=== PATIENT | female | born 2000 | race Caucasian/White ===

== ENCOUNTER 2019-10-09 15:09 | Outpatient (RCR) | payer OTHER, SELFPAY ==
[2019-10-03 17:03] VITALS: BP 115/63; PULSE 79
[2019-10-06 14:59] VITALS: BP 107/56; PULSE 83
--- NOTE | ~2019-10-09 | US_ITS ---
EXAMINATION: US umbilical doppler, US OB BPP wo non-stress EXAM DATE: 10/03/2019 16:53 (accession [id number]), 10/03/2019 16:54 (accession [id number]) INDICATION: IUGR. Third trimester. TECHNIQUE: Pelvic obstetrical transabdominal sonogram was performed by a technologist. There are mu ltiple grayscale and Doppler images available for interpretation. Umbilical artery Doppler readings. There are no prior studies for comparison. FINDINGS: There is a single fetus identified in vertex presentation with a heart rate of 154 beats pe r minute. The placenta is located in the posterior position. There is no sonographic evidence of ret roplacental hemorrhage identified. There is subjectively expected amount of amniotic fluid. BIOPHYSICAL PROFILE (performed by the technologist) breathing (30 sec sustained breathing in 30 minutes): 2 out of 2 movement (3 gross body movements in 30 minutes): 2 out of 2 tone (one episode of tjavpzq-gprvbciop-omqroiz limb movement): 2 out of 2 Amniotic fluid pocket (2 cm): 2 out of 2 Total score: 8 out of 8 UMBILICAL ARTERY DOPPLER Systolic/diastolic ratios obtained as follows: Near baby: 3.3 Mid aspect: 2.0 Near Placenta: 3.2 (The 5th -- 95th percentile range is 1.9-3.3). IMPRESSION: 1. Single fetus with heart rate of 154 bpm. 2. Normal biophysical profile score of 8 out of 8. 3. Normal umbilical artery Doppler ratios. Reviewed, dictated and finalized at location G. IMPRESSION: 1. Single fetus with heart rate of 154 bpm. 2. Normal biophysical profile score of 8 out of 8. 3. Normal umbilical artery Doppler ratios.
[2019-10-09 15:57] VITALS: BP 117/68; PULSE 73
== END 2019-10-12 09:58 | disposition home or self-care (01) ==
LOC: ANHOBOP 15:09
PROVIDERS: PCP Nurse Practitioner Adult Health; Visit Provider Obstetrics & Gynecology
DX: O36.5930 Maternal care for other known or suspected poor fetal growth, third trimester, not applicable or unspecified (principal); Z3A.36 36 weeks gestation of pregnancy; Z3A.37 37 weeks gestation of pregnancy
CPT/HCPCS: 59025; 76819; 76820

== ENCOUNTER 2019-10-10 18:43 | Inpatient (IN) | payer OTHER, SELFPAY ==
[2019-10-10 19:06] VITALS: BMI 35.7
--- NOTE | 2019-10-10 19:22 | LDADM ---
This patient, Liza Worthington, was admitted to Labor/Delivery/Recovery 109 on 10/10/19 at 18:43. Plans for labor, pain management and were discussed with patient. Patient/family oriented to hospital policies and general routines including ID bracelet, bed and alarms, visiting hours, pain management, procedures, bathroom and other care routines, personal items, smoking policy, room service/diet and guest tray routines, infant security routines, and visiting hours. Patient/Family are encouraged to report perceived risks to care and to ask questions if they do not understand what they are told or what they should do. See OBIX for further documentation.
[2019-10-10 19:34] LABS: Basophils Percent Auto 0.3 % (0.2-1.2); Eosinophils Absolute Auto 0.1 K/mm3 (0-0.3); Eosinophils Percent Auto 1.2 % (0-4.4); Hematocrit 34.8 % (37.0-47.0); Hemoglobin 11.6 g/dL (12.0-15.0); Immature Granulocyte Percent A 0.9 % (0-0.5); Lymphocytes Absolute Auto 1.93 K/mm3 (0.9-3.2); Lymphocytes Percent Auto 16.4 % (18.3-44.2); Mean Corpuscular HGB Conc 33.3 g/dl (32-36); Mean Corpuscular Hemoglobin 29.4 pg (26-34); Mean Corpuscular Volume 88.1 fl (80-100); Monocytes Percent Auto 8.3 % (2.6-8.5); Neutrophils Absolute Auto 8.6 K/mm3 (1.3-6.7); Neutrophils Percent Auto 72.9 % (45.5-73.1); Platelet Count Result 266 k/mm3 (150-375); Red Blood Count 3.95 M/mm3 (4.2-5.4); Red Cell Distribution Width 12.9 % (11.5-14.5); White Blood Count 11.8 K/mm3 (4.5-10.0)
[2019-10-10] MEDS: DINOPROSTONE 10 MG VAG INSERT VAGINAL (20:05)
[2019-10-10 20:07] VITALS: BP 125/57; PULSE 84
[2019-10-10] MEDS: AMPICILLIN 2 GM/NS 100 ML 2 GM/100 ML BAG IVPB (20:08)
[2019-10-11] VITALS (129 sets, daily range): BP systolic 54–143; BP diastolic 25–110; PULSE 42–189; RESP 11–18; TEMP 35.9–36.8; O2SAT 91–100
[2019-10-11] MEDS: AMPICILLIN 1 GM/NS 50 ML 1 GM/50 ML BAG IVPB ×4 (00:01→13:55)
[2019-10-11] MEDS: LACTATED RINGERS 1,000 ML 125 ML IV CONT ×3 (04:13→10:29)
--- NOTE | 2019-10-11 07:19 | PM.IMHP ---
H&P: HPI History of Present Illness Chief complaint: Induction Narrative: Liza Worthington is a 19 year old female G1 at 38 weeks gestation. care has been complicated by intrauterine growth restriction with weight less than 10th percentile on her last growth ultrasound 2 weeks ago. testing consisting of NST BPP and Doppler studies have all been reassuring. Presents today for induction of labor. Review of Systems Review of Systems: All systems reviewed & are unremarkable except as noted in HPI and below PMFSH Family History Family History (Updated 09/26/19 @ 12:32 by Travis Bennett RN) Other Unknown family medical history Social History Social History Smoking status: Former smoker Substance use: never Spiritual care concerns: No Meds Home Medications and Allergies Home Medications Medication Instructions Recorded Confirmed Type PNV cmb#95-ferrous fumarate-FA 1 tablet PO DAILY 09/26/19 10/03/19 History [] Allergies Allergy/AdvReac Type Severity Reaction Status Date / Time No Known Allergies Allergy Verified 09/26/19 12:30 Vital Signs Vital Signs - 24 hr 10/10/19 20:07 10/11/19 00:00 10/11/19 00:01 Temperature 36.5 C Pulse Rate 84 76 Blood Pressure 125/57 L 127/54 L 10/11/19 04:18 10/11/19 04:19 10/11/19 04:31 Temperature 36.7 C Pulse Rate 61 68 Blood Pressure 131/53 L 109/55 L 10/11/19 05:30 10/11/19 06:01 10/11/19 06:30 Temperature Pulse Rate 59 L 68 62 Blood Pressure 126/61 115/66 123/67 Exam Const: General: no acute distress Resp: Auscultation: clear to auscultation bilaterally Cardio: Rate: regular rate Rhythm: regular rhythm GI: Other: heart tones 130-140 fundal height 35cm. H&P: Results Labs Labs: Short CBC 10/10/19 Range/Units 19:24 WBC 11.8 H (4.5-10.0) K/mm3 Hgb 11.6 L (12.0-15.0) g/dL Hct 34.8 L (37.0-47.0) % Plt Count 266 (150-375) k/mm3 Assessment and Plan Assessment and plan (1) IUGR (intrauterine growth restriction): Status: Acute Assessment and Plan: will proceed with amniotomy and Pitocin induction expect vaginal delivery. Also discussed the patient that due to growth restriction and likely poor placental perfusion possibility of intolerance of labor has been reviewed. Again of expressed with her that our goal is to deliver vaginally but with any signs of distress remote from delivery likely need to proceed with delivery. Patient understands and will proceed accordingly.
[2019-10-11 07:30] LABS: Rapid Plasma Reagin Non-Reactive (NonReactive)
--- NOTE | 2019-10-11 09:10 | WPDANESEPPF ---
Anes - Initial Pre Proc Eval Date/Time: 10/11/19 09:10 Surgeon: Jay Larry MD Pre Op Diagnosis: Induction Patient Data Age: 19 Gender: F Height: 5 ft 2 in Weight: 88.7 kg Last Vital Signs Temp 36.7 C 10/11/19 07:00 Pulse 68 10/11/19 09:09 BP 94/47 L 10/11/19 09:09 Pulse Ox 100 10/11/19 09:08 Allergies Allergy/AdvReac Type Severity Reaction Status Date / Time No Known Allergies Allergy Verified 09/26/19 12:30 Home Medications Medication Instructions Recorded Confirmed Type PNV cmb#95-ferrous fumarate-FA 1 tablet PO DAILY 09/26/19 10/03/19 History [] Laboratory Tests 10/10/19 10/10/19 10/10/19 19:24 19:24 19:24 WBC 11.8 K/mm3 H K/mm3 (4.5-10.0) RBC 3.95 M/mm3 L M/mm3 (4.2-5.4) Hgb 11.6 g/dL L g/dL (12.0-15.0) Hct 34.8 % L % (37.0-47.0) MCV 88.1 fl fl (80-100) MCH 29.4 pg pg (26-34) MCHC 33.3 g/dl g/dl (32-36) RDW 12.9 % % (11.5-14.5) Plt Count 266 k/mm3 k/mm3 (150-375) MPV 12.0 fl H fl (7.4-10.4) Immature Gran % (Auto) 0.9 % H % (0-0.5) Neut % (Auto) 72.9 % % (45.5-73.1) Lymph % (Auto) 16.4 % L % (18.3-44.2) [place] % (Auto) 8.3 % % (2.6-8.5) Eos % (Auto) 1.2 % % (0-4.4) Baso % (Auto) 0.3 % % (0.2-1.2) Lymph # (Auto) 1.93 K/mm3 K/mm3 (0.9-3.2) [place] # (Auto) 1.0 K/mm3 H K/mm3 (0.1-0.6) Eos # (Auto) 0.1 K/mm3 K/mm3 (0-0.3) Baso # (Auto) 0.0 K/mm3 K/mm3 (0.0-0.1) Abs Immat Gran (auto) 0.10 K/mm3 H K/mm3 (0.00-0.031) Absolute Neuts (auto) 8.6 K/mm3 H K/mm3 (1.3-6.7) Absolute Nucleated RBC 0.0 K/mm3 K/mm3 (0.0-0.012) Nucleated RBC % 0.0 % % (0.0-0.2) RPR Non-reactive (NonReactive) Blood Type B Positive Antibody Screen Negative Patient hx anesthesia problems: none Family hx anesthesia problems: none [facility] Family History Family History Other Unknown family medical history Social History Social History Smoking status: Former smoker Substance use: never Spiritual care concerns: No Anes - Eval Final PreProcedure Day of Procedure 10/11/19 09:10 Patient weight: obese Heart: regular rate and rhythm Lungs: clear to auscultation Neurological: alert and oriented ASA classification: II Emergent: no Anesthetic plan: proceed Anesthesia type and monitoring: regional epidural and standard monitoring Informed Consent: The patient's anesthetic plan and its attendant risks and benefits were discussed with the patient/family/POA. Questions were solicited and answers provided to the satisfaction of the patient/family/POA.
--- NOTE | 2019-10-11 15:23 | P.PCNOB_ITS ---
OB - Delivery Note Procedure Delivery date: 10/11/19 Procedure: Procedures Operation Date: 10/11/19 14:30 <No data on this case meets the specified criteria> Intrapartal events: Intolerance Route of delivery: Indication for instrumentation: nonreassuring FHR tracing Specimen: Yes Estimated blood loss (mL): 300 Anesthesia type: Epidural Disposition: PACU Narrative: Patient prepped draped usual sterile manner for this procedure. Pfannenstiel incision was made carried down through the subcutaneous tissue to the fascia which was then extended bilaterally the length of the skin incision. Fascia was then superiorly and inferiorly from the rectus muscles peritoneum was entered bladder flap was developed. Uterine incision was made with clear fluid noted. Vertex was delivered section naso and oropharynx and the rest of baby was delivered without difficulty. Placenta removed manually uterus exteriorized and cleared of membranes and clots. Uterine incision approximated using 0 Monocryl in a running interlocking manner with good approximation and hemostasis noted. Uterus was returned to the abdomen gutters were cleared of serosanguineous fluid and clots and all subfascial tissue was noted to be hemostatic. Fascia was approximated using 0 Vicryl suture running manner with good approximation noted. Subcutaneous tissue was approximated 0 plain and mary alice then used to approximate skin edges. Patient tolerated procedure well immediate postop condition mother baby were both excellent. [place] Baby Weeks of gestation at delivery: 38 gender: Female Weight (pounds): 6 Weight (ounces): 1 score one minute: 8 score five minutes: 9
[2019-10-11] MEDS: ePHEDrine sulfate INJ 50 MG/ML AMPUL IV PUSH ×2 (16:18→16:23)
[2019-10-11] MEDS: OXYTOCIN 30 UNITS/NS 500 ML 30 UNITS/500 ML BAG 125 UNITS IV CONT (16:30)
[2019-10-11] MEDS: KETOROLAC 30 MG/ML VIAL (*BKC) IV PUSH (18:01)
--- NOTE | 2019-10-11 18:25 | OBPPTRN ---
Patient transferred to post room #291 via stretcher. Support person present. Oriented to unit, room, information board, rooming in, admission packet and security measures. Patient verbalizes understanding. Infant with patient.
[2019-10-11] MEDS: DEXTROSE 5%/0.45% SOD CHL 1,000 ML 125 ML IV CONT (20:15)
[2019-10-11] MEDS: KCL 20 MEQ/D5/0.45% SOD CHL 1,000 ML 125 ML IV CONT (20:15)
[2019-10-12 04:00] VITALS: BP 116/48; PULSE 62; RESP 16; TEMP 36.8; O2SAT 99
[2019-10-12] MEDS: SIMETHICONE 80 MG TAB.CHEW PO ×4 (04:30→23:21)
[2019-10-12 05:31] LABS: Basophils Percent Auto 0.2 % (0.2-1.2); Eosinophils Absolute Auto 0.1 K/mm3 (0-0.3); Eosinophils Percent Auto 0.5 % (0-4.4); Hematocrit 31.7 % (37.0-47.0); Hemoglobin 10.6 g/dL (12.0-15.0); Immature Granulocyte Absolute 0.12 K/mm3 (0.00-0.031); Immature Granulocyte Percent A 0.8 % (0-0.5); Lymphocytes Absolute Auto 1.78 K/mm3 (0.9-3.2); Lymphocytes Percent Auto 11.8 % (18.3-44.2); Mean Corpuscular HGB Conc 33.4 g/dl (32-36); Mean Corpuscular Hemoglobin 29.5 pg (26-34); Mean Corpuscular Volume 88.3 fl (80-100); Mean Platelet Volume 12.4 fl (7.4-10.4); Monocytes Absolute Auto 1.6 K/mm3 (0.1-0.6); Monocytes Percent Auto 10.2 % (2.6-8.5); Neutrophils Absolute Auto 11.6 K/mm3 (1.3-6.7); Neutrophils Percent Auto 76.5 % (45.5-73.1); Platelet Count Result 201 k/mm3 (150-375); Red Blood Count 3.59 M/mm3 (4.2-5.4); Red Cell Distribution Width 12.9 % (11.5-14.5); White Blood Count 15.1 K/mm3 (4.5-10.0)
[2019-10-12] MEDS: DOCUSATE SODIUM 100 MG CAPSULE PO ×2 (07:10→15:31)
[2019-10-12] MEDS: KETOROLAC 30 MG/ML VIAL (*BKC) IV PUSH (07:11)
[2019-10-12] MEDS: MULTIVIT/MIN/PREN/FOL AC/IRON TABLET 1 TAB PO (07:12)
[2019-10-12 08:00] VITALS: BP 127/75; PULSE 76; RESP 18; TEMP 36.6; O2SAT 100
--- NOTE | 2019-10-12 08:45 | PC.NURSE ---
Consulted with patient, mother reports infant has been sleepy and difficult to wake to feed. Mother chooses to supplement after each until her milk is in. Reviewed feeding cues, frequencies, duration of feedings, feeding elimination flow sheet, and signs of adequate intake. Demonstrated stimulation techniques to wake for feeding. Assisted with infant to breast. Several attempts made. Mother states she wishes to bottle feed at this time and will attempt to breast next feeding. Instructed mother to call out for RN assistance if she is unable to latch infant for feeding or she has discomfort with nursing. Instructed feeding should be initiated three hours from start of last feeding or if feeding cues are noted before. Mother voiced understanding of information shared.
--- NOTE | 2019-10-12 09:38 | PM.OBDSVD ---
OB - DS: Summary OB Procedures : None OB Procedures Intrapartum: OB Procedures: : None Peripartum Data Procedures: Procedures Operation Date: 10/11/19 14:30 Actual Procedures Side Surgeon p Section Not Applicable Jay Larry MD Time Spent with Patient Time attestation: Total time spent providing and/or coordinating discharge services: DS: Data Data Completed and Pending Pending studies at discharge: Pending at discharge 10/11/19 15:03 Surgical [PTH] Routine Labs on day of discharge: Labs from last 24 hours 10/12/19 04:27 WBC 15.1 H RBC 3.59 L Hgb 10.6 L Hct 31.7 L MCV 88.3 MCH 29.5 MCHC 33.4 RDW 12.9 Plt Count 201 MPV 12.4 H Immature Gran % (Auto) 0.8 H Neut % (Auto) 76.5 H Lymph % (Auto) 11.8 L [place] % (Auto) 10.2 H Eos % (Auto) 0.5 Baso % (Auto) 0.2 Lymph # (Auto) 1.78 [place] # (Auto) 1.6 H Eos # (Auto) 0.1 Baso # (Auto) 0.0 Abs Immat Gran (auto) 0.12 H Absolute Neuts (auto) 11.6 H Absolute Nucleated RBC 0.0 Nucleated RBC % 0.0 Discharge Plan Discharge Discharging Clinician: Jay Larry Patient Disposition: Home, Self-Care Activity: as tolerated Diet: as tolerated Wound Care Instructions: incision open to air Discharge Instructions: office wednesday for staple removal Patient Instructions: Antibiotic Form Stand Alone Forms: General Discharge Information Follow-up/Referrals: Jay Larry MD [Physician] - 3 Weeks Discharge Medications: New hydrocodone-acetaminophen 5-325 mg Tablet 1 tab PO Q3H PRN (Reason: Moderate Pain (4-6)) Qty: 20 RF: 0 ibuprofen 600 mg Tablet 600 mg PO Q6H PRN (Reason: Cramping) Qty: 30 RF: 0 Continued PNV cmb#95-ferrous fumarate-FA [] 28 mg iron- 800 mcg Tablet 1 tablet PO DAILY RF: 0 Date of admission: 10/10/19 18:43 Primary Care Provider: Patricio*Natalya Admitting Provider: Jay Larry Attending physician on admission: Jay Larry
--- NOTE | 2019-10-12 10:17 | WPDANLDNPN2 ---
Anes-Prog Note L&D-Neuraxial Date/Time: 10/12/19 10:17 Neuraxial medications: intrathecal PF morphine Opiod-related complaints: none Patient feedback: Patient satisfied with post-operative pain management.
--- NOTE | 2019-10-12 10:17 | WPDANLDPN2 ---
Anes-Prog Note L&D Date/Time: 10/12/19 10:17 Comfortable throughout: section Neuraxial method: spinal Epidural/Spinal procedure site: clean & non-tender Neuro status: Neuro function grossly intact. Cardiovascular status: normal Respiratory status: normal Airway patency: baseline Mental status: baseline Post-Op hydration status: normal Vital Signs: Last Vital Signs Temp 36.6 C 10/12/19 08:00 Pulse 76 10/12/19 08:00 Resp 18 10/12/19 08:00 BP 127/75 10/12/19 08:00 Pulse Ox 100 10/12/19 08:00 I/O: Intake & Output 10/11/19 10/12/19 10/12/19 23:59 07:59 15:59 Intake Total 300 400 800 Output Total 810 1100 400 Balance -510 -700 400 Post-procedural complaints: none Patient feedback: Patient satisfied with anesthetic care.
[2019-10-12 12:30] VITALS: BP 100/50; PULSE 70; RESP 18; TEMP 36.7
--- NOTE | 2019-10-12 12:45 | PC.NURSE ---
Mother called out for assist with . Demonstrated stimulation techniques to wake for feeding. Assisted with to breast. Reviewed positioning/alignment in football, holding breast in C hold and guided asymmetrical latch on. Infant was able to latch correctly. nursed eagerly, with steady draws and occasional swallowing noted. Reviewed signs of a correct latch, effective nursing and suck swallow ratio. was able to maintain latch without discomfort to mother. Nipple care reviewed. Suggested mother stimulate during feeding to keep infant awake and nursing effectively for increased intake and to assist maintaining deep latch. Instructed mother to call out for RN assistance if she is unable to latch infant for feeding or she has discomfort with nursing. Instructed feeding should be initiated three hours from start of last feeding or if feeding cues are noted before. Mother voiced understanding of information shared.
[2019-10-12] MEDS: IBUPROFEN 600 MG TABLET PO ×2 (15:31→23:22)
[2019-10-12 20:30] VITALS: BP 96/46; PULSE 61; RESP 16; TEMP 36.6; O2SAT 100
[2019-10-13] MEDS: SIMETHICONE 80 MG TAB.CHEW PO (04:29)
[2019-10-13] MEDS: IBUPROFEN 600 MG TABLET PO (08:25)
[2019-10-13] MEDS: MULTIVIT/MIN/PREN/FOL AC/IRON TABLET 1 TAB PO (08:25)
[2019-10-13] MEDS: DOCUSATE SODIUM 100 MG CAPSULE PO (08:25)
[2019-10-13 09:00] VITALS: BP 122/69; PULSE 70; RESP 18; TEMP 37.5; O2SAT 99
[2019-10-16 11:04] VITALS: BP 97/77; PULSE 67; RESP 16; TEMP 37.1; O2SAT 99
--- NOTE | 2019-10-17 09:02 | PM.OBDSVD ---
DS: Diagnosis Admitting Diagnosis Admitting Diagnosis: Encounter for supervision of normal , unspecified, third trimester OB - DS: Summary OB Procedures : None OB Procedures Intrapartum: Spontaneous Vag Delivery OB Procedures: : None Peripartum Data Procedures: Procedures Operation Date: 10/11/19 14:30 Actual Procedures Side Surgeon p Section Not Applicable Jay Larry MD Time Spent with Patient Time attestation: Total time spent providing and/or coordinating discharge services: DS: Data Data Completed and Pending Completed studies during hospitalization: Pending at discharge 10/11/19 15:03 Surgical [PTH] Routine Discharge Plan Discharge Consulting providers: Jose Gunn Discharging Clinician: Jay Larry Patient Disposition: Home, Self-Care Activity: as tolerated Diet: as tolerated Wound Care Instructions: incision open to air Discharge Instructions: Education: Mom and Baby Guide Given to: Mother Follow-Up: Call your delivering provider's office for an appointment to be seen in: 3 weeks office wednesday for staple removal Mom and baby should come to the [facility] for the follow-up appointment. Appointment Date/Time: October 16, 2019 at 11:00 am What to expect at your follow-up visit: Physical Assessment Call [phone] if you are unable to keep your appointment time. BREAST CARE: 1. Wear a snug supportive bra. 2. For engorgement discomfort: Breast Feeding: A. Apply warm moist washcloths B. Express milk as needed to relieve engorgement C. Wear loose clothing Bottle Feeding: A. May apply ice packs 3. For sore nipples: A. Identify correct latch-on B. Apply warm moist washcloths before and after nursing C. Air dry nipples after nursing D. May apply Lansinoh cream to nipples ABDOMINAL INCISION: (if applicable) 1. Allow incision to air dry 2. Do NOT use lotions for powders on your incision 3. When showering, allow soap and water to run over the incision, but do not wash incision EPISIOTOMY/PERINEAL CARE: 1. Change your pad frequently throughout the day 2. You may take sitz baths several times a day (fill your bathtub with warm water and soak for 20 minutes.) Do NOT bathe in the water 3. No tub baths until seen by your physician - You may shower ACTIVITY: 1. Rest as much as possible. 2. Do not exercise or lift anything heavier than your baby (such as laundry or other children.) 3. Avoid stairs or driving as much as possible. 4. Do not put anything into the vagina. No douching, tampons, or sexual activity until seen by physician. NOTIFY PHYSICIAN IF YOU HAVE ANY QUESTIONS OR IF ANY OF THE FOLLOWING SYMPTOMS OCCUR: 1. If your incision becomes red, swollen, or more painful than what you have experienced in the hospital. 2. If your vaginal bleeding becomes foul smelling. 3. If your vaginal bleeding becomes more heavy than a period or if your bleeding changes from pink to bright red. However, you may pass an occasional walnut-sized clot once or twice for the first week . 4. If you experience a sharp, shooting pain in you calves. 5. If you discover a hard, reddened area on your breast or if you experience flu-like symptoms. DIET: 1. Eat regular, well-balanced meals. 2. Drink plenty of fluids daily. If , drink to thirst. Stand Alone Forms: General Discharge Information Follow-up/Referrals: Jay Larry MD [Physician] - 3 Weeks Discharge Medications: New hydrocodone-acetaminophen 5-325 mg Tablet 1 tab PO Q3H PRN (Reason: Moderate Pain (4-6)) Qty: 20 RF: 0 ibuprofen 600 mg Tablet 600 mg PO Q6H PRN (Reason: Cramping) Qty: 30 RF: 0 Continued PNV cmb#95-ferrous fumarate-FA [] 28 mg iron- 800 mcg Tablet 1 tablet PO DAILY RF: 0 Date of admission: 10/10/19 18:43
== END 2019-10-13 13:53 | disposition home or self-care (01) | DRG 540 ==
LOC: ANHLDR 18:52 → ANHOB2 10-11 18:43
PROVIDERS: Admitting Provider Obstetrics & Gynecology; PCP Nurse Practitioner Adult Health; Visit Provider Obstetrics & Gynecology
PROC: 10D00Z1 Extraction of Products of Conception, Low, Open Approach (ICD-10-PCS; CPT 59514; principal; 2019-10-11 14:30)
DX: O36.5930 Maternal care for other known or suspected poor fetal growth, third trimester, not applicable or unspecified (principal); Z37.0 Single live birth; Z3A.37 37 weeks gestation of pregnancy; O99.824 Streptococcus B carrier state complicating childbirth; O36.8330 Maternal care for abnormalities of the fetal heart rate or rhythm, third trimester, not applicable or unspecified; O99.214 Obesity complicating childbirth; E66.9 Obesity, unspecified
CPT/HCPCS: 36415; 85025; 86592; 86850; 86900; 86901; 88307; A9270; J0131; J0290; J1885; J2274; J2590; J2795; J3480; J7120

== ENCOUNTER 2022-05-20 19:31 | Emergency (ER) | payer OTHER, SELFPAY ==
[2022-05-20 19:37] VITALS: BP 131/81; PULSE 76; RESP 16; TEMP 36.5; O2SAT 100
[2022-05-20 19:54] LABS: Basophils Percent Auto 0.3 % (0.2-1.2); Eosinophils Percent Auto 0.2 % (0-4.4); Hematocrit 39.6 % (37.0-47.0); Hemoglobin 13.7 g/dL (12.0-15.0); Immature Granulocyte Absolute 0.07 K/mm3 (0.00-0.031); Immature Granulocyte Percent A 0.5 % (0-0.5); Lymphocytes Absolute Auto 1.56 K/mm3 (0.9-3.2); Lymphocytes Percent Auto 12.2 % (18.3-44.2); Mean Corpuscular HGB Conc 34.6 g/dl (32-36); Mean Corpuscular Hemoglobin 29.5 pg (26-34); Mean Corpuscular Volume 85.2 fl (80-100); Monocytes Absolute Auto 0.5 K/mm3 (0.1-0.6); Monocytes Percent Auto 3.9 % (2.6-8.5); Neutrophils Absolute Auto 10.6 K/mm3 (1.3-6.7); Neutrophils Percent Auto 82.9 % (45.5-73.1); Platelet Count Result 294 k/mm3 (150-375); Red Blood Count 4.65 M/mm3 (4.2-5.4); Red Cell Distribution Width 12.9 % (11.5-14.5); White Blood Count 12.8 K/mm3 (4.5-10.0)
[2022-05-20 20:07] LABS: Alanine Aminotransferase 17 U/L (6-35); Alkaline Phosphatase 73 U/L (38-126); Anion Gap 10 mmol/L (8-16); Aspartate Amino Transferase 23 U/L (14-36); Bilirubin,Total 0.8 mg/dL (0.2-1.3); Blood Urea Nitrogen 7 mg/dL (7-17); Calcium 9.5 mg/dL (8.4-10.2); Carbon Dioxide 21 mmol/L (22-30); Chloride 106 mmol/L (98-107); Estimated CRCL calculation 128 ml/min; Estimated Glomerular Filt Rate > 60; Glucose 110 mg/dL (65-110); Lipase 94 U/L (23-300); Potassium 3.9 mmol/L (3.4-5.0); Sodium 137 mmol/L (137-145)
--- NOTE | 2022-05-20 22:28 | ED.GENADULT ---
HPI - General Adult General Chief complaint: Nausea/Vomiting/Diarrhea Stated complaint: vomiting Time Seen by Provider: 05/20/22 21:44 History of Present Illness HPI narrative: this is a 22-year-old female presenting to ED with nausea vomiting and diarrhea. Patient has chronic diarrhea since cholecystectomy 10 years of age. However last 4 days she has also developed nausea and vomiting. She has been unable to tolerate liquids or solids. Patient also has a burning pain in the epigastric area that is nonradiating, 5 out 10 intensity constant. She has had pain like this before in past when she was diagnosed with gastritis. There were no exacerbating or alleviating factors. Patient denies fever, chills, chest pain, difficulty breathing or urinary symptoms. Related Data Allergies Allergy/AdvReac Type Severity Reaction Status Date / Time No Known Allergies Allergy Verified 05/11/22 08:31 Review of Systems Review of Systems: CONSTITUTIONAL: Denies night sweats. EYES: No eye pain ENT: Denies rhinorrhea CARDIOVASCULAR: Denies palpitations RESPIRATORY: Denies hemoptysis GASTROINTESTINAL: Denies hematemesis GENITOURINARY: Denies hematuria. SKIN: Denies rash MUSCULOSKELETAL: Denies myalgia. NEUROLOGIC: Denies weakness. PSYCHIATRIC: Denies delusions PMFSH Past Medical History Medical History (Updated 05/21/22 @ 00:37 by Clarke Parra MD) Abnormal Pap smear of cervix 09-04-2020 LGSIL + HPV colpo done 10/09/2020 Benign rpt pap in [facility] year [facility] Encounter for screening examination for sexually transmitted disease Suppression of menstruation Surgical History Surgical History History of 10/11/19 primary c/s-- distress History of cholecystectomy 2017 History of colposcopy (10/09/20) benign History of ovarian cystectomy 2017 History of tonsillectomy as a child Family History Family History Sibling Cerebral palsy sister Mother Systemic lupus erythematosus Social History Social History Smoking status: Former smoker Alcohol intake: never Substance use: never Substance use type: does not use Additional living arrangements comments: single Additional occupation/education comments: [employer] Gender identity (if verbalized by the patient): Female Sexual Orientation (if Verbalized by the Patient): Straight or Heterosexual Spiritual care concerns: No Exam Narrative: APPEARANCE: patient is lying in the bed with a blanket pulled up over her head and wearing snuggie. She is pleasant polite during the interview but appears uncomfortable. Head: atraumatic. EYES: EOMI, NOSE: Atraumatic NECK: Trachea midline RESPIRATORY: No increased rate of breathing CARDIOVASCULAR: RRR, ABDOMINAL: Mild tenderness palpation in the epigastric area but no distention, guarding or rebound. MUSCULOSKELETAl: No obvious deformities NEURO: Alert. Moving 4/4 extremities SKIN:: Warm, dry. Normal color PSYCHIATRIC: Normal affect Course Vital Signs Vital signs: Vital Signs Temperature 97.7 F 05/20/22 19:37 Pulse Rate 76 05/20/22 19:37 Respiratory Rate 16 05/20/22 19:37 Blood Pressure 131/81 05/20/22 19:37 Pulse Oximetry 100 05/20/22 19:37 Oxygen Delivery Room Air 05/20/22 19:37 Temperature 97.7 F 05/20/22 19:37 Pulse Rate 88 05/21/22 01:08 Respiratory Rate 18 05/21/22 01:08 Blood Pressure 118/77 05/21/22 01:08 Pulse Oximetry 99 05/21/22 01:08 Oxygen Delivery Room Air 05/20/22 19:37 Medical Decision Making MDM Narrative Medical decision making narrative: Is a 22-year-old female presenting with nausea and vomiting diarrhea x4 days. Lab works been ordered. She has been given symptomatic treatment. Abdomen is benign. VSS. Workup was significant for a previously unk
[2022-05-20] MEDS: ONDANSETRON INJ 4 MG/2 ML VIAL IV PUSH (22:55)
[2022-05-20] MEDS: SODIUM CHLORIDE 0.9% IV 2,000 ML 999 ML IV CONT (22:55)
[2022-05-20] MEDS: diphenhydrAMINE HCl INJ 50 MG/ML VIAL 25 MG IV PUSH (22:56)
[2022-05-20] MEDS: FAMOTIDINE 20 MG/2 ML VIAL IV PUSH (22:56)
[2022-05-20] MEDS: MAG HYDROX/AL HYDROX/SIMETH 30 ML UDC PO (22:56)
[2022-05-20 23:10] LABS: Appearance Urine Slightly Cloudy (Clear); Bilirubin Urine Negative (Negative); Blood Urine Negative (Negative); Color Urine Yellow (Yellow); Glucose Urine UA Negative (Negative); Ketones Urine 4+ mg/dL (Negative); Leukocyte Esterase Ur Negative LEU/UL (Negative); Nitrate Urine Negative (Negative); Protein Urine 2+ mg/dL (Negative); Specific Grav Ur >= 1.030 (1.001-1.035); Urobilinogen Urine 0.2 mg/dL (<2.0); pH Urine 5.5 (5.0-9.0)
[2022-05-20 23:16] LABS: Bacteria Urine Trace /hpf; Calcium Oxalate Crystals Urine Present /hpf; Mucus Urine Moderate /lpf; Squamous Epithelial Cell Urine Few /hpf (Few); WBC Urine 0-3 /hpf
[2022-05-20 23:17] LABS: Add Urine Microscopic? YES
[2022-05-20] MEDS: PROCHLORPERAZINE EDISYLATE 10 MG/2 ML VIAL IV PUSH (23:24)
[2022-05-20 23:36] LABS: Influenza A QL RT-PCR Negative (Negative); Influenza B QL RT-PCR Negative (Negative); SARS-CoV-2 RNA PCR Negative
--- NOTE | 2022-05-21 00:34 | ED.GENADULT ---
HPI - General Adult General Chief complaint: Nausea/Vomiting/Diarrhea Stated complaint: vomiting Time Seen by Provider: 05/20/22 21:44 Related Data Allergies Allergy/AdvReac Type Severity Reaction Status Date / Time No Known Allergies Allergy Verified 05/11/22 08:31 [facility] Past Medical History Medical History (Updated 05/21/22 @ 00:37 by Clarke Parra MD) Abnormal Pap smear of cervix 09-04-2020 LGSIL + HPV colpo done 10/09/2020 Benign rpt pap in 1 year per [facility] Encounter for screening examination for sexually transmitted disease Suppression of menstruation Surgical History Surgical History History of 10/11/19 primary c/s-- distress History of cholecystectomy 2017 History of colposcopy (10/09/20) benign History of ovarian cystectomy 2017 History of tonsillectomy as a child Family History Family History Sibling Cerebral palsy sister Mother Systemic lupus erythematosus Social History Social History Smoking status: Former smoker Alcohol intake: never Substance use: never Substance use type: does not use Additional living arrangements comments: single Additional occupation/education comments: [employer] Gender identity (if verbalized by the patient): Female Sexual Orientation (if Verbalized by the Patient): Straight or Heterosexual Spiritual care concerns: No Course Vital Signs Vital signs: Vital Signs Temperature 97.7 F 05/20/22 19:37 Pulse Rate 76 05/20/22 19:37 Respiratory Rate 16 05/20/22 19:37 Blood Pressure 131/81 05/20/22 19:37 Pulse Oximetry 100 05/20/22 19:37 Oxygen Delivery Room Air 05/20/22 19:37 Temperature 97.7 F 05/20/22 19:37 Pulse Rate 76 05/20/22 19:37 Respiratory Rate 16 05/20/22 19:37 Blood Pressure 131/81 05/20/22 19:37 Pulse Oximetry 100 05/20/22 19:37 Oxygen Delivery Room Air 05/20/22 19:37 Medical Decision Making [facility] Narrative Medical decision making narrative: This is a 22-year-old female presenting with nausea and vomiting. Patient has chronic history of diarrhea and vomiting issues including gastritis. She will be treated symptomatically. Lab work UA, Upreg have been ordred. Patient's test came back positive. She is on a patch control. Patient is not having any vaginal bleeding or abdominal discomfort and no indication for transvaginal ultrasound this time. Lab work was unremarkable. Urine was positive for ketones but no evidence of infection. Upon re-evaluation patient is feeling much better. She will be discharged with doxylamine and vitamin B6 for nausea and vomiting. She is instructed to follow-up with her OBGYN for further management of her . She is instructed return if she develops vaginal bleeding / abdominal pain or cannot tolerate p.o.. Vital Signs Vital Signs: Vital Signs Temperature 97.7 F 05/20/22 19:37 Pulse Rate 76 05/20/22 19:37 Respiratory Rate 16 05/20/22 19:37 Blood Pressure 131/81 05/20/22 19:37 Pulse Oximetry 100 05/20/22 19:37 Oxygen Delivery Room Air 05/20/22 19:37 Temperature 97.7 F 05/20/22 19:37 Pulse Rate 76 05/20/22 19:37 Respiratory Rate 16 05/20/22 19:37 Blood Pressure 131/81 05/20/22 19:37 Pulse Oximetry 100 05/20/22 19:37 Oxygen Delivery Room Air 05/20/22 19:37 Lab Data 05/20/22 19:46 05/20/22 19:46 Labs: Lab Results 05/20/22 05/20/22 05/20/22 Range/Units 19:46 19:46 22:35 WBC 12.8 H (4.5-10.0) K/mm3 RBC 4.65 (4.2-5.4) M/mm3 Hgb 13.7 D (12.0-15.0) g/dL Hct 39.6 (37.0-47.0) % MCV 85.2 (80-100) fl MCH 29.5 (26-34) pg MCHC 34.6 (32-36) g/dl RDW 12.9 (11.5-14.5) % Plt Count 294 (150-375) k/mm3 MPV 11.0 H (7.4-1
[2022-05-21 01:08] VITALS: BP 118/77; PULSE 88; RESP 18; O2SAT 99
== END 2022-05-21 01:10 | disposition home or self-care (01) ==
PROVIDERS: Emergency Provider Emergency Medicine; PCP Nurse Practitioner Adult Health
DX: O21.9 Vomiting of pregnancy, unspecified (principal); Z20.822 Contact with and (suspected) exposure to COVID-19; Z3A.00 Weeks of gestation of pregnancy not specified; Z87.891 Personal history of nicotine dependence
CPT/HCPCS: 36415; 80053; 81001; 81025; 83690; 85025; 87636; 96361; 96374; 96375; 99284; A9270; J0780; J1200; J2405; J7030

== ENCOUNTER 2022-06-11 10:02 | Emergency (ER) | payer OTHER, SELFPAY ==
[2022-06-11 10:10] VITALS: BP 94/60; PULSE 84; RESP 14; TEMP 36.1; O2SAT 100
[2022-06-11 11:58] LABS: Basophils Percent Auto 0.2 % (0.2-1.2); Eosinophils Percent Auto 0.1 % (0-4.4); Hematocrit 37.8 % (37.0-47.0); Hemoglobin 13.1 g/dL (12.0-15.0); Immature Granulocyte Absolute 0.07 K/mm3 (0.00-0.031); Immature Granulocyte Percent A 0.5 % (0-0.5); Lymphocytes Absolute Auto 1.11 K/mm3 (0.9-3.2); Lymphocytes Percent Auto 7.6 % (18.3-44.2); Mean Corpuscular HGB Conc 34.7 g/dl (32-36); Mean Corpuscular Hemoglobin 29.9 pg (26-34); Mean Corpuscular Volume 86.3 fl (80-100); Mean Platelet Volume 10.8 fl (7.4-10.4); Monocytes Percent Auto 7.1 % (2.6-8.5); Neutrophils Absolute Auto 12.4 K/mm3 (1.3-6.7); Neutrophils Percent Auto 84.5 % (45.5-73.1); Platelet Count Result 248 k/mm3 (150-375); Red Blood Count 4.38 M/mm3 (4.2-5.4); Red Cell Distribution Width 13.2 % (11.5-14.5); White Blood Count 14.6 K/mm3 (4.5-10.0)
[2022-06-11 12:00] LABS: Add Urine Microscopic? YES; Appearance Urine Slightly Cloudy (Clear); Bilirubin Urine 1+ (Negative); Blood Urine Negative (Negative); Color Urine Yellow (Yellow); Glucose Urine UA Negative (Negative); Ketones Urine 3+ mg/dL (Negative); Leukocyte Esterase Ur Negative LEU/UL (Negative); Nitrate Urine Negative (Negative); Protein Urine 1+ mg/dL (Negative); Specific Grav Ur >= 1.030 (1.001-1.035); Urobilinogen Urine 0.2 mg/dL (<2.0)
[2022-06-11 12:09] LABS: Alanine Aminotransferase 24 U/L (6-35); Albumin Level 4.7 g/dL (3.5-5.1); Alkaline Phosphatase 80 U/L (38-126); Anion Gap 8 mmol/L (8-16); Aspartate Amino Transferase 39 U/L (14-36); Bilirubin,Total 0.7 mg/dL (0.2-1.3); Blood Urea Nitrogen 6 mg/dL (7-17); Calcium 9.2 mg/dL (8.4-10.2); Carbon Dioxide 24 mmol/L (22-30); Chloride 102 mmol/L (98-107); Estimated CRCL calculation 129 ml/min; Estimated Glomerular Filt Rate > 60; Glucose 91 mg/dL (65-110); Lipase 53 U/L (23-300); Potassium 3.6 mmol/L (3.4-5.0); Sodium 134 mmol/L (137-145)
[2022-06-11 12:18] LABS: Bacteria Urine Trace /hpf; Calcium Oxalate Crystals Urine Present /hpf; Mucus Urine Moderate /lpf; Squamous Epithelial Cell Urine Few /hpf (Few); WBC Urine 0-3 /hpf
[2022-06-11] MEDS: DEXTROSE 5%/0.9% SOD CHL 1,000 ML 999 ML IV CONT (12:32)
[2022-06-11] MEDS: METOCLOPRAMIDE HCL INJ 10 MG/2 ML VIAL IV PUSH (12:32)
[2022-06-11] MEDS: ONDANSETRON INJ 4 MG/2 ML VIAL 8 MG IV PUSH (12:34)
--- NOTE | 2022-06-11 13:05 | ED.GENADULT ---
HPI - General Adult General Chief complaint: Nausea/Vomiting/Diarrhea Stated complaint: N/V 12WKS IUP Time Seen by Provider: 06/11/22 11:32 History of Present Illness HPI narrative: This is a female at 12 weeks presenting ED with nausea and vomiting. Patient has been having persistent nausea vomiting throughout her . She has been treating at home with Zofran, B6 and doxylamine. Over the last several days it has gotten progressively worse and she has been unable to keep down fluids or her anti nausea meds. She was told to come to the hospital by her primary care physician because he she was likely dehydrated. Patient also has a headache but denies any other complaints at this time. Related Data Allergies Allergy/AdvReac Type Severity Reaction Status Date / Time No Known Allergies Allergy Verified 06/09/22 10:51 Review of Systems Review of Systems: CONSTITUTIONAL: Denies night sweats. EYES: No eye pain ENT: Denies rhinorrhea CARDIOVASCULAR: Denies palpitations RESPIRATORY: Denies hemoptysis GASTROINTESTINAL: Denies hematemesis GENITOURINARY: Denies hematuria. SKIN: Denies rash MUSCULOSKELETAL: Denies myalgia. NEUROLOGIC: Denies weakness. PSYCHIATRIC: Denies delusions PMFSH Past Medical History Medical History Abnormal Pap smear of cervix 09-04-2020 LGSIL + HPV colpo done 10/09/2020 Benign rpt pap in 1 year per [facility] Encounter for screening examination for sexually transmitted disease Suppression of menstruation Surgical History Surgical History History of 10/11/19 primary c/s-- distress History of cholecystectomy 2017 History of colposcopy (10/09/20) benign History of ovarian cystectomy 2017 History of tonsillectomy as a child Family History Family History Sibling Cerebral palsy sister Mother Systemic lupus erythematosus Social History Social History Smoking status: Former smoker Alcohol intake: never Substance use: never Substance use type: does not use Additional living arrangements comments: single Additional occupation/education comments: [place] Gender identity (if verbalized by the patient): Female Sexual Orientation (if Verbalized by the Patient): Straight or Heterosexual Spiritual care concerns: No Exam Narrative: APPEARANCE: No apparent distress. Head: atraumatic. EYES: EOMI, NOSE: Atraumatic NECK: Trachea midline RESPIRATORY: No increased rate of breathing CARDIOVASCULAR: RRR, ABDOMINAL: Non-distended , soft, nontender no guarding rebound MUSCULOSKELETAl: No obvious deformities NEURO: Alert. Moving 4/4 extremities SKIN:: Warm, dry. Normal color PSYCHIATRIC: Normal affect Course Vital Signs Vital signs: Vital Signs Temperature 97 F L 06/11/22 10:10 Pulse Rate 84 06/11/22 10:10 Respiratory Rate 14 06/11/22 10:10 Blood Pressure 94/60 L 06/11/22 10:10 Pulse Oximetry 100 06/11/22 10:10 Oxygen Delivery Room Air 06/11/22 10:10 Temperature 98.4 F 06/11/22 14:02 Pulse Rate 71 06/11/22 14:02 Respiratory Rate 18 06/11/22 14:02 Blood Pressure 110/53 L 06/11/22 14:02 Pulse Oximetry 100 06/11/22 14:02 Oxygen Delivery Room Air 06/11/22 10:10 Medical Decision Making MDM Narrative Medical decision making narrative: is a pleasant 22 old female presenting with nausea and vomiting of . There is concern for hyperemesis gravidarum. Basic lab work and urinalysis been ordered. She will be rehydrated with D5 normal saline and given IV Reglan and Zofran. Lab work significant for a white blood cell count of 14. No evidence of infection at this time. Kidney function was normal. Urine did have ketones. Upon re-evaluation patient is feeling much bet
[2022-06-11 14:02] VITALS: BP 110/53; PULSE 71; RESP 18; TEMP 36.9; O2SAT 100
[2022-06-11 14:04] LABS: Influenza A QL RT-PCR Negative (Negative); Influenza B QL RT-PCR Negative (Negative); RSV RNA, RT-PCR Negative (Negative); SARS-CoV-2 RNA PCR Negative
== END 2022-06-11 15:34 | disposition home or self-care (01) ==
PROVIDERS: Emergency Provider Emergency Medicine; PCP Nurse Practitioner Adult Health
DX: O21.0 Mild hyperemesis gravidarum (principal); Z20.822 Contact with and (suspected) exposure to COVID-19; Z87.891 Personal history of nicotine dependence; Z3A.12 12 weeks gestation of pregnancy
CPT/HCPCS: 36415; 80053; 81001; 81025; 83690; 85025; 87637; 96361; 96365; 96375; 99284; J0131; J2405; J2765; J7042

== ENCOUNTER 2022-07-06 16:46 | Outpatient (CLI) | payer OTHER, SELFPAY ==
[2022-07-06 17:11] LABS: Basophils Percent Auto 0.2 % (0.2-1.2); Eosinophils Absolute Auto 0.1 K/mm3 (0-0.3); Eosinophils Percent Auto 1.5 % (0-4.4); Hematocrit 36.4 % (37.0-47.0); Hemoglobin 12.5 g/dL (12.0-15.0); Immature Granulocyte Absolute 0.04 K/mm3 (0.00-0.031); Immature Granulocyte Percent A 0.4 % (0-0.5); Lymphocytes Absolute Auto 2.11 K/mm3 (0.9-3.2); Lymphocytes Percent Auto 21.9 % (18.3-44.2); Mean Corpuscular HGB Conc 34.3 g/dl (32-36); Mean Corpuscular Volume 87.5 fl (80-100); Mean Platelet Volume 10.7 fl (7.4-10.4); Monocytes Absolute Auto 0.8 K/mm3 (0.1-0.6); Monocytes Percent Auto 8.1 % (2.6-8.5); Neutrophils Absolute Auto 6.5 K/mm3 (1.3-6.7); Neutrophils Percent Auto 67.9 % (45.5-73.1); Platelet Count Result 261 k/mm3 (150-375); Red Blood Count 4.16 M/mm3 (4.2-5.4); Red Cell Distribution Width 13.4 % (11.5-14.5); White Blood Count 9.6 K/mm3 (4.5-10.0)
[2022-07-06 18:14] LABS: HIV 1/2 Ab P24 Ag Result Negative (Negative)
[2022-07-06 19:05] LABS: Hepatitis B Surface Antigen Negative (Negative); Rubella IgG Antibody 34.4 IU/ML
[2022-07-07 07:07] LABS: Rapid Plasma Reagin Non-Reactive (NonReactive)
[2022-07-10 18:33] LABS: CMV IgG Antibody <0.60 U/mL (<0.60)
== END 2022-07-06 16:47 | disposition home or self-care (01) ==
LOC: ANHLAB 16:48
PROVIDERS: PCP Nurse Practitioner Adult Health; Visit Provider Obstetrics & Gynecology
DX: N94.89 Other specified conditions associated with female genital organs and menstrual cycle (principal)
CPT/HCPCS: 36415; 84702; 85025; 86592; 86644; 86703; 86747; 86762; 86787; 86850; 86900; 86901; 87086; 87340; G0432

== ENCOUNTER 2022-07-20 13:07 | Observation (INO) | payer OTHER, SELFPAY ==
--- NOTE | ~2022-07-20 | MR_ITS ---
EXAMINATION: MR abdomen wo con DATE: 07/21/2022 07:12 INDICATION: Right lower quadrant abdominal pain. TECHNIQUE: Magnetic resonance imaging (MRI) of the abdomen was performed without intravenous contrast . COMPARISON: None. FINDINGS: There are no dilated loops of bowel. The appendix is normal. The maternal kidneys are normal. There a re no pathologically enlarged lymph nodes. There is no free intraperitoneal fluid. There is an intrau terine fetus in breech presentation. The placenta is anterior. IMPRESSION: 1. Normal appendix. Reviewed, dictated and finalized at location A. IOVASCULAR LAB DIRECTOR IMPRESSION: 1. Normal appendix.
--- NOTE | ~2022-07-20 | US_ITS ---
EXAMINATION: US renal BI DATE: 07/20/2022 18:23 INDICATION: Right lower quadrant abdominal pain radiating to the flank TECHNIQUE: Multiple ultrasound grayscale images of the kidneys were obtained. COMPARISON: None. FINDINGS: The right kidney measures 8.7 x 5.0 x 5.4 cm. The left kidney measures 9.8 x 4.4 x 5.0 cm. The kidney s demonstrate normal echogenicity. There is mild caliectasis at the right kidney without ira hydron ephrosis. No stones identified. Mass effect upon the dome of the partially decompressed bladder from the incompletely visualized gravid uterus which is not diagnostically evaluated. IMPRESSION: 1. Mild caliectasis at the otherwise normal right kidney without ira hydronephrosis. Reviewed, dictated and finalized at location A. T METAL FOREMAN IMPRESSION: 1. Mild caliectasis at the otherwise normal right kidney without ira hydrone phrosis.
[2022-07-20 13:57] VITALS: BP 129/62; PULSE 68; RESP 16; TEMP 36.8; O2SAT 100
[2022-07-20 14:22] LABS: Basophils Absolute Auto 0.1 K/mm3 (0.0-0.1); Basophils Percent Auto 0.5 % (0.2-1.2); Eosinophils Absolute Auto 0.1 K/mm3 (0-0.3); Eosinophils Percent Auto 1.3 % (0-4.4); Hematocrit 34.6 % (37.0-47.0); Hemoglobin 11.9 g/dL (12.0-15.0); Immature Granulocyte Absolute 0.07 K/mm3 (0.00-0.031); Immature Granulocyte Percent A 0.6 % (0-0.5); Lymphocytes Absolute Auto 1.79 K/mm3 (0.9-3.2); Lymphocytes Percent Auto 16.5 % (18.3-44.2); Mean Corpuscular HGB Conc 34.4 g/dl (32-36); Mean Corpuscular Hemoglobin 30.1 pg (26-34); Mean Corpuscular Volume 87.6 fl (80-100); Monocytes Absolute Auto 0.7 K/mm3 (0.1-0.6); Monocytes Percent Auto 6.6 % (2.6-8.5); Neutrophils Absolute Auto 8.1 K/mm3 (1.3-6.7); Neutrophils Percent Auto 74.5 % (45.5-73.1); Platelet Count Result 265 k/mm3 (150-375); Red Blood Count 3.95 M/mm3 (4.2-5.4); Red Cell Distribution Width 13.7 % (11.5-14.5); White Blood Count 10.8 K/mm3 (4.5-10.0)
[2022-07-20 14:23] LABS: Appearance Urine Cloudy (Clear); Bilirubin Urine Negative (Negative); Blood Urine Negative (Negative); Color Urine Yellow (Yellow); Glucose Urine UA Negative (Negative); Ketones Urine Negative (Negative); Leukocyte Esterase Ur Negative LEU/UL (Negative); Nitrate Urine Negative (Negative); Protein Urine Negative (Negative); Specific Grav Ur 1.025 (1.001-1.035); Urobilinogen Urine 0.2 mg/dL (<2.0)
[2022-07-20 14:27] LABS: Alanine Aminotransferase 15 U/L (6-35); Albumin Level 3.8 g/dL (3.5-5.1); Alkaline Phosphatase 59 U/L (38-126); Anion Gap 6 mmol/L (8-16); Aspartate Amino Transferase 20 U/L (14-36); Bilirubin,Total 0.4 mg/dL (0.2-1.3); Blood Urea Nitrogen 5 mg/dL (7-17); Calcium 8.7 mg/dL (8.4-10.2); Carbon Dioxide 26 mmol/L (22-30); Chloride 105 mmol/L (98-107); Estimated CRCL calculation 132 ml/min; Estimated Glomerular Filt Rate > 60; Glucose 79 mg/dL (65-110); Lipase 90 U/L (23-300); Potassium 4.1 mmol/L (3.4-5.0); Sodium 137 mmol/L (137-145)
[2022-07-20 14:33] LABS: Amorphous Sediment Urine Few; Bacteria Urine Trace /hpf; Mucus Urine Rare /lpf; Squamous Epithelial Cell Urine Many /hpf (Few); WBC Urine 0-3 /hpf
[2022-07-20 14:37] LABS: Add Urine Microscopic? YES
[2022-07-20 17:06] VITALS: PULSE 56; RESP 11; TEMP 36.7; O2SAT 100
--- NOTE | 2022-07-20 17:36 | ED.ABDPAIN ---
HPI - Abdominal Pain General Chief Complaint: Abdominal Pain <DUKE Patel Last Filed: 07/20/22 19:38> Stated Complaint: RLQ pain since last night <DUKE Patel Last Filed: 07/20/22 19:38> Time Seen by Provider: 07/20/22 17:03 <DUKE Patel Last Filed: 07/20/22 19:38> Source: patient <DUKE Patel Last Filed: 07/20/22 19:38> Mode of arrival: ambulatory <DUKE Patel Last Filed: 07/20/22 19:38> Limitations: no limitations <DUKE Patel Last Filed: 07/20/22 19:38> History of Present Illness HPI narrative: This is a 22 year old , about 18 weeks that presents to the ER for right lower quadrant pain. Ongoing since last night. Reports the pain is sharp and constant. The pain radiates into her back. Worse with some movement and when trying to have a BM. She took some Ibuprofen with little relief. Has not taken anything for pain yet today. Reports some nausea. Denies fever, diarrhea, vomiting, dysuria, hematuria or vaginal bleeding. <DUKE Patel Last Filed: 07/20/22 19:38> Related Data Home Medications: Home Medications Medication Instructions Recorded Confirmed aspirin 81 mg tablet,delayed 81 mg PO DAILY 07/07/22 07/07/22 release (Adult Aspirin Regimen) <DUKE Patel Last Filed: 07/20/22 19:38> Allergies/Adverse Reactions: Allergies Allergy/AdvReac Type Severity Reaction Status Date / Time No Known Allergies Allergy Verified 07/07/22 15:42 <DUKE Patel Last Filed: 07/20/22 19:38> Review of Systems Review of Systems: CONSTITUTIONAL: Denies fever GASTROINTESTINAL: Reports abdominal pain, nausea. Denies vomiting, or diarrhea. GENITOURINARY: Denies dysuria or hematuria. <DUKE Patel Last Filed: 07/20/22 19:38> All systems reviewed & are unremarkable except as noted in HPI and below <Chula Starr PA-C - Last Filed: 07/20/22 19:38> PMFSH Past Medical History Medical History: Medical History Abnormal Pap smear of cervix 09-04-2020 LGSIL + HPV colpo done 10/09/2020 Benign rpt pap in 1 year per [facility] Encounter for screening examination for sexually transmitted disease Suppression of menstruation <Chula Starr PA-C - Last Filed: 07/20/22 19:38> Surgical History Surgical History: Surgical History History of 10/11/19 primary c/s-- distress History of cholecystectomy 2017 History of colposcopy (10/09/20) benign History of ovarian cystectomy 2017 History of tonsillectomy as a child <Chula Starr PA-C - Last Filed: 07/20/22 19:38> Family History Family History: Family History Sibling Cerebral palsy sister Mother Systemic lupus erythematosus <DUKE Patel Last Filed: 07/20/22 19:38> Social History Social History: Social History Smoking status: Former smoker Alcohol intake: never Substance use: never Substance use type: does not use Living arrangements: other Additional living arrangements comments: single Occupation/Education: occupation Additional occupation/education comments: [employer] Gender identity (if verbalized by the patient): Female Sexual Orientation (if Verbalized by the Patient): Straight or Heterosexual Spiritual care concerns: No <DUKE Patel Last Filed: 07/20/22 19:38> Exam Narrative: GENERAL: Well-appearing, well-nourished, and in no acute distress. HEAD: Normocephalic, atraumatic. EYES: EOMI. CHEST: Clear to auscultation. No respiratory distress. No wheezes rales or rhonchi HEART: Regular rate and rhythm. No murmur heard. Normal peripheral pulses. ABDOMEN: Soft, nondistended, normal active bow
[2022-07-20] MEDS: SODIUM CHLORIDE 0.9% IV 1,000 ML 999 ML IV CONT (18:38)
[2022-07-20 19:23] VITALS: BP 113/54; PULSE 80; RESP 16; O2SAT 98
[2022-07-20 19:54] VITALS: TEMP 36.8
[2022-07-20 20:44] LABS: Influenza A QL RT-PCR Negative (Negative); Influenza B QL RT-PCR Negative (Negative); RSV RNA, RT-PCR Negative (Negative); SARS-CoV-2 RNA PCR Negative
[2022-07-20 21:10] VITALS: BP 106/76; BP 108/52; PULSE 50; PULSE 58; RESP 14; RESP 18; TEMP 36.2; O2SAT 100; O2SAT 99
[2022-07-20] MEDS: CALCIUM CARBONATE (TUMS) 500 MG (200 MG ELEMENTAL) PO (21:10)
[2022-07-20] MEDS: SODIUM CHLORIDE 0.9% IV 1,000 ML 125 ML IV CONT (21:32)
[2022-07-20 21:41] VITALS: BMI 28.3
[2022-07-20 21:42] VITALS: BP 108/52; PULSE 58; RESP 14; TEMP 36.2; O2SAT 99
--- NOTE | 2022-07-20 21:45 | ADMGEN ---
This patient, Liza Worthington, was admitted to [facility] Surg Room 313-01. Patient/family oriented to hospital policies and general routines including ID bracelet, bed and alarms, visiting hours, pain management, procedures, bathroom and other care routines, personal items, smoking policy, room service/diet, and visiting hours. Information on how to activate the Rapid Response Team has been discussed. Patient/Family are encouraged to report perceived risks to care and to ask questions if they do not understand what they are told or what they should do.
--- NOTE | 2022-07-20 23:14 | PM.IMHP ---
H&P: HPI History of Present Illness Date/Time: 07/20/22 23:14 Chief Complaint: Right lower quadrant pain Narrative: 18 week with persistant RLQ pain. She was evaluated in ED, had some improvement of pain with Tylenol. UA RBC. Subsequent renal U/S normal and ER provider stated the information technology teacher unable to adequately view appendix. MRI not available. She was admitted for observation with MRI in am and possible GS consult. No spotting. No fever. PMFSH Past Medical History Medical History Abnormal Pap smear of cervix 09-04-2020 LGSIL + HPV colpo done 10/09/2020 Benign rpt pap in 1 year per [facility] Encounter for screening examination for sexually transmitted disease Suppression of menstruation Surgical History Surgical History History of 10/11/19 primary c/s-- distress History of cholecystectomy 2017 History of colposcopy (10/09/20) benign History of ovarian cystectomy 2017 History of tonsillectomy as a child Family History Family History Sibling Cerebral palsy sister Mother Systemic lupus erythematosus Social History Social History Smoking status: Former smoker Alcohol intake: never Substance use: never Substance use type: does not use Lack of Transportation: No Lack of Food: Never True Current Housing: I Have Housing Concerned About Future Housing: No Difficulty Paying Gas/Electric Bills: No Difficulty Paying for Meds: No Currently Unemployed: No Education: Associate Degree Difficulty w/ Childcare or Family Care: No Living arrangements: other Additional living arrangements comments: single Occupation/Education: occupation Additional occupation/education comments: [employer] Gender identity (if verbalized by the patient): Female Sexual Orientation (if Verbalized by the Patient): Straight or Heterosexual Spiritual care concerns: No Meds Home Medications and Allergies Home Medications Medication Instructions Recorded Confirmed Type aspirin 81 mg tablet,delayed 81 mg PO DAILY 07/07/22 07/20/22 History release (Adult Aspirin Regimen) Allergies Allergy/AdvReac Type Severity Reaction Status Date / Time No Known Allergies Allergy Verified 07/20/22 21:49 Vital Signs Vital Signs - 24 hr 07/20/22 13:57 07/20/22 17:06 07/20/22 19:23 Temperature 98.2 F 98.1 F Pulse Rate 68 56 L 80 Respiratory Rate 16 11 L 16 Blood Pressure 129/62 113/54 L Pulse Oximetry 100 100 98 Oxygen Delivery Room Air 07/20/22 19:54 07/20/22 21:10 07/20/22 21:10 Temperature 98.2 F 97.2 F L Pulse Rate 50 L 58 L Respiratory Rate 14 18 Blood Pressure 106/76 108/52 L Pulse Oximetry 100 99 Oxygen Delivery 07/20/22 21:42 Temperature 97.2 F L Pulse Rate 58 L Respiratory Rate 14 Blood Pressure 108/52 L Pulse Oximetry 99 Oxygen Delivery Exam Narrative: per ED evaluation H&P: Results Labs Labs: Short CBC 07/20/22 Range/Units 13:59 WBC 10.8 H (4.5-10.0) K/mm3 Hgb 11.9 L (12.0-15.0) g/dL Hct 34.6 L (37.0-47.0) % Plt Count 265 (150-375) k/mm3 BMP 07/20/22 13:59 Sodium 137 Potassium 4.1 Chloride 105 Carbon Dioxide 26 BUN 5 L Creatinine 0.50 L Glucose 79 Calcium 8.7 Liver Function 07/20/22 Range/Units 13:59 Total Bilirubin 0.4 (0.2-1.3) mg/dL AST 20 (14-36) U/L ALT 15 (6-35) U/L Alkaline Phosphatase 59 (38-126) U/L Albumin 3.8 (3.5-5.1) g/dL Urine 07/20/22 Range/Units 13:59 Urine Color Yellow (Yellow) Urine Appearance Cloudy H (Clear) Urine pH 7.0 (5.0-9.0) Ur Specific [place] 1.025 (1.001-1.035) Urine Protein Negative (Negative) mg/dL Urine Glucose (UA) Negative (Negative) mg/dL Assessment and Josie
[2022-07-21 06:00] VITALS: BP 110/58; PULSE 64; RESP 14; TEMP 36.4; O2SAT 100
[2022-07-21 06:49] LABS: Basophils Percent Auto 0.5 % (0.2-1.2); Eosinophils Absolute Auto 0.1 K/mm3 (0-0.3); Eosinophils Percent Auto 1.5 % (0-4.4); Hematocrit 30.9 % (37.0-47.0); Hemoglobin 10.6 g/dL (12.0-15.0); Immature Granulocyte Absolute 0.04 K/mm3 (0.00-0.031); Immature Granulocyte Percent A 0.5 % (0-0.5); Lymphocytes Absolute Auto 1.89 K/mm3 (0.9-3.2); Lymphocytes Percent Auto 22.9 % (18.3-44.2); Mean Corpuscular HGB Conc 34.3 g/dl (32-36); Mean Corpuscular Hemoglobin 30.6 pg (26-34); Mean Corpuscular Volume 89.3 fl (80-100); Monocytes Absolute Auto 0.6 K/mm3 (0.1-0.6); Monocytes Percent Auto 7.3 % (2.6-8.5); Neutrophils Absolute Auto 5.6 K/mm3 (1.3-6.7); Neutrophils Percent Auto 67.3 % (45.5-73.1); Platelet Count Result 208 k/mm3 (150-375); Red Blood Count 3.46 M/mm3 (4.2-5.4); Red Cell Distribution Width 14.2 % (11.5-14.5); White Blood Count 8.3 K/mm3 (4.5-10.0)
[2022-07-21 07:00] LABS: Alanine Aminotransferase 14 U/L (6-35); Alkaline Phosphatase 53 U/L (38-126); Anion Gap 3 mmol/L (8-16); Aspartate Amino Transferase 18 U/L (14-36); Bilirubin,Total 0.7 mg/dL (0.2-1.3); Blood Urea Nitrogen 5 mg/dL (7-17); Calcium 7.7 mg/dL (8.4-10.2); Carbon Dioxide 22 mmol/L (22-30); Chloride 107 mmol/L (98-107); Estimated CRCL calculation 133 ml/min; Estimated Glomerular Filt Rate > 60; Glucose 75 mg/dL (65-110); Potassium 3.8 mmol/L (3.4-5.0); Sodium 132 mmol/L (137-145)
--- NOTE | 2022-07-23 07:37 | PM.OBDSVD ---
DS: Admitting Diagnosis Discharge Date 07/21/22 Admitting Diagnosis 1. Eighteen week 2. Right lower quadrant pain DS: Discharge Diagnosis Discharge Diagnosis (1) Acute right lower quadrant pain: Code(s): R10.31 - Right lower quadrant pain Status: Acute (2) 18 weeks gestation of : Code(s): Z3A.18 - 18 weeks gestation of Status: Acute OB - DS: Summary Hospital Course Hospital Course: 22-year-old gravid patient admitted at 18 weeks gestation with right lower quadrant pain. Patient was given Tylenol and kept NPO with ultrasound and MRI showing no significant abnormalities. Morning after admission patient was feeling significantly improved, ate breakfast without difficulty, had a bowel movement, and was discharged home for follow-up later in the week. OB Procedures : None OB Procedures Intrapartum: Other OB Procedures: : Other Time Spent with Patient Time attestation: Total time spent providing and/or coordinating discharge services: Discharge Plan Discharge Consulting providers: Chula Starr ; Atilio Yu V. ; Rob Glover Discharging Clinician: Jay Larry Patient Disposition: Home, Self-Care Activity: as tolerated Diet: as tolerated Patient Instructions: (DC), Pain Management (DC), Kidney Ultrasound (DC), Magnetic Resonance Imaging (DC) Stand Alone Forms: General Discharge Information Follow-up/Referrals: Jay Larry MD [Physician] - 2 Weeks Discharge Medications: Continued aspirin [Adult Aspirin Regimen] 81 mg tablet,delayed release (DR/EC) 81 mg PO DAILY Date of admission: 07/20/22 19:22 Primary Care Provider: PHYSICIAN NOT ON STAFF,NONSTAFF Admitting Provider: Romario Membreno Attending physician on admission: Jay Larry Condition: Stable
== END 2022-07-21 10:00 | disposition home or self-care (01) ==
LOC: ANHED 19:38 → ANH3MEDSUR 21:46
PROVIDERS: Physician Assistant; Admitting Provider Obstetrics & Gynecology; Emergency Provider Emergency Medicine; Visit Provider Obstetrics & Gynecology
DX: O26.892 Other specified pregnancy related conditions, second trimester (principal); R10.31 Right lower quadrant pain; M54.9 Dorsalgia, unspecified; R11.0 Nausea; O99.112 Other diseases of the blood and blood-forming organs and certain disorders involving the immune mechanism complicating pregnancy, second trimester; D72.89 Other specified disorders of white blood cells; O99.012 Anemia complicating pregnancy, second trimester; D64.9 Anemia, unspecified; O99.891 Other specified diseases and conditions complicating pregnancy; N28.89 Other specified disorders of kidney and ureter; Z20.822 Contact with and (suspected) exposure to COVID-19; Z79.82 Long term (current) use of aspirin; Z87.891 Personal history of nicotine dependence; Z3A.18 18 weeks gestation of pregnancy
CPT/HCPCS: 36415; 74181; 76775; 80053; 81001; 81025; 83690; 85025; 87637; 96361; 96374; 99285; A9270; G0378; G0379; J0131; J7030

== ENCOUNTER 2022-12-10 16:08 | Outpatient (CLI) | payer OTHER, SELFPAY ==
[2022-12-10 16:30] VITALS: BP 116/66; PULSE 75
[2022-12-10 16:45] VITALS: BP 113/65; PULSE 77
[2022-12-10 17:00] VITALS: BP 118/60; PULSE 81
[2022-12-10 17:15] VITALS: BP 117/74; PULSE 78
[2022-12-10 17:19] LABS: Basophils Percent Auto 0.4 % (0.2-1.2); Eosinophils Absolute Auto 0.1 K/mm3 (0-0.3); Eosinophils Percent Auto 0.7 % (0-4.4); Hematocrit 31.8 % (37.0-47.0); Hemoglobin 10.7 g/dL (12.0-15.0); Immature Granulocyte Absolute 0.05 K/mm3 (0.00-0.031); Immature Granulocyte Percent A 0.5 % (0-0.5); Lymphocytes Absolute Auto 2.07 K/mm3 (0.9-3.2); Lymphocytes Percent Auto 19.8 % (18.3-44.2); Mean Corpuscular HGB Conc 33.6 g/dl (32-36); Mean Corpuscular Hemoglobin 29.4 pg (26-34); Mean Corpuscular Volume 87.4 fl (80-100); Mean Platelet Volume 11.8 fl (7.4-10.4); Monocytes Absolute Auto 0.7 K/mm3 (0.1-0.6); Neutrophils Absolute Auto 7.5 K/mm3 (1.3-6.7); Neutrophils Percent Auto 71.6 % (45.5-73.1); Platelet Count Result 241 k/mm3 (150-375); Red Blood Count 3.64 M/mm3 (4.2-5.4); Red Cell Distribution Width 13.4 % (11.5-14.5); White Blood Count 10.5 K/mm3 (4.5-10.0)
[2022-12-10 17:30] VITALS: BP 103/71; PULSE 78
[2022-12-10 17:34] LABS: Alanine Aminotransferase 32 U/L (6-35); Albumin Level 3.5 g/dL (3.5-5.1); Alkaline Phosphatase 178 U/L (38-126); Anion Gap 5 mmol/L (8-16); Aspartate Amino Transferase 30 U/L (14-36); Bilirubin,Total 0.4 mg/dL (0.2-1.3); Blood Urea Nitrogen 7 mg/dL (7-17); Calcium 8.5 mg/dL (8.4-10.2); Carbon Dioxide 23 mmol/L (22-30); Chloride 108 mmol/L (98-107); Estimated Glomerular Filt Rate > 60; Glucose 108 mg/dL (65-110); Potassium 3.4 mmol/L (3.4-5.0); Sodium 136 mmol/L (137-145); Uric Acid 6.2 mg/dL (2.5-7.5)
[2022-12-10 17:35] LABS: Appearance Urine Clear (Clear); Bacteria Urine 2+ /hpf; Bilirubin Urine Negative (Negative); Blood Urine Negative (Negative); Color Urine Yellow (Yellow); Glucose Urine UA Negative (Negative); Ketones Urine Trace mg/dL (Negative); Leukocyte Esterase Ur Trace LEU/UL (NEGATIVE); Mucus Urine Present /lpf; Nitrate Urine Negative (Negative); Non Pathogenic Casts 0-2; Protein Urine Trace mg/dL (Negative); RBC Urine 0-2 /hpf (0-2); Specific Grav Ur 1.019 (1.001-1.035); Squamous Epithelial Cell Urine Occasional /hpf (Few); pH Urine 6.5 (5.0-9.0)
[2022-12-10 17:36] LABS: Add Urine Microscopic? YES
[2022-12-10 17:55] LABS: Creatinine Urine 171.4 mg/dL; Total Protein Urine Random 9 mg/dL; Ur Ttl Prot Creatinine Ratio 0.05 mg/mg (0-0.20)
--- NOTE | 2022-12-10 18:00 | PC.NURSE ---
Dr Ceron notified of Bp and lab results. Ok to dc home with precautions.
== END 2022-12-10 18:16 | disposition home or self-care (01) ==
LOC: ANHOBOP 16:43 → ANHLDR 16:43
PROVIDERS: Student in an Organized Health Care Education/Training Program; PCP Nurse Practitioner Adult Health; Visit Provider Obstetrics & Gynecology
DX: O13.9 Gestational [pregnancy-induced] hypertension without significant proteinuria, unspecified trimester (principal)
CPT/HCPCS: 36415; 59025; 80053; 81001; 82570; 84156; 84550; 85025; 87086; 99199

== ENCOUNTER 2022-12-16 14:14 | Outpatient (CLI) | payer OTHER, SELFPAY ==
[2022-12-16 16:21] LABS: Hematocrit 35.3 % (37.0-47.0); Hemoglobin 11.6 g/dL (12.0-15.0); Mean Corpuscular HGB Conc 32.9 g/dl (32-36); Mean Corpuscular Hemoglobin 28.6 pg (26-34); Mean Corpuscular Volume 87.2 fl (80-100); Mean Platelet Volume 12.5 fl (7.4-10.4); Platelet Count Result 259 k/mm3 (150-375); Red Blood Count 4.05 M/mm3 (4.2-5.4); Red Cell Distribution Width 13.6 % (11.5-14.5); White Blood Count 10.3 K/mm3 (4.5-10.0)
[2022-12-17 11:35] LABS: Rapid Plasma Reagin Non-Reactive (NonReactive)
== END 2022-12-16 14:15 | disposition home or self-care (01) ==
LOC: ANHLAB 14:17
PROVIDERS: PCP Nurse Practitioner Adult Health; Visit Provider Obstetrics & Gynecology Gynecology
DX: Z01.812 Encounter for preprocedural laboratory examination (principal)
CPT/HCPCS: 36415; 85027; 86592; 86850; 86900; 86901

== ENCOUNTER 2022-12-17 05:24 | Inpatient (IN) | payer OTHER, SELFPAY ==
[2022-12-17] VITALS (60 sets, daily range): BP systolic 87–143; BP diastolic 45–110; PULSE 25–243; RESP 14–18; TEMP 36.1–36.9; O2SAT 87–100; BMI 32.9
[2022-12-17] MEDS: LACTATED RINGERS 1,000 ML 125 ML IV CONT ×2 (05:55→07:03)
--- NOTE | 2022-12-17 06:09 | LDADM ---
This patient, Liza Worthington, was admitted to Labor/Delivery/Recovery 120 on 12/17/22 at 05:24. Plans for labor, pain management and were discussed with patient. Patient/family oriented to hospital policies and general routines including ID bracelet, bed and alarms, visiting hours, pain management, procedures, bathroom and other care routines, personal items, smoking policy, room service/diet and guest tray routines, infant security routines, and visiting hours. Patient/Family are encouraged to report perceived risks to care and to ask questions if they do not understand what they are told or what they should do. See OBIX for further documentation.
--- NOTE | 2022-12-17 06:45 | WPDANESEPPF ---
Anes - Initial Pre Proc Eval Procedure: Operation Date: 12/17/22 07:30 Proposed Procedures p Repeat Section - Jay Larry MD Date/Time: 12/17/22 06:45 Surgeon: Jay Larry MD Pre Op Diagnosis: Repeat C/S Patient Data Age: 22 Gender: F Height: 1.55 m Weight: 79 kg Last Vital Signs Pulse 53 L 12/17/22 06:16 BP 121/61 12/17/22 06:16 O2 Del Method Room Air 12/17/22 06:07 Allergies Allergy/AdvReac Type Severity Reaction Status Date / Time No Known Allergies Allergy Verified 12/17/22 06:13 Home Medications Medication Instructions Recorded Confirmed Type aspirin 81 mg tablet,delayed 81 mg PO DAILY 07/07/22 12/17/22 History release (Adult Aspirin Regimen) Patient hx anesthesia problems: none Family hx anesthesia problems: none Results Review: All pre-operative results and documents have been reviewed as part of the pre-operative evaluation. [facility] Past Medical History Medical History Abnormal Pap smear of cervix 09-04-2020 LGSIL + HPV colpo done 10/09/2020 Benign rpt pap in 1 year per [facility] Encounter for screening examination for sexually transmitted disease Suppression of menstruation Surgical History Surgical History History of 10/11/19 primary c/s-- distress History of cholecystectomy 2017 History of colposcopy (10/09/20) benign History of ovarian cystectomy 2017 History of tonsillectomy as a child Family History Family History Sibling Cerebral palsy sister Mother Systemic lupus erythematosus Social History Social History Smoking status: Never smoker Alcohol intake: never Substance use: current Substance use type: does not use Lack of Transportation: No Lack of Food: Never True Current Housing: I Have Housing Concerned About Future Housing: No Difficulty Paying Gas/Electric Bills: No Difficulty Paying for Meds: No Currently Unemployed: No Education: High School Diploma/GED Difficulty w/ Childcare or Family Care: No Living arrangements: other Additional living arrangements comments: single Occupation/Education: occupation Additional occupation/education comments: [employer] Gender identity (if verbalized by the patient): Female Sexual Orientation (if Verbalized by the Patient): Straight or Heterosexual Spiritual care concerns: No Anes - Eval Final PreProcedure Day of Procedure 12/17/22 06:45 Patient weight: obese Heart: regular rate and rhythm Lungs: clear to auscultation and normal air movement Airway: Mallampati scale class II Neurological: alert and oriented Last oral intake: >/= 8 hours ASA classification: II Emergent: no Anesthetic plan: proceed Anesthesia type and monitoring: regional spinal and standard monitoring Results Review: All pre-operative results and documents have been reviewed as part of the pre-operative evaluation. Informed Consent: The patient's anesthetic plan and its attendant risks and benefits were discussed with the patient/family/POA. Questions were solicited and answers provided to the satisfaction of the patient/family/POA.
--- NOTE | 2022-12-17 07:14 | WPDHPUPDATE1 ---
History and Physical Update Update Date/Time: 12/17/22 07:14 History and Physical has been reviewed, including an updated exam of the patient. There are NO changes in the patient's condition. Risks, benefits, and alternatives have been discussed and questions answered. Patient agrees to proceed with procedure.
--- NOTE | 2022-12-17 07:15 | PM.IMHP ---
H&P: HPI History of Present Illness Date/Time: 12/17/22 07:15 22-year-old 2 para 1001 female presents for repeat delivery. care without significant issues other than mildly elevated blood pressures the last 2 weeks with all testing and lab work normal. Chief Complaint: Review of Systems Review of Systems: All systems reviewed & are unremarkable except as noted in HPI and below PMFSH Past Medical History Medical History Abnormal Pap smear of cervix 09-04-2020 LGSIL + HPV colpo done 10/09/2020 Benign rpt pap in 1 year per [facility] Encounter for screening examination for sexually transmitted disease Suppression of menstruation Surgical History Surgical History History of 10/11/19 primary c/s-- distress History of cholecystectomy 2017 History of colposcopy (10/09/20) benign History of ovarian cystectomy 2017 History of tonsillectomy as a child Family History Family History Sibling Cerebral palsy sister Mother Systemic lupus erythematosus Social History Social History Smoking status: Never smoker Alcohol intake: never Substance use: current Substance use type: does not use Lack of Transportation: No Lack of Food: Never True Current Housing: I Have Housing Concerned About Future Housing: No Difficulty Paying Gas/Electric Bills: No Difficulty Paying for Meds: No Currently Unemployed: No Education: High School Diploma/GED Difficulty w/ Childcare or Family Care: No Living arrangements: other Additional living arrangements comments: single Occupation/Education: occupation Additional occupation/education comments: [employer] Gender identity (if verbalized by the patient): Female Sexual Orientation (if Verbalized by the Patient): Straight or Heterosexual Spiritual care concerns: No Meds Home Medications and Allergies Home Medications Medication Instructions Recorded Confirmed Type aspirin 81 mg tablet,delayed 81 mg PO DAILY 07/07/22 12/17/22 History release (Adult Aspirin Regimen) Allergies Allergy/AdvReac Type Severity Reaction Status Date / Time No Known Allergies Allergy Verified 12/17/22 06:13 Vital Signs Vital Signs - 24 hr 12/17/22 05:46 12/17/22 05:57 12/17/22 06:01 Pulse Rate 243 H 55 L 51 L Blood Pressure 143/110 H 111/59 L 125/63 Oxygen Delivery 12/17/22 06:16 12/17/22 06:07 Pulse Rate 53 L Blood Pressure 121/61 Oxygen Delivery Room Air Exam Const: General: cooperative and healthy appearing Resp: Effort & Inspection: normal respiratory effort Auscultation: clear to auscultation bilaterally Cardio: Rate: regular rate Rhythm: regular rhythm GI: Inspection: normal to inspection Auscultation: normal bowel sounds : External Female Exam: normal external appearance Speculum Exam - Vagina: normal appearance of the vagina Speculum Exam - Cervix: normal appearance of the cervix Bimanual exam- vagina & uterus: enlarged ( 40cm heart 140) Assessment and Plan Assessment and plan (1) : Code(s): Z34.90 - Encounter for supervision of normal , unspecified, unspecified trimester Status: Acute (2) Previous delivery affecting : Code(s): O34.219 - Maternal care for unspecified type scar from previous delivery Status: Acute (3) History of prior with IUGR : Code(s): Z87.59 - Personal history of other complications of , childbirth and the puerperium Status: Acute Plan proceed with repeat low-transverse section.
[2022-12-17] MEDS: ceFAZolin 2 GM/D5W 50 ML 2 GM/50 ML BAG IVPB (07:22)
[2022-12-17] MEDS: KETOROLAC 30 MG/ML VIAL (*BKC) 15 MG IV PUSH (08:23)
--- NOTE | 2022-12-17 08:31 | P.PCNOB_ITS ---
OB - Delivery Note Procedure Procedure: Procedures Operation Date: 12/17/22 07:30 <No data on this case meets the specified criteria> Events: Previous Delivery Delivery monitor: External FHT and External Uterine Route of delivery: Specimen: No Quantitative Blood Loss (ml): 485 Anesthesia type: Spinal Disposition: PACU Complications: None Narrative: Patient prepped and draped in usual manner for this procedure. Pfannenstiel incision was made this was carried down to the fascia which was then extended bilaterally the length of the skin incision. Fascia was then dissected sharply and bluntly away from the rectus muscles. Peritoneum was entered and blood clot results assisted. This lower uterine segment was thin but intact. Clear fluid was noted and the vertex was then delivered suctioned nasal oropharynx the rest of baby was delivered as well. Cord clamped cut baby was passed off the operative field. Manual removal of placenta and membranes without difficulty. Uterus was exteriorized and uterine incision was approximated using 0 Monocryl in a running interlocking manner with good approximation and hemostasis noted. Uterus was returned to the abdomen, all subfascial tissue was hemostatic, and the uterine incision was inspected and continued to be hemostatic. Fascia was approximated using 0 Vicryl from the left angle midline then from the right a ngle to the midline in a running manner to approximate. Subcutaneous tissue was cauterized of bleeders and approximated using 0 plain suture. Jaki were used then to approximate the skin edges. Patient was sent to recovery room in stable condition. [place] Baby Weeks of gestation at delivery: 39 gender: Female Weight (pounds): 6 Weight (ounces): 5 presentation: vertex Placenta delivery description: Manual Removal Cord Vessel Description: 3 Vessels score one minute: 8 score five minutes: 9 AMG Delivery Billing Delivery Delivery: Delivery Charge
--- NOTE | 2022-12-17 09:26 | PC.NURSE ---
MD called away to another delivery before patient was prepped. FHT obtained and maintained until MD return. Monitored FHT from [id number]. Baseline 150 with moderate variability and 15x15 accelerations. No decels present at this time.
[2022-12-17] MEDS: OXYTOCIN 30 UNITS/NS 500 ML 30 UNITS/500 ML BAG 125 UNITS IV CONT (10:02)
--- NOTE | 2022-12-17 10:40 | PC.NURSE ---
Patient transferred to post room #281 via stretcher. Support person present. Oriented to unit, room, information board, rooming in, admission packet and security measures. Patient verbalizes understanding.
[2022-12-17] MEDS: HYDROcodone/acetaminophen (*CRX) 5-325 MG TABLET 1 TAB PO ×2 (12:10→22:03)
[2022-12-17] MEDS: DEXTROSE 5%/0.45% SOD CHL 1,000 ML 125 ML IV CONT (13:57)
--- NOTE | 2022-12-17 15:05 | PC.NURSE ---
[id number] Introductions were made, then consulted with patient to assess needs related to . Mother led the conversation with her?plans to feed?her infant and the?experience so far. Resources provided for inpatient and outpatient services with the feeding sheet, mom/baby guide and name written on the white board. is less than 6 hours from delivery and is reluctant to breastfeed. Encouraged gkwk-[id number] with mother and attempt again later when demonstrates feeding cues. Mother voiced understanding of information and will call if there is a request for assistance. Reported to the primary RN. [id number] Consulted with patient to assess needs related to . Mother led the conversation with her?plans to feed?her and the?experience so far. Mother works well with her infant with encouragement and education. Encouraged understanding of the benefits of skin to skin (demonstrating unwrapping and placing upright on her chest), stimulating with massage touch, changing positions to encourage wakefulness, how to watch for early feeding cues, responsive feeding, feeding on demand (aiming for 8-12 times in 24 hours, about every 2-3 hours), milk production, hand expression, building/maintaining a milk supply, duration of feeding, signs of adequate intake/output and how to record on the feeding sheet. Finger fed a few drops of first milk to the to encourage wakefulness to breastfeed. is sleepy and reluctant when at the breast. Infant placed upright, feeding cues were visualized after massage touch, then reviewed positioning and ear, shoulder, hip alignment, supporting the breast to facilitate a deep latch, asymmetrical latch (off-center), leading with the chin with a big, open, wide gape and body close to mother. Infant holds nipple in mouth and goes to sleep. Mother states breastfed well after on/off for the first 1-2 hours without pain, with rocking jaw motion, and swallowing. Nipple care reviewed with optimal latch and good positioning. Reminding mother of comfort measures of healing with a warm and wet washcloth to rinse breast, then leave open to air-dry as needed. Reviewed good handwashing when or touching the breast/nipples to prevent infection. Resources used to facilitate learning were used with the tool, mom and baby guide. Mother voiced understanding of skin to skin, stimulating with massage touch, responsive feedings, hand expressed colostrum, talking to to encourage if it has been 2 -2.5 hours since the start of the last , to call if does not latch, or if there is discomfort with . Mother voiced understanding of information, demonstrated learning and will call if there is a request for assistance. Reported to primary RN.
[2022-12-18] MEDS: HYDROcodone/acetaminophen (*CRX) 5-325 MG TABLET 1 TAB PO ×5 (02:41→20:09)
[2022-12-18] MEDS: SIMETHICONE 80 MG TAB.CHEW PO ×4 (02:44→20:10)
[2022-12-18 04:36] VITALS: BP 88/48; PULSE 50; RESP 16; TEMP 36.4; O2SAT 99
[2022-12-18 05:48] LABS: Basophils Absolute Auto 0.1 K/mm3 (0.0-0.1); Basophils Percent Auto 0.4 % (0.2-1.2); Eosinophils Absolute Auto 0.1 K/mm3 (0-0.3); Eosinophils Percent Auto 0.6 % (0-4.4); Hematocrit 27.5 % (37.0-47.0); Hemoglobin 8.9 g/dL (12.0-15.0); Immature Granulocyte Absolute 0.07 K/mm3 (0.00-0.031); Immature Granulocyte Percent A 0.5 % (0-0.5); Lymphocytes Absolute Auto 2.45 K/mm3 (0.9-3.2); Lymphocytes Percent Auto 17.3 % (18.3-44.2); Mean Corpuscular HGB Conc 32.4 g/dl (32-36); Mean Corpuscular Hemoglobin 29.2 pg (26-34); Mean Corpuscular Volume 90.2 fl (80-100); Mean Platelet Volume 12.5 fl (7.4-10.4); Monocytes Absolute Auto 1.5 K/mm3 (0.1-0.6); Monocytes Percent Auto 10.3 % (2.6-8.5); Neutrophils Percent Auto 70.9 % (45.5-73.1); Platelet Count Result 203 k/mm3 (150-375); Red Blood Count 3.05 M/mm3 (4.2-5.4); Red Cell Distribution Width 13.9 % (11.5-14.5); White Blood Count 14.2 K/mm3 (4.5-10.0)
[2022-12-18] MEDS: IBUPROFEN 600 MG TABLET PO ×3 (06:52→20:10)
[2022-12-18] MEDS: DOCUSATE SODIUM 100 MG CAPSULE PO ×2 (06:53→16:57)
[2022-12-18 07:00] VITALS: BP 119/63; PULSE 60; RESP 16; TEMP 36.8; O2SAT 100
--- NOTE | 2022-12-18 09:11 | WPDANLDPN2 ---
Anes-Prog Note L&D Date/Time: 12/18/22 09:11 Comfortable throughout: section Neuraxial method: spinal Epidural/Spinal procedure site: clean & non-tender Neuro status: Neuro function grossly intact. Cardiovascular status: normal Respiratory status: normal Airway patency: baseline Mental status: baseline Post-Op hydration status: normal Vital Signs: Last Vital Signs Temp 98.3 F 12/18/22 07:00 Pulse 60 12/18/22 07:00 Resp 16 12/18/22 07:00 BP 119/63 12/18/22 07:00 Pulse Ox 100 12/18/22 07:00 O2 Del Method Room Air 12/17/22 10:30 Pain score (VAS): 0/10 I/O: Intake & Output 12/17/22 12/18/22 12/18/22 23:59 07:59 15:59 Intake Total 500 Output Total 900 1400 Balance -900 -900 Post-procedural complaints: none Patient feedback: Patient satisfied with anesthetic care.
--- NOTE | 2022-12-18 09:12 | WPDANLDNPN2 ---
Anes-Prog Note L&D-Neuraxial Date/Time: 12/18/22 09:12 Neuraxial medications: intrathecal PF morphine Opiod-related complaints: none Patient feedback: Patient satisfied with post-operative pain management.
--- NOTE | 2022-12-18 12:06 | P.DS_ITS ---
DS: Admitting Diagnosis Discharge Date 12/19/2022 Admitting Diagnosis DS: Discharge Diagnosis Discharge Diagnosis (1) , delivered: Code(s): O80 - Encounter for full-term uncomplicated delivery Status: Acute OB - DS: Summary OB Procedures : None OB Procedures Intrapartum: OB Procedures: : None Peripartum Data Procedures: Procedures Operation Date: 12/17/22 07:30 Actual Procedure Side Surgeon p Repeat Section Bilateral Jay Larry MD Time Spent with Patient Time attestation: Total time spent providing and/or coordinating discharge services: DS: Data Data Completed and Pending Labs on day of discharge: Labs from last 24 hours 12/18/22 04:43 WBC 14.2 H RBC 3.05 L Hgb 8.9 L Hct 27.5 L MCV 90.2 MCH 29.2 MCHC 32.4 RDW 13.9 Plt Count 203 MPV 12.5 H Immature Gran % (Auto) 0.5 Neut % (Auto) 70.9 Lymph % (Auto) 17.3 L [place] % (Auto) 10.3 H Eos % (Auto) 0.6 Baso % (Auto) 0.4 Lymph # (Auto) 2.45 [place] # (Auto) 1.5 H Eos # (Auto) 0.1 Baso # (Auto) 0.1 Abs Immat Gran (auto) 0.07 H Absolute Neuts (auto) 10.0 H Absolute Nucleated RBC 0.0 Nucleated RBC % 0.0 Discharge Plan Discharge Discharging Clinician: Jay Larry Patient Disposition: Home, Self-Care Activity: no straining, no driving, follow weight bearing status and pelvic rest Diet: as tolerated Patient Instructions: Antibiotic Form Stand Alone Forms: General Discharge Information Follow-up/Referrals: Jay Larry MD [Physician] - 3 Weeks Discharge Medications: New hydrocodone-acetaminophen 5-325 mg Tablet 1 tablet PO Q6H PRN (Reason: Moderate Pain (4-6)) Qty: 30 0RF ibuprofen 600 mg Tablet 600 mg PO Q6H PRN (Reason: Cramping) Qty: 30 0RF polysaccharide iron complex 150 mg iron Capsule 150 mg PO BIDWM Qty: 90 0RF Discontinued aspirin [Adult Aspirin Regimen] 81 mg tablet,delayed release (DR/EC) 81 mg PO DAILY Date of admission: 12/17/22 05:24 Primary Care Provider: Natalya Guzman Admitting Provider: Jay Larry Attending physician on admission: Jay Larry Condition: Stable
[2022-12-18] MEDS: POLYSACCHARIDE IRON COMPLEX 150 MG CAPSULE PO (16:57)
[2022-12-18 19:41] VITALS: BP 110/47; PULSE 61; RESP 16; TEMP 36.9; O2SAT 99
[2022-12-19] MEDS: HYDROcodone/acetaminophen (*CRX) 5-325 MG TABLET 1 TAB PO ×2 (00:35→08:01)
[2022-12-19 08:00] VITALS: BP 123/47; PULSE 66; RESP 16; TEMP 37.1; O2SAT 100
[2022-12-19] MEDS: IBUPROFEN 600 MG TABLET PO (08:02)
[2022-12-19] MEDS: POLYSACCHARIDE IRON COMPLEX 150 MG CAPSULE PO (08:02)
[2022-12-19] MEDS: DOCUSATE SODIUM 100 MG CAPSULE PO (08:02)
[2022-12-19] MEDS: MULTIVIT/MIN/PREN/FOL AC/IRON TABLET 1 TAB PO (08:03)
--- NOTE | 2022-12-19 12:55 | PC.NURSE ---
1000-Patient viewed the discharge video Mother & Baby Care, The First Two Weeks . Patient was given the opportunity and encouraged to ask questions. Patient verbalized understanding of information shared and has been given the mother/baby guide for home reference.
[2022-12-21 10:15] VITALS: BP 124/56; PULSE 68; RESP 18; TEMP 37.3; O2SAT 100
== END 2022-12-19 12:11 | disposition home or self-care (01) | DRG 540 ==
LOC: ANHLDR 05:27 → ANHOB2 10:42
PROVIDERS: Admitting Provider Obstetrics & Gynecology; PCP Nurse Practitioner Adult Health; Visit Provider Obstetrics & Gynecology
PROC: 10D00Z1 Extraction of Products of Conception, Low, Open Approach (ICD-10-PCS; CPT 59514; principal; 2022-12-17 07:30)
DX: O34.211 Maternal care for low transverse scar from previous cesarean delivery (principal); Z37.0 Single live birth; Z3A.39 39 weeks gestation of pregnancy
CPT/HCPCS: 36415; 85025; A9270; J0690; J1100; J1885; J2274; J2405; J2590; J7120

== ENCOUNTER 2023-10-31 17:59 | Emergency (ER) | payer OTHER, SELFPAY ==
[2023-10-31] VITALS (12 sets, daily range): BP systolic 100–135; BP diastolic 49–90; PULSE 57–98; RESP 15–23; TEMP 36.5; O2SAT 98–100
[2023-10-31 18:44] LABS: Basophils Percent Auto 0.3 % (0.2-1.2); Eosinophils Percent Auto 0.1 % (0-4.4); Hematocrit 38.6 % (37.0-47.0); Hemoglobin 12.9 g/dL (12.0-15.0); Immature Granulocyte Absolute 0.05 K/mm3 (0.00-0.031); Immature Granulocyte Percent A 0.4 % (0-0.5); Lymphocytes Absolute Auto 0.51 K/mm3 (0.9-3.2); Lymphocytes Percent Auto 4.4 % (18.3-44.2); Mean Corpuscular HGB Conc 33.4 g/dl (32-36); Mean Corpuscular Volume 83.9 fl (80-100); Mean Platelet Volume 11.2 fl (7.4-10.4); Monocytes Absolute Auto 0.5 K/mm3 (0.1-0.6); Monocytes Percent Auto 4.2 % (2.6-8.5); Neutrophils Absolute Auto 10.5 K/mm3 (1.3-6.7); Neutrophils Percent Auto 90.6 % (45.5-73.1); Platelet Count Result 338 k/mm3 (150-375); Red Cell Distribution Width 15.4 % (11.5-14.5); White Blood Count 11.6 K/mm3 (4.5-10.0)
[2023-10-31 18:50] LABS: Appearance Urine Cloudy (Clear); Bacteria Urine 1+ /hpf; Bilirubin Urine 2+ (Negative); Blood Urine Negative (Negative); Color Urine Dark Yellow (Yellow); Glucose Urine UA Negative (Negative); Ketones Urine 4+ mg/dL (Negative); Leukocyte Esterase Ur Negative LEU/UL (Negative); Nitrate Urine Negative (Negative); Protein Urine 1+ mg/dL (Negative); RBC Urine 0-2 /hpf (0-2); Specific Grav Ur 1.029 (1.001-1.035); Squamous Epithelial Cell Urine Moderate /hpf (Few); WBC Urine 0-5 /hpf (0-3); pH Urine 5.5 (5.0-9.0)
[2023-10-31 18:54] LABS: Alanine Aminotransferase 22 U/L (6-35); Albumin Level 4.5 g/dL (3.5-5.1); Alkaline Phosphatase 87 U/L (38-126); Anion Gap 11 mmol/L (4-12); Aspartate Amino Transferase 24 U/L (14-36); Bilirubin,Total 0.9 mg/dL (0.2-1.3); Blood Urea Nitrogen 11 mg/dL (7-17); Calcium 8.7 mg/dL (8.4-10.2); Carbon Dioxide 20 mmol/L (22-30); Chloride 105 mmol/L (98-107); Estimated CRCL calculation 88 ml/min; Estimated Glomerular Filt Rate > 60; Glucose 106 mg/dL (65-110); Lipase 60 U/L (23-300); Potassium 3.8 mmol/L (3.4-5.0); Sodium 136 mmol/L (137-145)
[2023-10-31 19:00] LABS: Anisocytosis 1+; Giant Platelets Present; Platelet Estimate Adequate (Adequate); Schistocytes None Seen
[2023-10-31 19:01] LABS: Add Urine Microscopic? YES
[2023-10-31] MEDS: SODIUM CHLORIDE 0.9% IV 1,000 ML 999 ML IV CONT (19:34)
[2023-10-31] MEDS: diphenhydrAMINE HCl INJ 50 MG/ML VIAL 25 MG IV PUSH (19:34)
[2023-10-31] MEDS: FAMOTIDINE 20 MG/2 ML VIAL IV PUSH (19:35)
[2023-10-31] MEDS: KETOROLAC 30 MG/ML VIAL (*BKC) IV PUSH (19:35)
[2023-10-31] MEDS: PROCHLORPERAZINE EDISYLATE 10 MG/2 ML VIAL IV PUSH (19:38)
--- NOTE | 2023-10-31 20:05 | ED.GENADULT ---
HPI - General Adult General Chief complaint: Abdominal Pain Stated complaint: abd pain Time Seen by Provider: 10/31/23 18:38 History of Present Illness HPI narrative: Liza Worthington is a 23 y/o female who presents with reports of having some nausea/vomiting off and on for 2 days/ diarrhea and a migraine. SHe states she has a hx of gastritis and she usually just needs to come in to get some meds an she feels better. She denies any changes with urine NO fever/chills/ Pain to the upper abdomen area Related Data Allergies Allergy/AdvReac Type Severity Reaction Status Date / Time No Known Allergies Allergy Verified 03/02/23 14:42 Review of Systems Review of Systems: All systems reviewed & are unremarkable except as noted in HPI and below PMFSH Past Medical History Medical History Abnormal Pap smear of cervix 09-04-2020 LGSIL + HPV colpo done 10/09/2020 Benign rpt pap in 1 year per [facility] Encounter for screening examination for sexually transmitted disease Suppression of menstruation Surgical History Surgical History Delivery by section (12/17/22) repeat c/s History of 10/11/19 primary c/s-- distress History of cholecystectomy 2017 History of colposcopy (10/09/20) benign History of ovarian cystectomy 2017 History of tonsillectomy as a child Family History Family History Sibling Cerebral palsy sister Mother Systemic lupus erythematosus Social History Social History Smoking status: Never smoker Alcohol intake: never Substance use: current Substance use type: does not use Lack of Transportation: No Lack of Food: Never True Current Housing: I Have Housing Concerned About Future Housing: No Difficulty Paying Gas/Electric Bills: No Difficulty Paying for Meds: No Currently Unemployed: No Education: High School Diploma/GED Difficulty w/ Childcare or Family Care: No Living arrangements: other Additional living arrangements comments: single Occupation/Education: occupation Additional occupation/education comments: [employer] Gender identity (if verbalized by the patient): Female Sexual Orientation (if Verbalized by the Patient): Straight or Heterosexual Spiritual care concerns: No Exam Narrative: GENERAL: Well-appearing, well-nourished, and in no acute distress. HEAD: Normocephalic, atraumatic. EYES: PERRLA and EOMI. ENT: Nares clear, no rhinorrhea or epistaxis. Mucous membranes moist. Oropharynx without tonsillar hypertrophy exudate or other lesions. NECK: Supple. No adenopathy or masses. No carotid bruits or JVD CHEST: Clear to auscultation. No respiratory distress. No wheezes rales or rhonchi HEART: Regular rate and rhythm. No murmur heard. Normal peripheral pulses. ABDOMEN: Soft, nontender, nondistended, normal active bowel sounds. EXTREMITIES: Normal range of motion. No edema. SKIN: Warm, dry, no rash. NEURO: No focal deficits. Alert and oriented x3. PSYCH: Normal mood and affect. Course Vital Signs Vital signs: Vital Signs Temperature 36.5 C 10/31/23 18:18 Pulse Rate 78 10/31/23 18:18 Respiratory Rate 16 10/31/23 18:18 Blood Pressure 124/80 10/31/23 18:18 Pulse Oximetry 100 10/31/23 18:18 Oxygen Delivery Room Air 10/31/23 18:18 Temperature 36.5 C 10/31/23 18:18 Pulse Rate 69 10/31/23 20:45 Respiratory Rate 15 10/31/23 20:45 Blood Pressure 106/65 10/31/23 20:31 Pulse Oximetry 98 10/31/23 19:46 Oxygen Delivery Room Air 10/31/23 18:18 Medical Decision Making [facility] Narrative Medical decision making narrative: 23 y/o female with PMhx of gastritis who comes in with nausea/vomiting/ diarrhea for 2 days with some upper abdominal pain off and on Denies any f
== END 2023-10-31 20:59 | disposition home or self-care (01) ==
PROVIDERS: Family Medicine; Emergency Provider Nurse Practitioner Family; PCP Nurse Practitioner Adult Health
DX: K52.9 Noninfective gastroenteritis and colitis, unspecified (principal)
CPT/HCPCS: 36415; 80053; 81001; 81025; 83690; 85025; 96361; 96374; 96375; 99284; J0780; J1200; J1885; J7030

== ENCOUNTER 2024-03-14 13:11 | Outpatient (CLI) | payer OTHER, SELFPAY ==
--- NOTE | ~2024-03-14 | US_ITS ---
EXAMINATION: US pelvic complete w TV DATE: 03/14/2024 13:42 INDICATION: Abnormal uterine and vaginal bleeding, unspecified. TECHNIQUE: Multiple transabdominal and transvaginal sonographic images of the pelvis were obtained. COMPARISON: Ultrasound 11/30/2022 FINDINGS: TRANSABDOMINAL ULTRASOUND: The uterus measures 8.7 x 3.6 x 4.5 cm. There is no free fluid in the pelvis. TRANSVAGINAL ULTRASOUND: The endometrial complex measures 6 mm in thickness. The right ovary measures 2.8 x 2.7 x 2.0 cm. The left ovary measures 3.2 x 1.8 x 2.1 cm. There is normal vascular flow in the ovaries. IMPRESSION: 1. Normal pelvis. Reviewed, dictated and finalized at location A. IMPRESSION: 1. Normal pelvis.
== END 2024-03-14 13:12 | disposition home or self-care (01) ==
PROVIDERS: PCP Nurse Practitioner Adult Health; Visit Provider Student in an Organized Health Care Education/Training Program
DX: N93.9 Abnormal uterine and vaginal bleeding, unspecified (principal); R10.2 Pelvic and perineal pain
CPT/HCPCS: 76830; 76856

== ENCOUNTER 2024-06-07 09:56 | Emergency (ER) | payer OTHER, SELFPAY ==
[2024-06-07 09:59] VITALS: BP 150/91; PULSE 89; RESP 16; TEMP 36.4; O2SAT 100
--- NOTE | 2024-06-07 10:41 | ED.URI ---
HPI - URI/Sore Throat General Chief Complaint: Upper Respiratory Infection Stated Complaint: sore throat Time Seen by Provider: 06/07/24 10:08 Source: patient Mode of arrival: ambulatory Limitations: no limitations History of Present Illness HPI Narrative: This is a 24-year-old female that presents to the emergency department for cold symptoms ongoing since yesterday. Reports sore throat, headache, vomiting. Reports swollen lymph nodes in her neck. She tried to take some leftover amoxicillin she had from a previous dental infection. Denies fevers. Related Data Allergies Allergy/AdvReac Type Severity Reaction Status Date / Time No Known Allergies Allergy Verified 03/08/24 10:32 Review of Systems Review of Systems: CONSTITUTIONAL: Denies fever ENT: Reports rhinorrhea, congestion, sore throat RESPIRATORY: Denies cough GASTROINTESTINAL: Reports nausea, vomiting All systems reviewed & are unremarkable except as noted in HPI and below PMFSH Past Medical History Medical History Abnormal Pap smear of cervix 09-04-2020 LGSIL + HPV colpo done 10/09/2020 Benign rpt pap in 1 year per [facility] Encounter for screening examination for sexually transmitted disease Suppression of menstruation Surgical History Surgical History Delivery by section (12/17/22) repeat c/s History of 10/11/19 primary c/s-- distress History of cholecystectomy 2017 History of colposcopy (10/09/20) benign History of ovarian cystectomy 2017 History of tonsillectomy as a child Family History Family History Sibling Cerebral palsy sister Mother Systemic lupus erythematosus Social History Social History Smoking status: Never smoker Alcohol intake: never Substance use: current Substance use type: does not use Lack of Transportation: No Lack of Food: Never True Current Housing: I Have Housing Concerned About Future Housing: No Difficulty Paying Gas/Electric Bills: No Difficulty Paying for Meds: No Currently Unemployed: No Education: High School Diploma/GED Difficulty w/ Childcare or Family Care: No Living arrangements: other Additional living arrangements comments: single Occupation/Education: occupation Additional occupation/education comments: [employer] Gender identity (if verbalized by the patient): Female Sexual Orientation (if Verbalized by the Patient): Straight or Heterosexual Spiritual care concerns: No Exam Narrative: GENERAL: Well-appearing, well-nourished, and in no acute distress. HEAD: Normocephalic, atraumatic. EYES: EOMI. ENT: Nares clear, no rhinorrhea or epistaxis. Mucous membranes moist. Oropharynx with symmetric tonsillar hypertrophy and mild exudate, no other lesions. Uvula midline. No trismus. Bilateral TMs pearly marques non-bulging NECK: Supple. No adenopathy or masses. CHEST: Clear to auscultation. No respiratory distress. No wheezes rales or rhonchi HEART: Regular rate and rhythm. No murmur heard. Normal peripheral pulses. EXTREMITIES: Normal range of motion. No edema. SKIN: Warm, dry, no rash. NEURO: No focal deficits. Alert and oriented x3. PSYCH: Normal mood and affect Course Course Emergency Course: patient updated on workup and agrees with plan of care Vital Signs Vital signs: Vital Signs Temperature 97.5 F L 06/07/24 09:59 Pulse Rate 89 06/07/24 09:59 Respiratory Rate 16 06/07/24 09:59 Blood Pressure 150/91 H 06/07/24 09:59 Pulse Oximetry 100 06/07/24 09:59 Oxygen Delivery Room Air 06/07/24 09:59 Temperature 97.5 F L 06/07/24 09:59 Pulse Rate 89 06/07/24 09:59 Respiratory Rate 16 06/07/24 09:59 Blood Pressure 150/91 H 06/07/24 09:59 Pulse Oximetry 100 06/07/24 09:59 Oxygen Delivery Room Air 06/07/24 09:59 MDM - URI/Sore Throat MDM Narrative Medical decision making narrative: Patient presents to the ER for viral symptoms present since yesterday. Reporting sore throat, headache, vomiting. She is afebrile and nontoxic appearing. Lungs are clear on exam. Oxygen saturation is normal on room air. Influenza, RSV and COVID screens are negative. Strep screen is also negative. Patient was instructed on continued care of viral infection. She is to follow up with primary provider as needed. She was given warnings to return to the ER Differential Diagnosis Differential diagnosis: Likely upper respiratory infection, sinusitis, viral infection, bronchitis, influenza, pharyngitis and other (strep, COVID) Lab Data Attestation: I reviewed the patient's lab results. Labs: Lab Results 06/07/24 Range/Units 10:21 Influenza A (RT-PCR) Negative (Negative) Influenza B (RT-PCR) Negative (Negative) RSV (RT-PCR) Negative (Negative) SARS-CoV-2 RNA (RT-PCR) Negative (Negative) Group A Strep (PCR) Not detected (Negative) Critical Care Time Critical Care Time Critical Care Time: No Discharge Plan Discharge Clinical Impression: Acute viral syndrome Patient Disposition: Home, Self-Care Condition: Stable Instructions: Viral Syndrome (ED) Additional Instructions: Return to the emergency department if you experience fever >101, chest pain, shortness of breath, abdominal pain with nausea and vomiting, or any other symptoms that are concerning to you. Remain well-hydrated, get plenty of rest. Take Tylenol or Motrin [id number] for pain as needed. Flonase for nasal congestion. Zyrtec for runny nose. Lozenges or Chloraseptic spray for sore throat. Ondansetron as needed for nausea Follow up with primary care doctor Patient Language: Kyrgyz Prescriptions: New ondansetron 4 mg tablet,disintegrating 4 mg PO Q8H PRN (Reason: nausea and vomiting) Qty: 10 0RF No Action Xulane 150-35 mcg/24 hr patch weekly 1 patch transdermal WEEKLY Qty: 3 3RF Rx Instructions: apply once weekly for 3 weeks of a 4-week cycle Follow-up/Referrals: Natalya Guzman APRN [Primary Care Provider] -
[2024-06-07] MEDS: ONDANSETRON HCL ODT 4 MG TABLET PO (10:47)
[2024-06-07] MEDS: KETOROLAC 30 MG/ML VIAL (*BKC) IM (10:49)
[2024-06-07 10:53] LABS: Strep Group A RT-PCR NOT DETECTED (Negative)
[2024-06-07 11:06] LABS: Influenza A QL RT-PCR Negative (Negative); Influenza B QL RT-PCR Negative (Negative); RSV RNA, RT-PCR Negative (Negative); SARS-CoV-2 RNA PCR Negative (Negative)
[2024-06-07 11:46] VITALS: O2SAT 99
[2024-06-07] MEDS: SODIUM CHLORIDE 0.9% IV 1,000 ML 999 ML IV CONT (11:46)
[2024-06-07] MEDS: diphenhydrAMINE HCl INJ 50 MG/ML VIAL 25 MG IV PUSH (11:46)
[2024-06-07] MEDS: METOCLOPRAMIDE HCL INJ 10 MG/2 ML VIAL IV PUSH (11:46)
[2024-06-07 13:19] VITALS: BP 101/42; PULSE 50; RESP 16; TEMP 36.7; O2SAT 99
--- OUTSIDE RECORDS SUMMARY | 2024-06-14 05:20 | XMS_ITS | Encounter Summary ---
Author Organization [facility] Address [address] [address] Care Team Providers Care Excel Expert Name Role Phone Jailene Fajardo MD Primary Care Provider [phone] Encounter Details Date Type Department Care Team (Latest Contact Info) Description 07/10/2011 9:53 AM FISHING VESSEL MATE - 07/10/2011 11:59 PM [facility] Hospital Encounter [facility] Pediatrics - Radiology [address] [place] [address] Discharge Disposition: Home or Self Care Social History Tobacco Use Types Packs/Day Years Used Date Smoking Tobacco: Never Assessed Sex and Gender Information Value Date Recorded Sex Assigned at Not on file Gender Identity Not on file Sexual Orientation Not on file documented as of this encounter Medications at Time of Discharge Medication Sig Dispensed Refills Start Date End Date omeprazole EC (PRILOSEC OTC) 20 MG tablet Take 1 Tab by mouth 2 times daily before meals. 60 Tab 5 05/29/2011 acetaminophen (TYLENOL) 325 MG tablet Take 2 Tabs by mouth every 6 hours as needed. Maximum allowable Acetaminophen amount = 4 Grams (4000 mg) / 24 hours. 07/10/2011 05/24/2012 cyproheptadine (PERIACTIN) 4 MG tablet Take 1 Tab by mouth at bedtime for 30 days. 30 Tab 0 07/10/2011 08/09/2011 imipramine (TOFRANIL) 10 MG tablet Take 1 Tab by mouth at bedtime. 30 Tab 5 06/11/2011 05/24/2012 ondansetron, disintegrating, (ZOFRAN ODT) 4 MG tablet Dissolve 1 Tab under the tongue every 6 hours as needed for Nausea/Vomiting for 2 days. Allow tablet to dissolve on the tongue 28 Tab 0 07/10/2011 07/12/2011 documented as of this encounter Plan of Treatment Not on file documented as of this encounter Procedures Procedure Name Priority Date/Time Associated Diagnosis Comments FL UGI SERIES Routine 07/10/2011 10:10 AM FISHING VESSEL MATE Abdominal pain, unspecified site documented in this encounter Results * FL FLUORO UGI SERIES (07/10/2011 10:10 AM FISHING VESSEL MATE) Anatomical Region Laterality Modality Abdomen Radiographic Sandie ging 07/10/2011 11:0 6 AM FISHING VESSEL MATE Impressions 07/10/2011 2:01 PM FISHING VESSEL MATE Gastroesophageal reflux. Doroteo Nicole MD Narrative 07/10/2011 2:01 PM FISHING VESSEL MATE EXAMINATION: Upper GI HISTORY: Vomiting. FLUORO TIME: 3.1 minutes FINDINGS: The esophagus is normal in size, caliber, and position without evidence of any fistula or extrinsic impression. The gastric contour is normal. The gastric emptying is normal. The duodenal bulb is normal. The ligament of Treitz is normally positioned. There was repeated gastroesophageal reflux. Procedure Note Leonela Wiggins MD - 07/13/2011 EXAMINATION: Upper GI HISTORY: Vomiting. FLUORO TIME: 3.1 minutes FINDINGS: The esophagus is normal in size, caliber, and position without evidence of any fistula or extrinsic impression. The gastric contour is normal. The gastric emptying is normal. The duodenal bulb is normal. The ligament of Treitz is normally positioned. There was repeated gastroesophageal reflux. IMPRESSION Gastroesophageal reflux. Doroteo Nicole MD Abilio Vela MD FLUOROSCOPY ORDERABL ES documented in this encounter Visit Diagnoses Diagnosis Abdominal pain, unspecified site documented in this encounter Care Teams Excel Expert Relationship Specialty Start Date End Date Jailene Fajardo MD [address] [place] [address] PCP - General 06/25/11 documented as of this encounter
--- OUTSIDE RECORDS SUMMARY | 2024-06-14 05:20 | XMS_ITS | Encounter Summary ---
Author Organization [facility] Address [address] [place] [address] Care Team Providers Care Raimann Machine Operator Name Role Phone Jailene Fajardo MD Primary Care Provider [phone] Reason for Visit * Reason Onset Date Comments Update 08/12/2011 Encounter Details Date Type Department Care Team (Late st Contact Info) Description 08/12/2011 Telephone [facility] Pediatrics - GI [address] [place] [address] Everardo Arriaga MD [address] [facility] [address] [place] [id number] Update Social History Tobacco Use Types Packs/Day Years Used Date Smoking Tobacco: Never Assessed Sex and Gender Information Value Date Recorded Sex Assigned at Not on file Gender Identity Not on file Sexual Orientation Not on file documented as of this encounter Miscellaneous Notes * Telephone Encounter - Jacqueline Maria RN - 08/17/2011 8:03 AM TICKET SORTER Left message for parents to call the office. Since 3rd attempt, letter mailed to home address. ET SORTER * Telephone Encounter - Emelyn Moyer RN - 08/14/2011 10:53 AM CST Left message for parent(s) to call us back. ET SORTER * Telephone Encounter - Jacqueline Maria RN - 08/13/2011 8:28 AM TICKET SORTER Left message for mother to call the office. Appointment made with Dr. Arriaga for 08/25/[address] [place] [address]. Escribed Reglan. ET SORTER * Telephone Encounter - Everardo Arriaga MD - 08/13/2011 8:25 AM CST Keesha: please prescribe REGLAN 10 mg tablets, 1 tablet PO TID (half hour before meals); please arrange for a sooner appointment in August. Thanks ET SORTER * Telephone Encounter - Jacqueline Maria RN - 08/12/2011 3:42 PM TICKET SORTER Spoke to mother who states Liza vomits 10 minutes after she eats (every meal). She vomits approximately half of the food. She is able to keep liquids down but not solids. She is having pain all over her body (head, belly, back). She is taking prilosec, which is not working per mom. UGI showed reflux. She is also on homebound for 16 weeks, which expires in August. Mother is concerned because she is exactly the same. Next appointment with Bart is in September but mother would like a sooner appointment. Will discuss with Bart. ET SORTER * Telephone Encounter - Tennille Higuera - 08/12/2011 3:36 PM CST Patient still vomiting, mom feels she needs to be seen sooner than first available appt which is not until September. Please call to discuss. ET SORTER documented in this encounter Plan of Treatment Not on file documented as of this encounter Visit Diagnoses Diagnosis Vomiting- Primary Vomiting alone documented in this encounter Care Teams Raimann Machine Operator Relationship Specialty Start Date End Date Jailene Fajardo MD [address] [facility] [address] [place] [address] PCP - General 06/25/11 documented as of this encounter
--- OUTSIDE RECORDS SUMMARY | 2024-06-14 05:20 | XMS_ITS | Encounter Summary ---
Author Organization [facility] Address [address] [place] [address] Care Team Providers Care Avionics Installer Name Role Phone Jailene Fajardo MD Primary Care Provider [phone] Reason for Visit * Reason Onset Date Comments Update 06/11/2011 Pain Abdominal 06/11/2011 Encounter Details Date Type Department Care Team (Late st Contact Info) Description 06/11/2011 Telephone [facility] Pediatrics - Surgery [address] [place] [address] Abilio Vela MD [address] [place] [address] Update; Pain Abdominal Social History Tobacco Use Types Packs/Day Years Used Date Smoking Tobacco: Never Assessed Sex and Gender Information Value Date Recorded Sex Assigned at Not on file Gender Identity Not on file Sexual Orientation Not on file documented as of this encounter Miscellaneous Notes * Telephone Encounter - Maude Martinez PCNS - 06/11/2011 8:39 AM CST Mom called-states patient continues to experience same symptoms as before cholecystectomy performedon 12-22-11. She continues to have burning pain in her abdomen, vomits after eating food but is able to keep liquids down, pain is not relieved by medication . Abdominal pain is increased after eating. Mom states child is having diarrhea (as before the operation). Mom states incisions all look ok and pt has no fever. Only takes pain medication couple times a day, not every 6 hours-but it really doesn't help when she does take it . Mom stated she was going to call the GI office today also to see if they had any instructions . Instructed mom Dr. Vela would be contacted and will call mom back with his recommendations and I would also discuss with GI as to their recommendations. Mom verbalized understanding. DEVELOPER documented in this encounter Plan of Treatment Not on file documented as of this encounter Visit Diagnoses Not on filedocumented in this encounter Care Teams Avionics Installer Relationship Specialty Start Date End Date Jailene Fajardo MD [address] [facility] [address] [place] [address] PCP - General 04/06/11 06/21/11 documented as of this encounter
--- OUTSIDE RECORDS SUMMARY | 2024-06-14 05:20 | XMS_ITS | Referral Summary ---
Author Organization [facility] Address [address] [address] Care Team Providers Care Hub Cutter Name Role Phone Jailene Fajardo MD Primary Care Provider [phone] Source Comments [facility],non-owned Affiliates and Associated Physician Practices is amultiple site organization consisting of ambulatory clinics and hospital sitesin [place], [place], [place] and [place]. This disclosure is being madepursuant to the Care Everywhere program and may not contain all information available regarding this patient. Last updated 18.[facility] Allergies No known active allergies Medications * Be aware that medications may not be up to date on this document. Alwaysverify current medications with the patient. Medication Sig Dispensed Refills Start Date End Date Status omeprazole EC (PRILOSEC OTC) 20 MG tablet Take 1 Tab by mouth 2 times daily before meals. 60 Tab 5 05/29/2011 Active ibuprofen (MOTRIN) 200 MG tablet Take 2 Tabs by mouth every 6 hours as needed for Pain. 30 Tab 0 02/19/2014 Active Active Problems Problem Noted Date Diagnosed Date Biliary dyskinesia 06/03/2011 Headache 06/01/2011 Overview (04/21/2015): With photophobia, frontal, associated with dizziness, worse after emesis. No family history of migraine. Plan: - Monitor clinically Abdominal pain, generalized 05/28/2011 Overview (07/11/2011): Liza is a 11 year old female who presented with generalized abdominal pain since April. She had her gallbladder removed in May for biliary dyskinesia. An ovarian cyst was noted at that time as well. During that admission to the hospital she had a very complete work-up for possible etiology of her abdominal pain that did not yield anything beyond the cyst and biliary dyskinesia. Since discharge from the hospital after her cholecystectomy, her pain had not improved. She presented with pain and emesis 6-8 times a day, NBNB. Mother and Liza have also noted new symptoms that include periodic rash and pruritis as well has burning shoulder and back pain when lies flat. She had been able to tolerate clears at home, but no solids. Her mother is concerned she has lost 30 pounds, but per our records she has lost <5 lbs since her admission in 05/24. On admission she was made NPO for bowel rest and started on fluids. CRP, CMP, CBC and amylase, lipase were essentially normal except for mildly elevated bicarb. She continued to have pain over the night of admission. An abdominal US with focus on the RUQ and a pelvic ultrasound were obtained that were normal with no acute process. When she started to take solids again in house she had return of her emesis. The second day of admission Periactin was started with some clinical improvement and she was able to tolerate fluids and some solids. It was thought at this time that an adolescent consult would be beneficial to look for a source of the abdominal pain and emesis (functional vs rumination syndrome vs disordered eating). Liza and her mother did not want the adolescent medicine consult and wanted to go home instead. As she was able to keep herself hydrated and she had not had vomiting that day she was discharged home to continue the periactin and with close follow-up with Dr. Arriaga in 2 weeks. They can consider an adolescent consult at that time. Vomiting 05/28/2011 Overview (06/04/2011): 2 wks of 3-4 episodes of NBNB vomiting per day. 1 emesis overnight after eating clears. Plan: See above Diarrhea 05/28/2011 Overview (06/04/2011): 2 wks of 3 non-bloody, foul smelling loose stools a day and RLQ pain with bowel movements. Plan: - See above Social History Tobacco Use Types Packs/Day Years Used Date Smoking Tobacco: Never Alcohol Use Standard Drinks/Week Comments No 0 (1 standard drink = 0.6 oz pur e alcohol) Sex and Gender Information Value Date Recorded Sex Assigned at Not on file Gender Identity Not on file Sexual Orientation Not on file Last Filed Vital Signs Vital Sign Reading Time Taken Comments Blood Pressure 136/80 11/15/2016 3:18 AM CDT Pulse 81 11/15/2016 4:00 AM CDT Temperature 36.9 ??C (98.4 ??F) 11/15/2016 3:18 AM CD T Respiratory Rate 15 11/15/2016 4:00 AM CDT Oxygen Saturation 98% 11/15/2016 4:00 AM CDT Inhaled Oxygen Concentration - - Weight 75.2 kg (165 lb 12.8 oz) 017 12:19 AM CDT Height 157.1 cm (5' 1.85 ) 05/24/2012 3:05 PM CS T Body Mass Index - - Plan of Treatment Not on file Care Teams Hub Cutter Relationship Specialty Start Date End Date Jailene Fajardo MD [address] [place] [address] PCP - General 06/25/11
--- OUTSIDE RECORDS SUMMARY | 2024-06-14 05:20 | XMS_ITS | Encounter Summary ---
Author Organization [facility] Address [address] [facility] [place] [address] Care Team Providers Care Sheet Tester Name Role Phone Jailene Fajardo MD Primary Care Provider [phone] Encounter Details Date Type Department Care Team (Latest Contact Info) Description 06/01/2012 Hospital Outpatient Visit [facility] [address] [place] [id number] ProviderSamantha MD Discharge Disposition: Home or Self Care Social History Tobacco Use Types Packs/Day Years Used Date Smoking Tobacco: Never Alcohol Use Standard Drinks/Week Comments Not Asked 0 (1 standard drink = 0.6 oz pur e alcohol) Sex and Gender Information Value Date Recorded Sex Assigned at Not on file Gender Identity Not on file Sexual Orientation Not on file documented as of this encounter Plan of Treatment Not on file documented as of this encounter Visit Diagnoses Not on filedocumented in this encounter Care Teams Sheet Tester Relationship Specialty Start Date End Date Jailene Fajardo MD [address] [place] [address] PCP - General 06/25/11 documented as of this encounter
--- OUTSIDE RECORDS SUMMARY | 2024-06-14 05:20 | XMS_ITS | Encounter Summary ---
Author Organization [facility] Address [address] [place] [address] Care Team Providers Care Welding Machine Operator Resistance Name Role Phone Abilio Vela MD Primary Care Provider [phone] Reason for Visit * Reason Comments Follow-up gallbladder surgery and a cyst removed on may Encounter Details Date Type Department Care Team (Latest Contact Info) Description 06/22/2011 1:[address] MAGISTRATE - 06/22/2011 1:40 PM [facility] Hospital Encounter [facility] Pediatrics - Surgery [address] [place] [address] Discharge Disposition: Home or Self Care Social [...] daily before meals. 60 Tab 5 05/29/2011 hydrocodone-acetaminophen (NORCO) 5-325 MG tablet Take 1-2 Tabs by mouth every 4 hours as needed for Pain. 75 Tab 0 06/05/2011 07/10/2011 imipramine (TOFRANIL) 10 MG tablet Take 1 Tab by mouth at bedtime. 30 Tab 5 06/11/2011 05/24/2012 metoclopramide (REGLAN) 10 MG tablet Take 1 Tab by mouth 3 times daily before meals. 90 Tab 2 06/19/2011 07/10/2011 documented as of this encounter Progress Notes * Abilio Vela MD - 06/22/2011 3:22 PM CST Pediatric General Surgery progress note Patient's Primary Care Physician: Jailene Fajardo MD Name: Liza Worthington Date: 06/22/2011 Age: 11 y.o. Race: Sex: female Chief Complaint/History of Present Illness Patient complains of: Vomiting that did not resolved with surgery, with every meal and as frequent as 6 times per day. She has stomach burning after the emesis. She also complaining of headache, bodyache and problem sleeping. Pt has a new symptom of itching since one week ago, mostly in her face and hand. Mother has a bottle of urine strips that got from working at [facility] and states she tested her daughter urine yesterday, obtaining positive bilirubin, glucose and protein. Pt has pain withvoiding, located in the area of her right ovary. She visited a [employer] [facility] and was prescribed Imipramine for pain that mother discontinued when she read was used for depression, and Reglan 10 mg TID. She is also taking Prilosec 20 mg With meals but since throwing up not getting it in the stomach for long per the pt's mother. Pt denied polyuria or polydipsia. No chills and no constipation. Her last menstrual period was June 13 2011. Past Medical History Diagnosis Date ??? FTND (full term normal delivery) Past Surgical History Procedure Date ??? Tonsillectomy and adenoidectomy No family history on file. Social History Occupational History ??? Not on file. Social History Main Topics ??? Smoking status: Not on file ??? Smokeless tobacco: Not on file ??? Alcohol Use: ??? Drug Use: ??? Sexually Active: Not on file No Known Allergies Review of Systems A comprehensive review of systems was negative except for:headache, vomits,stomach burning after emesis, body aches and occasional diarrhea and pain when voiding. Exam Vitals: 06/22/11 1347 BP: 108/64 Temp: 98.8 ??F Weight: 82.01 kg (180 lb 12.8 oz) General appearance: alert, cooperative, no distress Heart: regular rhythm, normal S1 and S2, without murmurs, rubs or gallops Lungs: breath sounds normal and symmetric; no rales or wheezes Abdomen: soft without mass, non-tender, with normal bowel sounds, 4 scars from laparoscopic cholecystectomy well healed. Extremities: no clubbing, cyanosis or edema Data Assessment and Plan 11 year old presenting for follow up . She had a laparoscopic cholecystectomy done in 06/01/2011. She is still complaining of emesis after meals. Will plan for small bowel series as an outpatient , an urinalysis and hepatic function test. Magali Arango MD 06/22/2011 3:41 PM This pt was seen And discussed plan with Dr. Vela Attending Physician Attestation I reviewed the patient's medical record and history. I examined the patient and confirm the findings above. I reviewed the patient's radiology and lab results. I reviewed these results with the resident(s) and formulated a plan. Patient seen on 06/22/2011 8:40 PM Brief history: pt with epigastric pain, seen by GI and had normal EGD,. Had HIDA showing low GB ejection fraction so referred for lap choly. Susp of other pain issues, so had CT which also showed R ovarian cyst. Had lap choly and ovarian cystotomy but developed recurrent pain after going home. Pain epigastric,followed with vomitting. Brief physical exam: abd soft, wounds healed. No visits with results within 1 Day(s) from this visit. Latest known visit with results is: Admission on 06/01/2011, Discharged on 06/05/2011 Component Date Value Range Status ??? Sodium (mmol/L) 06/01/2011 143 137-145 Final ??? Potassium (mmol/L) 06/01/2011 4.1 3.5-5.1 Final ??? Chloride (mmol/L) 06/01/2011 106 98-107 Final ??? CO2 (mmol/L) 06/01/2011 24.4 18-27 Final ??? Glucose (mg/dl) 06/01/2011 85 70-106 Final ??? BUN (mg/dl) 06/01/2011 5.3* 7-18 Final ??? Calcium (mg/dl) 06/01/2011 9.4 8.8-10.6 Final ??? Bili Total (mg/dl) 06/01/2011 0.5* 0.6-1.4 Final ??? Protein Total (gm/dl) 06/01/2011 7.2 6.3-8.6 Final ??? Albumin (gm/dl) 06/01/2011 4.4 3.7-5.6 Final ??? ALT/SGPT (Units/L) 06/01/2011 34* 10-30 Final ??? AST/SGOT (Units/L) 06/01/2011 27 10-30 Final ??? Alk Phos (Units/L) 06/01/2011 138 105-420 Final ??? Creatinine (mg/dl) 06/01/2011 0.51 0.31-0.88 Final ??? WBC (K/cumm) 06/01/2011 8.87 4.5-14.5 Final ??? RBC (mill/cumm) 06/01/2011 4.75 4.10-5.10 Final ??? Hgb (gm/dl) 06/01/2011 13.4 12.0-16.0 Final ??? Hct (%) 06/01/2011 38.8 36.0-47.0 Final ??? MCV (cu microns) 06/01/2011 81.7 78.0-102.0 Final ??? MCH (uug) 06/01/2011 28.2 25.0-35.0 Final ??? MCHC (%) 06/01/2011 34.5 31.0-37.0 Final ??? RDW (%) 06/01/2011 13.4 Final ??? MPV (fl) 06/01/2011 11.6 Final ??? Plt Ct K/CUMM (K/cumm) 06/01/2011 303 100-400 Final ??? Gran (%) 06/01/2011 61.1 24-66 Final ??? Lymph (%) 06/01/2011 29.9 22-61 Final ??? Collier (%) 06/01/2011 7.6 3-15 Final ??? Eos (%) 06/01/2011 1.2 0-10 Final ??? Baso (%) 06/01/2011 0.2 0-1 Final ??? Manual Diff Comment 06/01/2011 Automated Diff Performed Final ??? Amylase (Units/L) 06/01/2011 41 30-100 Final ??? Color UA 06/01/2011 YELLOW Final ??? Character UA 06/01/2011 SL CLOUDY Final ??? Specific Stanley UA 06/01/2011 1.020 1.003-1.030 Final ??? pH Units 06/01/2011 8.0 5.0-8.0 Final ??? Protein UA 06/01/2011 NEGATIVE Negative Final ??? Glucose UA (gm/dl) 06/01/2011 NEGATIVE Negative Final ??? Ketone UA 06/01/2011 NEGATIVE Negative Final ??? Blood UA 06/01/2011 NEGATIVE Negative Final ??? Bili UA 06/01/2011 NEGATIVE Negative Final ??? Epithelial Cell UA (/HPF) 06/01/2011 6-8 Corrected ??? Mucus Ua 06/01/2011 Trace Corrected ??? Bacteria UA 06/01/2011 Trace Corrected ??? Leukocyte UA 06/01/2011 NEGATIVE Final ??? Nitrite UA 06/01/2011 NEGATIVE Final ? ? Urobilinogen UA (EU/dl) 06/01/2011 0.2 <=1.0 Final ??? HCG Qual Urine 06/01/2011 Negative Negative Final ??? Performed By 06/01/2011 DD Final ? ? CRP (mg/dl) 06/01/2011 <0.5 <1.0 mg/dl Final ??? Lipase (Units/L) 06/01/2011 151 23-300 Final ??? HCG Qual Urine 06/03/2011 Negative Negative Final ??? H Pylori Urease Initial 06/03/2011 Negative Negative Final ??? H Pylori Urease Final 06/03/2011 Negative Negative Final ??? CASE # 06/03/2011 [id number] Final ??? Clinical History 06/03/2011 Final Comment: The patient is a 11-year-old girl with a three week history of vomiting and abdominal pain, 10 pound weight loss, who underwent upper endoscopy which was found to be normal. Negative urease. ??? GROSS DESCRIPTION 06/03/2011 Final Comment: The specimens are received fixed in formalin in three containers for gross and microscopic examination. All containers are labeled with the patient's name, Liza Worthington. Specimen A, duodenum, consists of two 4.0 mm soft, yellow-antony tissue fragments submitted in toto as A . Specimen B, stomach, consists of a 6.0 mm soft, yellow-antony tissue fragment submitted in toto as B . Specimen C, esophagus, consists of a 3.0 mm soft, marques-antony tissue fragment submitted in toto as C . (CT/lw) ??? MICROSCOPIC EXAM 06/03/2011 Final Comment: A) 3 H+E, B) 3 H+E, C) 3 H+E. Sections of the duodenum biopsy show duodenal mucosa with normal villous architecture, where orientation is adequate for assessment, and a normocellular lamina propria. The gastric biopsy shows intact surface epithelium and generally a normocellular lamina propria. There are several lymphoid aggregates without germinal centers. The esophageal biopsy shows squamous mucosa with a few intraepithelial lymphocytes. (CAV/lw) ??? DIAGNOSIS 06/03/2011 Final Comment: DIAGNOSIS: A) DUODENUM, BIOPSY: -NO DIAGNOSTIC ALTERATION. B) STOMACH, BIOPSY: -NO DIAGNOSTIC ALTERATION. C) ESOPHAGUS, BIOPSY: -NO DIAGNOSTIC ALTERATION. This case has been personally reviewed and interpreted by the attending (teaching) pathologist. ??? Pest Locator 06/03/2011 Jud Louise, Final ??? Pathologist 06/03/2011 Veena Orantes M.D. Final ??? Electronically Signed By 06/03/2011 VEENA ORANTES M.D. Final ??? CASE # 06/04/2011 [id number] Final ??? Clinical History 06/04/2011 Final Comment: The patient is a 11-year-old girl with biliary dyskinesia who underwent laparoscopic cholecystectomy. ??? GROSS DESCRIPTION 06/04/2011 Final Comment: Submitted fixed in formalin in one container for gross and microscopic examination, labeled with the patient's name, Liza Worthington and gallbladder is a 6 x 2.8 x 2 cm gallbladder with stapled cystic duct and pericystic lymph node, 1 x 0.7 x 0.5 cm. The gallbladder is filled with dark green, viscid bile. There are no choleliths. The gallbladder wall thickness is 0.1 cm. The mucosal surface has a yellow-brown velvety appearance. Dark Room Attendant sections from the gallbladder, cystic duct, and pericystic lymph node are submitted in cassette A1. (CT/nab) ??? MICROSCOPIC EXAM 06/04/2011 Final Comment: 1 H+E Sections of the specimen submitted as gallbladder show gallbladder, with focally disrupted surface epithelium and a mild subepithelial and mural chronic inflammatory infiltrate. There are a few foam cells in the subepithelial connective tissue. Also included with the specimen is a small lymph node with no diagnostic alteration. (CAV/nab) ??? DIAGNOSIS 06/04/2011 Final Comment: DIAGNOSIS: GALLBLADDER: -CHRONIC CHOLECYSTITIS. LYMPH NODE, PERICYSTIC: -NO DIAGNOSTIC ALTERATION. This case has been personally reviewed and interpreted by the attending (teaching) pathologist. ??? Pest Locator 06/04/2011 KURT CAPELLAN, Final ??? Pathologist 06/04/2011 Veena Orantes M.D. Final ??? Electronically Signed By 06/04/2011 VEENA ORANTES M.D. Final lft's normal Summary: 11 y.o. female. The patient has the following diagnoses: 1. Abdominal pain, generalized 2. Vomiting Decision making/Plan: Unclear etiology for epigastric pain. Related to eating so will order UGI to examine function Also has RUQ pain, so r/o biliary complication with lft's F/u after ugi, Abilio Vela MD [address] MAGISTRATE documented in this encounter Miscellaneous Notes * Miscellaneous Scans - Document, Scanned - 07/08/2011 9:[address] MAGISTRATE documented in this encounter Plan of Treatment Not on file documented as of this encounter Procedures Procedure Name Priority Date/Time Associated Diagnosis Comments HEPATIC FUNCTION PANEL Routine 06/22/2011 3:[address] MAGISTRATE URINALYSIS - POINT OF CARE (IP) Routine 06/22/2011 2:[address] MAGISTRATE Abdominal pain, generalized documented in this encounter Results * (ABNORMAL) HEPATIC FUNCTION PANEL (06/22/2011 3:[address] MAGISTRATE) Bilirubin Total 0.5(L) 0.6 - 1.4 mg/dl [facility] Bilirubin Direct ND 0.0 - 0.3 mg/dl [facility] Protein Total 7.5 6.3 - 8.6 gm/dl [facility] Albumin 4.7 3.7 - 5.6 gm/dl [facility] ALT 35(H) 10 - 30 Units/L [facility] AST 26 10 - 30 Units/L [facility] Alkaline Phosphatase 115 105 - 420 Units/L [facility] Blood specimen (specimen) BLOOD SPECIMEN / Unknown 06/22/2011 3:[address] MAGISTRATE 06/22/2011 3:[address] MAGISTRATE Abilio Vela MD LAB - CHEMISTRY ORDE RABENRIQUE Performing Organization Address City[facility] Co de Phone Number [facility] [address] [place] [address] * URINALYSIS - POINT OF CARE (IP) (06/22/2011 2:[address] MAGISTRATE) Pathologist [facility] Glucose UA negative Negative [facility] Bilirubin UA negative Negative [facility] Ketone UA negative Negative [facility] Specific Stanley UA POCT >=1.030 1.000 - 1.030 [facility] Blood UA negative Negative [facility] pH UA 5.0 5.0 - 8.0 pH units [facility] Protein UA negative Negative [facility] Urobilinogen UA 0.2 0.2 - 1.0 EU/dL [facility] Nitrite UA negative Negative [facility] Leukocyte UA negative Negative [facility] QC Verified yes Yes [facility] Urine specimen (specimen) URINE / Unknown 06/22/2011 2:[address] MAGISTRATE Abilio Vela MD LAB - POINT OF CARE ORDERABLES Performing Organization Address [facility] Co de Phone Number [facility] [address] [place] [address] documented in this encounter Visit Diagnoses Diagnosis Abdominal pain, generalized- Primary Vomiting Vomiting alone documented in this encounter Care Teams Welding Machine Operator Resistance Relationship Specialty Start Date End Date Aiblio Vela MD [address] [place] [id number] PCP - General 06/22/11 06/24/11 documented as of this encounter
--- OUTSIDE RECORDS SUMMARY | 2024-06-14 05:20 | XMS_ITS | Encounter Summary ---
Author Organization [facility] Address [address] [place] [address] Care Team Providers Care Road Hogger Operator Name Role Phone Jailene Fajardo MD Primary Care Provider [phone] Reason for Visit * Reason Onset Date Comments Results 06/02/2012 Encounter Details Date Type Department Care Team (Late st Contact Info) Description 06/02/2012 Telephone [facility] - [address] [place] [address] Roro Rosario MD [address] [place] [id number] Results Social History Tobacco Use Types Packs/Day Years [...] Miscellaneous Notes * Telephone Encounter - Jacqueline Mraia RN - 06/09/2012 4:13 PM CARDIOTHORACIC PHYSIOTHERAPIST Spoke to mother informing her of plan for MRI and EKG. Given dates/times. IOTHORACIC PHYSIOTHERAPIST * Telephone Encounter - Jacqueline Maria RN - 06/09/2012 10:11 AM CARDIOTHORACIC PHYSIOTHERAPIST Left message for parents to call the office. Plan for MRI brain on Wed06/21/12 at 1700, arrive at 1630, may eat. EKG also scheduled for 06/21/12 at 1430 in [facility]. IOTHORACIC PHYSIOTHERAPIST * Telephone Encounter - Emelyn Moyer RN - 06/08/2012 3:37 PM CST Mom would like to start her on the medication and would like to get the EKG done. Mom would also like to get the MRI done since her headaches have continued Veena would not need sedation. Mom would like to avoid Wednesdays and afternoons are better. Orders entered in [facility] ([facility]). IOTHORACIC PHYSIOTHERAPIST * Telephone Encounter - Emelyn Moyer RN - 06/08/2012 10:11 AM CST Left message for parent(s) to call us back. IOTHORACIC PHYSIOTHERAPIST * Telephone Encounter - Lindsay Pollock RN - 06/03/2012 9:20 AM CARDIOTHORACIC PHYSIOTHERAPIST LM on home unidentified VM to call us. IOTHORACIC PHYSIOTHERAPIST * Telephone Encounter - Roro Rosario MD - 06/02/2012 11:48 AM CST I tried calling mom with gastric emptying results.. No answer left voicemail with the following: Veena's gastric emptying stuy was normal (ie did not show delays) Would you get her set up with an EKG so we can restart amitryptiline or nortryptline as we discussed at her last clinic visit (some FH of dysrhythmias) I also asked mom to let us know if she has headaches with her vomiting. If so, only other test thathas not been done is MRI. Her neurologic exam seemed normal to me so my suspicion is that an MRI would also be normal, but we can investigate this if she is having headaches as well. If this is case we should order MRI head with IV contrast.. She is 12 so I dont think she would require sedation but may need to clarify with mom IOTHORACIC PHYSIOTHERAPIST documented in this encounter Plan of Treatment Not on file documented as of this encounter Visit Diagnoses Diagnosis Vomiting- Primary Vomiting alone documented in this encounter Care Teams Road Hogger Operator Relationship Specialty Start Date End Date Jailene Fajardo MD [address] [place] [address] PCP - General 06/25/11 documented as of this encounter
--- OUTSIDE RECORDS SUMMARY | 2024-06-14 05:20 | XMS_ITS | Encounter Summary ---
Author Organization [facility] Address [address] [place] [address] Care Team Providers Care Soap Maker Name Role Phone Jailene Fajardo MD Primary Care Provider [phone] Reason for Visit * Reason Onset Date Comments Medication Problem 06/11/2011 Encounter Details Date Type Department Care Team (Late st Contact Info) Description 06/11/2011 Telephone [facility] Pediatrics - GI [address] [place] [address] Everardo Arriaga MD [address] [facility] [id number] [place] [id number] Medication Problem Social History Tobacco Use Types Packs/Day Years Used Date Smoking Tobacco: Never Assessed Sex and Gender Information Value Date Recorded Sex Assigned at Not on file Gender Identity Not on file Sexual Orientation Not on file documented as of this encounter Miscellaneous Notes * Telephone Encounter - Lindsay Pollock RN - 06/11/2011 3:20 PM CORPORATE PLANNER Discussed Dr. Arriaga's message with pt's mother, she is OK with starting the imipramine--med escribed after verifying preferred pharmacy. Mom aware that it may take 2-3 weeks to see full effect of med, & to let us know if not better after 3 weeks on med. ORATE PLANNER * Telephone Encounter - Tennille Higuera - 06/11/2011 3:15 PM CST Mom returning nurses' call. Can be reached at [phone] ORATE PLANNER * Telephone Encounter - Jacqueline Maria RN - 06/11/2011 10:39 AM CORPORATE PLANNER Left message for parents to call the office. ORATE PLANNER * Telephone Encounter - Everardo Arriaga MD - 06/11/2011 9:32 AM CST Maude: she had chronic cholecystitis (by pathology); Liza needs to stay on a bland diet and the PPI. She is just 1 week post cholecystectomy. If symptoms are severe she may need to be admitted; I recommend to start her on IMIPRAMINE 10 mg PO at bedtime, it can help symptoms in few weeks. Thanks ORATE PLANNER * Telephone Encounter - Lindsay Pollock RN - 06/11/2011 8:39 AM CORPORATE PLANNER Received call from surgery RN--mother has called their office to report that pt is continuing to have the same pain as before her cholycystectomy-- burning on the inside . Pt is not able to keep solids down, does retain liquids. Is continuing on the PPI. Will discuss with Dr. Arriaga. ORATE PLANNER documented in this encounter Plan of Treatment Not on file documented as of this encounter Visit Diagnoses Not on filedocumented in this encounter Care Teams Soap Maker Relationship Specialty Start Date End Date Jailene Fajardo MD [address] [facility] [facility] [address] [place] [address] PCP - General 04/06/11 06/21/11 documented as of this encounter
--- OUTSIDE RECORDS SUMMARY | 2024-06-14 05:20 | XMS_ITS | Encounter Summary ---
Author Organization [facility] Address [address] [place] [address] Care Team Providers Care Boiling House Hand Name Role Phone Jailene Fajardo MD Primary Care Provider [phone] Reason for Visit * Reason Comments Vomiting Encounter Details Date Type Department Care Team (Latest Contact Info) Description 05/24/2012 3:00 PM PRODUCTION REPAIRER - 05/24/2012 11:59 PM PRODUCTION REPAIRER Hospital Encounter [facility] Pediatrics - [address] [address] Roro Rosario MD [address] [place] [id number] Discharge Disposition: Home or Self Care Social History Tobacco Use Types Packs/Day Years Used Date Smoking Tobacco: Never Alcohol Use Standard Drinks/Week Comments Not Asked 0 (1 standard drink = 0.6 oz pur e alcohol) Sex and Gender Information Value Date Recorded Sex Assigned at Not on file Gender Identity Not on file Sexual Orientation Not on file documented as of this encounter Last Filed Vital Signs Vital Sign Reading Time Taken Comments Blood Pressure 114/66 05/24/2012 3:05 PM PRODUCTION REPAIRER Pulse - - Temperature - - Respiratory Rate - - Oxygen Saturation - - Inhaled Oxygen Concentration - - Weight 79 kg (174 lb 2 oz) 05/24/2012 3:05 PM CS T Height 157.1 cm (5' 1.85 ) 05/24/2012 3:05 PM CS T Body Mass Index 32 05/24/2012 3:05 PM PRODUCTION REPAIRER Body Mass Index Percentile 97.86% 05/24/2012 3:0 5 PM PRODUCTION REPAIRER Growth Chart: [facility] (Girls, 2- 20 Years) documented in this encounter Discharge Instructions * Patient Instructions* Roro Rosario MD - 05/24/2012 3:39 PM PRODUCTION REPAIRER Schedule gastric emptying scan at [facility] Start Miralax 17 g in 8 oz once to twice daily We will restart the imipramine after gastric emptying study. UCTION REPAIRER documented in this encounter Medications at Time of Discharge Medication Sig Dispensed Refills Start Date End Date omeprazole EC (PRILOSEC OTC) 20 MG tablet Take 1 Tab by mouth 2 times daily before meals. 60 Tab 5 05/29/2011 documented as of this encounter Progress Notes * Roro Rosario MD - 05/24/2012 3:16 PM CST CHIEF COMPLAINT: Vomiting Liza Worthington was seen in the Pediatric GI clinic along with her mother HISTORY: Liza is a 12 y.o. female who presents with a chief complaint of vomiting. Liza was previously followed by Dr. Arriaga for issues related to vomiting. She reports vomitingmultiple times per day. Vomiting is worst with eating. Her mom reports that she will get up to vomit (non-bloody, non-bilious) emesis ~10 minutes after meals. She admits sensation of bloating. She reports early satiety. She has a significantly elevated BMI of 32. There is a 6 lb weight loss since June 2011 (180 down to 174 lbs) . MOther rpeots that she has had >20 lbs weight loss since her last PCP visit. She reports changing her diet to a vegetarain diet about 5 months ago. She has had an extensive work up including laboratory evaluation, endoscopy which have been normal. Liza and her mother relate timing of her symptoms as s/p cholecystectomy for biliary dyskinesia. Mother believes that Liza may have gastroparesis. She was actaully given a trial of Reglan few months ago that she reports did not help at all. PAST MEDICAL HISTORY: Liza's past medical history includes: Past Medical History Diagnosis Date ??? FTND (full term normal delivery) ??? Cholecystitis chronic ??? Ovarian cyst, right Liza's past surgical history includes: Past Surgical History Procedure Date ??? Tonsillectomy and adenoidectomy had them out in kindergarten ??? Cholecystectomy, laparoscopic No history on file. SOCIAL HISTORY: History Social History Narrative Lives with mother, step-father, sister (16), and step-sister (16). Step dad has been around for three years. Sister Barbara has significant neurodevelopmental delays related to CP and is non-verbal non-ambulatory and currently PN dependent.Per previous documentation - Feels safe at home. In the 7thgrade, that is going well. Wants to be a vet when grows up. No t/d/a, not sexually active. FAMILY HISTORY: Family History Problem Relation Age of Onset ??? Cholelithiasis Mother ??? Cancer Other maternal great aunt ??? OTHER ovarian cysts in mother ??? IBD Neg Hx ??? IBS Neg Hx ??? Coronary Artery Disease Maternal Grandmother ??? OTHER Father diet of heart attack at 30, drug use ??? Cerebral Palsy Sister ??? Autoimmune Disease paternal great aunt with lupus ??? Drug Abuse Father at age 30 related to heart attack from drug abuse REVIEW OF SYSTEMS GEN: no fevers, chills or weight loss HEENT: no cough, cold, congestion, rhinorrhea, mouth ulcers, sore throat CV: no known cardiac disease PULM: no known respiratory disorders GI: see HPI above; : no dysuria or hematuria HEME: no easy bleeding or bruising NEURO: no headaches, no seizures PSYCH: no documented history of mental illness ALL/IMMUNO: no history of seasonal allergies CURRENT MEDICATIONS: Current Outpatient Prescriptions Medication Sig Dispense Refill ??? omeprazole EC (PRILOSEC OTC) 20 MG tablet Take 1 Tab by mouth 2 times daily before meals. 60 Tab 5 PHYSICAL EXAM: BP 114/66 Wt 78.983 kg (174 lb 2 oz) BMI 32.00 kg/m2 GEN: awake, alert, overweight, flat affect doesn't talk much even when asked questions HEENT: sclera anicteric, mucus membranes moist, no oral lesion CV: regular rate and rhythm without murmur LUNGS: clear to auscultation bilaterally, equal aeration bilat ABD: truncal obesity, soft, not apparently tender or distended, no organomegaly, bowel sounds present EXT: warm and well perfused NEURO: no obvious deficits PSYCH: flat affect IMPRESSION: In summary, Liza is a 12 y/o female with history of recurrent vomiting and obesity. Symptoms have been ongoing for many years. She does not have evidence of anatomic, mucosal or metabolic abnormality based on her history, exam and previous workup. I would be suspicous for rumination syndrome. Her mother is quite concerned about her weight loss and early satiey. I am not concerned in the same way - rather I am concerned about markedly elevated BMI. Vomiting is not such that she is losing excessive calories. Liza's mother is also quite concerned about gastroparesis. We did talk extensively that positive study may not be specific for a particular disorder - in fact can be secondary - as it is noted in patients diabetes, eating disorders etc. There are no excellent prokinetic agents available in the [place]. Reglan has a non-trivial side effect profile and she already told me that didn'tseem to help. We can obtain gastric emptying study to evaluate if gastroparesis present. However, management willlikely not change, will plan for TCA like imipramine or amitriptyline. WIll get EKG before restarting. I have also suggested psychologic evaluation as some of these disorders may be improved with behavioral therapies. Though Liza denies stress, it seems that there are major stressors in her life. Both Liza and her mother are highly resistant to these ideas. They have suggested a 2nd opinion if gastric emptying study normal. I gave information regarding neurogastromotility centers as in [facility]. I also suggest adolescent medicine evaluation in light of patients symptoms. Eating disorder have been discussed in the past, though patient/family deny. Patient's mother does not want to see adolescent medicine doctor at this time. Plan of care, including education on the safe and effective use of medication(s) and/or medical equipment if prescribed, was discussed with the patient and her mother verbalized understanding and agreed with the treatment options discussed. 05/24/2012 1:42 PM UCTION REPAIRER documented in this encounter Procedure Notes * Document, Scanned - 07/26/2012 7:41 AM CSTAssociated Order(s): IMAGING/RADIOLOGY/XRAY RESULTS ORDER UCTION REPAIRER documented in this encounter Miscellaneous Notes * Miscellaneous Scans - Document, Scanned - 07/04/2012 5:14 PM CST UCTION REPAIRER documented in this encounter Plan of Treatment Not on file documented as of this encounter Procedures Procedure Name Priority Date/Time Associated Diagnosis Comments IMAGING/RADIOLOGY/X RAY RESULTS ORDER 07/26/2012 7:41 AM PRODUCTION REPAIRER documented in this encounter Results * IMAGING/RADIOLOGY/XRAY RESULTS ORDER (07/26/2012 7:41 AM PRODUCTION REPAIRER) Anatomical Region Laterality Modality Other Narrative 07/26/2012 7:41 AM PRODUCTION REPAIRER Procedure Note Document, Scanned - 07/26/2012 7:41 AM CST Scanned Document IMAGING documented in this encounter Visit Diagnoses Diagnosis Vomiting Vomiting alone Abdominal pain, generalized documented in this encounter Care Teams Boiling House Hand Relationship Specialty Start Date End Date Jailene Fajardo MD [address] [facility] [place] [address] PCP - General 06/25/11 documented as of this encounter
--- OUTSIDE RECORDS SUMMARY | 2024-06-14 05:20 | XMS_ITS | Encounter Summary ---
Author Organization [facility] Address [address] [place] [address] Care Team Providers Care Home Management Supervisor Name Role Phone Abilio Vela MD Primary Care Provider [phone] Encounter Details Date Type Department Care Team (Latest Contact Info) Description 06/22/2011 1:41 PM NET WASHER - 06/22/2011 11:59 PM [facility] Hospital Encounter [facility] Pediatrics - Surgery [address] [place] [address] Abilio Vela MD [address] [place] [address] Surgery General Discharge Disposition: Home or Self Care Social [...] 06/19/2011 07/10/2011 documented as of this encounter Plan of Treatment Not on file documented as of this encounter Visit Diagnoses Diagnosis Unspecified disorder of gallbladder documented in this encounter Care Teams Home Management Supervisor Relationship Specialty Start Date End Date Abilio Vela MD [address] [place] [address] PCP - General 06/22/11 06/24/11 documented as of this encounter
--- OUTSIDE RECORDS SUMMARY | 2024-06-14 05:20 | XMS_ITS | Patient Health Summary ---
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 CDT [facility] Blood BLOOD SPECIMEN / Unknown 02/19/2014 7:51 PM CDT 02/19/2014 7:53 PM CDT Ochoa Arshad MD LAB - HEMATOLOGY ORD ERABLES Performing Organization Address [facility] [address] [facility] Co de Phone Number [facility] [address] [place] [address] * AMYLASE BLOOD (02/19/2014 7:51 PM CDT) Only the most recent of4 resultswithin the time period is included. Amylase 36 5 - 65 U/L 02/19/2014 8:19 PM CDT [facility] Blood BLOOD SPECIMEN / Unknown 02/19/2014 7:51 PM CDT 02/19/2014 8:01 PM CDT Ochoa Arshad MD LAB - CHEMISTRY ORDE RABLES Performing Organization Address [facility] [address] [facility] Co de Phone Number [facility] [address] [place] [id number] * IMAGING/RADIOLOGY/XRAY RESULTS ORDER (07/26/2012 7:41 AM SAP TECHNICAL DEVELOPER) Only the most recent of3 resultswithin the time period is included. Anatomical Region Laterality Modality Other Narrative 07/26/2012 7:41 AM SAP TECHNICAL DEVELOPER Procedure Note Document, Scanned - 07/26/2012 7:41 AM CST Scanned Document IMAGING * NM GASTRIC EMPTYING (06/01/2012 10:13 AM SAP TECHNICAL DEVELOPER) Anatomical Region Laterality Modality Abdomen Other Impressions 06/01/2012 4:10 PM SAP TECHNICAL DEVELOPER Impression: 1. Evidence of spontaneous gastroesophageal reflux. 2. Limited assessment of gastric emptying due to frequent vomiting; however, one-hour delayed images show evidence of tracer activity in the small bowel which makes the diagnosis of delayed gastric emptying unlikely. This report was approved ??by Wyatt Bermudez M.D. ?? on 06/01/2012 4:02 PM . I, Dr. RUPINDER LEOS M.D. have personally reviewed and interpreted this examination/study. This report was electronically signed by RUPINDER LEOS M.D. ??on 06/01/2012 4:10 PM . Narrative 06/01/2012 4:10 PM SAP TECHNICAL DEVELOPER Solid Gastric Emptying Study Agent: ??0.5mCi of Tc- 99m- sulfur colloid mixed in scrambled egg. History: Severe nausea and vomiting. Technique: The examination was performed after the ingestion of a 4 oz scrambled egg, one wheat toast and 7 ounces of water. Standardized solid meal could not be used due to patient's severe nausea. After ingestion of the above described meal, dynamic imaging was performed for 3 minutes, followed by an immediate static images of the abdomen in anterior and posterior projections. Subsequently, the patient vomited a significant amount of ingested food. Additional static images of the abdomen were acquired one hour later in the anterior and posterior projections, as well as with anterior transmission view. The patient reported an additional episode of small amount of vomiting before returning for the one hour delayed imaging. Findings: No prior gastric emptying studies are available for comparison. Immediately after ingestion of the labeled meal, intermittent reflux from the stomach into the esophagus was seen and documented in the 3-minute dynamic images. The one-hour delayed static images of the abdomen demonstrate minimal tracer activity in the stomach, and evidence of radiotracer in the lower abdomen, likely small bowel. Procedure Note Rupinder Leos MD - 09/12/2017 Solid Gastric Emptying Study Agent: 0.5mCi of Tc- 99m- sulfur colloid mixed in scrambled egg. History: Severe nausea and vomiting. Technique: The examination was performed after the ingestion of a 4 ozscrambled egg, one wheat toast and 7 ounces of water. Standardized solidmeal could not be used due to patient's severe nausea. After ingestion of the above described meal, dynamic imaging was performedfor 3 minutes, followed by an immediate static images of the abdomen inanterior and posterior projections. Subsequently, the patient vomited asignificant amount of ingested food. Additional static images of the abdomen were acquired one hour laterin the anterior and posterior projections, as well as with anteriortransmission view. The patient reported an additional episode of smallamount of vomiting before returning for the one hour delayed imaging. Findings: No prior gastric emptying studies are available forcomparison. Immediately after ingestion of the labeled meal, intermittent reflux fromthe stomach into the esophagus was seen and documented in the 3-minutedynamic images. The one-hour delayed static images of the abdomen demonstrate minimaltracer activity in the stomach, and evidence of radiotracer in the lowerabdomen, likely small bowel. IMPRESSION Impression: 1. Evidence of spontaneous gastroesophageal reflux. 2. Limited assessment of gastric emptying due to frequent vomiting;however, one- hour delayed images show evidence of tracer activity in thesmall bowel which makes the diagnosis of delayed gastric emptyingunlikely. This report was approved by Wyatt Bermudez M.D. on 06/01/2012 4:02 PM. I, Dr. RUPINDER LEOS M.D. have personally reviewed and interpreted thisexamination/study. This report was electronically signed by RUPINDER LEOS M.D. on 06/01/20124:10 PM . Roro Rosario MD NM ORDERABLES * FL FLUORO UGI SERIES (07/10/2011 10:10 AM SAP TECHNICAL DEVELOPER) Anatomical Region Laterality Modality Abdomen Radiographic Sandie ging 07/10/2011 11:0 6 AM SAP TECHNICAL DEVELOPER Impressions 07/10/2011 2:01 PM SAP TECHNICAL DEVELOPER Gastroesophageal reflux. Doroteo Nicole MD Narrative 07/10/2011 2:01 PM SAP TECHNICAL DEVELOPER EXAMINATION: Upper GI HISTORY: Vomiting. FLUORO TIME: [...] MD Abilio Vela MD FLUOROSCOPY ORDERABL ES * US ABDOMEN LIMITED (07/08/2011 11:59 AM SAP TECHNICAL DEVELOPER) Only the most recent of3 resultswithin the time period is included. Anatomical Region Laterality Modality Abdomen Ultrasound 07/08/2011 12:0 4 PM SAP TECHNICAL DEVELOPER Impressions 07/08/2011 12:04 PM SAP TECHNICAL DEVELOPER Postoperative right upper quadrant sonogram with no definite acute process identified. Narrative 07/08/2011 12:04 PM SAP TECHNICAL DEVELOPER Right upper quadrant sonogram dated Jul 08, 2011 11:28:17 AM. History: Abdominal pain. Multiple real-time sonographic images of the right upper quadrant are obtained. The patient is status post cholecystectomy. The common bile duct is well visualized and normal in appearance with a maximal dimension of 2 mm. No definite ductal calculus is identified. There is no evidence of any intrahepatic biliary dilatation. No other imaging abnormalities are appreciated. Procedure Note Bal Moralez A - 07/08/2011 Right upper quadrant sonogram dated Jul 08, 2011 11:28:17 AM. History: Abdominal pain. Multiple real-time sonographic images of the right upper quadrant are obtained. The patient is status post cholecystectomy. The common bile duct is well visualized and normal in appearance with a maximal dimension of 2 mm. No definite ductal calculus is identified. There is no evidence of any intrahepatic biliary dilatation. No other imaging abnormalities are appreciated. IMPRESSION Postoperative right upper quadrant sonogram with no definite acute process identified. Nati Tobar DO US ORDERABLES * US PELVIS COMPLETE (07/08/2011 11:45 AM SAP TECHNICAL DEVELOPER) Anatomical Region Laterality Modality Pelvis Ultrasound 07/08/2011 12:0 6 PM SAP TECHNICAL DEVELOPER Impressions 07/08/2011 12:06 PM SAP TECHNICAL DEVELOPER Normal pelvic sonogram. Narrative 07/08/2011 12:06 PM SAP TECHNICAL DEVELOPER Pelvic sonogram dated Jul 08, 2011 11:45:19 AM. History: Abdominal pain. Status post ovarian cyst aspiration. Multiple real-time sonographic images of the pelvis are obtained via transabdominal window. Prior scans are not available for comparison. The uterus measures approximately 6.3 by 2. 5 x 3.0 cm and is normal in appearance. The right ovary measures approximately 2.1 x 1.6 x 1.8 cm and is normal in appearance. The left ovary measures approximately 3.0 x 1.3 x 2.4 cm and is normal in appearance. Both ovaries demonstrate normal waveforms. No ira cyst, or mass is identified. A teeny amount of fluid is seen in the cul-de-sac which is likely physiologic. Procedure Note Bal Moralez - 07/08/2011 Pelvic sonogram dated Jul 08, 2011 11:45:19 AM. History: Abdominal pain. Status post ovarian cyst aspiration. Multiple real-time sonographic images of the pelvis are obtained via transabdominal window. Prior scans are not available for comparison. The uterus measures approximately 6.3 by 2. 5 x 3.0 cm and is normal in appearance. The right ovary measures approximately 2.1 x 1.6 x 1.8 cm and is normal in appearance. The left ovary measures approximately 3.0 x 1.3 x 2.4 cm and is normal in appearance. Both ovaries demonstrate normal waveforms. No ira cyst, or mass is identified. A teeny amount of fluid is seen in the cul-de-sac which is likely physiologic. IMPRESSION Normal pelvic sonogram. Nati Landa [facility] ORDERABLES * C-REACTIVE PROTEIN (07/07/2011 4:50 PM SAP TECHNICAL DEVELOPER) Only the most recent of2 resultswithin the time period is included. Pathologist [facility] C-Reactive Protein < 0.2 <0.6 mg/dl mg/dl [facility] Blood specimen (specimen) BLOOD SPECIMEN / Unknown 07/07/2011 4:50 PM SAP TECHNICAL DEVELOPER 07/07/2011 4:57 PM SAP TECHNICAL DEVELOPER Karla Delacruz MD LAB - CHEMISTRY OR DERABLES [facility] [address] [facility] [place] [address] * CBC W MANUAL DIFFERENTIAL (07/07/2011 4:50 PM SAP TECHNICAL DEVELOPER) Pathologist [facility] WBC 7.25 4.5 - 14.5 K/cumm [facility] RBC 4.63 4.10 - 5.10 mill/cumm [facility] Hemoglobin 13.2 12.0 - 16.0 gm/dl [facility] Hematocrit 37.6 36.0 - 47.0 % [facility] MCV 81.2 78.0 - 102.0 cu microns [facility] MCH 28.5 25.0 - 35.0 uug [facility] MCHC 35.1 31.0 - 37.0 % [facility] RDW 13.3 % [facility] MPV 10.8 fl [facility] Platelet Count 277 100 - 400 K/cumm [facility] Granulocytes % 59.1 24 - 66 % [facility] Lymphocytes % 27.0 22 - 61 % [facility] Monocytes % 10.6 3 - 15 % [facility] Eosinophils % 2.9 0 - 10 % [facility] Basophils % 0.4 0 - 1 % [facility] Comment Manual Diff Automated Diff Performed [facility] BLOOD SPECIMEN / Unknown 07/07/2011 4:50 PM SAP TECHNICAL DEVELOPER 07/07/2011 4:57 PM SAP TECHNICAL DEVELOPER Karla Delacruz MD LAB - HEMATOLOGY O RDERABLES Performing Organization Address City/State/[facility] Co de Phone Number [facility] [address] [place] [address] * (ABNORMAL) HEPATIC FUNCTION PANEL (06/22/2011 3:47 PM SAP TECHNICAL DEVELOPER) Pathologist [facility] Bilirubin Total 0.5(L) 0.6 - 1.4 mg/dl [facility] Bilirubin Direct ND 0.0 - 0.3 mg/dl [facility] Protein Total 7.5 6.3 - 8.6 gm/dl [facility] Albumin 4.7 3.7 - 5.6 gm/dl [facility] ALT 35(H) 10 - 30 Units/L [facility] AST 26 10 - 30 Units/L [facility] Alkaline Phosphatase 115 105 - 420 Units/L [facility] Blood specimen (specimen) BLOOD SPECIMEN / Unknown 06/22/2011 3:47 PM SAP TECHNICAL DEVELOPER 06/22/2011 3:54 PM SAP TECHNICAL DEVELOPER Abilio Vela MD LAB - CHEMISTRY ORDE DAVID Performing Organization Address [facility] Co de Phone Number [facility] [address] [place] [address] * URINALYSIS - POINT OF CARE (IP) (06/22/2011 2:05 PM SAP TECHNICAL DEVELOPER) Glucose UA negative Negative [facility] Bilirubin UA negative Negative [facility] OCT [facility] Ketone UA negative Negative [facility] Specific Murray UA POCT >=1.030 1.000 - 1.030 [facility] Blood UA negative Negative [facility] pH UA 5.0 5.0 - 8.0 pH units [facility] Protein UA negative Negative [facility] Urobilinogen UA 0.2 0.2 - 1.0 EU/dL [facility] Nitrite UA negative Negative [facility] Leukocyte UA negative Negative [facility] P OCT [facility] QC Verified yes Yes [facility] PO CT TEST[facility] Urine specimen (specimen) URINE / Unknown 06/22/2011 2:05 PM SAP TECHNICAL DEVELOPER Abilio Vela MD LAB - POINT OF CARE ORDERABLES Performing Organization Address [facility] Co de Phone Number [facility] [address] [place] [address] * PATHOLOGY/CYTOLOGY REPORT ORDER (06/09/2011 8:45 AM SAP TECHNICAL DEVELOPER) Narrative Transcriptions Document, Scanned - 06/09/2011 8:45 AM CST Scanned Document LAB - PATHOLOGY/CYTO LOGY ORDERABLES * GROSS + MICRO EXAM (06/04/2011 2:38 PM SAP TECHNICAL DEVELOPER) Only the most recent of2 resultswithin the time period is included. [facility] Clinical History [facility] Comment: The patient is a 11-year-old girl with biliary dyskinesia who underwent laparoscopic cholecystectomy. ?? Gross Description [facility] Comment: Submitted fixed in formalin in one container for gross and microscopic examination, labeled with the patient's name, Liza Worthington and gallbladder is a 6 x 2.8 x 2 cm gallbladder with stapled cystic duct and pericystic lymph node, 1 x 0.7 x 0.5 cm. ??The gallbladder is filled with dark green, viscid bile. There are no choleliths. ??The gallbladder wall thickness is 0.1 cm. ??The mucosal surface has a yellow-brown velvety appearance. ?? Media Relations Manager sections from the gallbladder, cystic duct, and pericystic lymph node are submitted in cassette A1. ?? (CT/nab) Microscopic Examination [facility] Comment: 1 H+E Sections of the specimen submitted as gallbladder show gallbladder, with focally disrupted surface epithelium and a mild subepithelial and mural chronic inflammatory infiltrate. There are a few foam cells in the subepithelial connective tissue. ?? Also included with the specimen is a small lymph node with no diagnostic alteration. ??(CAV/nab) Diagnosis [facility] Comment: DIAGNOSIS: GALLBLADDER: -CHRONIC CHOLECYSTITIS. LYMPH NODE, PERICYSTIC: -NO DIAGNOSTIC ALTERATION. This case has been personally reviewed and interpreted by the attending (teaching) pathologist. Cnc Milling Machinist KURT CAPELLAN, [facility] Pathologist Veena Orantes M.D. [facility] Electronically Signed By VEENA ORANTES M.D . [facility] ENTIRE GALLBLADDER / Unknown 06/04/2011 2:38 PM SAP TECHNICAL DEVELOPER 06/04/2011 3:19 PM SAP TECHNICAL DEVELOPER Everardo Arriaga MD LAB - PATHOLOGY/CYTO LOGY ORDERABLES Performing Organization Address City/State/[facility] Phone Number [facility] [address] [phone] * CT ABDOMEN AND PELVIS WITH IV CONTRAST (06/03/2011 8:10 PM SAP TECHNICAL DEVELOPER) Anatomical Region Laterality Modality Abdomen, Pelvis Computed Tomogra phy 06/04/2011 10:1 0 AM SAP TECHNICAL DEVELOPER Narrative 06/04/2011 3:[address] abdomen and pelvis with contrast Technique: Multislice helical. Contrast: Intravenous, Optiray-320, 120 mL Abdomen: Small bilateral lower lobe nodules are identified with the largest nodule on the left measuring up to 0.7 cm located adjacent to the pleura on image 58 of series 3. The hepatobiliary system, spleen, pancreas, adrenal glands, kidneys, and retroperitoneal vessels are normal. The intestines are normal caliber. The appendix is normal. There are scattered subcentimeter mesenteric and retroperitoneal lymph nodes. Pelvis: There is a large right ovarian cyst measuring 3.0 cm (TR) x 3.6 cm (AP) x 3.7 cm (CC). There is a trace amount of associated free pelvic fluid. Diagnosis: Small bilateral lower lobe pulmonary nodules measuring up to 0.7 cm, likely postinflammatory. Simple appearing right ovarian cyst measuring up to 3.7 cm in greatest dimension. Jon Levi MD Procedure Note Leonela Wiggins MD - 06/04/2011 CT abdomen and pelvis with contrast Technique: Multislice helical. Contrast: Intravenous, Optiray-320, 120 mL Abdomen: Small bilateral lower lobe nodules are identified with the largest nodule on the left measuring up to 0.7 cm located adjacent to the pleura on image 58 of series 3. The hepatobiliary system, spleen, pancreas, adrenal glands, kidneys, and retroperitoneal vessels are normal. The intestines are normal caliber. The appendix is normal. There are scattered subcentimeter mesenteric and retroperitoneal lymph nodes. Pelvis: There is a large right ovarian cyst measuring 3.0 cm (TR) x 3.6 cm (AP) x 3.7 cm (CC). There is a trace amount of associated free pelvic fluid. Diagnosis: Small bilateral lower lobe pulmonary nodules measuring up to 0.7 cm, likely postinflammatory. Simple appearing right ovarian cyst measuring up to 3.7 cm in greatest dimension. Jon Levi MD Abilio Vela MD CT ORDERABLES * EGD (06/03/2011 3:18 PM SAP TECHNICAL DEVELOPER) Narrative [facility] - 06/03/2011 3:18 PM SAP TECHNICAL DEVELOPER A scan was deleted from the Results section by Adal Arriaga [CLARI] on 06/03/2011 at ??3:18 PM (File: [id number]) Transcriptions Everardo Arriaga MD - 06/03/2011 3:17 PM CST Everardo Arriaga MD GI PROCEDURE ORDERAB LES [facility] [address] [place] [address] * HELICOBACTER PYLORI UREASE (06/03/2011 3:10 PM SAP TECHNICAL DEVELOPER) Helicobacter pylori Urease Initial Negative Negative [facility] Helicobacter pylori Urease Final Negative Negative [facility] Miscellaneous samples (specimen) GASTRIC ANTRAL BIOPSY SPECIMEN / Unknown 06/03/2011 3:10 PM SAP TECHNICAL DEVELOPER 06/03/2011 3:20 PM SAP TECHNICAL DEVELOPER Everardo Arriaga MD LAB - MICROBIOLOGY O RDERABLES Performing Organization Address [facility] [address] [facility] de Phone Number [facility] [address] [place] [address] * HCG URINE QUALITATIVE (06/03/2011 1:45 PM SAP TECHNICAL DEVELOPER) Only the most recent of3 resultswithin the time period is included. HCG Qual Urine Negative Negative [facility] Urine specimen (specimen) URINE / Unknown 06/03/2011 1:45 PM SAP TECHNICAL DEVELOPER 06/03/2011 1:51 PM SAP TECHNICAL DEVELOPER Everardo Arriaga MD LAB - URINALYSIS ORD ERABLES Performing Organization Address [facility] de Phone Number [facility] [address] [place] [address] * LAB RESULTS ORDER (06/03/2011 9:52 AM SAP TECHNICAL DEVELOPER) Narrative Transcriptions Document, Scanned - 06/03/2011 9:52 AM CST Scanned Document LAB - THERAPEUTIC DR ELMORE MONITORING ORDERABLES * LYMPHOCYTIC CHORIONIC ANTIBODY (05/23/2011 11:20 AM SAP TECHNICAL DEVELOPER) Lymphocytic Choriomeningitis Antibody IgG Titer <1-10 <1 - 10 Titer [facility] Lymphocytic Choriomeningitis Antibody IgM Titer <1-10 <1 - 10 Titer [facility] Comment Ref Lab [facility] Comment: TEST INFORMATION: LCM Virus Ab, IgG Reference Interval: ??<1:10 ?? Negative - No significant level of LCM Virus IgG ?antibody detected ??>=1:10 ??Positive - Presence of IgG antibody to the LCM ?virus detected, suggestive of current or past ?infection. The best evidence for current infection is a significant change on two appropriately timed specimens, where both tests are done in the same laboratory at the same time. This test was developed and its performance characteristics determined by [facility]. The U.S. Food and Drug Administration has not approved or cleared this test; however, FDA clearance or approval is not currently required for clinical use. The results are not intended to be used as the sole means for clinical diagnosis or patient management decisions. TEST INFORMATION: LCM Virus Ab, IgM Reference Interval: ??<1:10 ?? Negative - No significant level of LCM Virus IgM ?antibody detected ??>=1:10 ??Positive - Presence of IgM antibody to the LCM ?virus detected, suggestive of current or past ?infection. The best evidence for current infection is a significant change on two appropriately timed specimens, where both tests are done in the same laboratory at the same time. This test was developed and its performance characteristics determined by [facility]. The U.S. Food and Drug Administration has not approved or cleared this test; however, FDA clearance or approval is not currently required for clinical use. The results are not intended to be used as the sole means for clinical diagnosis or patient management decisions. BLOOD SPECIMEN / Unknown 05/23/2011 11:20 AM SAP TECHNICAL DEVELOPER 05/23/2011 11:26 AM SAP TECHNICAL DEVELOPER Narrative [facility] - 05/29/2011 4:50 PM SAP TECHNICAL DEVELOPER 1 Resulting Agency Comment Performed By [facility] [employer] ? [address] ? [place], [place] [address] Khushboo Pal MD LAB - SEROLOGY ORDER STEPHON [facility] [address] [facility] [place] [address] * XR CHEST PA AND LATERAL (05/23/2011 7:29 AM SAP TECHNICAL DEVELOPER) Anatomical Region Laterality Modality Chest Radiographic Sandie ging 05/23/2011 8:09 AM SAP TECHNICAL DEVELOPER Impressions 05/23/2011 12:49 PM SAP TECHNICAL DEVELOPER Normal. D: Marcelino Cruz MD Narrative 05/23/2011 12:49 PM SAP TECHNICAL DEVELOPER Chest, 2 views 05/23/2011 The lungs, pleura, heart, mediastinum and bony thorax are normal. Procedure Note Romina Torres MD - 05/23/2011 Chest, 2 views 05/23/2011 The lungs, pleura, heart, mediastinum and bony thorax are normal. IMPRESSION Normal. D: Marcelino Cruz MD Remy Downs MD DIAGNOSTIC IMAGING ORDERABLES * CULTURE URINE (05/23/2011 4:45 AM SAP TECHNICAL DEVELOPER) Result [facility] Comment: Final CULTURE <10,000 CFU/mL ?? urogenital/skin anamaria COAGULASE NEGATIVE STAPHYLOCOCCUS SP. ??>10,000 CFU/mL Urine specimen (specimen) URINE SPECIMEN OBTAINED BY CLEAN CATCH PROCEDURE / Unknown 05/23/2011 4:45 AM SAP TECHNICAL DEVELOPER 05/23/2011 4:49 AM SAP TECHNICAL DEVELOPER Narrative Resulting Agency Comment Performed By [facility];[address] [place] [address];[place] [address] Virgen Durham MD LAB - MICROBIOLOGY O RDERABLES [facility] [address] [place] [place] [address] Care Teams Snow Groomer Relationship Specialty Start Date End Date Jailene Fajardo MD [address] [place] [address] PCP - General 06/25/11
--- OUTSIDE RECORDS SUMMARY | 2024-06-14 05:20 | XMS_ITS | Encounter Summary ---
Author Organization [facility] Address [address] [place] [address] Care Team Providers Care Student Officer Name Role Phone Jailene Fajardo MD Primary Care Provider [phone] Reason for Visit * Reason Onset Date Comments Question 06/18/2011 Encounter Details Date Type Department Care Team (Late st Contact Info) Description 06/18/2011 Telephone [facility] Pediatrics - GI [address] [facility] [place] [address] Everardo Arriaga MD [address] [address] [place] [id number] Question Social History Tobacco Use Types Packs/Day Years Used Date Smoking Tobacco: Never Assessed Sex and Gender Information Value Date Recorded Sex Assigned at Not on file Gender Identity Not on file Sexual Orientation Not on file documented as of this encounter Miscellaneous Notes * Telephone Encounter - Lindsay Pollock RN - 06/19/2011 3:59 PM OPERATION SUPERVISOR Gave mom message from Dr. Arriaga, discussed fatty liver disease. Mom expresses frustration that pain is unchanged from preop--told mom that this is not uncommon. Mom states that she will discuss withnery @ f/u appt on 06/22. Mom is willing to try the reglan, escribed after verifying preferred pharmacy. School is recommending home bound status in order to get pt caught up--has basically missed the entire month of May. Mom will bring paper work & discuss with surgery at visit, will ask surgery to forward to us to fill out if needed. ATION SUPERVISOR * Telephone Encounter - Emelyn Moyer RN - 06/19/2011 8:38 AM CST Left message for parent(s) to call us back. ATION SUPERVISOR * Telephone Encounter - Everardo Arriaga MD - 06/19/2011 8:22 AM CST Keesha or Maude: she has to stay on low fat diet; We did not do Lactase levels; liver panels were fine (she still may have fatty liver). If vomiting is a problem we can prescribe REGLAN 10 mg PO TID. Let's wait for surgical follow-up. Thanks ATION SUPERVISOR * Telephone Encounter - Jacqueline Maria RN - 06/18/2011 3:52 PM OPERATION SUPERVISOR Spoke to mother who states Liza had her gallbladder removed but is still having a burning sensation in her stomach. She is on a bland diet (no greasy foods or fast food). It doesn't matter what she eats, she vomits right after eating (she vomits the food she ate, no bile). She is drinking plenty of fluids such as gatorade and water. She is avoiding caffeine. She occasionally has diarrhea. She has a lot of body aches. Mother does not think it's the flu because it's the same symptoms as before surgery. Mother wondering is she may still have stones in her bile duct. And the gallbladder was really inflamed per mom. Plus mother thought they saw some fatty tissue on the liver? Plan to see surgery on 06/22/11. Will ask Surgery Nurses these questions. Did we do lactose testing? And mother refused to start her on imipramine because of all the information she read about it. Can she be on home bound? ATION SUPERVISOR * Telephone Encounter - Tennille Higuera - 06/18/2011 3:06 PM CST gall bladder removed 05/30- still having vomiting- would like some advice ATION SUPERVISOR documented in this encounter Plan of Treatment Not on file documented as of this encounter Visit Diagnoses Not on filedocumented in this encounter Care Teams Student Officer Relationship Specialty Start Date End Date Jailene Fajardo MD [address] [place] [address] PCP - General 04/06/11 06/21/11 documented as of this encounter
--- OUTSIDE RECORDS SUMMARY | 2024-06-14 05:20 | XMS_ITS | Clinical Summary ---
Author Organization [facility] Address [address] [place] [address] Care Team Providers Care Technician Chemical Cleaning Name Role Phone Jailene Fajardo MD Primary Care Provider [phone] Source Comments [facility],non-owned Affiliates and Associated Physician Practices is amultiple site organization consisting of ambulatory clinics and hospital sitesin [place], [place] and [place]. This disclosure is being madepursuant to the Care Everywhere program and may not contain all information available regarding this patient. Last updated 18.[facility] Allergies No known active allergies Medications * [...] with bowel movements. Plan: - See above Family History Medical History Relation Name Comments Drug Abuse Father at age 30 related to heart attack from drug abuse Other Father diet of heart a ttack at 30, drug use CAD (Coronary Artery Disease) Maternal Grandmother Cholelithiasis Mother Cerebral Palsy Sister Autoimmune Disease Other paternal great aunt with lupus Cancer - Other Other maternal grea t aunt Other Other ovarian cysts i n mother IBD Neg Hx IBS Neg Hx Relation Name Status Comments Father Maternal Grandmother Mother Sister Other Social History Tobacco Use Types Packs/Day Years [...] Mass Index - - Plan of Treatment Health Maintenance Due Date Last Done Comments PAP SMEAR 1998 HIV SCREENING 2013 HPV VACCINE (1 - 3-dose series) 2013 HEPATITIS C SCREENING 03/28/2016 DTAP/TDAP/TD VACCINES (1 - Tdap) 2017 HEPATITIS B VACCINE (1 of 3 - 19+ 3-dose series) 2017 DEPRESSION SCREENING 06/14/2023 COVID-19 VACCINE (1 - 2023-2 5 season) 2024 INFLUENZA VACCINE (#1) 2024 ZOSTER VACCINE (1 of 2) 2048 HIB VACCINE Aged Out No longer eligi ble based on patient's age to complete this topic MENINGOCOCCAL VACCINE Aged Out No yudelka diaz eligible based on patient's age to complete this topic PNEUMOCOCCAL VACCINE Aged Out No long er eligible based on patient's age to complete this topic Care Teams Technician Chemical Cleaning Relationship Specialty Start Date End Date Jailene Fajardo MD [address] [place] [address] PCP - General 06/25/11
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
--- OUTSIDE RECORDS SUMMARY | 2024-06-14 05:20 | XMS_ITS | Encounter Summary ---
Author Organization [facility] Address [address] [place] [address] Care Team Providers Care Briar Cutter Name Role Phone Jailene Fajardo MD Primary Care Provider [phone] Encounter Details Date Type Department Care Team (Latest Contact Info) Description 07/07/2011 2:36 PM CHECKROOM ATTENDANT - 07/10/2011 1:39 PM CHECKROOM ATTENDANT Hospital Encounter [address] [address] Conversion, Doctor Mike Levine MD [address] [place] [id number] Gastroenterology Discharge Disposition: Home or Self Care Social History Tobacco Use Types Packs/Day Years Used Date Smoking Tobacco: Never Assessed Sex and Gender Information Value Date Recorded Sex Assigned at Not on file Gender Identity Not on file Sexual Orientation Not on file documented as of this encounter Last Filed Vital Signs Vital Sign Reading Time Taken Comments Blood Pressure 100/58 07/10/2011 8:10 AM CHECKROOM ATTENDANT Pulse 68 07/10/2011 11:10 AM CHECKROOM ATTENDANT Temperature 36.8 ??C (98.2 ??F) 07/10/2011 8:10 AM CS T Respiratory Rate 16 07/10/2011 11:1 0 AM CHECKROOM ATTENDANT Oxygen Saturation - - Inhaled Oxygen Concentration - - Weight 83.4 kg (183 lb 13.8 oz) 07/07/2011 3:55 PM CHECKROOM ATTENDANT Height 156.4 cm (5' 1.58 ) 07/07/2011 3:55 PM CS T Body Mass Index 34.09 07/07/2011 3:55 PM CHECKROOM ATTENDANT Body Mass Index Percentile 99.13% 07/07/2011 3:5 5 PM CHECKROOM ATTENDANT Growth Chart: CDC (Girls, 2- 20 Years) documented in this encounter Discharge Summaries * Karla Dc MD - 07/11/2011 7:21 AM CST Pediatric Discharge Summary Pt. Name: Liza Worthington : 2000 Attending Physician : Mike Levine MD Admission Date: 07/07/2011 Discharge Date: 07/10/2011 Hospital Course (by problem): Active Hospital Problems Diagnoses Date Noted ??? Abdominal pain, generalized 05/28/2011 Liza is [...] can consideran adolescent consult at that time. Resolved Hospital Problems Diagnoses Date Noted Date Resolved Discharge Diagnosis(es): Abdominal pain, generalized Condition on Discharge: Improved Consultations: None, adolescent consult refused by family Diagnostic studies: Radiology: Ultrasound of abdomen and pelvic with no acute process Procedures: None Relevant Labs: CBC w/o Manual Diff: Component Name 07/07/11164906/01/11190905/23/11 0353 WBC 7.25 7.25 8.87 9.02 HGB 13.2 13.2 13.4 13.7 HCT 37.6 37.6 38.8 39.2 PLTCOUNT 277 277 303 381 59.1 Grans, 27 L CMP: Component Name 07/07/111649 SODIUM 144 POTASSIUM 3.9 CHLORIDE 101 CO2 30.6* BUN 7.4 CREATININE 0.59 GLUCOSE 68* CALCIUM 9.4 ALBUMIN 4.8 ALKPHOS 114 ALT 21 AST 27 TBIL 0.1* TPROT 7.5 EGFR -- Amylase: Component Name 07/07/11164906/01/11190905/23/11 0353 AMYLASE 31 41 33 Lipase: Component Name 07/07/11164906/01/11190905/23/11 0353 LIPASE 105 151 185 Component Name 07/07/11164906/01/111909 CRP < 0.2 <0.5 Component Name 07/07/112014 COLORUA YELLOW CHARACTERUA CLEAR SPECGRAVUA 1.015 PHUA 8.0 PROTEINUA NEGATIVE BLOODUA NEGATIVE LEUKOCYTEUA NEGATIVE NITRITEUA NEGATIVE GLUCOSEUA NEGATIVE KETONEUA NEGATIVE BILIRUBINUA NEGATIVE UROBILINUA 0.2 Discharge Physical Exam (relevant findings include): General: healthy, alert, no distress and cooperative Lungs: breath sounds symmetrical without rales or wheezes, good air movement and relaxed breathing without tachypnea or accessory muscle use Heart: regular rate and rhythm, normal S1 and S2, no murmurs Abdomen: soft, non-distended, mild diffuse tenderness, no hepatosplenomegaly or masses and normal bowel sounds Skin: no rashes PENDING RESULTS: none Discharge Medications: Discharge Medication List as of 07/10/2011 1:28 PM START taking these medications Details acetaminophen (TYLENOL) 325 MG tablet 650 mg, Oral, EVERY 6 HOURS PRN Starting 07/10/2011, Until Discontinued, OTC, Take 2 Tabs by mouth every 6 hours as needed. Maximum allowable Acetaminophen amount= 4 Grams (4000 mg) / 24 hours. ondansetron, disintegrating, (ZOFRAN ODT) 4 MG tablet 4 mg, Sublingual, EVERY 6 HOURS PRN Starting 07/10/2011, Until 07/12/11, Nausea/Vomiting, Disp-28 Tab, R-0, Print, Dissolve 1 Tab under the tongue every 6 hours as needed for Nausea/Vomiting for 2 days. Allow tablet to dissolve on the tongue cyproheptadine (PERIACTIN) 4 MG tablet 4 mg, Oral, AT BEDTIME Starting 07/10/2011, Last dose on 08/09/11, Disp-30 Tab, R-0, Print, Take 1 Tab by mouth at bedtime for 30 days. CONTINUE these medications which have NOT CHANGED Details imipramine (TOFRANIL) 10 MG tablet 10 mg, Oral, AT BEDTIME Starting 06/11/2011, Until Discontinued,Disp-30 Tab, R-5, ePrescribe, Take 1 Tab by mouth at bedtime. omeprazole EC (PRILOSEC OTC) 20 MG tablet 20 mg, Oral, 2 TIMES DAILY BEFORE MEALS Starting 05/29/2011, Until Discontinued, Disp-60 Tab, R-5, ePrescribe, Take 1 Tab by mouth 2 times daily before meals. STOP taking these medications metoclopramide (REGLAN) 10 MG tablet STOP hydrocodone-acetaminophen (NORCO) 5-325 MG tablet STOP Discharge Procedure Orders SPECIAL DIET INSTRUCTIONS TO INCLUDE... Avoid spicy and fatty foods. Try small amounts, encourage fluids ACTIVITY TOLERATED CALL PHYSICIAN ...For temperature greater than 100.4 F, for excessive redness, excessive bleeding or unusual drainage at IV site, if experiencing increasing or unrelieved pain, or if experiencing difficulty breathing. PATIENT TO CALL PHYSICIAN FOR APPOINTMENT With Dr. Arriaga in 2 weeks Karla Dc MD Pgr: [phone] CC: Jailene Fajardo MD [id number] / [place] [id number] KROOM ATTENDANT documented in this encounter Discharge Instructions * Discharge Instructions* Elma Macedo RN - 07/10/2011 1:28 PM CHECKROOM ATTENDANT Discharge Instructions for: Liza Worthington Discharge Procedure Orders SPECIAL DIET INSTRUCTIONS TO INCLUDE... Avoid spicy and fatty foods. Try small amounts, encourage fluids ACTIVITY TOLERATED CALL PHYSICIAN ...For temperature greater than 100.4 F, for excessive redness, excessive bleeding or unusual drainage at IV site, if experiencing increasing or unrelieved pain, or if experiencing difficulty breathing. PATIENT TO CALL PHYSICIAN FOR APPOINTMENT With Dr. Arriaga in 2 weeks The following belonging have been returned to you Clothing Clothing: Yes With Patient: Shirt;Pants Jewelry Jewelry: None Electronics Electronic Items: Yes With Patient: Cell Phone Sent Home: Handheld Game Dentures Dentures/Retainers: None Vision Visual Aids: None Hearing Aids Hearing Aids: None Equipment/Assistive Devices Equipment with Patient: None Home Medications Home Medications: None Miscellaneous Belongings Miscellaneous Items: None Monetary Monetary Items: None If your child has any worsening of his or her condition, please call your primary care doctor (or their exchange if after hours) or return to the ED if your primary care doctor cannot be reached. 07/10/2011 KROOM ATTENDANT * Discharge Instructions* Document, Scanned - 07/12/2011 5:15 PM CHECKROOM ATTENDANT KROOM ATTENDANT documented in this encounter Medications at Time [...] 07/10/2011 07/12/2011 documented as of this encounter Progress Notes * Justin Gordon MD - 07/10/2011 4:11 PM CST Pediatric Attending Daily Progress Note 07/10/2011 4:11 PM Hospital Day: 3 I have interviewed the patient/family and examined this patient. I have reviewed and confirmed/revised the findings of the resident. My findings (greene elements and supplemental information) are as follows: Clinical Course Liza has had no significant problems overnight. Exam: BP 100/58 Pulse 68 Temp 98.2 ??F Resp 16 Wt 83.4 kg (183 lb 13.8 oz) BMI 34.09 kg/m2 Alert, in no acute distress Chest: clear Heart: normal heart sounds Abdomen: soft, mild tenderness, more in lower abdomen, without guarding Lab/Other Information UGI: no abnormalities, mild TISHA Active Hospital Problems Diagnoses Date Noted ??? Abdominal pain, generalized 05/28/2011 Liza is a 11 year old female with generalized abdominal pain since April. She had her gallbladder removed in May for biliary dyskinesia. An ovarian cyst was noted at that time as well. Since then her pain has not improved. Now she is still having pain and emesis 6-8 times a day. New symptoms include periodic rash and pruritis as well has burning shoulder and back pain when lies flat. Pain improved slightly while NPO, emesis once solid food, better with clears Assessment/DDx: her vomiting has features suggestive of rumination. Her mother feels that with no other studies planned for today, there is no reason to stay in the hospital. She declines a consultation by Adolescent Medicine. Liza appears very stable and safe to be discharged, but her primary cause for continuing pain remains unknown. Plan: -home today -followup with Dr. Arriaga See resident's note of 07/10/2011 for further details. Justin Gordon MD [phone] KROOM ATTENDANT * Bebe Ledesma MD - 07/09/2011 7:30 AM CST Pediatric Resident Daily Progress Note Liza Worthington 07/09/2011 7:30 AM Hospital Day: 2 Clinical Course Advanced diet yesterday and with 2 owen crackers and applesauce had emesis. Went back to [facility], so far this morning doing OK. Still complaining of periumbilical pain. Objective Vitals BP: 86/60 mmHg (07/09/11 0755), Temp: 97.8 ??F (07/09/11 0755), Pulse: 64 (07/09/11 0755), Resp: 16 (07/09/11 0755), Height: 156.4 cm (5' 1.58 ) (07/07/11 1555), Weight: 83.4 kg (183 lb 13.8 oz) (07/07/11 1555) Temp (24hrs), Av.8 ??F, Min:97 ??F, Max:98.2 ??F 07/08 0700 - 07/09 0659 In: 3715 [P.O.:720; I.V.:2995] Out: 120 [Urine:120] Exam: General: well appearing, in no acute distress Cardiovascular: regular rate and rhythm, normal S1 and S2, no murmurs Chest: breath sounds symmetrical without rales or wheezes Abdomen: soft, non-tender, non-distended, no hepatosplenomegaly or masses and non-tender with deep palpation, normal bowel sounds Lab/Other Information There are no new results to review at this time. Active Hospital Problems Diagnoses Date Noted ??? Abdominal pain, generalized 05/28/2011 Liza is a 11 year old female with generalized abdominal pain since April. She had her gallbladder removed in May for biliary dyskinesia. An ovarian cyst was noted at that time as well. Since then her pain has not improved. Now she is still having pain and emesis 6-8 times a day. New symptoms include periodic rash and pruritis as well has burning shoulder and back pain when lies flat. Pain improved slightly while NPO, emesis once solid food, better with clears Assessment/DDx: functional vs post viral gastroparesis vs sphincter of Oddi dysfunction vs IBS vs IBD vs pancreatitis Plan: -CV/Resp: no current issues -FEN: NPO, MIVF -GI: CMP, CBC, CRP, Amylase and Lipase essentially wnl. 20 mg IV nexium qday, bowel rest. AbdominalUS (cindy RUQ) and pelvic ultrasound normal. Start periactin 4mg QHS -ID: no current issues, afebrile. Some discomfort with urination, UA not concerning for infection -Neuro/Pain: tylenol, benadryl and zofran PRN Bebe Ledesma MD KROOM ATTENDANT * Ashwini López RN - 07/09/2011 12:26 AM CST With an order to advance diet as tolerated, patient ate 2 owen crackers and vomited within ten minutes despite taking sublingual zofran 20 minutes before eating. Returned to Clear Liquid diet. Mother reported sore lymph node on right side of neck. This RN did not feel any swelling or masses but patient complained of pain upon palpation of the right submandibular area. Ashwini López RN 07/09/2011 12:35 AM KROOM ATTENDANT * Karla Dc MD - 07/08/2011 10:52 AM CST Pediatric Resident Daily Progress Note Liza Worthington 07/08/2011 10:52 AM Hospital Day: 1 Clinical Course Complained of some pain overnight. Given benadryl with improvement in pain with sleep, woke up and had some more pain, but able to fall back asleep without more need for medications. Pain still present, but better while not eating this morning. Labs reassuring. Will obtain ultrasound of abdomen andpelvis today. Objective Vitals BP: 110/64 mmHg (07/08/11 08), Temp: 96.8 ??F (07/08/11 08), Pulse: 74 (07/08/11 08), Resp: 16 (07/08/11819), Height: 156.4 cm (5' 1.58 ) (07/07/11 1555), Weight: 83.4 kg (183 lb 13.8 oz) (07/07/11 1555) Temp (24hrs), Av.8 ??F, Min:96.8 ??F, Max:98.6 ??F 07/07 0700 - 07/08 0659 In: 946 [I.V.:946] Out: 850 [Urine:850] Exam: General: sleeping through exam, exam limited due to position Cardiovascular: regular rate and rhythm, normal S1 and S2, no murmurs Chest: breath sounds symmetrical without rales or wheezes, good air movement and relaxed breathing without tachypnea or accessory muscle use Abdomen: soft, not exquisitely tender, non-distended, and normal bowel sounds Lab/Other Information My review of labs, imaging, notes and other tests is significant for CBC, CRP, CMP, amylase and lipase essentially wnl Active Hospital Problems Diagnoses Date Noted ??? Abdominal pain, generalized 05/28/2011 Liza is a 11 year old female with generalized abdominal pain since April. She had her gallbladder removed in May for biliary dyskinesia. An ovarian cyst was noted at that time as well. Since then her pain has not improved. Now she is still having pain and emesis 6-8 times a day. New symptoms include periodic rash and pruritis as well has burning shoulder and back pain when lies flat. Pain improved slightly while NPO Assessment/DDx: functional vs sphincter of Oddi dysfunction vs IBS vs IBD vs pancreatitis Plan: -CV/Resp: no current issues -FEN: NPO, MIVF -GI: CMP, CBC, CRP, Amylase and Lipase essentially wnl. 20 mg IV nexium qday, bowel rest. AbdominalUS (cindy RUQ) and pelvic ultrasound -ID: no current issues, afebrile. Some discomfort with urination, UA not concerning for infection -Neuro/Pain: tylenol, benadryl and zofran PRN Karla Dc MD KROOM ATTENDANT * Miranda Reyes RN - 07/08/2011 7:16 AM CST No significant event from KROOM ATTENDANT * Carlota Braun DO - 07/07/2011 6:59 PM CST PGY-3 Brief Admit Note 11 year old admitted for 2 months of frequent emesis (5-7 times per day) and abdominal pain. She iseating and can drink, but has no appetite and has emesis weather she eats or not. She has lap. Cholecystectomy in May without improvement in pain and has been taking prilosec and reglan without improvement. She has been afebrile. She does complain of pain with urination, but negative UA in past. She does complain of Wt loss (?30lb) since this began. Vitals T97.8 P88 R20 BP112/72 Gen:cooperative, calm, NAD HRRR, no murmur, CR 2-3 sec Lungs clear, normal work of breathing Normal bowel sounds, no masses, lower quadrant tenderness, no guarding, healing laparoscopic scars Assessment/Plan 11 year old with abdominal pain and emesis Infectious source is less likely due to no fever, but parasitic infection (giardia), H. Pylori, UTIare all considerations. Will obtain UA and culture if abnormal. Keep NPO on maintenance IV fluids IV nexium Consider endoscopic evaluation Discussed plan with Dr. Levine by phone. Carlota Braun DO 07/07/2011 8:46 PM KROOM ATTENDANT documented in this encounter H&P Notes * Mike Levine MD - 07/09/2011 6:37 PM CST PEDIATRIC GI ATTENDING NOTE 07/09/2011 I have interviewed the patient/family and examined Liza Worthington. I have reviewed and confirmed/revised the findings of the resident. My findings (greene elements and supplemental information) are as follows. Liza Worthington is a 11 y.o. female who presented with abdominal pain. She had her gallbladder removed and a cyst drained/removed from her ovary in mid- May. The pain did not change with the removal of her gallbladder. Overnight better - says no vomiting with liquids but has vomiting with solids. PAST MEDICAL HISTORY: Past Medical History Diagnosis Date ??? FTND (full term normal delivery) ??? Cholecystitis chronic ??? Ovarian cyst, right MEDICATIONS: Current Facility-Administered Medications Medication Dose Route Frequency Provider Last Rate Last Dose ??? dextrose 5% and 0.45% NaCl with KCl 20 mEq infusion Intravenous Continuous Bebe Ledesma MD 75mL/hr at 07/09/11 1501 ??? esomeprazole (NexIUM) injection 20 mg 20 mg Intravenous BID Nati Tobar, DO ??? cyproheptadine (PERIACTIN) tablet 4 mg 4 mg Oral NIGHTLY Nati Tobar, DO ??? ondansetron (disintegrating) (ZOFRAN ODT) tablet 4 mg 4 mg Sublingual q6h PRN Vimal Delacruz MD 4 mg at 07/08/11 2350 ??? acetaminophen (TYLENOL) tablet 650 mg 650 mg Oral q6h PRN Karla Dc MD 650 mg at 07/09/11 1542 ??? diphenhydrAMINE (BENADRYL) tablet 50 mg 50 mg Oral q6h PRN Vimal Delacruz MD 50 mg at 07/09/11 1542 ALLERGIES: No Known Allergies FAMILY/SOCIAL HISTORY Family History Problem Relation Age of Onset ??? Cholelithiasis Mother ??? Cancer Other maternal great aunt ??? OTHER ovarian cysts in mother ??? IBD Neg Hx ??? IBS Neg Hx ??? Coronary Artery Disease Maternal Grandmother ??? OTHER Father diet of heart attack at 30, drug use ??? Cerebral Palsy Sister ??? Autoimmune Disease paternal great aunt with lupus History Social History ??? Marital Status: Single Spouse Name: N/A Number of Children: N/A ??? Years of Education: N/A Occupational History ??? Not on file. Social History Main Topics ??? Smoking status: Not on file ??? Smokeless tobacco: Not on file ??? Alcohol Use: ??? Drug Use: ??? Sexually Active: Not on file Other Topics Concern ??? Not on file Social History Narrative Lives with mother, step-father, sister (16), and step-sister (16). She gets along well with siblings. Step dad has been around for three years. Feels safe at home. In the 7th grade, that is going well. Wants to be a vet when grows up. No t/d/a, not sexually active. PHYSICAL EXAMINATION: 98.84% of growth percentile based on [id number]. BP 90/58 Pulse 88 Temp 97.6 ??F Resp 16 Wt 83.4 kg (183 lb 13.8 oz) BMI 34.09 kg/m2 HEENT: Atraumatic. Chest: Equal air entry bilaterally. No adventitious sounds. Abdomen: Soft, nonspecific tenderness, nondistended. Bowel sounds present. No organomegaly noted. SUBWAY OPERATOR: No apparent focal deficits. Extremities: Warm, well perfused. Cap refill less than 2 seconds. No results found for this or any previous visit (from the past 24 hour(s)). Liza Worthington is a 11 y.o. female who presented with abdominal pain. She had her gallbladder removed and a cyst drained/removed from her ovary in mid- May. The pain did not change with the removal of her gallbladder. Overnight better - says no vomiting with liquids but has vomiting with solids. Given the negative workup possibly post infections gastroparesis. We may plan a UGI series given vomiting more for solids in an attempt to rule out distan esophageal narrowing. - May keep on clear diet - IV Fluids - PPIs - UGI series. - Zofran for vomiting. KROOM ATTENDANT * Mike Levine MD - 07/08/2011 5:41 PM CST PEDIATRIC GI ATTENDING NOTE 07/08/2011 I have interviewed the patient/family and examined Liza Wotrhington. I have reviewed and confirmed/revised the findings of the resident. My findings (greene elements and supplemental information) are as follows. Resident : Karla Dc MD Attending : Mike Levine MD History of Present Illness Liza Worthington is a 11 y.o. female who presents with abdominal pain. She had her gallbladder removed and a cyst drained/removed from her ovary in mid May. The pain did not change with the removal of her gallbladder. The pain is poorly localized. The pain is worsened by anything PO other than clear liquids. Last BM was two days prior to admission and was described as green and loose. She has tried tylenol for pain. Heat helps sometimes with the pain, but not much. [place] [employer] she swam in the ocean and in a pool. She goes swimming at the [facility] as well. Two guinea pigs and a dog, none of them new. City water at house, drinks bottled water. No sick contacts. Denies hematemesis, hematochesia, jaundice. PAST MEDICAL HISTORY: Past Medical History Diagnosis Date ??? FTND (full term normal delivery) ??? Cholecystitis chronic ??? Ovarian cyst, right DIET: Regular MEDICATIONS: Current Facility-Administered Medications Medication Dose Route Frequency Provider Last Rate Last Dose ??? 0.9 % nacl IV BOLUS 1,668 mL 20 mL/kg Intravenous Once Nati Tobar, DO 1,668 mL at 07/08/11 1002 ??? dextrose 5% and 0.45% NaCl with KCl 20 mEq infusion Intravenous Continuous Karla Dc MD 120 mL/hr at 07/08/11 1220 ??? esomeprazole (NexIUM) injection 20 mg 20 mg Intravenous QDAY Karla Dc MD 20 mg at 07/08/11 0816 ??? acetaminophen (TYLENOL) tablet 650 mg 650 mg Oral q6h PRN Karla Dc MD 650 mg at 07/08/11 1534 ??? ondansetron (ZOFRAN) injection 4 mg 4 mg Intravenous q6h PRN Karla Dc MD ??? diphenhydrAMINE (BENADRYL) tablet 50 mg 50 mg Oral q6h PRN Vimal Delacruz MD 50 mg at 07/08/11 1029 ALLERGIES: No Known Allergies FAMILY/SOCIAL HISTORY Family History Problem Relation Age of Onset ??? Cholelithiasis Mother ??? Cancer Other maternal great aunt ??? OTHER ovarian cysts in mother ??? IBD Neg Hx ??? IBS Neg Hx ??? Coronary Artery Disease Maternal Grandmother ??? OTHER Father diet of heart attack at 30, drug use ??? Cerebral Palsy Sister ??? Autoimmune Disease paternal great aunt with lupus History Social History ??? Marital Status: Single Spouse Name: N/A Number of Children: N/A ??? Years of Education: N/A Occupational History ??? Not on file. Social History Main Topics ??? Smoking status: Not on file ??? Smokeless tobacco: Not on file ??? Alcohol Use: ??? Drug Use: ??? Sexually Active: Not on file Other Topics Concern ??? Not on file Social History Narrative Lives with mother, step-father, sister (16), and step-sister (16). She gets along well with siblings. Step dad has been around for three years. Feels safe at home. In the 7th grade, that is going well. Wants to be a vet when grows up. No t/d/a, not sexually active. PHYSICAL EXAMINATION: 98.84% of growth percentile based on [id number]. BP 100/70 Pulse 68 Temp 98.2 ??F Resp 20 Wt 83.4 kg (183 lb 13.8 oz) BMI 34.09 kg/m2 HEENT: Atraumatic. Chest: Equal air entry bilaterally. No adventitious sounds. Abdomen: Soft, nonspecific tenderness, nondistended. Bowel sounds present. No organomegaly noted. SUBWAY OPERATOR: No apparent focal deficits. Extremities: Warm, well perfused. Cap refill less than 2 seconds. Recent Results (from the past 24 hour(s)) URINALYSIS ROUTINE AUTO Collection Time 07/07/11 8:15 PM Component Value Range Color UA YELLOW Character UA CLEAR Specific [place]amount UA 1.015 1.003 - 1.030 pH Units 8.0 5.0 - 8.0 Protein UA NEGATIVE Negative Glucose UA NEGATIVE Negative (gm/dl) Ketone UA NEGATIVE Negative Blood UA NEGATIVE Negative Bili UA NEGATIVE Negative Epithelial Cell UA 2-4 Bacteria UA Trace Leukocyte UA NEGATIVE Nitrite UA NEGATIVE Urobilinogen UA 0.2 <=1.0 (EU/dl) Liza is a 11 year old female with abdominal pain since April. She had her gallbladder removed in May.. An ovarian cyst was noted at that time as well. - NPO - IV Fluids - PPIs - Ultrasound abdomen. KROOM ATTENDANT * Karla Dc MD - 07/07/2011 4:56 PM CST Pediatric Resident Admission Note Admit Date: 07/07/2011 2:36 PM Chief Complaint Abdominal pain History of Present Illness Liza Worthington is a 11 y.o. female who presents with abdominal pain since . She hadher gallbladder removed and a cyst drained/removed from her ovary in mid-May. The pain did notchange with the removal of her gallbladder. The pain is right in the middle of her abdomen and alsoon her right side where her gallbladder was and down on the RLQ. The pain in her RLQ is dull and throbbing, but becomes stabbing when she urinates. The pain on the RUQ is stabbing in quadrant. The pain in the middle of her belly is occasionally burning after she eats or vomits. Besides meals or vomiting the pain is worsened by anything PO other than clear liquids. Last BM was two days prior to adm ission and was described as green, and loose and very foul smelling. BMs do not affect the level ofpain. She is not urinating as much as usual as she is not taking much in. She has tried tylenol forpain, after her surgery she was on a narcotic and that did not help. Heat helps sometimes with the pain, but not much. She is vomiting 6-8 times a day, the vomit is food that she ate or if she hasn'teaten its foamy. It is occasionally bile stained, but never bloody. She has lost 30 pounds since this started. She has been having rashes which started June 22. She has a lot of itching with the rash as well. This improves with benadryl, but when that wears off it returns. No new meds or different foods. Only located on the upper body. She is also having complaints of shoulders and back hurting when she lays down flat. Both shoulders hurt, its a burning pain, no redness or swelling. LMP wasthree weeks ago, it was normal for her. Periods have a little bit of cramping, but not terrible. No recent travel, did go to [employer] at the end of the summer, she swam in the ocean and in a pool. She goes swimming at the [facility] as well. Two guinea pigs and a dog, none of them new. City water at house, drinks bottled water. No sick contacts. Past Medical History No history on file. Past Medical History Diagnosis Date ??? FTND (full term normal delivery) ??? Cholecystitis chronic ??? Ovarian cyst, right Past Surgical History Procedure Date ??? Tonsillectomy and adenoidectomy had them out in kindergarten ??? Cholecystectomy, laparoscopic Immunizations Immunization status: stated as current, but no records available. Allergies No Known Allergies Family History Family History Problem Relation Age of Onset ??? Cholelithiasis Mother ??? Cancer Other maternal great aunt ??? OTHER ovarian cysts in mother ??? IBD Neg Hx ??? IBS Neg Hx ??? Coronary Artery Disease Maternal Grandmother ??? OTHER Father diet of heart attack at 30, drug use ??? Cerebral Palsy Sister ??? Autoimmune Disease paternal great aunt with lupus Social History History Social History Narrative Lives with mother, step-father, sister (16), and step-sister (16). She gets along well with siblings. Step dad has been around for three years. Feels safe at home. In the 7th grade, that is going well. Wants to be a vet when grows up. No t/d/a, not sexually active. Review of Systems Review of Systems Constitutional: Positive for chills (feels cold a lot), appetite change (not hungry), fatigue and unexpected weight change (lost 30 lbs). Negative for fever. HENT: Negative for congestion, sore throat, rhinorrhea, mouth sores and neck pain. Eyes: Negative for pain. Respiratory: Negative for cough and shortness of breath. Cardiovascular: Negative for chest pain and palpitations. Gastrointestinal: Positive for nausea, vomiting, abdominal pain, diarrhea and abdominal distention (occasionally feels bloated). Negative for constipation and blood in stool. Genitourinary: Positive for dysuria (pain in RLQ when urinates) and decreased urine volume. Negative for urgency, frequency, hematuria, flank pain, vaginal discharge and vaginal pain. Musculoskeletal: Positive for back pain (and shoulder pain). Negative for joint swelling. Skin: Positive for rash. Neurological: Positive for dizziness (sometimes after vomits) and headaches (daily, takes tylenol, throbbing all over. photophobia, phonophobia). Negative for seizures. Hematological: Negative for adenopathy. Does not bruise/bleed easily. Psychiatric/Behavioral: Positive for sleep disturbance (cannot sleep from pain). Exam Vitals BP: 110/68 mmHg (07/07/115) Temp: 98.6 ??F (07/07/111554) Pulse: 96 (07/07/11 155) Resp: 24 (07/07/111554) Height: 156.4 cm (5' 1.58 ) (07/07/111554) Weight: 83.4 kg (183 lb 13.8 oz) (07/07/111554) General: ill appearing, non-toxic, alert, in mild distress Head: NC/AT Eyes: sclera and conjunctiva clear, EOMI and PERRL, lids normal Nose: clear Oropharynx: moist mucous membranes, no pharyngeal erythema, no tonsilar enlargement, no mouth sores Neck: supple, non-tender, with full ROM, and no lymphadenopathy Cardiovascular: regular rate and rhythm, normal S1 and S2, no murmurs Chest: breath sounds symmetrical without rales or wheezes, good air movement and relaxed breathing without tachypnea or accessory muscle use Abdomen: soft, non-distended, mild diffuse tenderness, point tenderness in the RLQ, RUQ, no hepatosplenomegaly or masses and normal bowel sounds : External genitalia: Normal Musculoskeletal: No clubbing, cyanosis or edema, no CVA tenderness, no pain or swelling of joints, no pain to palpation of shoulders, neck Skin: no rashes Neuro: alert, oriented, normal speech, no focal findings or movement disorder noted, DTR's normal and symmetric, motor and sensory grossly normal bilaterally Labs/Objective CRP, CBC, CMP, Amylase, Lipase, UA pending Active Hospital Problems Diagnoses Date Noted ??? Abdominal pain, generalized 05/28/2011 Liza is a 11 year old female with generalized abdominal pain since April. She had her gallbladder removed in May for biliary dyskinesia. An ovarian cyst was noted at that time as well. Since then her pain has not improved. Now she is still having pain and emesis 6-8 times a day. New symptoms include periodic rash and pruritis as well has burning shoulder and back pain when lies flat. Assessment/DDx: functional vs sphincter of Oddi dysfunction vs IBS vs IBD vs pancreatitis Plan: -CV/Resp: no current issues -FEN: NPO, MIVF -GI: will obtain CMP, CBC, CRP, Amylase and Lipase. 20 mg IV nexium qday, bowel rest. -ID: no current issues, afebrile -Neuro/Pain: tylenol and zofran PRN. Karla Dc MD Pgr: [phone] CC: Jailene Fajardo MD [facility] [place] [address] / [place] [id number] KROOM ATTENDANT * Mike Levine MD - 07/07/2011 4:56 PM CST Please see attending note. KROOM ATTENDANT documented in this encounter Miscellaneous Notes * Miscellaneous Scans - Document, Scanned - 07/16/2011 11:35 AM CST KROOM ATTENDANT * Miscellaneous Scans - Document, Scanned - 07/12/2011 5:15 PM CST KROOM ATTENDANT * Miscellaneous Scans - Document, Scanned - 07/12/2011 5:15 PM CST KROOM ATTENDANT documented in this encounter Plan of Treatment Scheduled Orders Name Type Priority Associated Diagnoses Order Schedule O+P PANEL Microbiology Routine ONCE for 1 Occurrences starting 07/09/2011 until 07/09/2011 GIARDIA CRYPTOSPORIDIUM ANTIGEN PANEL Lab Routine ONCE for 1 Occurrences starting 07/09/2011 until 07/09/2011 PH FECES Lab Routine ONCE for 1 Occurrences starting 07/09/2011 until 07/09/2011 CULTURE STOOL PANEL Microbiology Routine ONC E for 1 Occurrences starting 07/09/2011 until 07/09/2011 CLOSTRIDIUM DIFFICILE TOXIN A+B Microbiology Routine ONCE for 1 Occurrences starting 07/09/2011 until 07/09/2011 documented as of this encounter Procedures Procedure Name Priority Date/Time Associated Diagnosis Comments US ABDOMEN LIMITED Routine 07/08/2011 11 :59 AM CHECKROOM ATTENDANT Abdominal pain, generalized US PELVIS COMPLETE Routine 07/08/2011 11 :45 AM CHECKROOM ATTENDANT Abdominal pain, generalized URINALYSIS REFLEX TO MICROSCOPIC NO CULTURE Routine 07/07/2011 8:15 PM CHECKROOM ATTENDANT C-REACTIVE PROTEIN Routine 07/07/2011 4: 50 PM CHECKROOM ATTENDANT CBC W MANUAL DIFFERENTIAL Routine 07/07/2011 4:50 PM CHECKROOM ATTENDANT CBC W AUTO DIFFERENTIAL Routine 07/07/2011 4:50 PM CHECKROOM ATTENDANT COMPREHENSIVE METABOLIC PANEL Routine 07/07/2011 4:50 PM CHECKROOM ATTENDANT LIPASE BLOOD Routine 07/07/2011 4:50 PM CHECKROOM ATTENDANT AMYLASE BLOOD Routine 07/07/2011 4:50 PM CHECKROOM ATTENDANT documented in this encounter Results * US ABDOMEN LIMITED (07/08/2011 11:59 AM CHECKROOM ATTENDANT) Anatomical Region Laterality Modality Abdomen Ultrasound 07/08/2011 12:0 4 PM CHECKROOM ATTENDANT Impressions 07/08/2011 12:04 PM CHECKROOM ATTENDANT Postoperative right upper quadrant sonogram with no definite acute process identified. Narrative 07/08/2011 12:04 PM CHECKROOM ATTENDANT Right upper quadrant sonogram dated Jul 08, [...] abnormalities are appreciated. Procedure Note Bal Moralez - 07/08/2011 Right upper quadrant sonogram dated [...] * US PELVIS COMPLETE (07/08/2011 11:45 AM CHECKROOM ATTENDANT) Anatomical Region Laterality Modality Pelvis Ultrasound 07/08/2011 12:0 6 PM CHECKROOM ATTENDANT Impressions 07/08/2011 12:06 PM CHECKROOM ATTENDANT Normal pelvic sonogram. Narrative 07/08/2011 12:06 PM CHECKROOM ATTENDANT Pelvic sonogram dated Jul 08, 2011 11:45:19 [...] cul-de-sac which is likely physiologic. Procedure Note Naomy Bal A - 07/08/2011 Pelvic sonogram dated Jul 08, [...] physiologic. IMPRESSION Normal pelvic sonogram. Nati Landa [facility] ORDERABLES * URINALYSIS ROUTINE AUTO (07/07/2011 8:15 PM CHECKROOM ATTENDANT) Color UA YELLOW [facility] Character UA CLEAR [facility] Specific [place]amount UA 1.015 1.003 - 1.030 [facility] pH UA 8.0 5.0 - 8.0 [facility] Protein UA NEGATIVE Negative [facility] Glucose UA NEGATIVE Negative gm/dl [facility] Ketone UA NEGATIVE Negative [facility] Blood UA NEGATIVE Negative [facility] Bilirubin UA NEGATIVE Negative [facility] Epithelial Cell UA 2-4 /HPF [facility] Bacteria UA Trace [facility] Leukocyte UA NEGATIVE [facility] Nitrite UA NEGATIVE [facility] Urobilinogen UA 0.2 <=1.0 EU/dl [facility] Urine specimen (specimen) URINE / Unknown 07/07/2011 8:15 PM CHECKROOM ATTENDANT 07/07/2011 8:17 PM CHECKROOM ATTENDANT Karla Delacruz MD LAB - URINALYSIS O RDERABLES [facility] [place] [address] * CBC W AUTO DIFFERENTIAL (07/07/2011 4:50 PM CHECKROOM ATTENDANT) WBC 7.25 4.5 - 14.5 K/cumm [facility] RBC 4.63 4.10 - 5.10 mill/cumm [facility] Hemoglobin 13.2 12.0 - 16.0 gm/dl [facility] Hematocrit 37.6 36.0 - 47.0 % [facility] MCV 81.2 78.0 - 102.0 cu microns [facility] MCH 28.5 25.0 - 35.0 uug [facility] MCHC 35.1 31.0 - 37.0 % [facility] RDW 13.3 % [facility] MPV 10.8 fl [facility] Platelet Count 277 100 - 400 K/cumm [facility] Granulocytes % 59.1 24 - 66 % [facility] Lymphocytes % 27.0 22 - 61 % [facility] Monocytes % 10.6 3 - 15 % [facility] Eosinophils % 2.9 0 - 10 % [facility] Basophils % 0.4 0 - 1 % [facility] Comment Manual Diff Automated Diff Performed [facility] BLOOD SPECIMEN / Unknown 07/07/2011 4:50 PM CHECKROOM ATTENDANT 07/07/2011 5:28 PM CHECKROOM ATTENDANT Mike Levine MD LAB - HEMATOLOGY ORD ERABLES Performing Organization Address [facility] Co de Phone Number [facility] [address] [place] [address] * LIPASE BLOOD (07/07/2011 4:50 PM CHECKROOM ATTENDANT) Lipase 105 23 - 300 Units/L [facility] Blood specimen (specimen) BLOOD SPECIMEN / Unknown 07/07/2011 4:50 PM CHECKROOM ATTENDANT 07/07/2011 4:57 PM CHECKROOM ATTENDANT Karla Delacruz MD LAB - CHEMISTRY OR DERABLES Performing Organization Address [facility] de Phone Number [facility] [address] [place] [phone] * (ABNORMAL) COMPREHENSIVE METABOLIC PANEL (07/07/2011 4:50 PM CHECKROOM ATTENDANT) Sodium 144 137 - 145 mmol/L [facility] Potassium 3.9 3.5 - 5.1 mmol/L [facility] Chloride 101 98 - 107 mmol/L [facility] CO2 30.6(H) 18 - 27 mmol/L [facility] Glucose 68(L) 70 - 106 mg/dl [facility] BUN 7.4 7 - 18 mg/dl [facility] Calcium 9.4 8.8 - 10.6 mg/dl [facility] Bilirubin Total 0.1(L) 0.6 - 1.4 mg/dl [facility] Protein Total 7.5 6.3 - 8.6 gm/dl [facility] Albumin 4.8 3.7 - 5.6 gm/dl [facility] ALT 21 10 - 30 Units/L [facility] AST 27 10 - 30 Units/L [facility] Alkaline Phosphatase 114 105 - 420 Units/L [facility] Creatinine 0.59 0.31 - 0.88 mg/dl [facility] Blood specimen (specimen) BLOOD SPECIMEN / Unknown 07/07/2011 4:50 PM CHECKROOM ATTENDANT 07/07/2011 4:57 PM CHECKROOM ATTENDANT Karla Delacruz MD LAB - CHEMISTRY OR DERABLES Performing Organization Address [facility] Co de Phone Number [facility] [address] [place] [address] * CBC W MANUAL DIFFERENTIAL (07/07/2011 4:50 PM CHECKROOM ATTENDANT) WBC 7.25 4.5 - 14.5 K/cumm [facility] RBC 4.63 4.10 - 5.10 mill/cumm [facility] Hemoglobin 13.2 12.0 - 16.0 gm/dl [facility] Hematocrit 37.6 36.0 - 47.0 % [facility] MCV 81.2 78.0 - 102.0 cu microns [facility] MCH 28.5 25.0 - 35.0 uug [facility] MCHC 35.1 31.0 - 37.0 % [facility] RDW 13.3 % [facility] MPV 10.8 fl [facility] Platelet Count 277 100 - 400 K/cumm [facility] Granulocytes % 59.1 24 - 66 % [facility] Lymphocytes % 27.0 22 - 61 % [facility] Monocytes % 10.6 3 - 15 % [facility] Eosinophils % 2.9 0 - 10 % [facility] Basophils % 0.4 0 - 1 % [facility] Comment Manual Diff Automated Diff Performed [facility] BLOOD SPECIMEN / Unknown 07/07/2011 4:50 PM CHECKROOM ATTENDANT 07/07/2011 4:57 PM CHECKROOM ATTENDANT Karla Delacruz MD LAB - HEMATOLOGY O RDERABLES Performing Organization Address [facility] Co de Phone Number [facility] [address] [place] [address] * C-REACTIVE PROTEIN (07/07/2011 4:50 PM CHECKROOM ATTENDANT) C-Reactive Protein < 0.2 <0.6 mg/dl mg/dl [facility] Blood specimen (specimen) BLOOD SPECIMEN / Unknown 07/07/2011 4:50 PM CHECKROOM ATTENDANT 07/07/2011 4:57 PM CHECKROOM ATTENDANT Karla Delacruz MD LAB - CHEMISTRY OR DERABLES Performing Organization Address [facility] Co de Phone Number [facility] [address] [place] [address] * AMYLASE BLOOD (07/07/2011 4:50 PM CHECKROOM ATTENDANT) Amylase 31 30 - 100 Units/L [facility] Blood specimen (specimen) BLOOD SPECIMEN / Unknown 07/07/2011 4:50 PM CHECKROOM ATTENDANT 07/07/2011 4:57 PM CHECKROOM ATTENDANT Karla Delacruz MD LAB - CHEMISTRY OR DERABLES Performing Organization Address [facility] de Phone Number [facility] [address] [place] [address] documented in this encounter Visit Diagnoses Diagnosis Abdominal pain, generalized Vomiting Vomiting alone Diarrhea Headache(784.0) Headache Biliary dyskinesia Other specified disorder of gallbladder Abdominal pain, generalized documented in this encounter Administered Medications Inactive Administered Medications - up to 3 most recent administrations Medication Order MAR Action Action Date Dose Rate Site 0.9 % nacl IV BOLUS 1,668 mL 1,668 mL (20 mL/kg ? 83.4 kg), at 1,668 mL/hr, Administer over 60 Minutes, Intravenous, ONCE, 1 dose, On Wed07/08/11 at 1015 $ Given 07/08/2011 10:02 AM CHECKROOM ATTENDANT 1,668 mL 1668 mL/hr acetaminophen (TYLENOL) tablet 650 mg 650 mg, Oral, EVERY 6 HOURS PRN, Mild Pain, Starting on Wed07/07/11 at 1733, Until 07/11/11 at 0139, Maximum allowable Acetaminophen amount = 4 Grams (4000 mg) / 24 hours. $ Given 07/10/2011 8:18 AM CHECKROOM ATTENDANT 650 mg $ Given 07/09/2011 10:28 PM CHECKROOM ATTENDANT 650 mg $ Given 07/09/2011 3:42 PM CHECKROOM ATTENDANT 650 mg dextrose 5% and 0.45% NaCl with KCl 20 mEq infusion at 120 mL/hr, Intravenous, CONTINUOUS, Starting on Wed07/07/11 at 1700, Until Wed07/08/11 at 2138 $ New Bag/Syringe 07/08/2011 12:20 PM CHECKROOM ATTENDANT 120 mL/hr $ New Bag/Syringe 07/07/2011 6:02 PM CHECKROOM ATTENDANT 120 mL /hr dextrose 5% and 0.45% NaCl with KCl 20 mEq infusion at 75 mL/hr, Intravenous, CONTINUOUS, Starting on Wed07/09/11 at 0945, Until 07/11/11 at 0139, Change rate to 125 mL/hour at midnight. $ New Bag/Syringe 07/10/2011 8:19 AM CHECKROOM ATTENDANT 7 5 mL/hr $ New Bag/Syringe 07/09/2011 7:03 PM CHECKROOM ATTENDANT 75 mL/ hr Rate Change 07/09/2011 3:01 PM CHECKROOM ATTENDANT 75 mL/hr diphenhydrAMINE (BENADRYL) tablet 50 mg 50 mg, Oral, EVERY 6 HOURS PRN, Insomnia, Nausea/Vomiting, abdominal pain, Starting on Wed07/07/11 at 2115, Until 07/11/11 at 0139 $ Given 07/09/2011 10:28 PM CHECKROOM ATTENDANT 50 mg $ Given 07/09/2011 3:42 PM CHECKROOM ATTENDANT 50 mg $ Given 07/08/2011 8:32 PM CHECKROOM ATTENDANT 50 mg esomeprazole (NexIUM) capsule 20 mg 20 mg, Oral, DAILY BEFORE BREAKFAST, First dose on Wed07/09/11 at 0700, Until Discontinued, See [employer] for NG tube administration Do not crush or chew. $ Given 07/09/2011 8:01 AM CHECKROOM ATTENDANT 20 mg esomeprazole (NexIUM) injection 20 mg 20 mg, Intravenous, DAILY, First dose on Wed07/07/11 at 1800, Until Discontinued, Administer over 5 minutes. RX diluted in NS. $ Given 07/08/2011 8:16 AM CHECKROOM ATTENDANT 20 mg $ Given 07/07/2011 6:06 PM CHECKROOM ATTENDANT 20 mg esomeprazole (NexIUM) injection 20 mg 20 mg, Intravenous, 2 TIMES DAILY, First dose on Wed07/09/11 at 0945, Until Discontinued, Administer over 5 minutes. RX diluted in NS. $ Given 07/10/2011 8:18 AM CHECKROOM ATTENDANT 20 mg $ Given 07/09/2011 7:55 PM CHECKROOM ATTENDANT 20 mg ondansetron (disintegrating) (ZOFRAN ODT) tablet 4 mg 4 mg, Sublingual, EVERY 6 HOURS PRN, Nausea/Vomiting, Starting on Wed07/08/11 at 2134, Until 07/11/11 at 0139 $ Given 07/10/2011 11:18 AM CHECKROOM ATTENDANT 4 mg $ Given 07/08/2011 11:50 PM CHECKROOM ATTENDANT 4 mg ondansetron (ZOFRAN) injection 4 mg 4 mg, Intravenous, EVERY 6 HOURS PRN, Nausea/Vomiting, Starting on Wed07/07/11 at 1744, Until Wed07/08/11 at 2138 $ Given 07/08/2011 6:48 PM CHECKROOM ATTENDANT 4 mg documented in this encounter Active and Recently Administered Medications Times are shown in CHECKROOM ATTENDANT. Scheduled Medication Order 07/08/2011 07/09/2011 07/10/2011 0.9 % nacl IV BOLUS 1,668 mL (COMPLETED) 1,668 mL (20 mL/kg ? 83.4 kg), at 1,668 mL/hr, Administer over 60 Minutes, Intravenous, ONCE, 1 dose, On Wed07/08/11 at 1015 1002 ($ Given - Provider: Elma Macedo RN)1102 (Rx Stopped - Provider: Elma Macedo RN) cyproheptadine (PERIACTIN) tablet 4 mg 4 mg, Oral, AT BEDTIME, First dose on Wed07/09/11 at 2030, Until Discontinued 2030 (Not Administered - Provider: Ashwini López RN - Reason: See Comments - Comment: Patient sleeping, will be NPO at 0000) esomeprazole (NexIUM) capsule 20 mg (CANCELED) 20 mg, Oral, DAILY BEFORE BREAKFAST, First dose on Wed07/09/11 at 0700, Until Discontinued, See Micromedex for NG tube administration Do not crush or chew. 0801 ($ Given - Provider: Cristal Corado RN) esomeprazole (NexIUM) injection 20 mg (CANCELED) 20 mg, Intravenous, DAILY, First dose on Wed07/07/11 at 1800, Until Discontinued, Administer over 5 minutes. RX diluted in NS. 0816 ($ Given - Provider: Elma Macedo RN) esomeprazole (NexIUM) injection 20 mg (CANCELED) 20 mg, Intravenous, 2 TIMES DAILY, First dose on Wed07/09/11 at 0945, Until Discontinued, Administer over 5 minutes. RX diluted in NS. 0945 (Not Administered - Provider: Cristal Corado RN - Reason: See Comments - Comment: PO given at 0800.)1955 ($ Given - Provider: Ashwini López, AMBER) 0818 ($ Given - Provider: Elma Macedo, AMBER) Continuous Medication Order 07/08/2011 07/09/2011 07/10/2011 dextrose 5% and 0.45% NaCl with KCl 20 mEq infusion (CANCELED) at 120 mL/hr, Intravenous, CONTINUOUS, Starting on 07/07/11 at 1700, Until 07/08/11 at 2138 1220 ($ New Bag/Syringe - Provider: Elma Macedo, AMBER) dextrose 5% and 0.45% NaCl with KCl 20 mEq infusion (CANCELED) at 75 mL/hr, Intravenous, CONTINUOUS, Starting on Linette 07/09/11 at 0945, Until 07/11/11 at 0139, Change rate to 125 mL/hour at midnight. 0945 ($ New Bag/Syringe - Provider: Cristal Corado RN)1501 (Rate Change - Provider: Cristal Corado RN)1903 ($ New Bag/Syringe - Provider: Cirstal Corado RN) 0819 ($ New Bag/Syringe - Provider: Elma Macedo, AMBER) PRN Medication Order 07/08/2011 07/09/2011 07/10/2011 acetaminophen (TYLENOL) tablet 650 mg 650 mg, Oral, EVERY 6 HOURS PRN, Mild Pain, Starting on 07/07/11 at 1733, Until 07/11/11 at 0139, Maximum allowable Acetaminophen amount = 4 Grams (4000 mg) / 24 hours. 0815 ($ Given - Provider: Elma Macedo RN)1534 ($ Given - Provider: Pratibha Palmer, AMBER)2218 ($ Given - Provider: Pratibha Palmer, AMBER) 1542 ($ Given - Provider: Cristal Corado RN)2228 ($ Given - Provider: Ashwini López RN) 0818 ($ Given - Provider: Elma Macedo, AMBER) diphenhydrAMINE (BENADRYL) tablet 50 mg (CANCELED) 50 mg, Oral, EVERY 6 HOURS PRN, Insomnia, Nausea/Vomiting, abdominal pain, Starting on Tue /24/12 at 2115, Until 07/11/11 at 0139 1029 ($ Given - Provider: Elma Macedo, RN)2032 ($ Given - Provider: Pratibha Palmer RN) 1542 ($ Given - Provider: Cristal Corado RN)2228 ($ Given - Provider: Ashwini López, AMBER) ondansetron (disintegrating) (ZOFRAN ODT) tablet 4 mg 4 mg, Sublingual, EVERY 6 HOURS PRN, Nausea/Vomiting, Starting on Wed07/08/11 at 2134, Until 07/11/11 at 0139 2350 ($ Given - Provider: Ashwini López, AMBER) 1118 ($ Given - Provider: Elma Macedo, AMBER) ondansetron (ZOFRAN) injection 4 mg (CANCELED) 4 mg, Intravenous, EVERY 6 HOURS PRN, Nausea/Vomiting, Starting on Wed07/07/11 at 1744, Until Wed07/08/11 at 2138 1848 ($ Given - Provider: Pratibha Palmer, AMBER) documented in this encounter Care Teams Briar Cutter Relationship Specialty Start Date End Date Jailene Fajardo MD [address] [place] [address] PCP - General 06/25/11 documented as of this encounter
--- OUTSIDE RECORDS SUMMARY | 2024-06-14 05:20 | XMS_ITS | Encounter Summary ---
Author Organization [facility] Address [address] [place] [address] Care Team Providers Care Binding Bench Worker Name Role Phone Jailene Fajardo MD Primary Care Provider [phone] Reason for Visit * Reason Onset Date Comments Procedure 05/24/2012 Encounter Details Date Type Department Care Team (Late st Contact Info) Description 05/24/2012 Telephone [facility] Pediatrics - [address] [place] [address] Roro Rosario MD [address] [place] [id number] Procedure Social History Tobacco Use Types Packs/Day Years Used Date Smoking Tobacco: Never Alcohol Use Standard Drinks/Week Comments Not Asked 0 (1 standard drink = 0.6 oz pur e alcohol) Sex and Gender Information Value Date Recorded Sex Assigned at Not on file Gender Identity Not on file Sexual Orientation Not on file documented as of this encounter Miscellaneous Notes * Telephone Encounter - Emelyn Moyer RN - 05/26/2012 1:22 PM CST Per Hussein Frances ([facility] Team) ??? 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 US CONTROLLER * Telephone Encounter - Emelyn Moyer RN - 05/26/2012 8:57 AM CST PA sent to DAG Team. Talked to mom and gave her procedure information. Mom voiced understanding andagreed to bring her on Wednesday. US CONTROLLER * Telephone Encounter - Emelyn Moyer RN - 05/25/2012 9:40 AM CST Gastric Emptying Study scheduled for Wednesday 05/30 at 8am. Pt to arrive at 7:30am and NPO 6 after MN. Left message for parent(s) to call us back. US CONTROLLER * Telephone Encounter - Jacqueline Maria RN - 05/24/2012 4:05 PM STATUS CONTROLLER Per Dr. Rosario plan for Gastric Emptying Study. Orders faxed to Lui at [facility] at [phone] & leftmessage for Lui to schedule at [phone]. US CONTROLLER documented in this encounter Plan of Treatment Not on file documented as of this encounter Visit Diagnoses Diagnosis Biliary dyskinesia Other specified disorder of gallbladder Vomiting Vomiting alone Abdominal pain, generalized documented in this encounter Care Teams Binding Bench Worker Relationship Specialty Start Date End Date Jailene Fajardo MD [address] [facility] [address] [place] [address] PCP - General 06/25/11 documented as of this encounter
--- OUTSIDE RECORDS SUMMARY | 2024-06-14 05:20 | XMS_ITS | Encounter Summary ---
Author Organization [facility] Address [address] [place] [address] Care Team Providers Care Oxygraph Operator Name Role Phone Jailene Fajardo MD Primary Care Provider [phone] Reason for Visit * Reason Onset Date Comments Question 07/06/2011 Encounter Details Date Type Department Care Team (Late st Contact Info) Description 07/06/2011 Telephone [facility] Pediatrics - GI [address] [facility] [place] [address] Everardo Arriaga MD [address] [facility] [address] [place] [id number] Question Social History Tobacco Use Types Packs/Day Years Used Date Smoking Tobacco: Never Assessed Sex and Gender Information Value Date Recorded Sex Assigned at Not on file Gender Identity Not on file Sexual Orientation Not on file documented as of this encounter Miscellaneous Notes * Telephone Encounter - Lindsay Pollock RN - 07/06/2011 2:40 PM QUALITY IMPROVEMENT CONSULTANT Discussed situation with Dr. Arriaga, he would like to admit pt for further workup, possible gastricemptying studies & to further monitor pt's intake & vomiting. Talked with mother, she is OK with plan & will come to [facility] tomorrow am around 1000. Dr. Levine, senior resident & access center aware. ITY IMPROVEMENT CONSULTANT * Telephone Encounter - Lindsay Pollock RN - 07/06/2011 2:16 PM QUALITY IMPROVEMENT CONSULTANT Mom reports that pt continues to have vomiting daily, abdominal pain at times, diarrhea, & has now lost about 30# since thanksgi. Is not able to go to school or participate in normal activities because of the vomiting. Saw Dr. Vela in f/u 2 weeks ago, he specifically told mom that he has noidea what is wrong with pt. Pt is able to retain clear liquids, but anything solid she takes PO comes back up (even crackers orpills). Mom very frustrated, pt is tired of vomiting & not being able to do anything . Mom wondering if pt has a biliary blockage--she has been doing internet research. Will discuss situation with Dr. Arriaga. ITY IMPROVEMENT CONSULTANT * Telephone Encounter - Chula Eason - 07/06/2011 2:14 PM CST Mom requested a call from a nurse, did not want to say why. ITY IMPROVEMENT CONSULTANT documented in this encounter Plan of Treatment Not on file documented as of this encounter Visit Diagnoses Not on filedocumented in this encounter Care Teams Oxygraph Operator Relationship Specialty Start Date End Date Jailene Fajardo MD [facility] [facility] [address] [place] [address] PCP - General 06/25/11 documented as of this encounter
--- OUTSIDE RECORDS SUMMARY | 2024-06-14 05:20 | XMS_ITS | Encounter Summary ---
Author Organization [facility] Address [address] [place] [address] Care Team Providers Care Black Oxide Coating Equipment Tender Name Role Phone Jailene Fajardo MD Primary Care Provider [phone] Encounter Details Date Type Department Care Team (Late st Contact Info) Description 07/07/2011 2:14 PM ENVIRONMENTAL HEALTH MANAGER - 07/07/2011 2:33 PM ENVIRONMENTAL HEALTH MANAGER Emergency ER at [address] [address] Abdominal pain, generalized Discharge Disposition: ED Dismiss - Never Arrived Social History Tobacco Use Types Packs/Day Years [...] 30 days. 30 Tab 0 07/10/2011 08/09/2011 hydrocodone-acetamino phen (NORCO) 5-325 MG tablet Take 1-2 Tabs by mouth every 4 hours as needed for Pain. 75 Tab 0 06/05/2011 07/10/2011 imipramine (TOFRANIL) 10 MG tablet Take 1 Tab by mouth at bedtime. 30 Tab 5 06/11/2011 05/24/2012 metoclopramide (REGLAN) 10 MG tablet Take 1 Tab by mouth 3 times daily before meals. 90 Tab 2 06/19/2011 07/10/2011 ondansetron, disintegrating, (ZOFRAN ODT) 4 MG tablet Dissolve 1 Tab under the tongue every 6 hours as needed for Nausea/Vomiting for 2 days. Allow tablet to dissolve on the tongue 28 Tab 0 07/10/2011 07/12/2011 documented as of this encounter Plan of Treatment Not on file documented as of this encounter Visit Diagnoses Diagnosis Abdominal pain, generalized documented in this encounter Care Teams Black Oxide Coating Equipment Tender Relationship Specialty Start Date End Date Jailene Fajardo MD [address] [facility] [address] [place] [address] PCP - General 06/25/11 documented as of this encounter
--- OUTSIDE RECORDS SUMMARY | 2024-06-14 05:20 | XMS_ITS | Encounter Summary ---
Author Organization [facility] Address [address] [facility] [place] [address] Care Team Providers Care Design Quality Engineer Name Role Phone Jailene Fajardo MD Primary Care Provider [phone] Encounter Details Date Type Department Care Team (Latest Contact Info) Description 06/01/2012 Hospital Outpatient Visit [facility] OUTPATIENT SERVICES [address] [place] [id number] ProviderSamantha MD Discharge Disposition: Home or Self [...] Procedure Name Priority Date/Time Associated Diagnosis Comments NM GASTRIC EMPTYING Routine 06/01/2012 1 0:13 AM C D STILL OPERATOR documented in this encounter Results * NM GASTRIC EMPTYING (06/01/2012 10:13 AM C D STILL OPERATOR) Anatomical Region Laterality Modality Abdomen Other Impressions 06/01/2012 4:10 PM C D STILL OPERATOR Impression: 1. Evidence of spontaneous gastroesophageal reflux. 2. Limited assessment of gastric emptying due to frequent vomiting; however, one-hour delayed images show evidence of tracer activity in the small bowel which makes the diagnosis of delayed gastric emptying unlikely. This report was approved ??by Wyatt Bermudez M.D. ?? on 06/01/2012 4:02 PM . I, Dr. AHSAN LEOS M.D. have personally reviewed and interpreted this examination/study. This report was electronically signed by AHSAN LEOS M.D. ??on 06/01/2012 4:10 PM . Narrative 06/01/2012 4:10 PM C D STILL OPERATOR Solid Gastric Emptying Study Agent: ??0.5mCi of [...] lower abdomen, likely small bowel. Procedure Note Ahsan Leos MD - 09/12/2017 Solid Gastric Emptying [...] M.D. on 06/01/2012 4:02 PM. I, Dr. AHSAN LEOS M.D. have personally reviewed and interpreted thisexamination/study. This report was electronically signed by AHSAN LEOS M.D. on 06/01/20124:10 PM . Roro Rosario MD NM ORDERABLES documented in this encounter Visit Diagnoses Diagnosis Vomiting alone documented in this encounter Care Teams Design Quality Engineer Relationship Specialty Start Date End Date Jailene Fajardo MD [address] [address] PCP - General 06/25/11 documented as of this encounter
--- OUTSIDE RECORDS SUMMARY | 2024-06-14 05:20 | XMS_ITS | Encounter Summary ---
Author Organization [facility] Address [address] [place] [address] Care Team Providers Care Performance Improvement Consultant Name Role Phone Jailene Fajardo MD Primary Care Provider [phone] Reason for Visit * Reason Onset Date Comments Procedure Prior Auth Request 05/26/2012 Encounter Details Date Type Department Care Team (Late st Contact Info) Description 05/26/2012 Telephone [facility] Pediatrics - [address] [address] Mike Levine MD [address] [place] [id number] Procedure Prior Auth Request Social History Tobacco Use Types Packs/Day Years [...] Miscellaneous Notes * Telephone Encounter - Lindsay Pollokc RN - 05/26/2012 1:27 PM AGENCY DIRECTOR Per Leonor in financial clearance: Silvio Dunaway ??? Liza Worthington has active IPA and no auth is required for the gastric emptying study,cpt 7826,4 at [facility] on 05/30/12. CY DIRECTOR documented in this encounter Plan of Treatment Not on file documented as of this encounter Visit Diagnoses Not on filedocumented in this encounter Care Teams Performance Improvement Consultant Relationship Specialty Start Date End Date Jailene Fajardo MD [address] [address] PCP - General 06/25/11 documented as of this encounter
--- OUTSIDE RECORDS SUMMARY | 2024-06-14 05:20 | XMS_ITS | Encounter Summary ---
Author Organization [facility] Address [address] [place] [address] Care Team Providers Care Orchid Superintendent Name Role Phone Jailene Fajardo MD Primary Care Provider [phone] Reason for Visit * Reason Comments Fall Pt brought by EMS fr om field after falling off horse; Pt c/o left forearm pain, full ROM and PVS intact, splint in place. Pt also c/o right flank pain. Denies LOC, head pain and neck pain. Encounter Details Date Type Department Care Team (Late st Contact Info) Description 02/19/2014 6:55 PM CDT - 02/19/2014 9:21 PM CDT Emergency ER at [address] [address] Ochoa Arshad MD [address] [place] [id number] Injury, other and unspecified, shoulder and upper arm; Contusion of forearm, left, initial encounter; Fall from horse, initial encounter Discharge Disposition: Home or Self Care Social [...] Sign Reading Time Taken Comments Blood Pressure 122/76 02/19/2014 9:08 PM CDT Pulse 82 02/19/2014 9:08 PM CDT Temperature 37.1 ??C (98.8 ??F) 02/19/2014 6:58 PM CD T Respiratory Rate 15 02/19/2014 9:08 PM CDT Oxygen Saturation 100% 02/19/2014 9:08 PM CDT Inhaled Oxygen Concentration - - Weight 72.6 kg (160 lb) 02/19/2014 6:58 PM CDT Height - - Body Mass Index - - documented in this encounter Discharge Instructions * Discharge Instructions* Ochoa Arshad MD - 02/19/2014 9:12 PM CDT Images from the original note were not included. Bone Bruise A bone bruise is a small hidden fracture of the bone. It typically occurs with bones located close to the surface of the skin. SYMPTOMS ?? The pain lasts longer than a normal bruise. ?? The bruised area is difficult to use. ?? There may be discoloration or swelling of the bruised area. ?? When a bone bruise is found with injury to the anterior cruciate ligament (in the knee) there isoften an increased: ?? Amount of fluid in the knee ?? Time the fluid in the knee lasts. ?? Number of days until you are walking normally and regaining the motion you had before the injury. ?? Number of days with pain from the injury. DIAGNOSIS It can only be seen on X-rays known as MRIs. This stands for magnetic resonance imaging. A regular X-ray taken of a bone bruise would appear to be normal. A bone bruise is a common injury in the kneeand the heel bone (calcaneus). The problems are similar to those produced by stress fractures, which are bone injuries caused by overuse. A bone bruise may also be a sign of other injuries. For example, bone bruises are commonly found where an anterior cruciate ligament (ACL) in the knee has been pulled away from the bone (ruptured). A ligament is a tough fibrous material that connects bones together to make our joints stable. Bruises of the bone last a lot longer than bruises of the muscle or tissues beneath the skin. Bone bruises can last from days to months and are often more severe and painful than other bruises. TREATMENT Because bone bruises are sudden injuries you cannot often prevent them, other than by being extremely careful. Some things you can do to improve the condition are: ?? Apply ice to the sore area for 15-20 minutes, 3-4 times per day while awake for the first 2 days. Put the ice in a plastic bag, and place a towel between the bag of ice and your skin. ?? Keep your bruised area raised (elevated) when possible to lessen swelling. ?? For activity: ?? Use crutches when necessary; do not put weight on the injured leg until you are no longer tender. ?? You may walk on your affected part as the pain allows, or as instructed. ?? Start weight bearing gradually on the bruised part. ?? Continue to use crutches or a cane until you can stand without causing pain, or as instructed. ?? If a plaster splint was applied, wear the splint until you are seen for a follow-up examination.Rest it on nothing harder than a pillow the first 24 hours. Do not put weight on it. Do not get it wet. You may take it off to take a shower or bath. ?? If an air splint was applied, more air may be blown into or out of the splint as needed for comfort. You may take it off at night and to take a shower or bath. ?? Wiggle your toes in the splint several times per day if you are able. ?? You may have been given an elastic bandage to use with the plaster splint or alone. The splint is too tight if you have numbness, tingling or if your foot becomes cold and blue. Adjust the bandageto make it comfortable. ?? Only take [id number]-[id number] or prescription medicines for pain, discomfort, or fever as directed by your caregiver. ?? Follow all instructions for follow up with your caregiver. This includes any orthopedic referrals, physical therapy, and rehabilitation. Any delay in obtaining necessary care could result in a delay or failure of the bones to heal. SEEK MEDICAL CARE IF: ?? You have an increase in bruising, swelling, or pain. ?? You notice coldness of your toes. ?? You do not get pain relief with medications. SEEK IMMEDIATE MEDICAL CARE IF: ?? Your toes are numb or blue. ?? You have severe pain not controlled with medications. ?? If any of the problems that caused you to seek care are becoming worse. Document Released: 08/20/2004 Document Revised: 08/22/2012 Document Reviewed: 01/02/2009 ExitCare?? Patient Information ??2014 [employer]. Contusion A contusion is a deep bruise. Contusions happen when an injury causes bleeding under the skin. Signs of bruising include pain, puffiness (swelling), and discolored skin. The contusion may turn blue, purple, or yellow. HOME CARE ?? Put ice on the injured area. ?? Put ice in a plastic bag. ?? Place a towel between your skin and the bag. ?? Leave the ice on for 15-20 minutes, 3-4 times a day. ?? Only take medicine as told by your doctor. ?? Rest the injured area. ?? If possible, raise (elevate) the injured area to lessen puffiness. GET HELP RIGHT AWAY IF: ?? You have more bruising or puffiness. ?? You have pain that is getting worse. ?? Your puffiness or pain is not helped by medicine. MAKE SURE YOU: ?? Understand these instructions. ?? Will watch your condition. ?? Will get help right away if you are not doing well or get worse. Document Released: 11/16/2008 Document Revised: 08/22/2012 Document Reviewed: 04/04/2012 ExitCare?? Patient Information ??2014 [employer]. documented in this encounter Medications at Time [...] 5 05/29/2011 documented as of this encounter ED Notes * Dayan Yu RN - 02/19/2014 9:19 PM CDT Discharge instructions given to mother who verbalized understanding. Discussed discharge instructions, follow-up information, medication administration, pain control, and s/s of worsening condition. Mother denies any further questions at this time. Pt active and alert at discharge. * Dayan Yu RN - 02/19/2014 8:33 PM CDT Pt assisted to ambulate to the bathroom at this time * Ochoa Arshad MD - 02/19/2014 7:38 PM CDT EMERGENCY DEPARTMENT 02/19/2014 Dear Doctor, We had the pleasure of caring for your patient, Liza Worthington in our emergency department on 02/19/2014. A note from the provider(s) who cared for your patient is attached. Should you wish to access any laboratory results, please call . Should you wish to access any radiology results, please call , option 3. In addition, you can access patient information 24 hours a day, from any computer, through [employer], the online version of our electronic medical record. If you would like to use this service, please call Belia Alvarez, Connectivity Coordinator, at . We appreciate the opportunity to care for your patients. If you would like additional information, please call the emergency department directly at . Sincerely, Ochoa Arshad MD Division of Emergency Medicine [facility]. [place], [place] [facility]UMA I DESIGNATED EMERGENCY DEPARTMENT Provider contact with the patient: 02/19/2014 19:38 Liza Worthington [id number] [facility] EMERGENCY DEPARTMENT History Chief Complaint Patient presents with ??? Fall Pt brought by EMS from field after falling off horse; Pt c/o left forearm pain, full ROM and PVS intact, splint in place. Pt also c/o right flank pain. Denies LOC, head pain and neck pain. HPI Comments: Patient fell from horse earlier this evening. Landed on her left arm and right flank region. No LOC. Past medical history reviewed. Home medications reviewed. Fall The history is provided by the patient, parent and caregiver. She came to the ER via EMS. The accident occurred less than 1 hour ago. Fall occurred: fall from horseback.She fell from a height of 3 - 5 ft. She landed on dirt. The point of impact was the right side and left side. The injury/pain location is left arm and abdomen.The pain is at a severity of 5/10. The pain is mild. There was no loss of consciousness. She was ambulatory at the scene. There was no drug use involved in the accident. There has been abdominal pain. There has been no fever, no numbness, no nausea, no vomiting, no headaches, no tingling and no neck pain.She has tried immobilization for the symptoms. Past Medical History Diagnosis Date ??? FTND (full term normal delivery) ??? Cholecystitis chronic ??? Ovarian cyst, right Past Surgical History Procedure Laterality Date ??? Tonsillectomy and adenoidectomy had them out in kindergarten ??? Cholecystectomy, laparoscopic History Social History ??? Marital Status: Single Spouse Name: N/A Number of Children: N/A ??? Years of Education: N/A Occupational History ??? Not on file. Social History Main Topics ??? Smoking status: Never Smoker ??? Smokeless tobacco: Not on file ??? Alcohol Use: Not on file ??? Drug Use: Not on file ??? Sexual Activity: Not on file Other Topics Concern ??? [...] Review of Systems Review of Systems Constitutional: Negative for fever, activity change and appetite change. HENT: Negative for congestion and rhinorrhea. Respiratory: Negative for cough. Cardiovascular: Negative for chest pain. Gastrointestinal: Positive for abdominal pain. Negative for nausea and vomiting. Genitourinary: Positive for flank pain. Musculoskeletal: Negative for neck pain and neck stiffness. Left arm pain. Skin: Negative for wound. Neurological: Negative for tingling, numbness and headaches. All relevant systems reviewed with pertinent positives and negatives noted in Attending HPI and ROS. BP 138/55 Pulse 84 Temp(Src) 98.8 ??F Resp 18 Wt 72.576 kg (160 lb) SpO2 100% Physical Exam Physical Exam Constitutional: She appears well-developed and well-nourished. She appears distressed (uncomfortable due to left arm pain). HENT: Head: Normocephalic and atraumatic. Right Ear: External ear normal. Left Ear: External ear normal. Mouth/Throat: Oropharynx is clear and moist. Neck: Normal range of motion. Neck supple. Cardiovascular: Normal rate and regular rhythm. No murmur heard. Pulmonary/Chest: Effort normal and breath sounds normal. No respiratory distress. Abdominal: Soft. Bowel sounds are normal. She exhibits no distension. There is tenderness (mild tenderness with palpation over right flank region). Musculoskeletal: Left forearm with no obvious swelling or deformity, tender with palpation over distal radius region Neurological: Alert and oriented. Appropriate for age. Vitals reviewed. Procedures Procedures ECG Interpretation ECG Interpretation Lab/SPO2 Interpretation Progress Notes ED Course Will check labs and get image of left forearm. 21:08 ED ATTENDING LAB REVIEW: Labs reviewed by ED Attending. CBC normal. CMP normal. Amylase and Lipase normal. UA normal. ED PRELIMINARY RADIOLOGY INTERPRETATION: Preliminary review/interpretation by ED Attending: No apparent fracture or dislocation. Patient up and about in the ED. Will place left forearm in removable splint. Will discharge to home with supportive care instructions for forearm contusion. Will send home with script for ibuprofen. To follow up with PMD in 3-5 days. To return to ED for worsening symptoms, problems, or concerns. Medical Decision Making The total time providing critical care (excluding time spent for procedures) was: 0 minutes. I have personally seen and examined this patient. I have fully participated in the care of this patient. I have reviewed all pertinent clinical information available to me during this encounter, including history, physical exam and plan. I have reviewed nursing notes, available labs and radiographic studies. Clinical Impression Final diagnoses: Injury, other and unspecified, shoulder and upper arm Contusion of forearm, left, initial encounter Fall from horse, initial encounter Ochoa Arshad M.D., Ph.D. [employer] of Pediatrics Division of Pediatric Emergency Medicine Department of Pediatrics, [facility] * Dayan Yu RN - 02/19/2014 6:55 PM CDT Bed: 1 Expected date: Expected time: Means of arrival: Comments: Horse injury documented in this encounter Plan of Treatment Not on file documented as of this encounter Procedures Procedure Name Priority Date/Time Associated Diagnosis Comments XR FOREARM LEFT 2VW OR MORE STAT 02/19/2014 8:07 PM CDT Injury, other and unspecified, shoulder and upper arm URINALYSIS REFLEX TO MICROSCOPIC NO CULTURE STAT 02/19/2014 8:05 PM CDT URINE MICROSCOPIC ONLY STAT 4 8:05 PM CDT DIFFERENTIAL MANUAL STAT 02/19/2014 7 :51 PM CDT CBC W AUTO DIFFERENTIAL STAT 02/19/2014 7:51 PM CDT COMPREHENSIVE METABOLIC PANEL STAT 02/19/2014 7:51 PM CDT LIPASE BLOOD STAT 02/19/2014 7:51 PM CDT AMYLASE BLOOD STAT 02/19/2014 7:51 PM CDT documented in this encounter Results * XR FOREARM 2 VW LEFT (02/19/2014 [...] Arshad MD DIAGNOSTIC IMAGING O RDERABLES * URINALYSIS MICROSCOPIC ONLY (02/19/2014 8:05 PM CDT) RBC UA 0-2 0-2, 2-5 # /hpf 02/19/2014 8:45 PM CDT [facility] WBC UA 0-2 0-2, 2-5 # /hpf 02/19/2014 8:45 PM CDT [facility] Bacteria UA Trace None Seen, Trace 02/19/2014 8:45 PM CDT [facility] Epithelial Cell UA 0-2 0-2, 2-5 02/19/2014 8:45 PM CDT [facility] Urine URINE SPECIMEN OBTAINED BY CLEAN CATCH PROCEDURE / Unknown 02/19/2014 8:05 PM CDT 02/19/2014 8:07 PM CDT Ochoa Arshad MD LAB - URINALYSIS ORD ERABLES [facility] [address] [place] [address] * URINALYSIS ROUTINE AUTO (02/19/2014 8:05 PM CDT) Color UA Yellow Straw, Yellow, Dark Yellow 02/19/2014 8:13 PM CDT [facility] Clarity UA Clear 02/19/2014 8:13 PM CDT [facility] Specific Hollister UA >=1.030 1.005 - 1.030 02/19/2014 8:13 PM CDT [facility] pH UA 6.0 5.0 - 8.0 pH 02/19/2014 8:13 PM CDT [facility] Protein UA Negative Negative 02/19/2014 8:13 PM CDT [facility] Blood UA Negative Negative 02/19/2014 8:13 PM CDT [facility] Leukocyte UA Negative Negative 02/19/2014 8:13 PM CDT [facility] Nitrite UA Negative Negative 02/19/2014 8:13 PM CDT [facility] Glucose UA Negative Negative 02/19/2014 8:13 PM CDT [facility] Ketone UA Negative Negative 02/19/2014 8:13 PM CDT [facility] Bilirubin UA Negative Negative 02/19/2014 8:13 PM T [facility] Urobilinogen UA 0.2 0.1 - 1.0 EU/dL 02/19/2014 8:13 PM T [facility] Urine URINE SPECIMEN OBTAINED BY CLEAN CATCH PROCEDURE / Unknown 02/19/2014 8:05 PM CDT 02/19/2014 8:07 PM CDT Ochoa Arshad MD LAB - URINALYSIS ORD ERABLES [facility] [address] [place] [address] * (ABNORMAL) DIFFERENTIAL MANUAL (02/19/2014 7:51 PM CDT) WBC Auto 13 x10^9/L 02/19/2014 8:39 PM CDT [facility] Neutrophil % Manual 66 24 - 66 % 02/19/2014 8:39 PM CDT [facility] Lymphocytes % Manual 25 22 - 61 % 02/19/2014 8:39 PM CDT [facility] Monocytes % Manual 9 3 - 15 % 02/19/2014 8:39 PM CDT [facility] Cells Counted 100 # cells 02/19/2014 8:39 PM CDT [facility] Platelet Estimation Adequate platelets Normal, Adequate platelets 02/19/2014 8:39 PM CDT [facility] WBC Morph Normal 02/19/2014 8:39 PM CDT [facility] Poikilocytosis 1+(A) None 02/19/2014 8:39 PM CDT [facility] Ovalocytes 1+(A) None 02/19/2014 8:39 PM CDT [facility] Blood BLOOD SPECIMEN / Unknown 02/19/2014 7:51 PM CDT 02/19/2014 7:53 PM CDT Ochoa Arshad MD LAB - HEMATOLOGY ORD ERABLES Performing Organization Address [facility]/ZIP Co de Phone Number [facility] [address] [place] [address] * LIPASE BLOOD (02/19/2014 7:51 PM CDT) Lipase 40 10 - 220 U/L 02/19/2014 8:19 PM CDT [facility] Blood BLOOD SPECIMEN / Unknown 02/19/2014 7:51 PM CDT 02/19/2014 8:01 PM CDT Ochoa Arshad MD LAB - CHEMISTRY ORDE DAVID Performing Organization Address [facility]/ZIP Co de Phone Number [facility] [address] [place] [address] * AMYLASE BLOOD (02/19/2014 7:51 PM CDT) Amylase 36 5 - 65 U/L 02/19/2014 8:19 PM CDT [facility] Blood BLOOD SPECIMEN / Unknown 02/19/2014 7:51 PM CDT 02/19/2014 8:01 PM CDT Ochoa Arshad MD LAB - CHEMISTRY ORDE DAVID Performing Organization Address City/[facility]/ZIP Co de Phone Number [facility] [address] [place] [address] * (ABNORMAL) COMPREHENSIVE METABOLIC PANEL (02/19/2014 7:51 PM T) [facility] Glucose 94 70 - 105 mg/dL 02/19/2014 8:19 PM [facility] Sodium 139 136 - 145 mmol/L 02/19/2014 8:19 PM [facility] Potassium 3.7 3.5 - 5.1 mmol/L 02/19/2014 8:19 PM [facility] Chloride 106 98 - 107 mmol/L 02/19/2014 8:19 PM [facility] CO2 22 20 - 28 mmol/L 02/19/2014 8:19 PM [facility] Calcium 9.85 9.08 - 10.48 mg/dL 02/19/2014 8:19 PM [facility] Anion Gap 11 5 - 20 mmol/L 02/19/2014 8:19 PM [facility] BUN 12.3 5.3 - 18.7 mg/dL 02/19/2014 8:19 PM [facility] Creatinine 0.74 0.61 - 1.07 mg/dL 02/19/2014 8:19 PM [facility] eGFR by MDRD mL/min/1.7 3m2 02/19/2014 8:19 PM [facility] Comment:eGFR calculations ar e not performed for children under 18 years old. eGFR by MDRD mL/min/1.7 3m2 02/19/2014 8:19 PM [facility] Comment:eGFR calculations ar e not performed for children under 18 years old. Alkaline Phosphatase 86(L) 100 - 390 U/L 02/19/2014 8:19 PM [facility] ALT 25 8 - 65 U/L 02/19/2014 8:19 PM [facility] AST 22 3 - 35 U/L 02/19/2014 8:19 PM [facility] Protein Total 7.6 6.3 - 8.2 gm/dL 02/19/2014 8:19 PM [facility] Albumin 4.6 3.3 - 4.9 gm/dL 02/19/2014 8:19 PM [facility] Bilirubin Total 0.7 0.3 - 1.2 mg/dL 02/19/2014 8:19 PM [facility] Blood BLOOD SPECIMEN / Unknown 02/19/2014 7:51 PM CDT 02/19/2014 8:01 PM CDT Ochoa Arshad MD LAB - CHEMISTRY ORDE RABLES [facility] [address] [place] [address] * (ABNORMAL) CBC W AUTO DIFFERENTIAL (02/19/2014 7:51 PM CDT) [facility] WBC 13.0 4.5 - 14.5 x10^9/L 02/19/2014 8:10 PM CDT [facility] RBC 4.96 4.10 - 5.10 x10^12/L 02/19/2014 8:10 PM CDT [facility] Hemoglobin 14.1 12.0 - 16.0 gm/dL 02/19/2014 8:10 PM CDT [facility] Hematocrit 40.0 36.0 - 47.0 % 02/19/2014 8:10 PM CDT [facility] MCV 80.6 78.0 - 98.0 fl 02/19/2014 8:10 PM CDT [facility] MCH 28.4 25.0 - 35.0 pg 02/19/2014 8:10 PM CDT [facility] MCHC 35.3 31.0 - 37.0 gm/dL 02/19/2014 8:10 PM CDT [facility] Platelet Count 333 100 - 400 x10^9/L 02/19/2014 8:10 PM CDT [facility] RDW-CV 12.7 11.5 - 14.0 % 02/19/2014 8:10 PM T [facility] MPV 10.4(H) 6.0 - 9.5 fl 02/19/2014 8:10 PM CDT [facility] Blood BLOOD SPECIMEN / Unknown 02/19/2014 7:51 PM CDT 02/19/2014 7:53 PM CDT Ochoa Arshad MD LAB - HEMATOLOGY ORD ERABLES [facility] [address] [place] [address] documented in this encounter Visit Diagnoses Diagnosis Injury, other and unspecified, elbow, forearm, and wrist- Primary Injury, other and unspecified, shoulder and upper arm Contusion of forearm, left, initial encounter Fall from horse, initial encounter documented in this encounter Administered Medications Inactive Administered Medications - up to 3 most recent administrations Medication Order MAR Action Action Date Dose Rate Site ibuprofen (MOTRIN) tablet 600 mg 600 mg, Oral, ONCE, 1 dose, On Wed02/19/14 at 2130, Maximum allowable amount = 3200 mg / 24 hours. $ Given 02/19/2014 9:07 PM CDT 600 mg ibuprofen (MOTRIN) tablet ADS Med 1 dose, Starting on Wed02/19/14 at 2108, Until Wed02/19/14 at 2107, DAYAN YU: cabinet override morphine injection 2 mg 2 mg, Intravenous, ONCE, 1 dose, On Wed02/19/14 at 2000 $ Given 02/19/2014 7:54 PM CDT 2 mg documented in this encounter Active and Recently Administered Medications Times are shown in CDT. Scheduled Medication Order 02/17/2014 02/18/2014 02/19/2014 ibuprofen (MOTRIN) tablet 600 mg (COMPLETED) 600 mg, Oral, ONCE, 1 dose, On Wed02/19/14 at 2130, Maximum allowable amount = 3200 mg / 24 hours. 210 ($ Given - Prov ider: Dayan Yu, AMBER) morphine injection 2 mg (COMPLETED) 2 mg, Intravenous, ONCE, 1 dose, On Wed02/19/14 at 2000 1954 ($ Given - Prov ider: Dayan Yu, AMBER) documented in this encounter Care Teams Orchid Superintendent Relationship Specialty Start Date End Date Jailene Fajardo MD [address] [facility] [address] [place] [address] PCP - General 06/25/11 documented as of this encounter
--- OUTSIDE RECORDS SUMMARY | 2024-06-14 05:21 | XMS_ITS | Encounter Summary ---
Author Organization [facility] Address [address] [place] [id number] Care Team Providers Care Production Operations Manager Name Role Phone Natalya Guzman NP Primary Care Provider [phone] Reason for Visit * Reason Comments Vomiting Encounter Details Date Type Department Care Team (Latest Contact Info) Description 07/01/2021 11:47 AM SET MAKING MACHINE OPERATOR - 07/02/2021 12:21 PM SET MAKING MACHINE OPERATOR Hospital Encounter [facility] [address] [place] [address] [place] [id number] [address] [phone] [place] [address] [address] [phone] Intractable vomiting with nausea, unspecified vomiting type (Primary Dx); Abdominal pain Discharge Disposition: Discharge to home or self care Social History Tobacco Use Types Packs/Day Years Used Date Smoking Tobacco: Never Smokeless Tobacco: Never Alcohol Use Standard Drinks/Week Comments Never 0 (1 standard drink = 0.6 oz pur e alcohol) AUDIT-C Answer Date Recorded Frequency of Alcohol Consumption Never 06/27/2019 Average Number of Drinks Not on file 020 Frequency of Binge Drinking Not on file 06/14 PHQ-2 Answer Date Recorded PHQ-2 Total Score 0 07/02/2021 Comments No Sex and Gender Information Value Date Recorded Sex Assigned at Not on file Legal Sex Female 11:10 PM SET MAKING MACHINE OPERATOR Gender Identity Not on file Sexual Orientation Not on file documented as of this encounter Last Filed Vital Signs Vital Sign Reading Time Taken Comments Blood Pressure 116/67 07/02/2021 8:30 AM SET MAKING MACHINE OPERATOR Pulse 62 07/02/2021 8:30 AM SET MAKING MACHINE OPERATOR Temperature 36.7 ??C (98 ??F) 07/02/2021 8:30 AM SET MAKING MACHINE OPERATOR Respiratory Rate 18 07/02/2021 8:30 AM SET MAKING MACHINE OPERATOR Oxygen Saturation 100% 07/02/2021 8:30 AM SET MAKING MACHINE OPERATOR Inhaled Oxygen Concentration - - Weight 67.1 kg (147 lb 14.4 oz) 07/02/2021 1:00 AM SET MAKING MACHINE OPERATOR Height 157.5 cm (5' 2 ) 07/02/2021 1:00 AM SET MAKING MACHINE OPERATOR Body Mass Index 27.05 07/02/2021 1:00 AM SET MAKING MACHINE OPERATOR documented in this encounter Discharge Diagnoses Diagnosis Nausea with vomiting, unspecified - NAUSEA WITH VOMITING, UNSPECIFIED Generalized abdominal pain - GENERALIZED ABDOMINAL PAIN Abdominal pain, generalized Noninfective gastroenteritis and colitis, unspecified - NONINFECTIVE GASTROENTERITIS AND COLITIS, UNSPECIFIED Epigastric pain - EPIGASTRIC PAIN Abdominal pain, epigastric Headache, unspecified - HEADACHE, UNSPECIFIED Anxiety disorder, unspecified - ANXIETY DISORDER, UNSPECIFIED Abdominal distension (gaseous) - ABDOMINAL DISTENSION (GASEOUS) Fatty (change of) liver, not elsewhere classified - FATTY (CHANGE OF) LIVER, NOT ELSEWHERE CLASSIFIED Unspecified ovarian cyst, left side - UNSPECIFIED OVARIAN CYST, LEFT SIDE Anemia, unspecified - ANEMIA, UNSPECIFIED Cannabis abuse, uncomplicated - CANNABIS ABUSE, UNCOMPLICATED Acquired absence of other specified parts of digestive tract - ACQUIRED ABSENCE OF OTHER SPECIFIED PARTS OF DIGESTIVE TRACT documented in this encounter Discharge Summaries * Kristin Brooks MD - 07/02/2021 12:09 PM CST Inpatient Discharge Summary BRIEF OVERVIEW Admitting Provider: Michael Walker MD Discharge Provider: Kristin Brooks MD Primary Care Physician at Discharge: Natalya Guzman, CURRICULUM DEVELOPMENT MANAGER [phone] Admission Date: 07/01/2021 Discharge Date: 07/02/2021 Primary Discharge Diagnoses: 1. Nausea and vomiting on admission; resolved; differential included cannabis hyperemesis syndrome. 2. Abdominal pain on admission; resolved. 3. Chronic diarrhea post cholecystectomy. 4. Mildly thickened proximal appendix with mid and distal portions of the appendix appearing withinnormal limits, on 07/01/2021 CT, differential included appendicitis, mesenteric adenitis. 5. Complex 1.2 cm cyst in the left ovary is most suggestive of a hemorrhagic cyst, on 07/01/2021 CT. 6. Focal fatty infiltration of the liver, on 07/01/2021 CT. 7. Marijuana use. 8. Admission drug screen positive for opiates and cannabis. 9. Leukocytosis, resolved. 10. Slight anemia. DETAILS OF HOSPITAL STAY Hospital Course: Patient was admitted on 07/01/2021 for nausea, vomiting that resolved. Differential included cannabis hyperemesis syndrome. She was evaluated with abdominal CT, results of which are mentioned below. Patient was initially on clear liquids, subsequently diet was advanced to regular which she tolerated. Patient was treated with IV fluids that were discontinued on 07/02/2021. During her stay, abdominalpain resolved. Regarding current CT finding of thickened proximal appendix, Surgery and GI serviceswere consulted, no intervention is planned at this time. Admission drug screen was positive for opiates and cannabis. Lab work showed leukocytosis that resolved, slight anemia with hemoglobin of 11.0. Overall, patient continued to do well. Was seen, examined, and discharged to home on 07/02/2021. Test Results Pending at Discharge: Pending Labs Order Current Status Opiates, Urine, Confirmation Collected (07/01/21 6937) C1 Esterase inhibitor antigen In process C1 esterase inhibitor, functional In process C1Q level. Complement - Miscellaneous Lab Test In process Complement, total In process Operative Procedures Performed: None. Diagnostic Studies: 1. 07/01/[address] with contrast showing mildly thickened proximal appendix with mid and distal portions of the appendix appearing within normal limits. Associated right lower quadrant lymphadenopathy likely represents mesenteric adenitis. Given proximal appendiceal thickening, early appendicitis is not entirely excludable but considered less likely. Continued follow-up or surgical consultation may be considered as clinically indicated. Complex 1.2 cm cyst in the left ovary is most suggestive of a hemorrhagic cyst. Focal fatty infiltration of the liver. Prior cholecystectomy. Discharge Details Physical Exam at Discharge: Per progress note. Discharge Condition: No chest pain. No shortness of breath. No abdominal pain. No nausea. No vomiting. Tolerating diet. Afebrile. Stable. Vitals: 07/01/21 2230 07/01/21 2300 07/02/21 0100 07/02/21 0830 BP: 126/70 112/62 116/67 BP Location: Left arm Right arm Patient Position: Lying Sitting Pulse: 58 83 83 62 Resp: 18 18 Temp: 36.4 ??C (97.6 ??F) 36.7 ??C (98 ??F) TempSrc: Oral Oral SpO2: 99% 100% 100% 100% Weight: 67.1 kg (147 lb 14.4 oz) Height: 157.5 cm (5' 2 ) Discharge Disposition: Home. Code Status at Discharge: Full Code. Discharge Instructions: Activity Instructions Discharge activity: Resume normal activity Advance as tolerated. Diet Instructions Adult Discharge Diet Diet Type: Return to previous diet Other Instructions Call provider for: Temperature -Temperature greater than 101 degrees F Call provider for: persistent dizziness or light-headedness Call provider for: persistent nausea or vomiting Discharge Medications: CONTINUE these medications which have NOT CHANGED Details cimetidine (TAGAMET) 400 mg tablet Take 1 tablet (400 mg total) by mouth 2 (two) times a day Qty: 60 tablet, Refills: 11 28 mg iron- 800 mcg tablet Outpatient Follow-Up: Future Appointments Date Time Provider Department Center 07/25/2021 11:15 AM Raul Carlson MD [facility] 1. Natalya Guzman, CURRICULUM DEVELOPMENT MANAGER [address] [address] [address] [place] [id number] in 3 to 4 weeks, PCP Kristin Brooks MD Discharge Time: 36 minutes. MAKING MACHINE OPERATOR documented in this encounter Medications at Time of Discharge Medication Sig Dispense Quantity Refills Last Filled Start D ate End Date 28 mg iron- 800 mcg tablet 06/03/2019 documented as of this encounter Discharge Disposition Disposition Code Departure Means Destination Discharge to home or self care documented in this encounter Progress Notes * Kristin Brooks MD - 07/02/2021 9:13 AM CST Daily Progress SUBJECTIVE: Interval History: Laying in bed, NAD. No complaints of chest pain, shortness of breath, nausea, vomiting, abdominal pain, etc. Has been tolerating clear liquids. No bowel movements yet. OBJECTIVE: Vitals: 24hr Min/Max: Temp Min: 36.4 ??C (97.6 ??F) Max: 36.7 ??C (98 ??F) Pulse Min: 58 Max: 115 BP Min: 105/43 Max: 135/71 Resp Min: 17 Max: 18 SpO2 Min: 91 % Max: 100 % Most Recent : Vitals: 07/01/21 2230 07/01/21 2300 07/02/21 0100 07/02/21 0830 BP: 126/70 112/62 116/67 BP Location: Left arm Right arm Patient Position: Lying Sitting Pulse: 58 83 83 62 Resp: 18 18 Temp: 36.4 ??C (97.6 ??F) 36.7 ??C (98 ??F) TempSrc: Oral Oral SpO2: 99% 100% 100% 100% Weight: 67.1 kg (147 lb 14.4 oz) Height: 157.5 cm (5' 2 ) I/O last 2 completed shifts: In: 1000 [I.V.:1000] Out: - I/O this shift: In: 120 [P.O.:120] Out: - Current Facility-Administered Medications Medication Dose Route Frequency Provider Last Rate Last Admin ??? acetaminophen (TYLENOL) tablet 650 mg 650 mg oral Q6H PRN Deena Murillo NP ??? famotidine (PEPCID) injection 20 mg 20 mg intravenous Daily Deena Murillo NP 20 mg at 07/02/21 0809 ??? Lactated Ringer's (LR) infusion 100 mL/hr intravenous Continuous Raine Rodriguez NP Stopped at 07/01/212113 ??? Lactated Ringer's (LR) infusion 125 mL/hr intravenous Continuous Deena Murillo NP 125 mL/hr at 07/02/21 0814 125 mL/hr at 07/02/21 0814 ??? morphine injection 2 mg 2 mg intravenous Q4H PRN Deena Murillo NP ??? ondansetron ODT (ZOFRAN-ODT) disintegrating tablet 4 mg 4 mg oral Q6H PRN Deena Murillo NP Or ??? ondansetron (ZOFRAN) injection 4 mg 4 mg intravenous Q6H PRN Deena Murillo NP Physical Exam: General Appearance: Alert, cooperative, no distress, appears stated age, well developed, well nourished Head: Normocephalic, without obvious abnormality, atraumatic Eyes: Conjunctiva/corneas clear, EOM's intact, both eyes, anicteric Ears: Normal external ear canals, both ears Nose: Nares normal, septum midline, mucosa normal, no drainage Throat: Lips, mucosa, and tongue normal; mucous membranes moist Neck: Supple Lungs: Clear to auscultation bilaterally, respirations unlabored Cardiovascular: Regular rate and rhythm Abdomen: Soft, non-tender, bowel sounds decr, non-distended Extremities: Extremities normal, atraumatic, no cyanosis or edema Skin: Skin color, texture, turgor normal, no rashes Psychosocial: Normal affect and mood ASSESSMENT/PLAN: 1. Nausea and vomiting on admission; resolved. Differential includes cannabis hyperemesis syndrome.Has been on clear liquids, will advance to regular diet. Also has been on IV fluids, will discontinue. 2. Abdominal pain on admission; resolved. 3. Chronic diarrhea post cholecystectomy. 4. Mildly thickened proximal appendix with mid and distal portions of the appendix appearing withinnormal limits, on 07/01/2021 CT, differential includes appendicitis, mesenteric adenitis. Surgery and GI consulted. 5. Complex 1.2 cm cyst in the left ovary is most suggestive of a hemorrhagic cyst, on 07/01/2021 CT. 6. Focal fatty infiltration of the liver, on 07/01/2021 CT. 7. Marijuana use. Admission drug screen positive for opiates and cannabis. 8. Leukocytosis, resolved. 9. Slight anemia with hemoglobin of 11.0, follow. 10. Prophylaxis. Pepcid, SCDs. 11. Disposition. If tolerates regular diet, likely discharge home later today if okay with GI and Surgery. MAKING MACHINE OPERATOR documented in this encounter H&P Notes * Deena Murillo NP - 07/01/2021 5:32 PM CST History and Physical CHIEF COMPLAINT Chief Complaint Patient presents with ??? Vomiting HPI Patient is a 21 y.o. female with past medical history of abdominal pain, nausea vomiting and anxiety who presents to the emergency room with complaints of abdominal pain, nausea vomiting and diarrhea. She states this is been ongoing since she was 9 years old s/p cholecystectomy. She reports 3 daysago she began having nausea, vomiting and diarrhea. She reports the vomiting was nonstop and she was so dehydrated that she nearly passed out. She reports having diarrhea every day at least 2 times aday. She also reports upper abdominal pain. Modifying factor includes taking Zofran which helped for approximately 1 hour then the nausea and vomiting with recurred. She states she has been unable toeat or sleep. She also reports lightheadedness and per review of the emergency room records she reports decreased urine output, generalized body aches and headache and attributes this to dehydration.She reports the emesis is match-e-be-nash-she-wish band green along with line bring watery stool. Patient has experienced similar episodes of abdominal pain and nausea/vomiting, usually triggered by dairy, red meat or other dietary choices, for the past 10 years. Patient states her episodes have become more severe and increased in frequency since she had her daughter in September 2019. Patient was evaluated by Dr. Mccoy in 2019 however she was at the time and not able to complete the diagnostic tests needed. Hue todd did not follow-up with GI after she had her child because she was afraid. Due to the above this patient presents to the emergency room for evaluation. On arrival to the emergency room temperature 97.7??, pulse 79, respirations 17, blood pressure 130/85 and O2 saturation 99%. IV fluids initiated patient received supportive care with morphine and Zofran. Protonix and Toradol given. CT of the abdomen and pelvis performed results as noted below. Thispatient has been admitted to the hospital for further evaluation, management and care. ?? PAST MEDICAL HISTORY Past Medical History: Diagnosis Date ??? Abdominal pain ??? Anxiety ??? Fatigue Marijuana use ??? Vomiting PAST SURGICAL HISTORY Past Surgical History: Procedure Laterality Date ??? Cholecystectomy 2011 ? ? Tonsillectomy , adenoidectomy and bilateral myringotomy & tubes 2006 ALLERGIES No Known Allergies FAMILY HISTORY family history includes Heart attack in her father. SOCIAL HISTORY Patient lives with her mother. She has 1 daughter. Patient smokes marijuana. HOME MEDICATIONS Prior to Admission medications Medication Sig Start Date End Date Taking? Authorizing Provider cimetidine (TAGAMET) 400 mg tablet Take 1 tablet (400 mg total) by mouth 2 (two) times a day 06/27/19 06/26/20 Raul Carlson MD 28 mg iron- 800 mcg tablet 06/03/19 Provider, MD Samantha REVIEW OF SYSTEMS 14 point review of systems is negative except for what I have already mentioned above in the history of present illness. OBJECTIVE Temp Av.5 ??C (97.7 ??F) Min: 36.5 ??C (97.7 ??F) Max: 36.5 ??C (97.7 ??F) BP Min: 105/43 Max: 130/85 Pulse Av.5 Min: 70 Max: 79 Resp Av Min: 17 Max: 17 SpO2 Av.5 % Min: 96 % Max: 99 % No intake/output data recorded. Weight: Wt Readings from Last 1 Encounters: 07/01/21 75.8 kg (167 lb) PHYSICAL EXAM General: This is a 21 y.o. female in no acute distress. Head: Normocephalic, atraumatic. Eyes: PERRLA, EOMI bilaterally. No conjunctival injection. Nasal cavity is patent. Throat is clear.Mucus membranes are pink and moist without bleeding. Neck: Supple. No JVD. No lymphadenopathy. Trachea is in the midline position. Lungs: Clear breath sounds bilaterally. No wheezing auscultated. Heart: S1 and S2. No murmur auscultated. Abdomen: Round, soft. There is tenderness on palpation of the upper abdomen. Bowel sounds are present in all four quadrants. Extremities: No cyanosis, clubbing or edema. Neuro: Patient is awake and alert x 3. Speech is clear and coherent. Psychiatric: Normal mood and affect. Behavior is normal. Skin: Warm and dry. No rashes or lesions. LAB/RADIOLOGY/DIAGNOSTIC: Recent Labs Lab Units 07/01/21 1048 WBC K/cumm 13.2* HEMOGLOBIN g/dL 14.1 HEMATOCRIT % 42.7 PLATELETS K/cumm 343 NEUTROS PCT % 83.1 LYMPHS PCT % 10.5 MONOS PCT % 5.2 EOS PCT % 0.2 Recent Labs Lab Units 07/01/21 1048 SODIUM mmol/L 138 POTASSIUM PLASMA mmol/L 3.7 CHLORIDE mmol/L 99 CO2 mmol/L 20* ANIONGAP mmol/L 19* GLUCOSE mg/dL 91 BUN SERUM mg/dL 14 CREATININE mg/dL 0.80 CALCIUM mg/dL 9.8 ALBUMIN g/dL 5.1* ALK PHOS Units/L 72 ALT Units/L 20 AST Units/L 23 BILIRUBIN TOTAL mg/dL 1.2 No results found for: TROPONINI No results found for: BNP No results found for: TSH LAB TREND CBC: Lab Results Component Value Date WBC 13.2 (H) 07/01/2021 HGB 14.1 07/01/2021 HCT 42.7 07/01/2021 BMP: Lab Results Component Value Date SODIUM 138 07/01/2021 POTASSIUM 3.7 07/01/2021 CHLORIDE 99 07/01/2021 CREATININE 0.80 07/01/2021 CALCIUM 9.8 07/01/2021 No results found for: BNP Lab Results Component Value Date ALKPHOS 72 07/01/2021 No results found for: MAGNESIUM Lab Results Component Value Date AST 23 07/01/2021 Lab Results Component Value Date ALT 20 07/01/2021 Radiology: CT Abdomen Pelvis W Contrast Result Date: 07/01/2021 Narrative: EXAMINATION: CT ABDOMEN PELVIS W CONTRAST DATE: 07/01/2021 2:35 PM HISTORY: Nausea vomiting and epigastric pain. COMPARISON: None. TECHNIQUE: Transaxial computed tomographic images of the abdomen and pelvis were obtained after the administration of 100 mL of Optiray 350 intravenously. Multiplanar coronal and sagittal images were reformatted. FINDINGS: Motion artifact limits this examination slightly, particularly in the lung bases. There is focal fatty infiltration of the liver near the falciform ligament. Prior cholecystectomy. The spleen, pancreas, and adrenal glands are unremarkable. Kidneys are normal in appearance. No hydroureteronephrosis. Unopacified bladder is unremarkable. There is no free fluid in the pelvis. There is a complex 1.2 cm cyst in the left ovary presumably representing a hemorrhagic cyst. No free fluid in the pelvis. There is prominence of submucosal fat within the colon, which may represent chronic inflammatory bowel disease versus normal variant anatomy. The proximal appendix is fluid-filled and mildly thickened measuring 7 mm, table position -510.5. Mid and distal portions of the appendix are normal in size. Slightly prominent lymph nodes in the right lower quadrant are most suggestive of mesenteric adenitis. No acute osseous abnormality. No suspicious lytic or sclerotic lesions. Impression: 1. Mildly thickened proximal appendix with mid and distal portions of the appendix appearing within normal limits. Associated right lower quadrant lymphadenopathy likely represents mesenteric adenitis. Given proximal appendiceal thickening, early appendicitis is not entirely excludable but considered less likely. Continued follow-up or surgical consultation may be considered as clinically indicated. 2. Complex 1.2 cm cyst in the left ovary is most suggestive of a hemorrhagic cyst. 3. Focal fatty infiltration of the liver. 4. Prior cholecystectomy. Electronically signed by: Derek Mohr II, D.O. EKG: No results found for this or any previous visit. ASSESSMENT AND PLAN All Diagnosis Present on Admission Present on Admission: 1. Nausea and vomiting. Unsure the etiology. CT of the abdomen and pelvis results as noted above. GI & Surgical services consulted and we appreciate their evaluation and recommendations. ContinueIV fluids. Supportive care with morphine. 2. Abdominal pain. CT of the abdomen pelvis results as noted above. GI services consulted and we appreciate their evaluation recommendations. 3. Leukocytosis. Suspect reactive. Follow. 4. Chronic diarrhea status post cholecystectomy at age 10. GI services consult and we appreciate their evaluation and recommendations. 5. Marijuana abuse. Patient consult regarding this issue. 6. GI prophylaxis initiated. CONSULTS IP CONSULT TO GENERAL SURGERY IP CONSULT TO GASTROENTEROLOGY Code Status: Full Code Anticipated date of discharge: To be determined per hospital course Deena Murillo NP 07/01/2021 5:32 PM Team Health Primary Care Physician: Natalya Guzman NP Voice recognition software [employer] was used dictate and transcribe this document. Top And Trim Worker variances may occur. Despite proofreading, typographical errors may occur. Cosigned by Kristin Brooks MD at 07/02/2021 9:13 AM SET MAKING MACHINE OPERATOR MAKING MACHINE OPERATOR MAKING MACHINE OPERATOR documented in this encounter Consult Notes * Melo Rosas MD - 07/01/2021 4:36 PM CST Physician: ER CC: nausea and vomiting HPI: Liza Worthington is a 21 y.o. female with PMH recurrent vomiting since she was 8 according to her, last for few days. Pt has generalized abdominal pain for 3 day s with nausea and vomiting. Abd Ct showed prior lab marcellus and mildly thickened proximal appendix. LFts are normal, lipase is normal and has elevated WBC. Pt smokes Marijuana. Pt also has previous hx of lap alice when she was 13 years old and since that time she has watery diarrhea, 5 times daily, not bloody Pt has swelling in arms some times PMHx: Patient Active Problem List Diagnosis Date Noted ??? Diarrhea 06/27/2019 ??? Non-intractable vomiting 06/27/2019 ??? 22 weeks gestation of 06/27/2019 Current Facility-Administered Medications Medication Dose Route Frequency Provider Last Rate Last Admin ??? ketorolac (TORADOL) 30 mg/mL (1 mL) injection 30 mg 30 mg intravenous Once Raine Rodriguez NP ??? Lactated Ringer's (LR) infusion 100 mL/hr intravenous Continuous Raine Rodriguez CURRICULUM DEVELOPMENT MANAGER 100 mL/hr at 07/01/21 1506 100 mL/hr at 07/01/21 1506 Current Outpatient Medications Medication Sig Dispense Refill ??? cimetidine (TAGAMET) 400 mg tablet Take 1 tablet (400 mg total) by mouth 2 (two) times a day 60tablet 11 ??? 28 mg iron- 800 mcg tablet Medication Allergies: No Known Allergies Past Medical History: Diagnosis Date ??? Abdominal pain ??? Anxiety ??? Fatigue ??? Vomiting Past Surgical History: Procedure Laterality Date ??? CHOLECYSTECTOMY 2011 ??? TONSILECTOMY, ADENOIDECTOMY, BILATERAL MYRINGOTOMY AND TUBES 2005 Environmental Hx: Social History Tobacco Use ??? Smoking status: Never Smoker ??? Smokeless tobacco: Never Used Substance Use Topics ??? Alcohol use: Never Lives in a FHx: Family History Problem Relation Age of Onset ??? Heart attack Father Other Review of Systems: Constitutional: No weight loss, fever ENT: No Rhinitis, nasal congestion, sneezing, ocular/nasal pruritus CV: No CP, SOB, palpitations Resp: No wheeze, cough, SOB GI: No abdominal pain, V/D, constipation : no retention, incontinence, dysuria, hematuria MS: no joint/bone pain, swelling, redness Neuro: no weakness, numbness, confusion, syncope Skin: No hives, swelling, pruritus, bruising, eczema Psych: no behavioral changes Endocrine: No thyroid, polyuria, polydipsia, flushing Heme/Lymph: No bruising/bleeding, hx of abnormal blood counts PE: Vitals: 07/01/21 1007 07/01/21 1615 BP: 130/85 (!) 105/43 Pulse: 79 70 Resp: 17 Temp: 36.5 ??C (97.7 ??F) TempSrc: Tympanic SpO2: 99% 96% Weight: 75.8 kg (167 lb) Height: 160 cm (5' 3 ) Gen: NAD, WNWD Eyes: PERRL, EOMI, conjunctiva clear B. ENT: TM-clear B, Neck: Supple, FROM. CV: RRR s m Resp: CTAB, no wheezes ABD: soft, NTND, no HSM Extr: no c/c/e Skin: no lesions/rashes Lymphatic: Palpation of nodes in neck/axillae show no LAD Data Review: Labs: X-Rays: Old Records: A/P:a 21 y.o. female with PMH recurrent vomiting since she was 8 according to her, last for few days. Pt has generalized abdominal pain for 3 day s with nausea and vomiting. Abd Ct showed prior lab marcellus and mildly thickened proximal appendix. LFts are normal, lipase is normal and has elevated WBC. -recurrent nausea and vomiting with generalized abd pain, DDX cyclic vomiting syndrome from [facility] but given CT findings. Surgery is on board UDS IV hydration Compazine suppositories, IV Given her swelling arms sometimes I will rule out hereditary angioedema. Check C2,C4, C1 esterase inhibitor level and function, C1q 2-Chronic diarrhea post lap aliec: could be related to bile acid induced diarrhea We will rule out any infection and start Pt on Cholestyramine Melo Rosas MD 07/01/2021 4:36 PM MAKING MACHINE OPERATOR * Tesha Cuello MD - 07/01/2021 4:22 PM CST General Surgery Consult Reason for Consult: Right-sided abdominal pain Abnormal CT scan raising concern of atypical early appendicitis Requesting Provider: Dr. Walker Subjective HPI: Patient is a 21 y.o. female with chief complaint of right-sided abdominal pain with anorexia and nausea and vomiting going on for about 10-11 years, had CT scan that raising concern of atypical appendicitis for which surgical services were consulted. Patient has her mother at bedside, she was able to give me more detailed information compared to the patient. Apparently she has been having abdominal pains with abdominal bloating and nausea and vomiting and loose bowel movements off and on sensor laparoscopic cholecystectomy that was done about 11 years ago. Patient had similar symptoms at that time, had biliary dyskinesia, never improved subsequently, continues to have off and on symptoms raising concern of IBS with diarrhea predominance. Patient had symptoms started about 3 days ago, 2 days of vomiting and now she is starting to get better and a bit hungry.. Past Medical History: Diagnosis Date ??? Abdominal pain ??? Anxiety ??? Fatigue ??? Vomiting Past Surgical History: Procedure Laterality Date ??? CHOLECYSTECTOMY 2011 ??? TONSILECTOMY, ADENOIDECTOMY, BILATERAL MYRINGOTOMY AND TUBES 2006 HOME MEDICATIONS : cimetidine (TAGAMET) 400 mg tablet 28 mg iron- 800 mcg tablet No Known Allergies Social History Tobacco Use ??? Smoking status: Never Smoker ??? Smokeless tobacco: Never Used Substance Use Topics ??? Alcohol use: Never Family History Problem Relation Age of Onset ??? Heart attack Father Review of Systems: Review of Systems Constitutional: Positive for appetite change. Negative for chills, fatigue, fever and unexpected weight change. HENT: Negative for congestion, rhinorrhea, sore throat and trouble swallowing. Eyes: Negative for discharge and visual disturbance. Respiratory: Negative for cough, chest tightness and shortness of breath. Cardiovascular: Negative for chest pain, palpitations and leg swelling. Gastrointestinal: Positive for abdominal distention, abdominal pain, diarrhea, nausea and vomiting.Negative for anal bleeding, blood in stool, constipation and rectal pain. Endocrine: Negative for cold intolerance, heat intolerance, polydipsia, polyphagia and polyuria. Genitourinary: Negative for difficulty urinating, dysuria, frequency and hematuria. Musculoskeletal: Negative for joint swelling, neck pain and neck stiffness. Skin: Negative for pallor and rash. Allergic/Immunologic: Negative for environmental allergies and immunocompromised state. Neurological: Negative for dizziness, seizures and headaches. Hematological: Negative for adenopathy. Does not bruise/bleed easily. Psychiatric/Behavioral: Negative for confusion. The patient is not nervous/anxious. Vitals: 24hr Min/Max: Temp Min: 36.5 ??C (97.7 ??F) Max: 36.5 ??C (97.7 ??F) Pulse Min: 79 Max: 79 BP Min: 130/85 Max: 130/85 Resp Min: 17 Max: 17 SpO2 Min: 99 % Max: 99 % Most Recent : Vitals: 07/01/21 1007 BP: 130/85 Pulse: 79 Resp: 17 Temp: 36.5 ??C (97.7 ??F) SpO2: 99% No intake/output data recorded. No intake/output data recorded. Objective Physical Exam: Physical Exam Constitutional: General: She is not in acute distress. Appearance: She is well-developed. HENT: Head: Normocephalic and atraumatic. Eyes: Conjunctiva/sclera: Conjunctivae normal. Neck: Thyroid: No thyromegaly. Vascular: No JVD. Trachea: No tracheal deviation. Cardiovascular: Rate and Rhythm: Normal rate and regular rhythm. Pulmonary: Effort: Pulmonary effort is normal. No respiratory distress. Abdominal: General: Bowel sounds are normal. There is no distension. Palpations: Abdomen is soft. There is no hepatomegaly, splenomegaly or mass. Tenderness: There is abdominal tenderness. There is no guarding or rebound. Negative signs include Elder's sign and McBurney's sign. Hernia: No hernia is present. Comments: Abdomen is soft, nonspecific tenderness noted on the right side. No hernias. No masses. No signs of peritonitis. Minimal or no significant tenderness in right lower quadrant especially over the area of appendix. Musculoskeletal: General: No deformity. Normal range of motion. Cervical back: Normal range of motion and neck supple. Lymphadenopathy: Cervical: No cervical adenopathy. Skin: General: Skin is warm and dry. Findings: No erythema or rash. Neurological: Mental Status: She is alert. Psychiatric: Behavior: Behavior normal. Lab/Radiology/Diagnostic Review: Laboratory review: Lab results in the last 24 hours: Recent Results (from the past 24 hour(s)) CBC with auto differential Collection Time: 07/01/21 10:48 AM Result Value Ref Range WBC 13.2 (H) 3.8 - 9.9 K/cumm Hgb 14.1 11.9 - 15.5 g/dL Hct 42.7 35.6 - 45.5 % Plt 343 150 - 400 K/cumm MPV 11.2 9.1 - 12.3 fL RBC 4.80 3.90 - 5.20 M/cumm MCV 89.0 81.3 - 96.4 fL MCH 29.4 27.1 - 33.3 pg MCHC 33.0 32.3 - 35.7 g/dL RDW CV 13.2 11.1 - 14.9 % RDW SD 43.2 35.7 - 48.1 fL NRBC abs 0.00 0.00 - 0.01 K/cumm Comprehensive metabolic panel Collection Time: 07/01/21 10:48 AM Result Value Ref Range Sodium 138 135 - 145 mmol/L Potassium, pl 3.7 3.3 - 4.9 mmol/L Chloride 99 97 - 110 mmol/L CO2 20 (L) 22 - 32 mmol/L Anion gap 19 (H) 2 - 15 mmol/L BUN 14 8 - 25 mg/dL Creatinine 0.80 0.60 - 1.10 mg/dL Glucose 91 70 - 199 mg/dL Calcium 9.8 8.5 - 10.3 mg/dL Bilirubin, total 1.2 0.1 - 1.2 mg/dL Protein, pl 8.2 6.5 - 8.5 g/dL Albumin 5.1 (H) 3.5 - 5.0 g/dL Alk phos 72 40 - 130 Units/L ALT 20 7 - 45 Units/L AST 23 10 - 45 Units/L Lipase Collection Time: 07/01/21 10:48 AM Result Value Ref Range Lipase 23 10 - 99 Units/L hCG, blood, quantitative Collection Time: 07/01/21 10:48 AM Result Value Ref Range hCG, quant <0.1 0.0 - 5.0 IUnits/L Differential, auto Collection Time: 07/01/21 10:48 AM Result Value Ref Range Neutrophil abs 11.0 (H) 1.7 - 6.5 K/cumm Imm gran abs 0.1 0.0 - 0.1 K/cumm Lymphocyte abs 1.4 0.8 - 3.3 K/cumm Monocyte abs 0.7 0.2 - 0.8 K/cumm Eosinophil abs 0.0 0.0 - 0.5 K/cumm Basophil abs 0.1 0.0 - 0.1 K/cumm Neutrophil pct 83.1 % Imm gran pct 0.5 % Lymphocyte pct 10.5 % Monocyte pct 5.2 % Eosinophil pct 0.2 % Basophil pct 0.5 % eGFR Collection Time: 07/01/21 10:48 AM Result Value Ref Range eGFR 106 mL/min/1.73 m2 Labs reviewed, white cell count is elevated to 13, hemoglobin 14 and hematocrit 42.7. Platelet count is normal. Chemistries are essentially within normal limits. CO2 is low 20 could be secondary to dehydration secondary to vomiting CT scan of the abdomen pelvis was done, images are personally reviewed, radiologist raised the concern of possible early acute appendicitis, I am not that much impressed with the CT findings and alsobecause there are no inflammatory changes in the surrounding area. Patient was also noted to have ovarian cyst on CT scan Assessment /Plan Active Problems: Right-sided abdominal pain, etiology not clear. I doubt patient has acute appendicitis. Most likely patient has diarrhea prominent IBS causing her problems off and on. Await GI evaluation. Surgical intervention indicated. Patient and family are reassured. May resume diet Patient does smoke marijuana off and on, counseled about it. Thanks for the opportunity to participate in the care of your patient, will follow as needed Sincerely, Tesha Cuello MAKING MACHINE OPERATOR documented in this encounter ED Notes * Raine Rodriguez, CURRICULUM DEVELOPMENT MANAGER - 07/01/2021 2:18 PM CST HPI Chief Complaint Patient presents with ??? Vomiting 21-year-old female complaining of nausea/vomiting, generalized abdominal pain, epigastric burning sensation, symptoms began 3 days ago, progressively worsening. Patient states she has developed decreased urine output, generalized body aches and headache which she attributes to dehydration. Patient describes her emesis as bright match-e[place]be[place]she[place]wish band green, along with match-e[place]be[place]ish band green watery stool, which she describes as smells like bile. Patient has history of similar symptoms, her symptoms began approximately 10 years ago when she had her gallbladder removed in emergency surgery. Patient has experienced similar episodes of abdominal pain and nausea/vomiting, usually triggered by dairy, red meat or other dietary choices, for the past 10 years. Patient states her episodes have become more severe and increased in frequency since she had her daughter in September 2019. Patient was evaluated by Dr. Mccoy (GI) [id number] however she was at the time and not able to complete the diagnostic tests needed. Patient did not follow-up with GI after she had her child because she was afraid. Patient History: Patient Active Problem List Diagnosis Date Noted ??? Intractable vomiting 07/01/2021 ??? Diarrhea 06/27/2019 ??? Non-intractable vomiting 06/27/2019 ??? 22 weeks gestation of 06/27/2019 Past Medical History: Diagnosis Date ??? Abdominal pain ??? Anxiety ??? Fatigue ??? Vomiting Past Surgical History: Procedure Laterality Date ??? CHOLECYSTECTOMY 2011 ??? TONSILECTOMY, ADENOIDECTOMY, BILATERAL MYRINGOTOMY AND TUBES 2005 Family History Problem Relation Age of Onset ??? Heart attack Father Social History Tobacco Use ??? Smoking status: Never Smoker ??? Smokeless tobacco: Never Used Substance Use Topics ??? Alcohol use: Never ??? Drug use: Never Social History Social History Narrative ??? Not on file Review of Systems Review of Systems Constitutional: Negative for activity change, appetite change, chills, diaphoresis, fatigue and fever. HENT: Negative for congestion, ear pain, mouth sores, nosebleeds, postnasal drip, rhinorrhea, sinuspressure, sinus pain, sneezing, sore throat, tinnitus, trouble swallowing and voice change. Denies loss of taste or smell Eyes: Negative. Negative for visual disturbance. Respiratory: Negative for cough, choking, chest tightness, shortness of breath, wheezing and stridor. Cardiovascular: Negative for chest pain, palpitations and leg swelling. Gastrointestinal: Positive for abdominal pain, diarrhea (match-e-be[place]ish band green loose stools), nausea and vomiting. Negative for abdominal distention, anal bleeding, blood in stool and constipation. Genitourinary: Positive for decreased urine volume. Negative for difficulty urinating, dysuria, flank pain, frequency, hematuria and urgency. Musculoskeletal: Positive for myalgias (Generalized body aches). Negative for arthralgias, back pain, joint swelling, neck pain and neck stiffness. Skin: Negative for color change and rash. Allergic/Immunologic: Negative for immunocompromised state. Neurological: Positive for headaches. Negative for dizziness, tremors, weakness, light-headedness and numbness. Hematological: Negative for adenopathy. Does not bruise/bleed easily. Denies clot history or blood thinners Psychiatric/Behavioral: Negative. All other systems reviewed and are negative. Physical Exam ED Triage Vitals Temp Pulse Resp BP SpO2 07/01/21 1007 07/01/21 1007 07/01/21 1007 07/01/21100607/01/21 1007 36.5 ??C (97.7 ??F) 79 17 130/85 99 % Temp src Heart Rate Source Patient Position BP Location FiO2 (%) 07/01/21 1007 -- 07/02/21 0100 07/02/21 0100 -- Tympanic Lying Left arm Physical Exam Vitals and nursing note reviewed. Constitutional: General: She is not in acute distress. Appearance: Normal appearance. She is well-developed and normal weight. She is not ill-appearing, toxic-appearing or diaphoretic. HENT: Head: Normocephalic and atraumatic. Right Ear: External ear normal. Left Ear: External ear normal. Nose: Nose normal. Mouth/Throat: Mouth: Mucous membranes are moist. Eyes: Conjunctiva/sclera: Conjunctivae normal. Cardiovascular: Rate and Rhythm: Normal rate and regular rhythm. Pulses: Normal pulses. Heart sounds: Normal heart sounds. Pulmonary: Effort: Pulmonary effort is normal. No respiratory distress. Breath sounds: Normal breath sounds. No stridor. No wheezing, rhonchi or rales. Abdominal: General: Bowel sounds are normal. There is no distension. Palpations: Abdomen is soft. Tenderness: There is no abdominal tenderness. There is no right CVA tenderness, left CVA tenderness, guarding or rebound. Musculoskeletal: General: Normal range of motion. Cervical back: Normal range of motion and neck supple. No rigidity or tenderness. Right lower leg: No edema. Left lower leg: No edema. Lymphadenopathy: Cervical: No cervical adenopathy. Skin: General: Skin is warm and dry. Capillary Refill: Capillary refill takes less than 2 seconds. Neurological: General: No focal deficit present. Mental Status: She is alert and oriented to person, place, and time. Psychiatric: Mood and Affect: Mood normal. Behavior: Behavior normal. Thought Content: Thought content normal. Judgment: Judgment normal. MDM Medical Decision Making Differential Diagnosis or Management Options: Appendicitis Gastritis Gastroenteritis C diff Bowel obstruction Pneumonia Gastroparesis Post cholecystectomy complications MDM Admission to hospital ED Course as of 07/05/212212 Time: 07/01 1603 Comment: Reviewed clinical data results and admission plan with patient. Will consult Gen Surgery and GI. By: Raine Rodriguez NP Time: 07/01 1621 Comment: Consulted Dr. Cuello (Gen Surgery), he agreed to consult patient after admission. By: Raine Rodriguez NP Time: 07/01 1638 Comment: Consulted Dr. Rosas (GI), he agreed to see patient once admitted. By: Raine Rodriguez NP Final diagnoses: Intractable vomiting with nausea, unspecified vomiting type Abdominal pain Disposition: Admission to Hospital Raine Rodriguez NP 07/05/212212 Cosigned by Leo Ovalle MD at 07/09/2021 4:01 PM SET MAKING MACHINE OPERATOR MAKING MACHINE OPERATOR MAKING MACHINE OPERATOR * Nimesh Casas RN - 07/01/2021 10:09 AM CST Pt to ED from home for vomiting bile x several days. Pt has had problems since she was 11 and had gallbladder removal surgery. Pt reports she has [facility] for GI appt on 07/25/21 but this is too unbearable to wait. She was told he may want to do scope or something to see what is going on. MAKING MACHINE OPERATOR documented in this encounter Plan of Treatment Scheduled Orders Name Type Priority Associated Diagnoses Orde r Schedule C. difficile testing Stool Microbiology Routine Once for 1 Occurrences starting 07/01/2021 until 07/01/2021 Stool culture Stool Rectum Microbiology Routine Once for 1 Occurrences starting 07/01/2021 until 07/01/2021 Ova and parasite examination Stool Microbiology Routine Once for 1 Occurrences starting 07/01/2021 until 07/01/2021 documented as of this encounter Procedures Procedure Name Priority Date/Time Associated Diagnosis Comments C1 ESTERASE INHIBITOR ANTIGEN Routine 07/02/2021 6:41 AM SET MAKING MACHINE OPERATOR DIFFERENTIAL AUTO Routine 07/02/2021 6:4 1 AM SET MAKING MACHINE OPERATOR CBC WITH AUTO DIFFERENTIAL Routine 07/02/2021 6:41 AM SET MAKING MACHINE OPERATOR C1 ESTERASE INHIBITOR, FUNCTIONAL Routine 07/02/2021 6:41 AM SET MAKING MACHINE OPERATOR COMPLEMENT, TOTAL Routine 07/02/2021 6:4 1 AM SET MAKING MACHINE OPERATOR LIPASE Routine 07/02/2021 6:41 AM SET MAKING MACHINE OPERATOR AMYLASE Routine 07/02/2021 6:41 AM SET MAKING MACHINE OPERATOR URINALYSIS AND REFLEX TO MICROSCOPIC AND CULTURE Routine 07/02/2021 12:05 AM SET MAKING MACHINE OPERATOR EGFR Routine 07/01/2021 11:58 PM SET MAKING MACHINE OPERATOR BASIC METABOLIC PANEL Routine 07/01/2021 11:58 PM SET MAKING MACHINE OPERATOR C4 COMPLEMENT Routine 07/01/2021 7:06 PM SET MAKING MACHINE OPERATOR INFLUENZA A/B, RSV, AND COVID-19 PCR Routine 07/01/2021 4:55 PM SET MAKING MACHINE OPERATOR DRUGS OF ABUSE SCREEN, URINE WITH REFLEX CONFIRMATION Add-On 07/01/2021 4:55 PM SET MAKING MACHINE OPERATOR OPIATES, URINE, CONFIRMATION Add On 07/01/2021 4:55 PM SET MAKING MACHINE OPERATOR CT ABDOMEN PELVIS W CONTRAST ED 07/01/2021 2:57 PM SET MAKING MACHINE OPERATOR EGFR STAT 07/01/2021 10:48 AM SET MAKING MACHINE OPERATOR DIFFERENTIAL AUTO STAT 07/01/2021 10: 48 AM SET MAKING MACHINE OPERATOR CBC WITH AUTO DIFFERENTIAL STAT 07/01/2021 10:48 AM SET MAKING MACHINE OPERATOR HCG, BLOOD, QUANTITATIVE STAT 07/01/2021 10:48 AM SET MAKING MACHINE OPERATOR LIPASE STAT 07/01/2021 10:48 AM SET MAKING MACHINE OPERATOR COMPREHENSIVE METABOLIC PANEL STAT 07/01/2021 10:48 AM SET MAKING MACHINE OPERATOR documented in this encounter Results * Differential, auto (07/02/2021 6:41 AM SET MAKING MACHINE OPERATOR) Neutrophil abs 3.7 1.7 - 6.5 K/cumm C[facility] CH Imm gran abs 0.0 0.0 - 0.1 K/cumm CERNER CH Lymphocyte abs 2.0 0.8 - 3.3 K/cumm CERNER CH Monocyte abs 0.7 0.2 - 0.8 K/cumm CERNER CH Eosinophil abs 0.1 0.0 - 0.5 K/cumm CERN[facility] CH Basophil abs 0.0 0.0 - 0.1 K/cumm CERN[facility] CH Neutrophil pct 55.7 % CERNER CH Comment: Interpretive Data Percent cell count reference ranges are not reported, since discordance with absolute values may lead to misinterpretation of CBC data. Current Interpretive Data was last revised on 2017. Imm gran pct 0.3 % CERNER Comment: Interpretive Data Percent cell count reference ranges are not reported, since discordance with absolute values may lead to misinterpretation of CBC data. Current Interpretive Data was last revised on 2017. Lymphocyte pct 30.9 % CERNER Comment: Interpretive Data Percent cell count reference ranges are not reported, since discordance with absolute values may lead to misinterpretation of CBC data. Current Interpretive Data was last revised on 2017. Monocyte pct 11.3 % CERNER Comment: Interpretive Data Percent cell count reference ranges are not reported, since discordance with absolute values may lead to misinterpretation of CBC data. Current Interpretive Data was last revised on 2017. Eosinophil pct 1.2 % CERNER CH Comment: Interpretive Data Percent cell count reference ranges are not reported, since discordance with absolute values may lead to misinterpretation of CBC data. Current Interpretive Data was last revised on 2017. Basophil pct 0.6 % ROMEL Comment: Interpretive Data Percent cell count reference ranges are not reported, since discordance with absolute values may lead to misinterpretation of CBC data. Current Interpretive Data was last revised on 2017. Blood 07/02/2021 6:41 AM SET MAKING MACHINE OPERATOR 07/02/2021 7:00 AM SET MAKING MACHINE OPERATOR Deena Murillo NP LAB BLOOD ORDERABLES Final R esult ROMEL [id number] [address] Department [place] [address] * Complement, total (07/02/2021 6:41 AM SET MAKING MACHINE OPERATOR) Complement hemolytic 64 30 - 75 units/mL ROMEL Comment: Test Performed by: [facility] [address] [place] [id number] Networker: David Tolliver M.D. Ph.D.; CLIA# [id number] Blood 07/02/2021 6:41 AM SET MAKING MACHINE OPERATOR 07/02/2021 6:57 AM SET MAKING MACHINE OPERATOR us Michael Walker MD LAB BLOOD ORDERABLES Final Resu lt Performing Organization Address City/[facility] Co de Phone Number DENNYCARLOZ SNELL [phone] [address] [facility] [place] [place] [address] * C1 esterase inhibitor, functional (07/02/2021 6:41 AM SET MAKING MACHINE OPERATOR) C1 Esterase inhibitor 80 ROMEL Comment: REFERENCE VALUE >67 (Normal) 41-67 (Equivocal) <41 (Abnormal) Test Performed by: [place] [address] Networker: David Tolliver M.D. Ph.D.; CLIA# [id number] Blood 07/02/2021 6:41 AM SET MAKING MACHINE OPERATOR 07/02/2021 6:59 AM SET MAKING MACHINE OPERATOR us Michael Walker MD LAB BLOOD ORDERABLES Final Resu lt Performing Organization Address [facility] de Phone Number DENNYCARLOZ SNELL [phone] [address] [facility] [place] [place] [address] * (ABNORMAL) C1 Esterase inhibitor antigen (07/02/2021 6:41 AM SET MAKING MACHINE OPERATOR) C1 Esterase inhibitor 18(L) 19 - 37 mg/dL ROMEL Comment: Test Performed by: [place] [address] Networker: David Tolliver M.D. Ph.D.; CLIA# [id number] Blood 07/02/2021 6:41 AM SET MAKING MACHINE OPERATOR 07/02/2021 6:59 AM SET MAKING MACHINE OPERATOR us Michael Walker MD LAB BLOOD ORDERABLES Final Resu lt Performing Organization Address City/[facility] Co de Phone Number [place]NY[place] SNELL [phone] [address] [facility] [place] [place] [address] * Lipase (07/02/2021 6:41 AM SET MAKING MACHINE OPERATOR) Pathologist [facility] Lipase 26 10 - 99 Units/L CERNER CH Blood 07/02/2021 6:41 AM SET MAKING MACHINE OPERATOR 07/02/2021 7:00 AM SET MAKING MACHINE OPERATOR Deena Murillo CURRICULUM DEVELOPMENT MANAGER LAB BLOOD ORDERABLES Final R esult Performing Organization Address City/[facility]/ZIP Co de Phone Number ROMEL [phone] [address] [place] [place] [address] * (ABNORMAL) Amylase (07/02/2021 6:41 AM SET MAKING MACHINE OPERATOR) Pathologist [facility] Amylase 17(L) 30 - 99 Units/L CERNER CH Blood 07/02/2021 6:41 AM SET MAKING MACHINE OPERATOR 07/02/2021 7:00 AM SET MAKING MACHINE OPERATOR Deena Murillo CURRICULUM DEVELOPMENT MANAGER LAB BLOOD ORDERABLES Final R esult Performing Organization Address City/[facility] Co de Phone Number [facility] [phone] [address] [place] [place] [address] * (ABNORMAL) CBC with auto differential (07/02/2021 6:41 AM SET MAKING MACHINE OPERATOR) [facility] WBC 6.6 3.8 - 9.9 K/cumm CERNER Hgb 11.0(L) 11.9 - 15.5 g/dL CERNER Comment:No apparent cause fo r delta. Hct 34.2(L) 35.6 - 45.5 % CERNER CH Plt 261 150 - 400 K/cumm CERNER CH MPV 11.3 9.1 - 12.3 fL CERNER CH RBC 3.78(L) 3.90 - 5.20 M/cumm CERNER CH MCV 90.5 81.3 - 96.4 fL CERNER CH MCH 29.1 27.1 - 33.3 pg CERNER CH MCHC 32.2(L) 32.3 - 35.7 g/dL CERNER CH RDW CV 13.4 11.1 - 14.9 % CERNER CH RDW SD 44.3 35.7 - 48.1 fL CERNER CH NRBC abs 0.00 0.00 - 0.01 K/cumm CERNER CH Blood 07/02/2021 6:41 AM SET MAKING MACHINE OPERATOR 07/02/2021 7:00 AM SET MAKING MACHINE OPERATOR Deena Murillo NP LAB BLOOD ORDERABLES Final R esult Performing Organization Address City/[facility] Co de Phone Number CERCARLOZ [phone] [address] Department [place] [address] * (ABNORMAL) Urinalysis reflex to microscopic and culture Urine (07/02/2021 12:05 AM SET MAKING MACHINE OPERATOR) Color, ur Yellow Yellow CERNER CH Clarity, ur Clear Clear CERNER CH Specific gravity, ur >1.050(H) 1.003 - 1.030 CERNER CH Comment:Verified using refra ctometer. pH, urine 6.0 CERNER CH Protein, ur ql Negative Negative CERNER CH Glucose, ur ql Negative Negative CERNER CH Ketones, ur 2+(A) Negative CERNER CH Bilirubin, ur Negative Negative CERNER CH Blood, ur Negative Negative CERNER CH Urobilinogen, ur <2.0 <2.0 mg/dL CERNER CH Nitrite, ur Negative Negative CERNER CH Leukocyte esterase, ur Negative Negative CERNER CH UA reflex comment Reflex conditions for microscopic UA and culture not met. CERNER CH Urine 07/02/2021 12:0 5 AM SET MAKING MACHINE OPERATOR 07/02/2021 12:10 AM SET MAKING MACHINE OPERATOR Narrative CERNER CH - 07/02/2021 12:22 AM SET MAKING MACHINE OPERATOR ?? Urine pH is affected by diet, medications, systemic acid-base disturbances, and renal tubular function. ??pH may affect urinary stone formation. ??For example, urine pH below 6.0 may help reduce the tendency for calcium phosphate stones and pH greater than 6.0 may reduce the tendency for uric acid stone formation. Source: [employer]. Last revised 06-24-2017 us Deena Murillo NP LAB MICROBIOLOGY - GENERAL O RDERABLES Final Result Performing Organization Address [facility]/ZIP Co de Phone Number ROMEL SNELL [phone] [address] Department [place] [address] * eGFR (07/01/2021 11:58 PM SET MAKING MACHINE OPERATOR) Pathologist [facility] eGFR 126 mL/min/1. 73 m2 ROMEL NSELL Comment: Interpretive Data Reference Interval Normal ?>/= 90 mL/min/1.73m2 Mildly decreased* ? 60 - 89 mL/min/1.73m2 Mildly to moderately decreased ?45 - 59 mL/min/1.73m2 Moderately to severely decreased ??30 - 44 mL/min/1.73m2 Severely decreased ?15 - 29 mL/min/1.73m2 Kidney Failure ?< 15 ??mL/min/1.73m2 *Relative to young adult level Estimated glomerular filtration rate is determined by the 2020 CKD-EPI equation recommended by the National Kid[employer] (A Unifying Approach to GFR Estimation: Recommendations of the NKF-ASK Task Force on Reassessing the Inclusion of Race in Diagnosing Kidney Disease, JASN 2020). The CKD-EPI equation should not be used for patients with unstable renal function and has not been validated in children and those over 70. Current interpretive data was last reviewed 2021. Blood 07/01/2021 11:5 8 PM SET MAKING MACHINE OPERATOR 07/02/2021 12:28 AM SET MAKING MACHINE OPERATOR Deena Murillo NP LAB BLOOD ORDERABLES Final R esult [facility] [id number] [address] Department [place] [address] * (ABNORMAL) Basic metabolic panel (07/01/2021 11:58 PM SET MAKING MACHINE OPERATOR) Pathologist [facility] Sodium 137 135 - 145 mmol/L [facility] Potassium, pl 3.9 3.3 - 4.9 mmol/L [facility] Chloride 101 97 - 110 mmol/L [facility] CO2 20(L) 22 - 32 mmol/L [facility] Anion gap 16(H) 2 - 15 mmol/L [facility] BUN 10 8 - 25 mg/dL [facility] Creatinine 0.66 0.60 - 1.10 mg/dL [facility] Glucose 88 70 - 199 mg/dL [facility] Comment: Interpretive Data Fasting glucose >/= 126 mg/dl is diagnostic for diabetes. ?? Fasting is defined as no caloric intake for at least 8 hours. Fasting glucose between 100 mg/dl to 125 mg/dl is diagnostic of prediabetes. In a patient with classic symptoms of hyperglycemia or hyperglycemic crisis, a random glucose >/= 200 mg/dl is diagnostic for diabetes. In the absence of unequivocal hyperglycemia, results should be confirmed by repeat testing. The classification and Diagnosis of Diabetes Diabetes Care 2017;40 (Suppl. 1):S11. Current interpretive data was last revised 2017. Calcium 8.9 8.5 - 10.3 mg/dL [facility] Blood 07/01/2021 11:5 8 PM SET MAKING MACHINE OPERATOR 07/02/2021 12:02 AM SET MAKING MACHINE OPERATOR Deena Murillo NP LAB BLOOD ORDERABLES Final [facility] [id number] [address] Department [place] [address] * C4 complement (07/01/2021 7:06 PM SET MAKING MACHINE OPERATOR) Pathologist [facility] Complement C4 20 10 - 40 mg/dL [facility] Blood 07/01/2021 7:06 PM SET MAKING MACHINE OPERATOR 07/01/2021 7:16 PM SET MAKING MACHINE OPERATOR Melo Rosas MD LAB BLOOD ORDERABLES Final Re sult [facility] [address] [address] Department [place] [address] * Opiates, Urine, Confirmation (07/01/2021 4:55 PM SET MAKING MACHINE OPERATOR) Pain mgt Codeine, Ur Negative Cutoff: 25 ng/mL [facility] Dihydrocodeine, ur Negative Cutoff: 25 ng/mL [facility] Pain mgt Hydrocodone, Ur Negative Cutoff: 25 ng/mL [facility] Norhydrocodone Negative Cutoff: 25 ng/mL [facility] Pain mgt Hydromorphone, Ur Negative Cutoff: 25 ng/mL [facility] Pain mgt Oxycodone, Ur Negative Cutoff: 25 ng/mL [facility] Noroxycodone Negative Cutoff: 25 ng/mL [facility] Pain mgt Oxymorphone, Ur Negative Cutoff: 25 ng/mL [facility] Noroxymorphone, ur Negative Cutoff: 25 ng/mL [facility] Pain mgt Naloxone, ur Negative Cutoff: 25 ng/mL [facility] Pain mgt Morphine, Ur 1583 Cutoff: 25 ng/mL [facility] Opiates ur interpretation See Footnote [facility] Comment: Positive. Presence of morphine at low concentration (< 2000 ng/mL) may be due to poppy seed ingestion. ADDITIONAL INFORMATION This report is intended for use in clinical monitoring and management of patients. ??It is not intended for use in employment-related testing. This test was developed and its performance characteristics determined by [facility] in a manner consistent with CLIA requirements. This test has not been cleared or approved by the U.S. Food and Drug Administration. Test Performed by: [facility] [place] [address] Networker: David Tolliver M.D. Ph.D.; CLIA# [id number] Urine 07/01/2021 4:55 PM SET MAKING MACHINE OPERATOR 07/01/2021 6:49 PM SET MAKING MACHINE OPERATOR Raine Rodriguez NP LAB BLOOD ORDERABLES Fin al Result [facility] [address] [address] Department [place] [address] * Influenza A/B, RSV, and COVID-19 PCR Nasopharyngeal (07/01/2021 4:55 PM SET MAKING MACHINE OPERATOR) Pathologist [facility] COVID-19 RNA Negative Negative [facility] Influenza A RNA Negative Negative [facility] Influenza B RNA Negative Negative [facility] RSV RNA Negative Negative [facility] Comment: Interpretive data: This test is performed using the [employer] Xpert Xpress CoV-2/Flu/RSV plus assay. This is a multiplex, real-time reverse transcriptase PCR assay intended for the qualitative detection of nucleic acid from SARS-CoV-2, influenza A, influenza B, and respiratory syncytial virus. This assay has been reviewed by the FDA for Emergency Use Authorization (EUA). The performance characteristics have been verified by the performing laboratory. Results must be considered in the clinical context, and a negative result does not rule out infection. Interpretive Data last revised 2021. First COVID-19 test? No [facility] Employeed in healthcare? No [facility] status? No [facility] Group care resident? No [facility] Hospitalized? No [facility] Is patient in ICU? No [facility] Symptomatic as defined by CDC? Yes [facility] Nasopharyngeal 07/01/2021 4: 55 PM SET MAKING MACHINE OPERATOR 07/01/2021 5:32 PM SET MAKING MACHINE OPERATOR Narrative [facility] - 07/01/2021 7:26 PM SET MAKING MACHINE OPERATOR Date of Symptom Onset->07/01/21 Reason for testing?->Known exposure to confirmed or suspected COVID-19 case Known exposure to confirmed or suspected COVID-19 case?->Yes Raine Rodriguez NP LAB MICROBIOLOGY - [facility] AL ORDERABLES Final Result [facility] [address] [address] Department [place] [address] * (ABNORMAL) Drugs of Abuse Screen, Urine with Reflex Confirmation (07/01/2021 4:55 PM SET MAKING MACHINE OPERATOR) Pathologist [facility] Amphetamine, ur Not Detected CutOff 500ng/mL [facility] Comment: Interpretive Data - Amphetamines: ??Samples containing greater than 500 ng/mL d-methamphetamine ??or other cross-reacting amphetamine compounds are reported as positive. ??Amphetamine immunoassays are subject to significant false positive rates due to cross-reactivity of non-amphetamine drugs. Current Interpretive Data was last reviewed 2018. Barbiturates, ur Not Detected CutOff 200ng/mL [facility] Comment: Interpretive Data - Barbiturates: ??Samples containing greater than 200 ng/mL secobarbital or other cross-reacting barbiturate compounds are reported as positive. ??False positive and false negative results are possible. Current Interpretive Data was last reviewed 2018. Benzodiazepines, ur Not Detected CutOff 100ng/mL [facility] Comment: Interpretive Data - Benzodiazepines: ??Samples containing greater than 100 ng/mL nordiazepam or other cross-reacting compounds are reported as positive. ?? False positive and false negative results are possible. ?? Current Interpretive Data was last reviewed 2018. Cannabinoids, ur Detected(A) CutOff 50 ng/mL [facility] Comment: Interpretive Data - Cannabinoids: ??Samples containing greater than 50 ng/mL delta-9 THC -COOH or other cross-reacting compounds are reported as positive. ??False positive and false negative results are possible. ?? Current Interpretive Data was last reviewed 2018. Cocaine, ur Not Detected CutOff 150ng/mL [facility] Comment: Interpretive Data - Cocaine: ??Samples containing greater than 150 ng/mL benzoylecgonine or other cross-reacting compounds are reported as positive. False positive and false negative results are possible. Current Interpretive Data was last reviewed 2018. Fentanyl, Ur Not Detected Cutoff 1 ng/mL [facility] Comment: Interpretive Data - Fentanyls: ??Samples containing greater than 1 ng/mL fentanyl or other cross-reacting fentanyl compounds are reported as detected. ??False positive and false negative results are possible. Current Interpretive Data was last reviewed 2019. Methadone, ur Not Detected CutOff 300ng/mL [facility] Comment: Interpretive Data - Methadone: ??Samples containing greater than 300 ng/mL d,l-methadone or other cross-reacting compounds are reported as positive. ??False positive and false negative results are possible. Current Interpretive Data was last reviewed 2018. Opiates, ur Detected(A) CutOff 300ng/mL [facility] Comment: Interpretive Data - Opiates: ??Samples containing greater than 300 ng/mL morphine or other cross-reacting compounds are reported as positive. ??False positive and false negative results are possible. Current Interpretive Data was last reviewed 2018. Oxycodone, ur Not Detected CutOff 100ng/mL [facility] Comment: Interpretive Data - Oxycodone: ??Samples containing greater than 100 ng/mL oxycodone or other cross-reacting compounds are reported as positive. ??False positive and false negative results are possible. ?? Current Interpretive Data was last reviewed 2018. Phencyclidine, ur Not Detected CutOff 25 ng/mL [facility] Comment: Interpretive Data - Phencyclidine: ??Samples containing greater than 25 ng/mL phencyclidine or other cross-reacting compounds are reported as positive. ??False positive and false negative results are possible. ?? Current Interpretive Data was last reviewed 2018. Urine Creatinine 92 mg/dL [facility] Comment: Interpretive Data Urine Creatinine: < 10 mg/dL is extremely dilute = or > 10 but < 20 mg/dL is dilute = or > 20 mg/dL is normal Current Interpretive Data was last revised on 2017. Urine 07/01/2021 4:55 PM SET MAKING MACHINE OPERATOR 07/01/2021 5:32 PM SET MAKING MACHINE OPERATOR Narrative [facility] - 07/01/2021 6:49 PM SET MAKING MACHINE OPERATOR Drug of Abuse screening is performed by immunoassay for medical purposes only. ??This is not to be used for Pain Management purposes. ??If Detected, confirmation testing will be performed for Amphetamines, Cocaine, Fentanyl, Methadone, Opiates, Oxycodone or Phencyclidine. us Raine Rodriguez NP LAB URINE ORDERABLES Fin al Result [facility] [id number] [address] Department [place] [address] * CT Abdomen Pelvis W Contrast (07/01/2021 2:57 PM SET MAKING MACHINE OPERATOR) Anatomical Region Laterality Modality Body N/A Computed Tomogra phy 07/01/2021 3:12 PM SET MAKING MACHINE OPERATOR Impressions 07/01/2021 3:12 PM SET MAKING MACHINE OPERATOR 1. ??Mildly thickened proximal appendix with mid and distal portions of the appendix appearing within normal limits. ??Associated right lower quadrant lymphadenopathy likely represents mesenteric adenitis. Given proximal appendiceal thickening, early appendicitis is not entirely excludable but considered less likely. ??Continued follow-up or surgical consultation may be considered as clinically indicated. 2. ??Complex 1.2 cm cyst in the left ovary is most suggestive of a hemorrhagic cyst. 3. ??Focal fatty infiltration of the liver. 4. ??Prior cholecystectomy. Electronically signed by: Derek Davis II, D.O. Narrative 07/01/2021 3:12 PM SET MAKING MACHINE OPERATOR EXAMINATION: CT ABDOMEN PELVIS W CONTRAST DATE: 07/01/2021 2:35 PM HISTORY: Nausea vomiting and epigastric pain. COMPARISON: None. TECHNIQUE: Transaxial computed tomographic images of the abdomen and pelvis were obtained after the administration of 100 mL of Optiray 350 intravenously. Multiplanar coronal and sagittal images were reformatted. FINDINGS: Motion artifact limits this examination slightly, particularly in the lung bases. There is focal fatty infiltration of the liver near the falciform ligament. ??Prior cholecystectomy. ??The spleen, pancreas, and adrenal glands are unremarkable. ??Kidneys are normal in appearance. ??No hydroureteronephrosis. ??Unopacified bladder is unremarkable. ??There is no free fluid in the pelvis. There is a complex 1.2 cm cyst in the left ovary presumably representing a hemorrhagic cyst. ??No free fluid in the pelvis. There is prominence of submucosal fat within the colon, which may represent chronic inflammatory bowel disease versus normal variant anatomy. ??The proximal appendix is fluid-filled and mildly thickened measuring 7 mm, table position -510.5. ??Mid and distal portions of the appendix are normal in size. ??Slightly prominent lymph nodes in the right lower quadrant are most suggestive of mesenteric adenitis. No acute osseous abnormality. ??No suspicious lytic or sclerotic lesions. Procedure Note Derek Davis II, DO - 07/01/2021 EXAMINATION: CT ABDOMEN PELVIS W CONTRAST DATE: 07/01/2021 2:35 PM HISTORY: Nausea vomiting and epigastric pain. COMPARISON: None. TECHNIQUE: Transaxial computed tomographic images of the abdomen and pelvis were obtained after the administration of 100 mL of Optiray 350 intravenously. Multiplanar coronal and sagittal images were reformatted. FINDINGS: Motion artifact limits this examination slightly, particularly in the lung bases. There is focal fatty infiltration of the liver near the falciform ligament. Prior cholecystectomy. The spleen, pancreas, and adrenal glands are unremarkable. Kidneys are normal in appearance. No hydroureteronephrosis. Unopacified bladder is unremarkable. There is no free fluid in the pelvis. There is a complex 1.2 cm cyst in the left ovary presumably representing a hemorrhagic cyst. No free fluid in the pelvis. There is prominence of submucosal fat within the colon, which may represent chronic inflammatory bowel disease versus normal variant anatomy. The proximal appendix is fluid-filled and mildly thickened measuring 7 mm, table position -510.5. Mid and distal portions of the appendix are normal in size. Slightly prominent lymph nodes in the right lower quadrant are most suggestive of mesenteric adenitis. No acute osseous abnormality. No suspicious lytic or sclerotic lesions. IMPRESSION: 1. Mildly thickened proximal appendix with mid and distal portions of the appendix appearing within normal limits. Associated right lower quadrant lymphadenopathy likely represents mesenteric adenitis. Given proximal appendiceal thickening, early appendicitis is not entirely excludable but considered less likely. Continued follow-up or surgical consultation may be considered as clinically indicated. 2. Complex 1.2 cm cyst in the left ovary is most suggestive of a hemorrhagic cyst. 3. Focal fatty infiltration of the liver. 4. Prior cholecystectomy. Electronically signed by: Jessica Loyola IIOMable Leo Ovalle MD IMG CT PROCEDURES Amy l Result * eGFR (07/01/2021 10:48 AM SET MAKING MACHINE OPERATOR) Pathologist [facility] eGFR 106 mL/min/1. 73 m2 [facility] Comment: Interpretive Data Reference Interval Normal ?>/= 90 mL/min/1.73m2 Mildly decreased* ? 60 - 89 mL/min/1.73m2 Mildly to moderately decreased ?45 - 59 mL/min/1.73m2 Moderately to severely decreased ??30 - 44 mL/min/1.73m2 Severely decreased ?15 - 29 mL/min/1.73m2 Kidney Failure ?< 15 ??mL/min/1.73m2 *Relative to young adult level Estimated glomerular filtration rate is determined by the 2020 CKD-EPI equation recommended by the National Kidney [employer] (A Unifying Approach to GFR Estimation: Recommendations of the NKF-ASK Task Force on Reassessing the Inclusion of Race in Diagnosing Kidney Disease, JASN 202). The CKD-EPI equation should not be used for patients with unstable renal function and has not been validated in children and those over 70. Current interpretive data was last reviewed 2021. Blood 07/01/2021 10:4 8 AM SET MAKING MACHINE OPERATOR 07/01/2021 10:51 AM SET MAKING MACHINE OPERATOR Leo Ovalle MD LAB BLOOD ORDERABLES F inal Result [facility] [address] [address] Department [place] [address] * (ABNORMAL) Differential, auto (07/01/2021 10:48 AM SET MAKING MACHINE OPERATOR) Neutrophil abs 11.0(H) 1.7 - 6.5 K/cumm [facility] Imm gran abs 0.1 0.0 - 0.1 K/cumm [facility] Lymphocyte abs 1.4 0.8 - 3.3 K/cumm [facility] Monocyte abs 0.7 0.2 - 0.8 K/cumm [facility] Eosinophil abs 0.0 0.0 - 0.5 K/cumm [facility] Basophil abs 0.1 0.0 - 0.1 K/cumm [facility] Neutrophil pct 83.1 % [facility] Comment: Interpretive Data Percent cell count reference ranges are not reported, since discordance with absolute values may lead to misinterpretation of CBC data. Current Interpretive Data was last revised on 2017. Imm gran pct 0.5 % [facility] Comment: Interpretive Data Percent cell count reference ranges are not reported, since discordance with absolute values may lead to misinterpretation of CBC data. Current Interpretive Data was last revised on 2017. Lymphocyte pct 10.5 % [facility] Comment: Interpretive Data Percent cell count reference ranges are not reported, since discordance with absolute values may lead to misinterpretation of CBC data. Current Interpretive Data was last revised on 2017. Monocyte pct 5.2 % [facility] Comment: Interpretive Data Percent cell count reference ranges are not reported, since discordance with absolute values may lead to misinterpretation of CBC data. Current Interpretive Data was last revised on 2017. Eosinophil pct 0.2 % [facility] Comment: Interpretive Data Percent cell count reference ranges are not reported, since discordance with absolute values may lead to misinterpretation of CBC data. Current Interpretive Data was last revised on 2017. Basophil pct 0.5 % [facility] Comment: Interpretive Data Percent cell count reference ranges are not reported, since discordance with absolute values may lead to misinterpretation of CBC data. Current Interpretive Data was last revised on 2017. Blood 07/01/2021 10:4 8 AM SET MAKING MACHINE OPERATOR 07/01/2021 10:51 AM SET MAKING MACHINE OPERATOR us Leo Ovalle MD LAB BLOOD ORDERABLES F inal Result [facility] [id number] [address] Department [place] [address] * hCG, blood, quantitative (07/01/2021 10:48 AM SET MAKING MACHINE OPERATOR) hCG, quant <0.1 0.0 - 5.0 IUnits/L [facility] Comment: Interpretive Data Non- Female premenopausal: < or = 5.0 IUnits/L Men: < 5.0 IUnits/L Weeks of Gestation ? Reference Interval ?? 3 to 6 ? 5.8-31,795 IUnits/L ?? 7 to 10 ? 3,697-186,977 IUnits/L ??12 to 15 ?27,832- 70,791 IUnits/L ??16 to 18 ? 9,040- 58,179 IUnits/L Current Interpretive Data was last revised on 2018. Blood 07/01/2021 10:4 8 AM SET MAKING MACHINE OPERATOR 07/01/2021 10:51 AM SET MAKING MACHINE OPERATOR Leo Ovalle MD LAB BLOOD ORDERABLES F inal Result Performing Organization Address City/[facility] Co de Phone Number [facility] [phone] [address] Department of [employer] [place], [place] [id number] * Lipase (07/01/2021 10:48 AM SET MAKING MACHINE OPERATOR) Lipase 23 10 - 99 Units/L [facility] Blood 07/01/2021 10:4 8 AM SET MAKING MACHINE OPERATOR 07/01/2021 10:51 AM SET MAKING MACHINE OPERATOR Leo Ovalle MD LAB BLOOD ORDERABLES F inal Result Performing Organization Address [facility] de Phone Number ROM[facility] [phone] [address] [place] [address] * (ABNORMAL) Comprehensive metabolic panel (07/01/2021 10:48 AM SET MAKING MACHINE OPERATOR) Sodium 138 135 - 145 mmol/L [facility] Potassium, pl 3.7 3.3 - 4.9 mmol/L [facility] Chloride 99 97 - 110 mmol/L [facility] CO2 20(L) 22 - 32 mmol/L [facility] Anion gap 19(H) 2 - 15 mmol/L [facility] BUN 14 8 - 25 mg/dL [facility] Creatinine 0.80 0.60 - 1.10 mg/dL [facility] Comment:Icteric sample, test results may be affected. Glucose 91 70 - 199 mg/dL [facility] Comment: Interpretive Data Fasting glucose >/= 126 mg/dl is diagnostic for diabetes. ?? Fasting is defined as no caloric intake for at least 8 hours. Fasting glucose between 100 mg/dl to 125 mg/dl is diagnostic of prediabetes. In a patient with classic symptoms of hyperglycemia or hyperglycemic crisis, a random glucose >/= 200 mg/dl is diagnostic for diabetes. In the absence of unequivocal hyperglycemia, results should be confirmed by repeat testing. The classification and Diagnosis of Diabetes Diabetes Care 2017;40 (Suppl. 1):S11. Current interpretive data was last revised 2017. Calcium 9.8 8.5 - 10.3 mg/dL [facility] Bilirubin, total 1.2 0.1 - 1.2 mg/dL [facility] Protein, pl 8.2 6.5 - 8.5 g/dL [facility] Albumin 5.1(H) 3.5 - 5.0 g/dL [facility] Alk phos 72 40 - 130 Units/L [facility] ALT 20 7 - 45 Units/L [facility] AST 23 10 - 45 Units/L [facility] Blood 07/01/2021 10:4 8 AM SET MAKING MACHINE OPERATOR 07/01/2021 10:51 AM SET MAKING MACHINE OPERATOR Leo Ovalle MD LAB BLOOD ORDERABLES F inal Result [facility] [address] [address] Department [place] [address] * (ABNORMAL) CBC with auto differential (07/01/2021 10:48 AM SET MAKING MACHINE OPERATOR) WBC 13.2(H) 3.8 - 9.9 K/cumm [facility] Hgb 14.1 11.9 - 15.5 g/dL [facility] Hct 42.7 35.6 - 45.5 % [facility] Plt 343 150 - 400 K/cumm [facility] MPV 11.2 9.1 - 12.3 fL [facility] RBC 4.80 3.90 - 5.20 M/cumm [facility] MCV 89.0 81.3 - 96.4 fL [facility] MCH 29.4 27.1 - 33.3 pg [facility] MCHC 33.0 32.3 - 35.7 g/dL [facility] RDW CV 13.2 11.1 - 14.9 % [facility] RDW SD 43.2 35.7 - 48.1 fL [facility] NRBC abs 0.00 0.00 - 0.01 K/cumm [facility] Blood 07/01/2021 10:4 8 AM SET MAKING MACHINE OPERATOR 07/01/2021 10:51 AM SET MAKING MACHINE OPERATOR Leo Ovalle MD LAB BLOOD ORDERABLES F inal Result [facility] [id number] [address] Department [place] [address] documented in this encounter Visit Diagnoses Diagnosis Intractable vomiting- Primary Persistent vomiting Intractable vomiting with nausea, unspecified vomiting type Abdominal pain Abdominal pain, unspecified site documented in this encounter Admitting Diagnoses Diagnosis Intractable vomiting Persistent vomiting documented in this encounter Administered Medications Inactive Administered Medications - up to 3 most recent administrations Medication Order MAR Action Action Date Dose Rate Site acetaminophen (TYLENOL) tablet 650 mg 650 mg, oral, Every 6 hours PRN, headaches, fever, Starting on Wed07/01/21 at 2239 famotidine (PEPCID) injection 20 mg 20 mg, intravenous, Administer over 2 Minutes, Daily, First dose on Wed07/02/21 at 0900, Indications: Prevention of Stress UlcerIndications:Prevent ion of Stress Ulcer Given 07/02/2021 8:09 AM SET MAKING MACHINE OPERATOR 20 mg HYDROcodone-acetaminophe n (NORCO) 5-325 mg per tablet 1 tablet 1 tablet, oral, Every 4 hours PRN, 3rd line for pain, Starting on Wed07/02/21 at 0950, Indications: PainIndications:Pain ioversoL (OPTIRAY 350) syringe syringe 100 mL 100 mL, intravenous, Once in imaging, contrast, Starting on Wed07/01/21 at 1434, For 1 dose Contrast Given 07/01/2021 2:47 PM SET MAKING MACHINE OPERATOR 100 mL ketorolac (TORADOL) 30 mg/mL (1 mL) injection 30 mg 30 mg, intravenous, Once, On Wed07/01/21 at 1635, For 1 dose, For Adult IV push, administer over 15 seconds Given 07/01/2021 4:53 PM SET MAKING MACHINE OPERATOR 30 mg Lactated Ringer's (LR) infusion 100 mL/hr, intravenous, Continuous, Starting on Wed07/01/21 at 1424 New Bag 07/01/2021 3:06 PM SET MAKING MACHINE OPERATOR 100 mL/hr 100 mL/hr Lactated Ringer's (LR) infusion 125 mL/hr, intravenous, Continuous, Starting on Wed07/01/21 at 1721 Rate/Dose Verify 07/02/2021 8:14 AM SET MAKING MACHINE OPERATOR 125 mL/hr 125 mL/hr New Bag 07/02/2021 2:03 AM SET MAKING MACHINE OPERATOR 125 mL/hr 125 mL/hr Rate/Dose Verify 07/02/2021 12:15 AM SET MAKING MACHINE OPERATOR 125 mL/hr 125 mL /hr morphine injection 2 mg 2 mg, intravenous, Administer over 4 Minutes, Once, On Wed07/01/21 at 1424, For 1 dose Given 07/01/2021 3:06 PM SET MAKING MACHINE OPERATOR 2 mg ondansetron (ZOFRAN) injection 4 mg 4 mg, intravenous, Administer over 2 Minutes, Once, On Wed07/01/21 at 1037, For 1 dose Given 07/01/2021 10:54 AM SET MAKING MACHINE OPERATOR 4 mg ondansetron (ZOFRAN) injection 4 mg 4 mg, intravenous, Administer over 2 Minutes, Every 6 hours PRN, nausea, vomiting, if not tolerating PO, Starting on Wed07/01/21 at 1717, Indications: Nausea and VomitingIndications:Nausea and Vomiting ondansetron ODT (ZOFRAN-ODT) disintegrating tablet 4 mg 4 mg, oral, Every 6 hours PRN, nausea, vomiting, Starting on Wed07/01/21 at 1717, Indications: Nausea and VomitingIndications:Nausea and Vomiting pantoprazole (PROTONIX) 4 mg/mL injection 40 mg 40 mg, intravenous, Administer over 2 Minutes, Once, On Wed07/01/21 at 1424, For 1 dose, For IV Push administration for adults- 40 mg vial: add 10 mL of sodium chloride 0.9% to achieve a final concentration of 4 mg/mL, Indications: Treatment of Non-Bleeding Gastric DisorderIndications:Treatment of Non-Bleeding Gastric Disorder Given 07/01/2021 3:05 PM SET MAKING MACHINE OPERATOR 40 mg sodium chloride 0.9% bolus 1,000 mL 1,000 mL, intravenous, at 1,000 mL/hr, Administer over 1 Hours, Once, On Wed07/01/21 at 1037, For 1 dose New Bag 07/01/2021 10:54 AM SET MAKING MACHINE OPERATOR 1,000 mL 1000 mL/hr traMADoL (ULTRAM) tablet 50 mg 50 mg, oral, 4 times daily PRN, 2nd line for pain, Starting on Wed07/02/21 at 0950 documented in this encounter Active and Recently Administered Medications Times are shown in SET MAKING MACHINE OPERATOR. Scheduled Medication Order 06/30/2021 07/01/2021 07/02/2021 famotidine (PEPCID) injection 20 mg 20 mg, intravenous, Administer over 2 Minutes, Daily, First dose on Wed07/02/21 at 0900, Indications: Prevention of Stress Ulcer 0809 (Given - Provid er: Loretta Damon RN) ketorolac (TORADOL) 30 mg/mL (1 mL) injection 30 mg (COMPLETED) 30 mg, intravenous, Once, On Wed07/01/21 at 1635, For 1 dose, For Adult IV push, administer over 15 seconds 1653 (Given - Provider: Miguel Angel Abbott RN) morphine injection 2 mg (COMPLETED) 2 mg, intravenous, Administer over 4 Minutes, Once, On Wed07/01/21 at 1424, For 1 dose 1506 (Given - Provider: Miguel Angel Abbott RN) ondansetron (ZOFRAN) injection 4 mg (COMPLETED) 4 mg, intravenous, Administer over 2 Minutes, Once, On Wed07/01/21 at 1037, For 1 dose 1054 (Given - Provider: Deacon Wilson RN) pantoprazole (PROTONIX) 4 mg/mL injection 40 mg (COMPLETED) 40 mg, intravenous, Administer over 2 Minutes, Once, On Wed07/01/21 at 1424, For 1 dose, For IV Push administration for adults- 40 mg vial: add 10 mL of sodium chloride 0.9% to achieve a final concentration of 4 mg/mL, Indications: Treatment of Non-Bleeding Gastric Disorder 1505 (Given - Provider: Miguel Angel Abbott RN) sodium chloride 0.9% bolus 1,000 mL (COMPLETED) 1,000 mL, intravenous, at 1,000 mL/hr, Administer over 1 Hours, Once, On Wed07/01/21 at 1037, For 1 dose 1054 (New Bag - Provider: Deacon Wilson RN)1154 (Stopped - Provider: Miguel Angel Abbott RN) Continuous Medication Order 06/30/2021 07/01/2021 07/02/2021 Lactated Ringer's (LR) infusion (CANCELED) 100 mL/hr, intravenous, Continuous, Starting on Wed07/01/21 at 1424 1506 (New Bag - Provider: Miguel Angel Abbott RN)2114 (Stopped - Provider: Yocasta Conklin RN) Lactated Ringer's (LR) infusion (CANCELED) 125 mL/hr, intravenous, Continuous, Starting on Wed07/01/21 at 1721 2114 (Rate/Dose Change - Provider: Yocasta Conklin RN) 0015 (Rate/Dose Verify - Provider: Yocasta Conklin RN)0203 (New Bag - Provider: Franny Berumen RN)0814 (Rate/Dose Verify - Provider: Loretta Damon RN)1014 (Stopped - Provider: Loretta Damon RN) PRN Medication Order 06/30/2021 07/01/2021 07/02/2021 acetaminophen (TYLENOL) tablet 650 mg 650 mg, oral, Every 6 hours PRN, headaches, fever, Starting on Wed07/01/21 at 2239 HYDROcodone-acetaminophen (NORCO) 5-325 mg per tablet 1 tablet 1 tablet, oral, Every 4 hours PRN, 3rd line for pain, Starting on Wed07/02/21 at 0950, Indications: Pain ioversoL (OPTIRAY 350) syringe syringe 100 mL (COMPLETED) 100 mL, intravenous, Once in imaging, contrast, Starting on Wed07/01/21 at 1434, For 1 dose 1447 (Contrast Given - Provider: Mariajose Short, RT) ondansetron (ZOFRAN) injection 4 mg(Linked Group 1) 4 mg, intravenous, Administer over 2 Minutes, Every 6 hours PRN, nausea, vomiting, if not tolerating PO, Starting on Wed07/01/21 at 1717, Indications: Nausea and Vomiting ondansetron ODT (ZOFRAN-ODT) disintegrating tablet 4 mg(Linked Group 1) 4 mg, oral, Every 6 hours PRN, nausea, vomiting, Starting on Wed07/01/21 at 1717, Indications: Nausea and Vomiting traMADoL (ULTRAM) tablet 50 mg 50 mg, oral, 4 times daily PRN, 2nd line for pain, Starting on Wed07/02/21 at 0950 Linked Groups Order Group 1: ondansetron ODT (ZOFRAN-ODT) disintegrating tablet 4 mgJump to med 4 mg, oral, Every 6 hours PRN, nausea, vomiting, Starting on Wed07/01/21 at 1717, Indications: Nausea and Vomiting Or ondansetron (ZOFRAN) injection 4 mgJump to med 4 mg, intravenous, Administer over 2 Minutes, Every 6 hours PRN, nausea, vomiting, if not tolerating PO, Starting on Wed07/01/21 at 1717, Indications: Nausea and Vomiting documented in this encounter Orders Medications Ordered That Ayaan ht Not Have Been Administered Count Last Ordered Date First Ordered Date HYDROcodone-acetaminophen (N ORCO) 5-325 mg per tablet 1 tablet 1 07/02/2021 traMADoL (ULTRAM) tablet 50 mg 1 07/02/2021 acetaminophen (TYLENOL) tablet 650 mg 1 morphine injection 2 mg 1 07/01/2021 ondansetron (ZOFRAN) injection 4 mg 1 07/01 ondansetron ODT (ZOFRAN-ODT) disintegrating tablet 4 mg 1 07/01/2021 Diet Count Last Ordered Date First Orde red Date ADULT DISCHARGE DIET 1 07/02/2021 Nursing Count Last Ordered Date First Orde red Date DISCHARGE ACTIVITY 1 07/02/2021 DISCHARGE CALL PROVIDER 3 07/02/2021 FOLLOW UP WITH ESTABLISHED PROVIDER 1 07/02 CORE MEASURES Count Last Ordered Date First Ord ered Date REASON FOR NO VTE PROPHYLAXIS AT ADMISSION 1 07/01/2021 ADT Patient Update Count Last Ordered Date Firs t Ordered Date ED IP DECISION TO ADMIT 1 07/01/2021 documented in this encounter Additional Health Concerns Infection Onset Date Last Indicated Resolved Time Exposure, COVID-19 Comment:Added automatically based on COVID19 lab answers indicating exposure risk 07/01/2021 07/01/2021 07/11/2021 3:[address] COVID: Suspected 07/01/2021 07/01/2021 07/11/2021 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
--- OUTSIDE RECORDS SUMMARY | 2024-06-14 05:21 | XMS_ITS | Encounter Summary ---
Author Organization [facility] Address [address] [place] [address] Care Team Providers Care Medical Sales Associate Name Role Phone Natalya Guzman NP Primary Care Provider [phone] Encounter Details Date Type Department Care Team (Late st Contact Info) Description 09/15/2021 10:50 AM CDT Anesthesia Event [facility] [address] [place] [address] Paty Garrido MD PhD [address] [place] [address] Anesthesia Record Procedure Summary Procedure Name Responsible Anesthesiologist Anesthesia Start Time Anesthesia Stop Time COLON BIOPSY (Colon) Paty Garrido MD PhD 09/15/21 1050 09/15/21 1121 Events Date Time Event Comment 09/15/2021 1010 1049 In Room 1050 An Start 1050 An Start Data 1051 Start Supplemental O2 1057 Patient Positioned Laterally 1057 Bite Block Placed 1057 An Induction The patient was reevaluated immediately before moderate or deep sedation use and before anesthesia induction. 1057 Anesthesia Ready 1116 Out of Room 1116 an stop data 1119 Handoff to RN I completed my handoff to the receiving nurse during which we: 1. Patient identified 2. Responsible provider identified 3. Pertinent medical history reviewed 4. Procedure type and surgical course discussed 5. Intraoperative anesthetic management and any significant issues discussed 6. Expectations and concerns for postop period discussed 7. Questions solicited from receiving nurse 8. Patient disposition at the time of handoff: No value filed. 1121 An Stop Meds Name Total propofol 239.43 mg lidocaine 2 % 60 mg NS 0.9% 400 mL * Agents Name O2 * Blood No blood administrations on file. Lines, Drains, and Airways Type Details Placement Removal Peripheral IV Placement Date: 10/03; Placement Time: 1010; Catheter Size: 22 G; Orientation: Posterior, Right; Location: Hand; Site Prep: Chlorhexidine; Technique: Anatomical landmarks; Inserted by: Mariah; Insertion Attempts: 1; Patient Tolerance: Tolerated well 09/15/21 1011 by Sloane Monk NP documented in this encounter Social History Tobacco Use Types Packs/Day Years Used Date Smoking Tobacco: Every Day Vaping Smokeless Tobacco: Never Alcohol Use Standard Drinks/Week Comments Never 0 (1 standard drink = 0.6 oz pur e alcohol) AUDIT-C Answer Date Recorded Q1: How often do you have a drink containing alc ohol? Monthly or less 09/15/2021 Q2: How many drinks containi ng alcohol do you have on a typical day when you are drinking? 1 or 2 09/15/2021 Q3: How often do you have si x or more drinks on one occasion? 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 Gender Identity Not on file Sexual Orientation Not on file documented as of this encounter OR Notes * Anesthesia Postprocedure Evaluation - Paty Garrido MD PhD - 09/15/2021 12:36 PM CDT Patient: Liza [place] Procedure Summary Date: 09/15/21 Room / Location: ENDOSCOPY ROOM 3 / ENDOSCOPY Anesthesia Start: 1050 Anesthesia Stop: 1121 Procedures: COLON BIOPSY (N/A Colon) ESOPHAGOGASTRODUODENOSCOPY BIOPSY (N/A ) Diagnosis: Epigastric pain Non-intractable vomiting with nausea, unspecified vomiting type (Epigastric pain [R10.13]) (Non-intractable vomiting with nausea, unspecified vomiting type [R11.2]) Providers: Raul Carlson MD Responsible Provider: Paty Garrido MD PhD Anesthesia Type: general/TIVA ASA Status: 1 Anesthesia Type: general/TIVA Last vitals BP 108/75 Pulse (!) 47 Resp 16 SpO2 97% Anesthesia Post Evaluation Patient location during evaluation: PACU Patient participation: complete - patient participated Level of consciousness: fully awake Pain score: 0 Pain management: adequate Airway patency: adequate Cardiovascular status: acceptable Respiratory status: acceptable Hydration status: acceptable Pt is: normothermic Nausea/Vomiting status: none No complications documented. * Anesthesia Preprocedure Evaluation - Paty Garrido MD PhD - 09/15/2021 9:56 AM CDT Images from the original note were not included. Anesthesia Evaluation Liza [place] is a 21 y.o. female Procedure(s): COLONOSCOPY ESOPHAGOGASTRODUODENOSCOPY covid recovered Pre-Op Diagnosis Codes: * Epigastric pain [R10.13] * Non-intractable vomiting with nausea, unspecified vomiting type [R11.2] HISTORY Past Medical History Information obtained from: patient and chart. Neurological + Psychiatric history - anxiety Respiratory Pertinent negatives: non-smoker Day of Surgery assessments + Possibility of assessed - HCG negative (see labs). Comments: Pending Patient Active Problem List Diagnosis ??? Diarrhea ??? Non-intractable vomiting ??? Intractable vomiting ??? Rectal bleeding ??? Epigastric pain Past Medical History: Diagnosis Date ??? Abdominal pain ??? Anxiety ??? Fatigue ??? Vomiting Past Surgical History: Procedure Laterality Date ??? CHOLECYSTECTOMY 2011 ??? TONSILECTOMY, ADENOIDECTOMY, BILATERAL MYRINGOTOMY AND TUBES 2005 OB History 1 Para Term AB Living SAB IAB Ectopic Multiple Live Births No Known Allergies Taking? Last Dose Start Date End Date Provider bisacodyl EC (DULCOLAX EC) 5 mg EC tablet 08/27/21 -- Raul Carlson MD At 7 pm, take all four tablets at once with a glass of water. buPROPion XL (WELLBUTRIN XL) 150 mg 24 hr tablet -- -- Provider, MD Samantha cholestyramine (QUESTRAN) 4 gram powder 08/27/21 08/27/22 Raul Carlson MD Take 1 packet (4 g total) by mouth daily Dissolve in 8 oz of liquid and drink before a meal cimetidine (TAGAMET) 400 mg tablet () 06/27/19 06/26/20 Raul Carlson MD Take 1 tablet (400 mg total) by mouth 2 (two) times a day escitalopram (LEXAPRO) 5 mg tablet -- -- Samantha William MD nitrofurantoin monohydrate (MACROBID) 100 mg capsule -- -- Samantha William MD ondansetron ODT (ZOFRAN-ODT) 8 mg disintegrating tablet -- -- Samantha William MD polyethylene glycol (GoLYTELY) 236-22.74-6.74 -5.86 gram solution 08/27/21 -- Raul Carlson MD Mix solution as directed on the box. At 4 pm drink half of the mix solution and finish by 7 pm .Repeat at 10 pm and finish by midnight. 28 mg iron- 800 mcg tablet 06/03/19 -- Samantha William MD promethazine (PHENERGAN) 25 mg tablet -- -- Samantha William MD triamcinolone (KENALOG) 0.1 % cream -- -- Samantha William MD Xulane 150-35 mcg/24 hr 08/11/21 -- Samantha William MD No current facility-administered medications for this encounter. Social History Tobacco Use Smoking Status Never Smoker Smokeless Tobacco Never Used Substance and Sexual Activity Alcohol Use Never Substance and Sexual Activity Drug Use Never Family History Problem Relation Age of Onset ??? Heart attack Father There were no vitals filed for this visit. PT: No results found for requested labs within last 720 hours. INR: No results found for requested labs within last 720 hours. APTT: No results found for requested labs within last 720 hours. Hgb A1C: No results found for requested labs within last 720 hours. CBC RBC: No results found for requested labs within last 720 hours. RDW: No results found for requested labs within last 720 hours. MCHC: No results found for requested labs within last 720 hours. MCH: No results found for requested labs within last 720 hours. MCV: No results found for requested labs within last 720 hours. Hct: No results found for requested labs within last 720 hours. Hgb: No results found for requested labs within last 720 hours. WBC: No results found for requested labs within last 720 hours. MPV: No results found for requested labs within last 720 hours. Platelets: No results found for requested labs within last 720 hours. RDW CV: No results found for requested labs within last 720 hours. RDW Sd: No results found for requested labs within last 720 hours. BMP Glucose: No results found for requested labs within last 720 hours. Calcium: No results found for requested labs within last 720 hours. Sodium: No results found for requested labs within last 720 hours. Potassium: No results found for requested labs within last 720 hours. CO2: No results found for requested labs within last 720 hours. Chloride: No results found for requested labs within last 720 hours. BUN: No results found for requested labs within last 720 hours. Creatinine: No results found for requested labs within last 720 hours. DOS Physical Exam Medical history, medications, and allergies reviewed. Attestation: I endorse the findings of the anesthesia pre-evaluation assessment dated: 09/15/2021. Airway Exam: Mallampati: II Cervical ROM: FROM TM distance: normal Cardiovascular Exam: Rate: regular Rhythm: regular Pulmonary Exam: LCTA, bilat EENT Exam: trachea midline Current state: Patient's current state is cooperative and interactive. Anesthesia Plan ASA 1 My patient is approved for the Anesthesia Controlled Medication protocol when under care of a ASSISTANT NURSE MANAGER Planned anesthesia: General/TIVA Induction: Induction: intravenous. Postoperative Plan: No plan for postoperative opioid use. No postoperative mechanical ventilation intended. Patient's planned disposition post procedure is Outpatient. Informed Consent: Discussed plan with ASSISTANT NURSE MANAGER, attending and AA. Anesthesia plan and risks discussed with patient. Consent and Attending signature: I and/or my designee have discussed the anesthesia plan, benefits, possible alternatives, parental presence at time of induction (if indicated), and clinically relevant risks that may include dental injury, unintentional awareness, and/or other complications. The patient and/or parent/legal guardian understand, and agree to proceed. All questions answered. documented in this encounter Plan of Treatment Not on file documented as of this encounter Visit Diagnoses Not on filedocumented in this encounter Administered Medications Inactive Administered Medications - up to 3 most recent administrations Medication Order MAR Action Action Date Dose Rate Site lidocaine (XYLOCAINE) 20 mg/mL (2 %) preservative free injection intravenous, As needed, Starting on Wed09/15/21 at 1057, Anesthesia Intra-op Given 09/15/2021 10:57 AM CDT 60 mg propofoL (DIPRIVAN) 10 mg/mL IV intravenous, Continuous PRN, Starting on Wed09/15/21 at 1057, Anesthesia Intra-op Rate/Dose Change 09/15/2021 11:00 AM CDT 200 mcg/kg/min 83.28 mL/hr New Bag 09/15/2021 10:57 AM CDT 150 mcg/kg/min 62.46 mL /hr sodium chloride 0.9% infusion intravenous, Continuous PRN, Starting on Wed09/15/21 at 1050, Anesthesia Intra-op New Bag 09/15/2021 10:50 AM CDT documented in this encounter Care Teams Medical Sales Associate Relationship Specialty Start Date End Date Natalya Guzman NP PCP - General Nurse Practitioner 06/05/19 documented as of this encounter
--- OUTSIDE RECORDS SUMMARY | 2024-06-14 05:21 | XMS_ITS | Encounter Summary ---
Author Organization [facility] Address [address] [place] [address] Care Team Providers Care General Supervisor Name Role Phone Natalya Guzman NP Primary Care Provider [phone] Reason for Visit * Reason Onset Date Comments Test Results 12/25/2019 12/26/19 Encounter Details Date Type Department Care Team (Late st Contact Info) Description 12/25/2019 [facility]phone [facility] [id number] [place] [address] [address] [place] [address] [place] [address] [facility] [address] [place] [address] Test Results (12/26/19) Social History Tobacco Use Types Packs/Day Years Used Date Smoking Tobacco: Never Smokeless Tobacco: Never Alcohol Use Standard Drinks/Week Comments Never 0 (1 standard drink = 0.6 oz pur e alcohol) AUDIT-C Answer Date Recorded Frequency of Alcohol Consumption Never 06/27/2019 Average Number of Drinks Not on file 020 Frequency of Binge Drinking Not on file 06/14 PHQ-2 Answer Date Recorded PHQ-2 Score 0 06/27/2019 Comments Yes Sex and Gender Information Value Date Recorded Sex Assigned at Not on file 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 Carlson for tomorrow, @ 2:15pm. Appt was scheduled in June and needs to be r/s due to OO schedule change. Attempted to contact the pt to r/s No Answer/VM full documented in this encounter Plan of Treatment Not on file documented as of this encounter Visit Diagnoses Not on filedocumented in this encounter Care Teams General Supervisor Relationship Specialty Start Date End Date Natalya Guzman NP PCP - General Nurse Practitioner 06/05/19 documented as of this encounter
--- OUTSIDE RECORDS SUMMARY | 2024-06-14 05:21 | XMS_ITS | Encounter Summary ---
Author Organization [facility] Address [address] [place] [address] Care Team Providers Care Stockroom Clerk Name Role Phone Jailene Fajardo MD Primary Care Provider [phone] Reason for Visit * Reason Comments Injury Knee Right Encounter Details Date Type Department Care Team (Latest Contact Info) Description 04/07/2011 1:00 PM CDT - 04/07/2011 11:59 PM CDT Hospital Encounter [facility] Pediatrics - Orthopedics [address] [place] [address] [place] [address] Discharge Disposition: Home or Self Care Social History Tobacco Use Types Packs/Day Years Used Date Smoking Tobacco: Never Assessed Sex and Gender Information Value Date Recorded Sex Assigned at Not on file Gender Identity Not on file Sexual Orientation Not on file documented as of this encounter Discharge Instructions * Patient Instructions* Davida Chin MD - 04/07/2011 1:32 PM CDT Encounter Diagnoses Name Primary? Right knee pain Return appointment: 2 weeks Call [phone], option 1, for return if your child has new symptoms or problems, or if you have concerns. Call [phone] for questions. Physicians orders: Wear knee immobilizer except when bathing Medications prescribed: none Activity Restrictions: No sports or physical education class until further notice School/Work Excuse: Patient had an appointment 04/07/2011 documented in this encounter Medications at Time of Discharge Medication Sig Dispensed Refills Start Date End Date ibuprofen (IBU-200) 200 MG tablet Take 2 Tabs by mouth every 6 hours as needed. 06/01/2011 documented as of this encounter Progress Notes * Davida Chin MD - 04/07/2011 1:36 PM CDT NAME: Liza [place] DATE: 04/07/2011 : 2000 HISTORY: Liza [place] is a 11 y.o. female With a history of right knee injury who presents for evaluation for continued right knee pain. She is accompanied today by her mother who reports that Liza fell directly onto her right knee from a trampoline 2 weeks ago. They noted swelling several hours after the injury. She localizes the pain diffusely to her knee. The pain is worse with walking and weight bearing. MEDS: Current outpatient prescriptions:ibuprofen (IBU-200) 200 MG tablet, Take 2 Tabs by mouth every 6 hours as needed., Disp: , Rfl: PAST SURGICAL HISTORY: n/a ALLERGIES: No Known Allergies IMMUNIZATIONS: Up to date REVIEW OF SYSTEMS: Negative for cardiac, renal, pulmonary or seizure disorders. DEVELOPMENTAL HISTORY: No reported delays. SOCIAL HISTORY: Patient lives with her mother. She does attend school. . PHYSICAL EXAM: Liza [place] is a well developed, well nourished female in no acute distress who is alert and cooperative with my examination. She does have good head and trunk control. She does ambulate with a limp. Upper extremity exam shows no apparent abnormalities. Lower extremity exam shows diffuse tenderness around the right patella with tenderness along the LCL and pain with varus stressing. There is not a joint effusion as compared to the left side. Her knee is stable to varus and valgus stress. Peg, anterior drawer and patellar apprehension tests are negative . IMAGING: Right knee films negative. IMPRESSION: Right knee pain - LCL strain PLAN: Recommend immobilization in a knee immobilizer. No sports or PE class. Follow up in 2 weeks. If exam and pain are not improved then we will consider an MRI. * Paola Tom RN - 04/07/2011 1:07 PM CDT Injured right knee 2007 while skating. Most currently she injured her right knee falling from trampoline onto the ground. Xrays done yesterday at [facility]. Patient her for evaluation. documented in this encounter Miscellaneous Notes * Miscellaneous Scans - Document, Scanned - 05/14/2011 5:58 AM CST [place] SERVICE SPECIALIST documented in this encounter Plan of Treatment Not on file documented as of this encounter Visit Diagnoses Diagnosis Right knee pain Pain in joint, lower leg documented in this encounter Care Teams Stockroom Clerk Relationship Specialty Start Date End Date Jailene Fajardo MD [address] [facility] [facility] [address] [place] [address] PCP - General 04/06/11 06/21/11 documented as of this encounter
--- OUTSIDE RECORDS SUMMARY | 2024-06-14 05:21 | XMS_ITS | Encounter Summary ---
Author Organization [facility] Address [address] [place] [address] Care Team Providers Care Kardex Clerk Name Role Phone Jailene Fajardo MD Primary Care Provider [phone] Reason for Visit * Reason Onset Date Comments Results 05/29/2011 Encounter Details Date Type Department Care Team (Late st Contact Info) Description 05/29/2011 Telephone [facility] Pediatric[facility] - GI [address] [place] [address] Kaitlynn Chung, DIE REPAIR MACHINIST-SUPERVISOR [employer] [address] [place] [address] Results Social History Tobacco Use Types Packs/Day Years Used Date Smoking Tobacco: Never Assessed Sex and Gender Information Value Date Recorded Sex Assigned at Not on file Gender Identity Not on file Sexual Orientation Not on file documented as of this encounter Miscellaneous Notes * Telephone Encounter - Jacqueline Maria RN - 05/29/2011 4:18 PM PASTRY BAKER Spoke to mother informing her of blood work from [facility]. Results WNL except ALT 30. TTG still pending. Mother states Liza is still occasionally having pain with vomiting. Plan for EGD if all bloodwork normal per mom. RY BAKER * Telephone Encounter - Chula Eason - 05/29/2011 3:57 PM CST Mom calling for bloodwork results. RY BAKER documented in this encounter Plan of Treatment Not on file documented as of this encounter Visit Diagnoses Not on filedocumented in this encounter Care Teams Kardex Clerk Relationship Specialty Start Date End Date Jailene Fajardo MD [address] [address] [place] [address] PCP - General 04/06/11 06/21/11 documented as of this encounter
--- OUTSIDE RECORDS SUMMARY | 2024-06-14 05:21 | XMS_ITS | Encounter Summary ---
Author Organization [facility] Healthcare Address [address] [place] [id number] Care Team Providers Care Metal Template Maker Name Role Phone Natalya Guzman NP Primary Care Provider [phone] Encounter Details Date Type Department Care Team (Late st Contact Info) Description 09/15/2021 10:45 AM CDT - 09/15/2021 11:30 AM CDT Surgery GI Lab [address] [place], [place] [id number] Raul Carlson MD [id number] [place], [place] [address] [place] [address] COLON BIOPSY Surgery Details Date/Time Status Location OR Service Patient Class Case Class Case Type Trauma Case? 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 Gender Identity Not on file Sexual Orientation Not on file documented as of this encounter Last Filed Vital Signs Vital Sign Reading Time Taken Comments Blood Pressure 112/63 09/15/2021 11:25 AM CDT Pulse 54 09/15/2021 11:25 AM CDT Temperature - - Respiratory Rate 26 09/15/2021 11:25 AM CDT Oxygen Saturation 97% 09/15/2021 11:25 AM CDT Inhaled Oxygen Concentration - - Weight 69.4 kg (153 lb) 09/15/2021 10:11 AM CDT Height 160 cm (5' 3 ) 09/15/2021 10:11 AM CDT Body Mass Index 27.1 09/15/2021 10:11 AM CDT documented in this encounter Discharge Instructions * Discharge Instructions* Bianca Cintron - 09/15/2021 11:49 AM CDT Activity Restrictions for the rest of today. 1. Do not drive a car or operate heavy machinery. 2. Do not consume alcohol. 3. Do not engage in hazardous activity. documented in this encounter Medications at Time of Discharge buPROPion XL (WELLBUTRIN XL) 150 mg 24 hr tablet bupropion HCl XL 150 mg 24 hr tablet, extended release TAKE 1 TABLET BY MOUTH EVERY DAY escitalopram (LEXAPRO) 5 mg tablet escitalopram 5 mg tablet TK 1 T PO QD HS nitrofurantoin monohydrate (MACROBID) 100 mg capsule nitrofurantoin monohydrate/macrocr ystals 100 mg capsule TK 1 C PO BID ondansetron ODT (ZOFRAN-ODT) 8 mg disintegrating tablet every 12 hours 28 mg iron- 800 mcg tablet 9 promethazine (PHENERGAN) 25 mg tablet promethazine 25 mg tablet TAKE 1 TABLET BY MOUTH EVERY 6 HOURS NEEDED triamcinolone (KENALOG) 0.1 % cream triamcinolone acetonide 0.1 % topical cream APPLY TOPICALLY TO THE AFFECTED AREA TWICE DAILY Xulane 150-35 mcg/24 hr UNWRAP AND APPLY 1 PATCH TO SKIN ONCE WEEKLY FOR 3 WEEKS OF A 4-WEEK CYCLE 2 documented as of this encounter Discharge Disposition Disposition Code Departure Means Destination Discharge to home or self care documented in this encounter H&P Notes * Raul Carlson MD - 09/15/2021 10:45 AM CDT I have reviewed the H&P, examined the patient, and endorse the findings as written. Plan of Care : Based on the above findings, I consider Liza Worthington to be an acceptable risk for : Procedure(s): COLONOSCOPY ESOPHAGOGASTRODUODENOSCOPY covid recovered Source Note - Raul Carlson MD - 08/27/2021 11:45 AM CDT Images from the original note were not included. [facility] Gastroenterology Subjective/Objective Patient ID: Liza Worthington is a 21 y.o. White female. Assessment/Plan Diagnoses and all orders for this visit: Diarrhea, unspecified type (Primary) Assessment & Plan: Likely post cholecystectomy diarrhea although IBS remains a strong possibility. I had seen her in the past when she was and could not do any invasive workup at that time. She had good response to cholestyramine in the past. I will reorder cholestyramine. Colonoscopy is also recommended and scheduled. Orders: - CRP (acute phase); Future Rectal bleeding Assessment & Plan: Intermittent. She has chronic diarrhea. The intermittent bleeding may be related to anorectal injury , hemorrhoids or less likely inflammatory bowel disease. Will schedule for colonoscopy. Orders: - Protime-INR; Future Epigastric pain Assessment & Plan: Persistent epigastric pain associated with tenderness despite being on H2 RA for more than 3 months. May be due to esophageal reflux disease. Peptic ulcer disease is a possibility. She has had a cholecystectomy and recent pancreatic enzymes were normal which makes pancreatitis unlikely. She was scheduled for Esophagogastroduodenoscopy. Advised to continue cimetidine. Orders: - EGD -[facility] - Case Request GI: COLONOSCOPY Non-intractable vomiting with nausea, unspecified vomiting type Assessment & Plan: Chronic. Associated with epigastric pain and tenderness. Unlikely to be due to CHS since she only smokes marijuana occasionally. The vomiting may be due to gastroesophageal reflux disease, functional abdominal pain syndrome. Will proceed with Esophagogastroduodenoscopy as scheduled. Continue cimetidine for now. May need PPI depending on results of endoscopy. Orders: - Case Request GI: COLONOSCOPY Other orders - cholestyramine (QUESTRAN) 4 gram powder; Take 1 packet (4 g total) by mouth daily Dissolve in 8 oz of liquid and drink before a meal Health Maintenance Topic Date Due ??? Regular Well Visit/Exam 18-64 Never done ??? Chlamydia and Gonorrhea (GC/CT) Screening Never done ??? Cervical Cancer Screening-Pap Smear Never done ??? DTaP/Tdap/Td Vaccine (6 - Td or Tdap) 09/17/2019 ??? Influenza Vaccine (1) 02/12/2021 ??? Depression Screening-PHQ 07/01/2022 ??? Varicella Vaccines Completed ??? HPV Vaccines Completed ? ? Pneumococcal vaccine <65 Aged Out Advise High fiber diet. Avoid use of nonsteroidal antiinflammatory drugs. Regular exercise encouraged. Avoid excessive alcohol ingestion and cigarette smoking. Chief Complaint Nausea and Diarrhea Diarrhea This is a chronic problem. The current episode started more than 1 year ago. The problem occurs constantly. The problem has been unchanged. Associated symptoms include abdominal pain, nausea and vomiting. Pertinent negatives include no arthralgias, chest pain, chills, coughing, fatigue, fever, joint swelling, rash or sore throat. Nothing aggravates the symptoms. Treatments tried: Cholestyramine. The treatment provided moderate relief. Vomiting This is a recurrent problem. The current episode started more than 1 year ago. The problem occurs intermittently. The problem has been waxing and waning. Associated symptoms include abdominal pain, nausea and vomiting. Pertinent negatives include no arthralgias, chest pain, chills, coughing, fatigue, fever, joint swelling, rash or sore throat. Nothing aggravates the symptoms. Treatments tried: PPI. The treatment provided mild relief. Patient Active Problem List Diagnosis ??? Diarrhea ??? Non-intractable vomiting ??? Intractable vomiting ??? Rectal bleeding ??? Epigastric pain No Known Allergies Past Surgical History: Procedure Laterality Date ??? CHOLECYSTECTOMY 2011 ??? TONSILECTOMY, ADENOIDECTOMY, BILATERAL MYRINGOTOMY AND TUBES 2006 Family History Problem Relation Age of Onset ??? Heart attack Father HOME MEDICATIONS : buPROPion XL (WELLBUTRIN XL) 150 mg 24 hr tablet cimetidine (TAGAMET) 400 mg tablet escitalopram (LEXAPRO) 5 mg tablet nitrofurantoin monohydrate (MACROBID) 100 mg capsule ondansetron ODT (ZOFRAN-ODT) 8 mg disintegrating tablet 28 mg iron- 800 mcg tablet promethazine (PHENERGAN) 25 mg tablet triamcinolone (KENALOG) 0.1 % cream Xulane 150-35 mcg/24 hr HYDROcodone-acetaminophen (NORCO) 5-325 mg per tablet bisacodyl EC (DULCOLAX EC) 5 mg EC tablet cholestyramine (QUESTRAN) 4 gram powder polyethylene glycol (GoLYTELY) 236-22.74-6.74 -5.86 gram solution Review of Systems Constitutional: Negative for appetite change, chills, fatigue, fever and unexpected weight change. HENT: Negative for drooling, mouth sores, postnasal drip, sore throat, trouble swallowing and voicechange. Eyes: Negative for redness. Respiratory: Negative for cough and wheezing. Cardiovascular: Negative for chest pain. Gastrointestinal: Positive for abdominal pain, diarrhea, nausea and vomiting. Negative for abdominal distention, anal bleeding, blood in stool, constipation and rectal pain. Endocrine: Negative for cold intolerance, heat intolerance, polydipsia and polyuria. Genitourinary: Negative for difficulty urinating and urgency. Musculoskeletal: Negative for arthralgias, back pain and joint swelling. Skin: Negative for color change, pallor and rash. Allergic/Immunologic: Negative for food allergies and immunocompromised state. Neurological: Negative for dizziness and seizures. Hematological: Negative for adenopathy. Does not bruise/bleed easily. Psychiatric/Behavioral: Negative for hallucinations, self-injury and suicidal ideas. Vitals BP 114/70 (BP Location: Right arm, Patient Position: Sitting) Pulse 80 Resp 16 Ht 157.5 cm (5' 2.01 ) Wt 68.8 kg (151 lb 9.6 oz) SpO2 99% BMI 27.72 kg/m?? Body mass index is 27.72 kg/m??. Physical Exam Constitutional: Appearance: She is well-developed. HENT: Head: Normocephalic. Eyes: Conjunctiva/sclera: Conjunctivae normal. Pupils: Pupils are equal, round, and reactive to light. Cardiovascular: Rate and Rhythm: Normal rate. Heart sounds: Normal heart sounds. Pulmonary: Effort: Pulmonary effort is normal. Breath sounds: Normal breath sounds. Abdominal: General: Bowel sounds are normal. Palpations: Abdomen is soft. Musculoskeletal: General: Normal range of motion. Cervical back: Normal range of motion. Skin: General: Skin is warm. Neurological: Mental Status: She is oriented to person, place, and time. Psychiatric: Thought Content: Thought content normal. LABS Lab Results Component Value Date WBC 6.6 07/02/2021 HGB 11.0 (L) 07/02/2021 HCT 34.2 (L) 07/02/2021 MCV 90.5 07/02/2021 Chemistry Component Value Date/Time SODIUM 137 07/01/2021 2358 POTASSIUM 3.9 07/01/2021 2358 CHLORIDE 101 07/01/2021 2358 CO2 20 (L) 07/01/2021 2358 BUNSER 10 07/01/2021 2358 CREATININE 0.66 07/01/2021 2358 GLUCOSE 88 07/01/2021 2358 Component Value Date/Time CALCIUM 8.9 07/01/2021 2358 ALKPHOS 72 07/01/2021 1048 AST 23 07/01/2021 1048 ALT 20 07/01/2021 1048 BILITOT 1.2 07/01/2021 1048 Lab Results Component Value Date ALT 20 07/01/2021 AST 23 07/01/2021 ALKPHOS 72 07/01/2021 BILITOT 1.2 07/01/2021 Lab Results Component Value Date AMYLASE 17 (L) 07/02/2021 IMAGING STUDIES Raul Carlson MD documented in this encounter Procedure Notes * Raul Carlson MD - 09/15/2021 10:49 AM CDTAssociated Order(s): EGD [facility] Endoscopy Lab Patient Name: Liza Worthington Procedure Date: 09/15/2021 10:49 AM Date of : 2000 Admit Type: Outpatient Age: 21 Gender: Female Note Status: Finalized Attending MD: Raul Carlson M.D. Procedure Date: 09/15/2021 Procedure: Upper GI endoscopy Indications: Epigastric abdominal pain Providers: Raul Carlson M.D., Luz Wolff CRNA (Anesthesia Staff), Ariana Worthy, AMBER, Kerline Duarte, Flower Pot Press Operator Referring MD: TAO Banuelos Medicines: Monitored Anesthesia Care Complications: No immediate complications. Estimated Blood Loss: Estimated blood loss was minimal. Procedure: After obtaining informed consent, the endoscope was passed under direct vision. Throughout the procedure, the patient's blood pressure, pulse, and oxygen saturations were monitored continuously. The scope was passed under direct vision. The Endoscope was introduced through the mouth, and advanced to the second part of duodenum. The upper GI endoscopy was accomplished without difficulty. The patient tolerated the procedure well. Findings: LA Grade B (one or more mucosal breaks greater than 5 mm, not extending between the tops of two mucosal folds) esophagitis with no bleeding was found in the lower third of the esophagus. Diffuse moderately erythematous mucosa without bleeding was found in the gastric antrum. Biopsies were taken with a cold forceps for histology. Estimated blood loss was minimal. The examined duodenum was normal. The cardia and gastric fundus were normal on retroflexion. Impression: - LA Grade B reflux esophagitis with no bleeding. - Erythematous mucosa in the antrum. Biopsied. - Normal examined duodenum. Recommendation: - Await pathology results. - Follow an antireflux regimen. - Use a proton pump inhibitor PO daily for 3 months. Procedure Code(s): --- Professional --- 24767, Esophagogastroduodenoscopy, flexible, transoral; with biopsy, single or multiple Diagnosis Code(s): --- Professional --- K21.00, Gastro-esophageal reflux disease with esophagitis, without bleeding K31.89, Other diseases of stomach and duodenum R10.13, Epigastric pain CPT copyright 2020 [employer]. All rights reserved. The codes documented in this report are preliminary and upon product designer review may be revised to meet current compliance requirements. Electronically signed by Raul Carlson M.D. Raul Carlson M.D. 09/15/2021 11:03:55 AM Number of Addenda: 0 Note Initiated On: 09/15/2021 10:49 AM * Raul Carlson MD - 09/15/2021 10:47 AM CDTAssociated Order(s): COLONOSCOPY - Endoscopy Lab Patient Name: Liza Worthington Procedure Date: 09/15/2021 10:47 AM Date of : 2000 Admit Type: Outpatient Age: 21 Gender: Female Note Status: Finalized Attending MD: Raul Carlson M.D. Procedure Date: 09/15/2021 Procedure: Colonoscopy Indications: Clinically significant diarrhea of unexplained origin, Hematochezia Providers: Raul Carlson M.D., Luz Wolff, PLANT CHANGER (Anesthesia Staff), Ariana Worthy, RN, Kerline Duarte, Flower Pot Press Operator Referring MD: TAO Banuelos Medicines: Monitored Anesthesia Care Complications: No immediate complications. Estimated Blood Loss: Estimated blood loss was minimal. Procedure: Pre-Anesthesia Assessment: - Prior to the procedure, a History and Physical was performed, and patient medications and allergies were reviewed. The patient is competent. The risks and benefits of the procedure and the sedation options and risks were discussed with the patient. All questions were answered and informed consent was obtained. Patient identification and proposed procedure were verified by the physician, the nurse and the telephone supervisor in the procedure room. Mental Status Examination: alert and oriented. Airway Examination: normal oropharyngeal airway and neck mobility. Respiratory Examination: clear to auscultation. CV Examination: normal. Prophylactic Antibiotics: The patient does not require prophylactic antibiotics. Prior Anticoagulants: The patient has taken no anticoagulant or antiplatelet agents. ASA Grade Assessment: II - A patient with mild systemic disease. After reviewing the risks and benefits, the patient was deemed in satisfactory condition to undergo the procedure. The anesthesia plan was to use monitored anesthesia care (MAC). Immediately prior to administration of medications, the patient was re-assessed for adequacy to receive sedatives. The heart rate, respiratory rate, oxygen saturations, blood pressure, adequacy of pulmonary ventilation, and response to care were monitored throughout the procedure. The physical status of the patient was re-assessed after the procedure. - The risks and benefits of the procedure and the sedation options and risks were discussed with the patient. All questions were answered and informed consent was obtained. After I obtained informed consent, the scope was passed under direct vision. Throughout the procedure, the patient's blood pressure, pulse, and oxygen saturations were monitored continuously. The scope was passed under direct vision. The Colonoscope was introduced through the anus and advanced to the the terminal ileum. The colonoscopy was performed without difficulty. The patient tolerated the procedure well. The quality of the bowel preparation was adequate. The bowel preparation used was polyethylene glycol (PEG) and bisacodyl tablets via split dose instruction. Findings: The terminal ileum appeared normal. Biopsies were taken with a cold forceps for histology. The colon (entire examined portion) appeared normal. Biopsies were taken with a cold forceps for histology. The exam was otherwise without abnormality on direct and retroflexion views. Impression: - The examined portion of the ileum was normal. Biopsied. - The entire examined colon is normal. Biopsied. - The examination was otherwise normal on direct and retroflexion views. Recommendation: - Await pathology results. - Repeat colonoscopy at age 43. Procedure Code(s): --- Professional --- 01176, Colonoscopy, flexible; with biopsy, single or multiple Diagnosis Code(s): --- Professional --- R19.7, Diarrhea, unspecified K92.1, Melena (includes Hematochezia) CPT copyright 2020 [employer]. All rights reserved. The codes documented in this report are preliminary and upon product designer review may be revised to meet current compliance requirements. Electronically signed by Raul Carlson M.D. Raul Carlson M.D. 09/15/2021 11:27:03 AM Number of Addenda: 0 Note Initiated On: 09/15/2021 10:47 AM documented in this encounter Plan of Treatment Not on file documented as of this encounter Procedures Procedure Name Priority Date/Time Associated Diagnosis Comments SURGICAL PATHOLOGY Routine 09/15/2021 2:29 PM CDT Epigastric pain Non-intractable vomiting with nausea EGD 09/15/2021 10:49 AM CDT ESOPHAGOGASTRODUODENOSCOPY BIOPSY 09/15/2021 10:49 AM CDT Epigastric pain Non-intractable vomiting with nausea, unspecified vomiting type COLON BIOPSY 09/15/2021 10:49 AM CDT Epigastric pain Non-intractable vomiting with nausea, unspecified vomiting type COLONOSCOPY 09/15/2021 10:47 AM CDT POCT HCG, URINE Routine 09/15/2021 10:06 AM CDT documented in this encounter Results * Surgical pathology (09/15/2021 2:29 PM CDT) Tissue (Gastric/Stomach biopsy) 09/15/2021 11:58 AM CDT Tissue (Colon, Biopsy) 09/15/2021 11:09 AM CDT Tissue (Colon, Biopsy) 09/15/2021 11:11 AM CDT Narrative PATHOLOGY [facility] - 09/16/2021 4:44 PM CDT EPIC results best viewed via link to PDF Department of Pathology [address] [place] [id number] Note to Patients: This report may contain a detailed description of human tissue sent by a health care provider to the laboratory for pathologic evaluation. The content of this report is essential for diagnosis and may provide important critical findings. This information may be unfamiliar to patients to review without a medical professional present. It is advised that the patient review this report in the presence of a health care provider who can answer questions and explain the details. Final Report Patient Name: ??LIZA WORTHINGTON Address: ??[address], ??[place], [place] [address] Gender: ??F : ??2000 (Age: 21) Service: ??Gastro Location: ??[facility] #: ??[id number] Patient Type: ??[facility] Accession # ?[id number] Taken: ??09/15/2021 Received: ??09/15/2021 Accessioned: ??09/15/2021 Reported: ??09/16/2021 Physician(s):Dr. Raul Carlson M.D. TAO Thompson Diagnosis: A: Stomach, antral biopsy: ? -Mild reactive gastropathy B: Terminal ileum, endoscopic biopsy: ? -No significant histopathologic abnormality C: Ascending colon, random endoscopic biopsy: ? -No significant histopathologic abnormality Sisi Jameson M.D. Report Electronically Reviewed and Signed Out By ??Sisi Jameson M.D. ??09/16/2021 16:44:37 Specimen(s) Received: A: Gastric antrum biopsy B: Terminal ileum C: Random ascending colon Microscopic Description: Sections of antral biopsy material demonstrate benign antral-type mucosa demonstrating slight serpentine pit profiles with reactive changes. ??Significant inflammation is not demonstrated. Ileum and ascending colon biopsy material are unremarkable. Clinical History: Epigastric pain, non-intractable vomiting with nausea Gross Description: The specimen is submitted in three containers labeled Liza Worthington . A. ??The first container is labeled gastric antrum biopsy . ??It is a 2 mm antony tissue fragment. ??All in A. B. ??The second container is labeled terminal ileum . ??It is a 3 mm antony tissue fragment. ??All in B. C. ??The third container is labeled random ascending colon . It is two antony tissue fragments measuring 1-2 mm each. All in C. ??Idris Moe M.D. REPORT IMAGES AND SCANNED DOCUMENTS, IF INCLUDED, ONLY VIEWABLE IN PDF VERSION OF REPORT The performance characteristics of some immunohistochemical stains, fluorescence in-situ hybridization tests and immunophenotyping by flow cytometry cited in this report (if any) were determined by the Surgical Pathology Department at as part of an ongoing quality officer program and in compliance with federally mandated regulations drawn from the Clinical Laboratory Improvement Act of 1988 (CLIA '88). ??Some of these tests rely on the use of analyte specific reagents and are subject to specific labeling requirements by the US Food and Drug Administration. ??Such diagnostic tests may only be performed in a facility that is certified by the Department of Health and Human Services as a high complexity laboratory under CLIA '88. The FDA has determined that such clearance or approval is not necessary. ??This test is used for clinical purposes. ??It should not be regarded as investigational or for research. ??Nevertheless, federal rules concerning the medical use of analyte specific reagents require that the following disclaimer be attached to the report: This test was developed and its performance characteristics determined by the Surgical Pathology Department [facility]. ??It has not been cleared or approved by the U. S. Food and Drug Administration. Note for decalcified specimens: This assay has not been validated on decalcified tissues. Results should be interpreted with caution given the possibility of false negativity on decalcified specimens Raul Carlson MD LAB PATHOLOGY ORDERABLE S Final Result [facility] [address] [place] [address] * EGD (09/15/2021 10:49 AM CDT) Anatomical Region Laterality Modality Other Narrative Procedure Note Raul Carlson MD - 09/15/2021 10:49 AM CDT - Endoscopy Lab Patient Name: Liza Worthington Procedure Date: 09/15/2021 10:49 AM Date of : 2000 Admit Type: Outpatient Age: 21 Gender: Female Note Status: Finalized Attending MD: Raul Carlson M.D. Procedure Date: 09/15/2021 Procedure: Upper GI endoscopy Indications: Epigastric abdominal pain Providers: Raul Carlson M.D., Luz Wolff CRNA (Anesthesia Staff), Ariana Worthy RN, John, Flower Pot Press Operator Referring MD: TAO Banuelos Medicines: Monitored Anesthesia Care Complications: No immediate complications. Estimated Blood Loss: Estimated blood loss was minimal. Procedure: After obtaining informed consent, the endoscope was passed under direct vision. Throughout theprocedure, the patient's blood pressure, pulse, and oxygen saturations were monitored continuously. The scopewas passed under direct vision. The Endoscope was introduced through the mouth, and advanced to the second part of duodenum. The upper GI endoscopy was accomplished without difficulty. The patienttolerated the procedure well. Findings: LA Grade B (one or more mucosal breaks greater than 5 mm, notextending between the tops of two mucosal folds) esophagitis with no bleedingwas found in the lower third of the esophagus. Diffuse moderately erythematous mucosa without bleeding was found inthe gastric antrum. Biopsies were taken with a cold forceps forhistology. Estimated blood loss was minimal. The examined duodenum was normal. The cardia and gastric fundus were normal on retroflexion. Impression: - LA Grade B reflux esophagitis with no bleeding. - Erythematous mucosa in the antrum. Biopsied. - Normal examined duodenum. Recommendation: - Await pathology results. - Follow an antireflux regimen. - Use a proton pump inhibitor PO daily for 3months. Procedure Code(s): --- Professional --- 13617, Esophagogastroduodenoscopy, flexible, transoral; with biopsy, single or multiple Diagnosis Code(s): --- Professional --- K21.00, Gastro-esophageal reflux disease with esophagitis, without bleeding K31.89, Other diseases of stomach and duodenum R10.13, Epigastric pain CPT copyright 2020 [employer]. All rights reserved. The codes documented in this report are preliminary and upon product designer reviewmay be revised to meet current compliance requirements. Electronically signed by Raul Carlson M.D. Raul Carlson M.D. 09/15/2021 11:03:55 AM Number of Addenda: 0 Note Initiated On: 09/15/2021 10:49 AM us Raul Carlson MD ENDOSCOPY PROCEDURES Fi nal Result * COLONOSCOPY (09/15/2021 10:47 AM CDT) Anatomical Region Laterality Modality Other Narrative Procedure Note Raul Carlson MD - 09/15/2021 10:47 AM CDT - Endoscopy Lab Patient Name: Liza Worthington Procedure Date: 09/15/2021 10:47 AM Date of : 2000 Admit Type: Outpatient Age: 21 Gender: Female Note Status: Finalized Attending MD: Raul Carlson M.D. Procedure Date: 09/15/2021 Procedure: Colonoscopy Indications: Clinically significant diarrhea of unexplainedorigin, Hematochezia Providers: Raul Carlson M.D., Luz Wolff, PLANT CHANGER (Anesthesia Staff), Ariana Worthy, RN, John, Flower Pot Press Operator Referring MD: TAO Banuelos Medicines: Monitored Anesthesia Care Complications: No immediate complications. Estimated Blood Loss: Estimated blood loss was minimal. Procedure: Pre-Anesthesia Assessment: - Prior to the procedure, a History and Physicalwas performed, and patient medications and allergieswere reviewed. The patient is competent. The risks and benefits of the procedure and the sedation optionsand risks were discussed with the patient. Allquestions were answered and informed consent was obtained. Patient identification and proposed procedure were verified by the physician, the nurse and the telephone supervisor in the procedure room. Mental Status Examination: alert and oriented. AirwayExamination: normal oropharyngeal airway and neck mobility. Respiratory Examination: clear to auscultation. CV Examination: normal. Prophylactic Antibiotics: The patient does not require prophylactic antibiotics. Prior Anticoagulants: The patient has taken no anticoagulant or antiplatelet agents. ASA Grade Assessment: II - A patient with mild systemicdisease. After reviewing the risks and benefits, the patient was deemed in satisfactory condition to undergo the procedure. The anesthesia plan was to use monitored anesthesia care (MAC). Immediately prior to administration of medications, the patient was re-assessed for adequacy to receive sedatives. The heart rate, respiratory rate, oxygen saturations, blood pressure, adequacy of pulmonary ventilation,and response to care were monitored throughout the procedure. The physical status of the patient was re-assessed after the procedure. - The risks and benefits of the procedure and the sedation options and risks were discussed with the patient. All questions were answered and informed consent was obtained. After I obtained informed consent, the scope was passed under direct vision. Throughout theprocedure, the patient's blood pressure, pulse, and oxygen saturations were monitored continuously. The scopewas passed under direct vision. The Colonoscope was introduced through the anus and advanced to the the terminal ileum. The colonoscopy was performedwithout difficulty. The patient tolerated the procedurewell. The quality of the bowel preparation was adequate.The bowel preparation used was polyethylene glycol(PEG) and bisacodyl tablets via split dose instruction. Findings: The terminal ileum appeared normal. Biopsies were taken with a cold forceps for histology. The colon (entire examined portion) appeared normal. Biopsies weretaken with a cold forceps for histology. The exam was otherwise without abnormality on direct and retroflexion views. Impression: - The examined portion of the ileum was normal. Biopsied. - The entire examined colon is normal. Biopsied. - The examination was otherwise normal on directand retroflexion views. Recommendation: - Await pathology results. - Repeat colonoscopy at age 43. Procedure Code(s): --- Professional --- 50975, Colonoscopy, flexible; with biopsy, singleor multiple Diagnosis Code(s): --- Professional --- R19.7, Diarrhea, unspecified K92.1, Melena (includes Hematochezia) CPT copyright 2020 [employer]. All rights reserved. The codes documented in this report are preliminary and upon product designer reviewmay be revised to meet current compliance requirements. Electronically signed by Raul Carlson M.D. Raul Carlson M.D. 09/15/2021 11:27:03 AM Number of Addenda: 0 Note Initiated On: 09/15/2021 10:47 AM Raul Carlson MD ENDOSCOPY PROCEDURES Fi nal Result * POCT hCG, urine (09/15/2021 10:06 AM CDT) HCG, ur, POC Negative Lot Number [id number] QC Backgroud Clear Acceptable QC Control Line Acceptable Urine 09/15/2021 10:0 6 AM CDT Paty Garrido MD PhD POINT OF CARE TEST MURRAY HERNANDEZ Final Result documented in this encounter Visit Diagnoses Diagnosis Epigastric pain Abdominal pain, epigastric Non-intractable vomiting with nausea, unspecified vomiting type Non-intractable vomiting with nausea Non-intractable vomiting Epigastric pain Abdominal pain, epigastric Non-intractable vomiting with nausea, unspecified vomiting type documented in this encounter Admitting Diagnoses Diagnosis Epigastric pain Abdominal pain, epigastric Non-intractable vomiting documented in this encounter Discontinued Medications Medication Sig Discontinue Reason Start Date End Da te cholestyramine (QUESTRAN) 4 gram powder Take 1 packet (4 g total) by mouth daily Dissolve in 8 oz of liquid and drink before a meal Therapy completed 08/27/2021 09/15/2021 polyethylene glycol (GoLYTELY) 236-22.74-6.74 -5.86 gram solutionIndications:Cedric wel Evacuation Mix solution as directed on the box. At 4 pm drink half of the mix solution and finish by 7 pm .Repeat at 10 pm and finish by midnight. Stop Taking at Discharge 08/27/2021 09/15/2021 bisacodyl EC (DULCOLAX EC) 5 mg EC tablet At 7 pm, take all four tablets at once with a glass of water. Stop Taking at Discharge 08/27/2021 09/15/2021 documented as of this encounter Care Teams Metal Template Maker Relationship Specialty Start Date End Date Natalya Guzman NP PCP - General Nurse Practitioner 06/05/19 documented as of this encounter
--- OUTSIDE RECORDS SUMMARY | 2024-06-14 05:21 | XMS_ITS | Encounter Summary ---
Author Organization [facility] Address [address] [place] [address] Care Team Providers Care Process Development Associate Name Role Phone Jailene Fajardo MD Primary Care Provider [phone] Reason for Visit * Reason Onset Date Comments Medication Problem 05/29/2011 Encounter Details Date Type Department Care Team (Late st Contact Info) Description 05/29/2011 Telephone [facility] - GI [address] [place] [address] Kaitlynn Chung, ASSURANCE ASSISTANT-INSURANCE FOLLOW UP REP [address] [place] [address] Medication Problem Social History Tobacco Use Types Packs/Day Years Used Date Smoking Tobacco: Never Assessed Sex and Gender Information Value Date Recorded Sex Assigned at Not on file Gender Identity Not on file Sexual Orientation Not on file documented as of this encounter Miscellaneous Notes * Telephone Encounter - Chula Eason - 05/29/2011 10:02 AM CST IPA will not cover omeprazole capsules, they should cover prilosec OTC tablets. D CAREGIVER documented in this encounter Plan of Treatment Not on file documented as of this encounter Visit Diagnoses Not on filedocumented in this encounter Care Teams Process Development Associate Relationship Specialty Start Date End Date Jailene Fajardo MD [address] [address] PCP - General 04/06/11 06/21/11 documented as of this encounter
--- OUTSIDE RECORDS SUMMARY | 2024-06-14 05:21 | XMS_ITS | Encounter Summary ---
Author Organization [facility] Address [address] [place] [address] Care Team Providers Care Cotton Grader Name Role Phone Jailene Fajardo MD Primary Care Provider Reason for Visit * Reason Comments Follow-up right knee pain Encounter Details Date Type Department Care Team (Latest Contact Info) Description 04/21/2011 2:33 PM CHILDCARE CENTER ADMINISTRATOR - 04/21/2011 11:59 PM CHILDCARE CENTER ADMINISTRATOR Hospital Encounter [facility] - Orthopedics [address] [place] [address] [place] [address] Discharge Disposition: Home or Self Care Social History Tobacco Use Types Packs/Day Years Used Date Smoking Tobacco: Never Assessed Sex and Gender Information Value Date Recorded Sex Assigned at Not on file Gender Identity Not on file Sexual Orientation Not on file documented as of this encounter Discharge Instructions * Patient Instructions* Luciano Garcia PA-C - 04/21/2011 2:53 PM CHILDCARE CENTER ADMINISTRATOR ORTHOPAEDIC CLINIC DISCHARGE INSTRUCTIONS SHEET Follow Up: We will call with the results of the MRI. Limit strenuous activity--no running, jumping, playground equipment, physical education activities,sports activities until released. School excuse: 04/21/2011 Tylenol and Ibuprofen (over the counter medication) may be used per instructions. If you have any questions or concerns in the interim, or if you need to schedule surgery for your child, you may contact our orthopedic office at . If you need to make a clinic appointment, please call . DCARE CENTER ADMINISTRATOR documented in this encounter Medications at Time of Discharge Medication Sig Dispensed Refills Start Date End Date ibuprofen (IBU-200) 200 MG tablet Take 2 Tabs by mouth every 6 hours as needed. 06/01/2011 documented as of this encounter Progress Notes * Luciano Garcia PA-C - 04/21/2011 2:51 PM CST NAME: Liza Worthington DATE: 04/21/2011 : 2000 HISTORY: Liza Worthington is a 11 y.o. female With a history of right knee injury who presents for follow up evaluation for continued right knee pain. She is accompanied today by her mother who reports that Liza fell directly onto her right knee from a trampoline 4 weeks ago. She was last seen 2 weeks ago and placed into a knee immobilizer. She states that she has been wearing it off/on andthat her pain has improved, however her knee is still bothering her. The pain is worse with walkingand weight bearing. PHYSICAL EXAM: Liza Worthington is a well developed, well nourished female in no acute distress who is alert and cooperative with my examination. She does have good head and trunk control. She doesambulate with a limp. Lower extremity exam shows diffuse tenderness around the right patella with tenderness along the LCL and pain with varus stressing. She does have lateral joint line tenderness on the right side as well. There is not a joint effusion as compared to the left side. Her knee is stable to varus and valgus stress. Peg, anterior drawer and patellar apprehension tests are negative . IMAGING: None today IMPRESSION: Right knee pain PLAN: Since Liza is having persistant pain 1 month out from her injury, and joint line tenderness, we recommend an MRI for further evaluation. She will have this done at [facility] and we will call the family with the results. Further follow up will be determined after her MRI. She will stay out of PE/sports until further notice. DCARE CENTER ADMINISTRATOR documented in this encounter Procedure Notes * Document, Scanned - 06/19/2011 12:40 PM CSTAssociated Order(s): IMAGING/RADIOLOGY/XRAY RESULTS ORDER DCARE CENTER ADMINISTRATOR documented in this encounter Plan of Treatment Not on file documented as of this encounter Procedures Procedure Name Priority Date/Time Associated Diagnosis Comments IMAGING/RADIOLOGY/X RAY RESULTS ORDER 06/19/2011 12:40 PM CHILDCARE CENTER ADMINISTRATOR documented in this encounter Results * IMAGING/RADIOLOGY/XRAY RESULTS ORDER (06/19/2011 12:40 PM CHILDCARE CENTER ADMINISTRATOR) Anatomical Region Laterality Modality Other Narrative Transcriptions Document, Scanned - 06/19/2011 12:40 PM CST Scanned Document IMAGING documented in this encounter Visit Diagnoses Diagnosis Right knee injury Injury, other and unspecified, knee, leg, ankle, and foot documented in this encounter Care Teams Cotton Grader Relationship Specialty Start Date End Date Jailene Fajardo MD [address] [facility] [address] [place] [address] PCP - General 04/06/11 06/21/11 documented as of this encounter
--- OUTSIDE RECORDS SUMMARY | 2024-06-14 05:21 | XMS_ITS | Encounter Summary ---
Author Organization [facility] Address [address] [place] [address] Care Team Providers Care Blueprint Duplicator Name Role Phone Jailene Fajardo MD Primary Care Provider [phone] Reason for Visit * Reason Comments Pain Abdominal has had abd pain for the past week and today pain has shifted to right side. mom states pt has lost about 7 lbs with diarrhea and vomiting for the past week also. pt states the pain feels like someone stabbing her and is intermittent.PRESENTS: lungs clear, abdomen soft/tender to RLQ and mid lower. No rebound tenderness noted. Encounter Details Date Type Department Care Team (Late st Contact Info) Description 05/23/2011 2:32 AM FUSE CUP EXPANDER - 05/23/2011 11:18 AM FUSE CUP EXPANDER Emergency ER at [address] [address] Leann Davies MD [address] [place] [id number] Brianna Quinones MD [address] [place] [id number] Abdominal pain, RUQ (right upper quadrant); Abdominal pain, RLQ Discharge Disposition: Home or Self Care Social History Tobacco Use Types Packs/Day Years Used Date Smoking Tobacco: Never Assessed Sex and Gender Information Value Date Recorded Sex Assigned at Not on file Gender Identity Not on file Sexual Orientation Not on file documented as of this encounter Last Filed Vital Signs Vital Sign Reading Time Taken Comments Blood Pressure 125/52 05/23/2011 9:25 AM FUSE CUP EXPANDER Pulse 60 05/23/2011 9:25 AM FUSE CUP EXPANDER Temperature 36.2 ??C (97.2 ??F) 05/23/2011 9:25 AM CS T Respiratory Rate 16 05/23/2011 9:25 AM FUSE CUP EXPANDER Oxygen Saturation 100% 05/23/2011 9:25 AM FUSE CUP EXPANDER Inhaled Oxygen Concentration - - Weight 84.2 kg (185 lb 10 oz) 05/23/2011 2:33 AM FUSE CUP EXPANDER Height - - Body Mass Index - - documented in this encounter Discharge Instructions * Discharge Instructions* Khushboo Pal MD - 05/23/2011 10:54 AM FUSE CUP EXPANDER Abdominal Pain Abdominal (belly) pain can be caused by many things. Your caregiver decides the seriousness of yourpain by an examination and possibly blood tests and x-rays. Many cases can be observed and treated at home. Most abdominal pain in children is functional. This means it is not caused by a disease andwill probably improve without treatment. However, in many cases, more time must pass before a clear cause of the pain can be found. Before that point, it may not be known if you need more testing, orif hospitalization or surgery is needed. HOME CARE INSTRUCTIONS: ?? Do not take or give laxatives unless directed by your caregiver. ?? Take pain medication only if ordered by your caregiver. ?? Only take [id number] or prescription medicines for pain, discomfort or fever as directed by your caregiver. ?? Try a clear liquid diet - broth, tea, or water as ordered by your caregiver. Slowly move to a bland diet as tolerated. SEEK IMMEDIATE MEDICAL ATTENTION IF: ?? The pain does not go away. ?? An oral temperature above 102?? F (38.9?? C) develops or as directed by your caregiver. ?? Repeated vomiting occurs. ?? The pain is felt only in portions of the abdomen. The right side could possibly be appendicitis.In an adult, the left lower portion of the abdomen could be colitis or diverticulitis. ?? Blood is being passed in stools (bright red or black tarry stools). MAKE SURE YOU: ?? Understand these instructions. ?? Will watch your condition. ?? Will get help right away if you are not doing well or get worse. Document Released: 05/31/2006 Document Re-Released: 08/27/2009 ExitCare?? Patient Information ??2009 [employer]. CUP EXPANDER * Discharge Instructions* Document, Scanned - 05/25/2011 7:43 PM FUSE CUP EXPANDER CUP EXPANDER documented in this encounter Medications at Time of Discharge Medication Sig Dispensed Refills Start Date End Date hyoscyamine (LEVSIN) 0.125 MG tablet Take 0.125 mg by mouth every 4 hours as needed. 05/28/2011 ibuprofen (IBU-200) 200 MG tablet Take 2 Tabs by mouth every 6 hours as needed. 06/01/2011 documented as of this encounter Progress Notes * Brianna Quinones MD - 05/23/2011 11:23 AM CST Assumed care of pt from Dr Davies at change of shift. Pt with flu-like illness over past week, vomiting and diarrhea, fever earlier in illness but not now. In ED today for right-sided abd pain, concern about appendicitis. On exam, pt awake and alert, good perfusion, mmb's pink and moist, neck supple, lungs clear bilat, RRR, abd with pos BS, soft, NTTP, sl frowning with abd exam but no guarding or peritoneal signs, pain not well localized. Mom brought up possibility of LCMV, since pt was bitten by her guinea pig on right hand about a month ago. Initial sx included severe CUMMINS, thought to be migraine at the time but not typical for her. In looking over sx, including lab abnormality of sl elevated liver enzymes. (other labs normal) D/w Dr Funes, no further w/u indicated, will send Ab level for confirmatory purposes. D/w Dr Ahmad, who will f/u. Family agreeable with plan, feel pt is getting better overall, reassured that pt does not apparently have appendicitis at this time. To continue symptomatic treatment. CUP EXPANDER * Khushboo Pal MD - 05/23/2011 10:55 AM CST Discussed likely viral diagnosis. Family ready to go home. Will discharge home with supportive care instructions. Contact numbers for family: [phone]- Mom [phone]- Dad Will send Lymphocytic chorionic antibody test to look for confirmation of diagnosis. CUP EXPANDER documented in this encounter H&P Notes * David Gilbert MD - 05/23/2011 5:37 AM CST Pediatric General Surgery History and Physical Patient's Primary Care Physician: Jailene Fajardo MD Name: Liza Worthington Age: 11 y.o. Race: white Sex: female Admit Date: 05/23/2011 2:32 AM Chief Complaint/History of Present Illness Liza Worthington is a 11 y.o. female with vomiting, pain and diarrhea. The patient was diagnosed with bronchitis approx 10 days ago and was given azithromycin. Shortly after treatment started, her cough went away, but she began having diarrhea and vomiting. The vomiting seems to be worse after she eats. She denies and gross blood in stool or vomit and says her vomit consist of whatever she had just eaten. She has been followed from this problem by her client specialist. She apparently had a RUQ U/S that was ready as negative a few days ago. The reason that she came in tonight was severe RU/RLQ abdominal pain that started yesterday afternoon and and been getting worse. She describes the pain asconstant with acute sharp pains in her RUQ at times. She denies current fevers, sick contacts or travel. Her parents state that she has lost 7 pounds since she became sick. No past medical history on file. Past Surgical History Procedure Date ??? Tonsillectomy and adenoidectomy No family history on file. Social History Occupational History ??? Not on file. Social History Main Topics ??? Smoking status: Not on file ??? Smokeless tobacco: Not on file ??? Alcohol Use: ??? Drug Use: ??? Sexually Active: Not on file (Not in a hospital admission) No Known Allergies Review of Systems A comprehensive review of systems was negative except as described in HPI. Exam Vitals: 05/23/11 0233 05/23/11 0451 BP: 112/61 Pulse: 70 62 Temp: 97.8 ??F Resp: 16 16 Weight: 84.2 kg (185 lb 10 oz) SpO2: 98% General appearance: alert, cooperative, no distress Head: Normocephalic, without trauma Eyes: sclera and conjunctiva clear, EOMI and PERRLA, lids normal Ears: canals clear, tympanic membranes normal, hearing intact to voice Nose: nares open; no septal deviation is noted Throat: no mucous membrane abnormalities Neck: range of motion is intact, no masses, thyroid not enlarged, no adenopathy Nodes: no cervical, axillary or inguinal adenopathy Back: no deformity or tenderness Chest: no tenderness Breasts: symmetric, nontender, no masses or discharge Lungs: breath sounds normal and symmetric; no rales or wheezes Heart: regular rhythm, normal S1 and S2, without murmurs, gallops or rubs Abdomen: soft without mass, non-tender, with normal bowel sounds Female Genitalia: external genitalia and intoitus normal; vagina and cervix normal by palpation;uterus not enlarged and without masses or tenderness; no adnexal fullness or mass Rectal: sphincter tone normal, no masses Extremities: no clubbing, cyanosis or edema Circulation: Carotid and pedal pulses are intact and symmetrical, aorta is not enlarged, no carotidbruits Joints: ranges of motion normal without inflammation, effusion or deformity Skin: no rashes or other abnormalities are noted Neurologic: mental status normal; alert and oriented X 3; cranial nerves II - XII are grossly intact General appearance: alert, cooperative, mildly sedated Lungs: breath sounds normal and symmetric; no rales or wheezes Heart: regular rhythm, normal S1 and S2, without murmurs, gallops or rubs Abdomen: obese, soft, mild tenderness to palpation in RUQ, RLQ and periumbilical; subjectively worse in RUQ, no guarding, no rebound, no palpable masses Extremities: no clubbing, cyanosis or edema Neurologic: mental status normal; alert and oriented X 3; cranial nerves II - XII are grossly intact Data CBC w/o Manual Diff: Component Name 05/23/11 0353 WBC 9.02 HGB 13.7 HCT 39.2 PLTCOUNT 381 CMP: Component Name 05/23/11 0353 SODIUM 142 POTASSIUM 3.9 CHLORIDE 104 CO2 25.4 BUN 10.7 CREATININE 0.60 GLUCOSE 95 CALCIUM 9.4 ALBUMIN 4.1 ALKPHOS 125 ALT 55* AST 40* TBIL 0.6 TPROT 7.4 EGFR -- Assessment and Plan Liza Worthington is a 11 y.o. female with nausea/vomiting. Will consider abdominal U/S vs CT abdomen to r/o problems. Examined with Dr. Downs. Will discuss with Dr. Vela. CUP EXPANDER documented in this encounter ED Notes * Mary Young RN - 05/23/2011 11:15 AM CST Pt alert and cooperative at time of discharge. Pt mom at side. CUP EXPANDER * Obdulia Kohler RN - 05/23/2011 7:21 AM CST Pt to Radiology for chest xray CUP EXPANDER * Obdulia Kohler RN - 05/23/2011 7:05 AM CST Surgery at bedside. Awaiting hcg then will send to xray CUP EXPANDER * Obdulia Kohler RN - 05/23/2011 5:29 AM CST Patient is resting comfortably. CUP EXPANDER * Obdulia Kohler RN - 05/23/2011 4:40 AM CST Pt sent to restroom with instructions for a clean catch urine. Accompanied by mother CUP EXPANDER * Obdulia Kohler RN - 05/23/2011 4:[address] Durham aware and ok with the 1L bolus instead of 1600 ml as ordered. Unable to modify order asmed already given CUP EXPANDER * Obdulia Kohler RN - 05/23/2011 4:20 AM CST Pt resting after morphine. Remains on continuous pulse ox. CUP EXPANDER * Virgen Durham MD - 05/23/2011 3:35 AM CST Provider contact with the patient: 05/23/2011 3:35 AM Liza Worthington [id number] [facility] EMERGENCY DEPT History Chief Complaint Patient presents with ??? Pain Abdominal has had abd pain for the past week and today pain has shifted to right side. mom states pt has lostabout 7 lbs with diarrhea and vomiting for the past week also. pt states the pain feels like someone stabbing her and is intermittent.PRESENTS: lungs clear, abdomen soft/tender to RLQ and mid lower. No rebound tenderness noted. HPI Comments: 11yo overweight F with 2wk h/o periumbilical abdominal pain with NBNB v/d up to 4x/day each that acutely worsened to RLQ abdominal pain at 0001am today. Sips fluids, but no solid PO. Does report some incr abdo pain with PO solid intake. Wt loss 7lb in 1 week. PMD did U/S RUQ on at was reportedly negative. PMD also did CMP at that time with reported slt elevated LFTs, otherwise cbc,cmp OK. Stool cx pending per PMD orders. Two weeks ago had h/o URI + periumbilical abdominalpain with nonbloody v/d x 4x/day. PMD rx'd azithromycin which resolved URI sxs, but v/d persisted. Fevers Tm102, resolved 1 week ago. LMP 05/09, no previous significant cramping with menses. Diet repo rtedly well balanced without significant caffeine, spicy, fatty foods. Denies dysuria, hematuria, flank pain, vaginal discharge, rash, cough, chest pain, sore throat, or other c/o. No current meds, no allergies. UTD. FH: no GB dz. Mom has had ovarian cysts. SH: denies sexual activity, STDs, pregnancies, EtOH, rec drug use, tobacco. No past medical history on file. Past Surgical History Procedure Date ??? Tonsillectomy and adenoidectomy History Social History ??? Marital Status: Single Spouse Name: N/A Number of Children: N/A ??? Years of Education: N/A Occupational History ??? Not on file. Social History Main Topics ??? Smoking status: Not on file ??? Smokeless tobacco: Not on file ??? Alcohol Use: ??? Drug Use: ??? Sexually Active: Not on file Other Topics Concern ??? Not on file Social History Narrative ??? No narrative on file Medications Current Outpatient Prescriptions Medication Sig Dispense Refill ??? ibuprofen (IBU-200) 200 MG tablet Take 2 Tabs by mouth every 6 hours as needed. ??? hyoscyamine (LEVSIN) 0.125 MG tablet Take 0.125 mg by mouth every 4 hours as needed. Review of Systems Review of Systems Constitutional: Positive for activity change and appetite change. Negative for fever. HENT: Negative for congestion, sore throat and rhinorrhea. Respiratory: Negative for cough, chest tightness, shortness of breath and wheezing. Cardiovascular: Negative for chest pain. Gastrointestinal: Positive for nausea, vomiting, abdominal pain and diarrhea. Genitourinary: Positive for decreased urine volume. Negative for dysuria, urgency, frequency, flankpain, vaginal bleeding, vaginal discharge, difficulty urinating and genital sores. Skin: Negative for rash and wound. Neurological: Negative for tremors, light-headedness and headaches. BP 112/61 Pulse 70 Temp 97.8 ??F Resp 16 Wt 84.2 kg (185 lb 10 oz) Physical Exam Physical Exam Constitutional: She is oriented to person, place, and time. She appears well- developed and well-nourished. Appears uncomfortable. Mom and dad at bedside. HENT: Head: Normocephalic and atraumatic. Right Ear: External ear normal. Left Ear: External ear normal. Nose: Nose normal. Mouth/Throat: Oropharynx is clear and moist. Eyes: Conjunctivae and EOM are normal. Pupils are equal, round, and reactive to light. Neck: Normal range of motion. Neck supple. Cardiovascular: Normal rate, regular rhythm, normal heart sounds and intact distal pulses. Pulmonary/Chest: Effort normal and breath sounds normal. No respiratory distress. She has no wheezes. She has no rales. She exhibits no tenderness. Abdominal: Soft. Soft. Flabby. Hypoactive BS. TTP at RLQ>RUQ. No rebound. Some guarding. No masses. No distention. Heel tap b/l negative. ?+psoas sign (reported pain first time, no pain second time examined) Genitourinary: No vaginal discharge found. Musculoskeletal: Normal range of motion. Neurological: She is alert and oriented to person, place, and time. No cranial nerve deficit. She exhibits normal muscle tone. Coordination normal. Skin: Skin is warm and dry. No rash noted. No erythema. Procedures Procedures EKG Interpretation Lab/SPO2 Interpretation Progress Notes 0330 AM pt reports 4/10 pain in RLQ CBC, CMP, amylase, lipase, UA, hcg NS bolus x 1 Morphine 2mg x 1 0430 pt sleeping comfortably. 1L Bolus running. 0500 Cbc, loida, lip, UA OK. slt elevated LFTs on cmp otherwise OK. Reexamined pt. C/o RLQ pain. Another 2mg morphine ordered. 0510 Surgery consulted. GGT and hcg negative. 0700 Surgery rounding on pt. Recommend CXR, ?CT abdomen vs U/S abdomen. Pt reports persistent mild pain, up to bathroom to urinate. Denies dysuria, hematuria. For possible U/S abdomen, will make pt NPO + bolus NS 1 L to prepare. 0745 Surgery recommends U/S abdomen and CT abdomen. U/S abdomen ordered. Ddx: mesenteric adenitis vs appendicitis vs ovarian cyst/torsion vs cholecystitis vs GB sludge vs gastritis vs pleural effusion d/t previous URI vs other Pt signed out to Dr Pal at 0709 ED Course Medical Decision Making Clinical Impression No diagnosis found. CUP EXPANDER * Leann Davies MD - 05/23/2011 3:26 AM CST Images from the original note were not included. EMERGENCY DEPARTMENT 05/23/[address] Jailene Fajardo MD We had the pleasure of caring for your patient, Liza Worthington in our emergency department on 05/23/2011. A note from the provider(s) who cared for your patient is attached. Should you wish to access any laboratory results, please call . Should you wish to access any radiology results, please call , option 3. In addition, you can access patient information 24 hours a day, from any computer, through [employer], the online version of our electronic medical record. If you would like to use this service, please call Belia Alvarez, Connectivity Coordinator, at . We appreciate the opportunity to care for your patients. If you would like additional information, please call the emergency department directly at . Sincerely, Leann Davies MD Division of Emergency Medicine [facility], [place] [facility] [place] EMERGENCY DEPARTMENT 05/23/2011 3:26 AM Liza Worthington [id number] [facility] EMERGENCY DEPT History Chief Complaint Patient presents with ??? Pain Abdominal has had abd pain for the past week and today pain has shifted to right side. mom states pt has lostabout 7 lbs with diarrhea and vomiting for the past week also. pt states the pain feels like someone stabbing her and is intermittent.PRESENTS: lungs clear, abdomen soft/tender to RLQ and mid lower. No rebound tenderness noted. HPI Comments: Liza Worthington is a 11 y.o. Female previously well here with 2wk of ab pain, started mild and periumbilical, URI sx, zithromax 1.5wk ago per PMD, URI sx resolved but ab pain, vomiting and diarrhea persisted, NBNB, 4x/d each, last fever 1wk ago 102. No change in V/D, but saw PMD 5dago, had CBC, CMP and told mild elevation of LFT, RUQ U/S negative. Did stool cultures and c-diff but no sample sent yet. At [place], acute onset RLQ pain, which is a new location, no change with motrin. Has had tonsils removed for strep. No sore throat currently. No past medical history on file. Past Surgical History Procedure Date ??? Tonsillectomy and adenoidectomy History Social History ??? Marital Status: Single Spouse Name: N/A Number of Children: N/A ??? Years of Education: N/A Occupational History ??? Not on file. Social History Main Topics ??? Smoking status: Not on file ??? Smokeless tobacco: Not on file ??? Alcohol Use: ??? Drug Use: ??? Sexually Active: Not on file Other Topics Concern ??? Not on file Social History Narrative ??? No narrative on file Medications Current Outpatient Prescriptions Medication Sig Dispense Refill ??? ibuprofen (IBU-200) 200 MG tablet Take 2 Tabs by mouth every 6 hours as needed. ??? hyoscyamine (LEVSIN) 0.125 MG tablet Take 0.125 mg by mouth every 4 hours as needed. Review of Systems Review of Systems Constitutional: Positive for activity change and appetite change. Negative for fever. HENT: Negative. Eyes: Negative. Respiratory: Negative. Cardiovascular: Negative. Gastrointestinal: Positive for vomiting, abdominal pain and diarrhea. Genitourinary: Negative. Musculoskeletal: Negative. Skin: Negative. Neurological: Negative. Psychiatric/Behavioral: Negative. BP 112/61 Pulse 70 Temp 97.8 ??F Resp 16 Wt 84.2 kg (185 lb 10 oz) Physical Exam Physical Exam Constitutional: She appears well-developed and well-nourished. No distress. HENT: Mouth/Throat: Oropharynx is clear and moist. No oropharyngeal exudate. Neck: Normal range of motion. Neck supple. Cardiovascular: Normal rate, regular rhythm and normal heart sounds. Pulmonary/Chest: Effort normal and breath sounds normal. No respiratory distress. She has no wheezes. She has no rales. Abdominal: Tender RLQ >RUQ, rebound tenderness on left, some suprapubic pain, no gaurding, no CVAT, no HSM Procedures Procedures EKG Interpretation Lab/SPO2 Interpretation Progress Notes ED Course Medical Decision Making I have reviewed the: Nursing Notes and Vitals. I have interpreted the following results: Labs. I have discussed the case with Surgery and Family/Caregiver. I have personally seen and examined this patient. I have fully participated in the care of this patient. I have reviewed all pertinent clinical information available to me during this encounter, including history, physical exam and plan. I have reviewed available labs and radiographic studies. I reviewed the nurses notes I reviewed the vital signs 11yo with RLQ pain and 2wk nausea/vomiting and umbilical ab pain -labs: CBC, CMP, amylase and lipase. -IVF bolus Labs unremarkable except a small amount of AST/ALT elevation, surgery seeing pt Signed out to Dr. Quinones at the end of my shift Clinical Impression No diagnosis found. CUP EXPANDER * Obdulia Kohler RN - 05/23/2011 3:09 AM CST Family at bedside. CUP EXPANDER * Obdulia Kohler RN - 05/23/2011 3:09 AM CST Patient is resting. CUP EXPANDER * Obdulia Kohler RN - 05/23/2011 3:08 AM CST Pt states that the pain is constant but has waves of increase in burning sensation. CUP EXPANDER documented in this encounter Miscellaneous Notes * Miscellaneous Scans - Document, Scanned - 06/18/2011 9:27 AM CST CUP EXPANDER documented in this encounter Plan of Treatment Scheduled Orders Name Type Priority Associated Diagnoses Orde r Schedule US PELVIS W DOPPLER UTERUS OVARIES Imaging Routine Abdominal pain, RLQ For radiant use only for 1 Occurrences starting 05/23/2011 documented as of this encounter Procedures Procedure Name Priority Date/Time Associated Diagnosis Comments LYMPHOCYTIC CHORIONIC ANTIBODY Routine 05/23/2011 11:20 AM FUSE CUP EXPANDER US ABDOMEN LIMITED STAT 05/23/2011 9: 47 AM FUSE CUP EXPANDER Abdominal pain, RUQ (right upper quadrant) Abdominal pain, RLQ XR CHEST 2VW STAT 05/23/2011 7:29 AM FUSE CUP EXPANDER Abdominal pain, RUQ (right upper quadrant) URINALYSIS REFLEX TO MICROSCOPIC NO CULTURE STAT 05/23/2011 4:45 AM FUSE CUP EXPANDER CULTURE URINE STAT 05/23/2011 4:45 AM FUSE CUP EXPANDER HCG URINE QUALITATIVE STAT 05/23/2011 4:30 AM FUSE CUP EXPANDER CBC W AUTO DIFFERENTIAL STAT 05/23/2011 3:53 AM FUSE CUP EXPANDER COMPREHENSIVE METABOLIC PANEL STAT 05/23/2011 3:53 AM FUSE CUP EXPANDER LIPASE BLOOD STAT 05/23/2011 3:53 AM FUSE CUP EXPANDER AMYLASE BLOOD STAT 05/23/2011 3:53 AM FUSE CUP EXPANDER documented in this encounter Results * LYMPHOCYTIC CHORIONIC ANTIBODY (05/23/2011 11:20 AM FUSE CUP EXPANDER) Lymphocytic Choriomeningitis Antibody IgG Titer <1-10 <1 - 10 Titer [facility] Lymphocytic Choriomeningitis Antibody IgM Titer <1-10 <1 - 10 Titer [facility] Comment Ref Lab [facility] Comment: TEST INFORMATION: LCM Virus [...] developed and its performance characteristics determined by [facility]. The U.S. Food and Drug Administration has [...] developed and its performance characteristics determined by [facility]. The U.S. Food and Drug Administration has not approved or cleared this test; however, FDA clearance or approval is not currently required for clinical use. The results are not intended to be used as the sole means for clinical diagnosis or patient management decisions. BLOOD SPECIMEN / Unknown 05/23/2011 11:20 AM FUSE CUP EXPANDER 05/23/2011 11:26 AM FUSE CUP EXPANDER Narrative [facility] - 05/29/2011 4:50 PM FUSE CUP EXPANDER 1 Resulting Agency Comment Performed By [employer] [facility] ? [address] ? [place], [place] [address] Khushboo Pal MD LAB - SEROLOGY ORDER [facility] [address] [facility] [place] [address] * US ABD FOR APPENDICITIS (05/23/2011 9:47 AM FUSE CUP EXPANDER) Anatomical Region Laterality Modality Abdomen Ultrasound 05/23/2011 10:1 3 AM FUSE CUP EXPANDER Impressions 05/23/2011 10:13 AM FUSE CUP EXPANDER The appendix was not seen. The examination is technically limited by the patient's body habitus is well as the presence of a nondistended urinary bladder. If ??ultrasound evaluation ??of the uterus and ovaries is deemed necessary repeat imaging can be performed once the bladder is markedly distended. Alternatively, if acute appendicitis remains the first clinical concern followup contrast-enhanced CT scanning can be performed. Narrative 05/23/2011 10:13 AM FUSE CUP EXPANDER Limited abdominal ultrasound performed May 23, 2011. History: Right lower quadrant pain. Longitudinal and transverse images were performed with special attention paid to the right lower quadrant. At the time of this examination only a minimal amount of urine is present within the bladder. There is no evidence of abdominal or pelvic ascites. Due to the patient's body habitus and under distention of the bladder the pelvic organs could not be seen. Images of the right lower quadrant were performed in the region of the patient's discomfort. These were performed with and without graded compression. A distended appendix was not identified. Procedure Note Romina Torres MD - 05/23/2011 Limited abdominal ultrasound performed May 23, 2011. History: Right lower quadrant pain. Longitudinal and transverse images were performed with special attention paid to the right lower quadrant. At the time of this examination only a minimal amount of urine is present within the bladder. There is no evidence of abdominal or pelvic ascites. Due to the patient's body habitus and under distention of the bladder the pelvic organs could not be seen. Images of the right lower quadrant were performed in the region of the patient's discomfort. These were performed with and without graded compression. A distended appendix was not identified. IMPRESSION The appendix was not seen. The examination is technically limited by the patient's body habitus is well as the presence of a nondistended urinary bladder. If ultrasound evaluation of the uterus and ovaries is deemed necessary repeat imaging can be performed once the bladder is markedly distended. Alternatively, if acute appendicitis remains the first clinical concern followup contrast-enhanced CT scanning can be performed. Virgen Durham MD US ORDERABLES * XR CHEST PA AND LATERAL (05/23/2011 7:29 AM FUSE CUP EXPANDER) Anatomical Region Laterality Modality Chest Radiographic Sandie ging 05/23/2011 8:09 AM FUSE CUP EXPANDER Impressions 05/23/2011 12:49 PM FUSE CUP EXPANDER Normal. D: Marcelino Cruz MD Narrative 05/23/2011 12:49 PM FUSE CUP EXPANDER Chest, 2 views 05/23/2011 The lungs, pleura, heart, mediastinum and bony thorax are normal. Procedure Note Romina Torres MD - 05/23/2011 Chest, 2 views 05/23/2011 The lungs, pleura, heart, mediastinum and bony thorax are normal. IMPRESSION Normal. D: Marcelino Cruz MD Remy Downs MD DIAGNOSTIC IMAGING ORDERABLES * CULTURE URINE (05/23/2011 4:45 AM FUSE CUP EXPANDER) Result [facility] Comment: Final CULTURE <10,000 CFU/mL ?? urogenital/skin anamaria COAGULASE NEGATIVE STAPHYLOCOCCUS SP. ??>10,000 CFU/mL Urine specimen (specimen) URINE SPECIMEN OBTAINED BY CLEAN CATCH PROCEDURE / Unknown 05/23/2011 4:45 AM FUSE CUP EXPANDER 05/23/2011 4:49 AM FUSE CUP EXPANDER Narrative Resulting Agency Comment Performed By [facility];[address] [place] [address];[place] [address] Virgen Durham MD LAB - MICROBIOLOGY O RDERABLES [facility] [address] [place] [address] * URINALYSIS ROUTINE AUTO (05/23/2011 4:45 AM FUSE CUP EXPANDER) Color UA YELLOW [facility] Character UA CLEAR [facility] Specific Ellis UA >=1.030 1.003 - 1.030 [facility] pH UA 5.5 5.0 - 8.0 [facility] Protein UA NEGATIVE Negative [facility] Glucose UA NEGATIVE Negative gm/dl [facility] Ketone UA NEGATIVE Negative [facility] Blood UA NEGATIVE Negative [facility] Bilirubin UA NEGATIVE Negative [facility] Epithelial Cell UA 2-4 /HPF [facility] Crystals UA Few Amorphous, Mod Calcium Oxalate [facility] Mucus UA trace [facility] Leukocyte UA NEGATIVE [facility] Nitrite UA NEGATIVE [facility] Urobilinogen UA 0.2 <=1.0 EU/dl [facility] URINE SPECIMEN OBTAINED BY CLEAN CATCH PROCEDURE / Unknown 05/23/2011 4:45 AM FUSE CUP EXPANDER 05/23/2011 4:49 AM FUSE CUP EXPANDER Virgen Durham MD LAB - URINALYSIS ORD ERABLES Performing Organization Address [facility] Co de Phone Number [facility] [address] [place], [place] [id number] * HCG URINE QUALITATIVE (05/23/2011 4:30 AM FUSE CUP EXPANDER) HCG Qual Urine Negative Negative [facility] Urine specimen (specimen) URINE / Unknown 05/23/2011 4:30 AM FUSE CUP EXPANDER 05/23/2011 7:06 AM FUSE CUP EXPANDER Virgen Durham MD LAB - URINALYSIS ORD ERABLES Performing Organization Address [facility] de Phone Number [facility] [address] [place] [id number] * LIPASE BLOOD (05/23/2011 3:53 AM FUSE CUP EXPANDER) Lipase 185 23 - 300 Units/L [facility] Blood specimen (specimen) BLOOD SPECIMEN / Unknown 05/23/2011 3:53 AM FUSE CUP EXPANDER 05/23/2011 4:04 AM FUSE CUP EXPANDER Virgen Durham MD LAB - CHEMISTRY ORDDebra HERNANDEZ Performing Organization Address [facility] Co de Phone Number [facility] [address] [place] [id number] * AMYLASE BLOOD (05/23/2011 3:53 AM FUSE CUP EXPANDER) Amylase 33 30 - 100 Units/L [facility] Blood specimen (specimen) BLOOD SPECIMEN / Unknown 05/23/2011 3:53 AM FUSE CUP EXPANDER 05/23/2011 4:04 AM FUSE CUP EXPANDER Virgen Durham MD LAB - CHEMISTRY ORDDebra HERNANDEZ Performing Organization Address [facility] Co de Phone Number [facility] [address] [place] [address] * (ABNORMAL) COMPREHENSIVE METABOLIC PANEL (05/23/2011 3:53 AM FUSE CUP EXPANDER) [facility] Sodium 142 137 - 145 mmol/L [facility] Potassium 3.9 3.5 - 5.1 mmol/L [facility] Chloride 104 98 - 107 mmol/L [facility] CO2 25.4 18 - 27 mmol/L [facility] Glucose 95 70 - 106 mg/dl [facility] BUN 10.7 7 - 18 mg/dl [facility] Calcium 9.4 8.8 - 10.6 mg/dl [facility] Bilirubin Total 0.6 0.6 - 1.4 mg/dl [facility] Protein Total 7.4 6.3 - 8.6 gm/dl [facility] Albumin 4.1 3.7 - 5.6 gm/dl [facility] ALT 55(H) 10 - 30 Units/L [facility] AST 40(H) 10 - 30 Units/L [facility] Alkaline Phosphatase 125 105 - 420 Units/L [facility] Creatinine 0.60 0.31 - 0.88 mg/dl [facility] Blood specimen (specimen) BLOOD SPECIMEN / Unknown 05/23/2011 3:53 AM FUSE CUP EXPANDER 05/23/2011 4:04 AM FUSE CUP EXPANDER Virgen Durham MD LAB - CHEMISTRY MURRAY HERNANDEZ [facility] Organization Address City/State/ZIP Co de Phone Number [facility] [address] [place] [phone] * CBC W AUTO DIFFERENTIAL (05/23/2011 3:53 AM FUSE CUP EXPANDER) [facility] WBC 9.02 4.5 - 14.5 K/cumm [facility] RBC 4.83 4.10 - 5.10 mill/cumm [facility] Hemoglobin 13.7 12.0 - 16.0 gm/dl [facility] Hematocrit 39.2 36.0 - 47.0 % [facility] MCV 81.2 78.0 - 102.0 cu microns [facility] MCH 28.4 25.0 - 35.0 uug [facility] MCHC 34.9 31.0 - 37.0 % [facility] RDW 12.9 % [facility] MPV 10.9 fl [facility] Platelet Count 381 100 - 400 K/cumm [facility] Granulocytes % 45.2 24 - 66 % [facility] Lymphocytes % 44.0 22 - 61 % [facility] Monocytes % 8.9 3 - 15 % [facility] Eosinophils % 1.6 0 - 10 % [facility] Basophils % 0.3 0 - 1 % [facility] Comment Manual Diff Automated Diff Performed [facility] Blood specimen (specimen) BLOOD SPECIMEN / Unknown 05/23/2011 3:53 AM FUSE CUP EXPANDER 05/23/2011 4:04 AM FUSE CUP EXPANDER Virgen Durham MD LAB - HEMATOLOGY ORD ERABLES [facility] [address] [place] [address] documented in this encounter Visit Diagnoses Diagnosis Abdominal pain, RUQ (right upper quadrant) Abdominal pain, right upper quadrant Abdominal pain, RLQ Abdominal pain, right lower quadrant documented in this encounter Administered Medications Inactive Administered Medications - up to 3 most recent administrations Medication Order MAR Action Action Date Dose Rate Site 0.9 % nacl IV BOLUS 1,000 mL 1,000 mL, at 1,000 mL/hr, Administer over 60 Minutes, Intravenous, ONCE, 1 dose, On 05/23/11 at 0745 $ Given 05/23/2011 9:12 AM FUSE CUP EXPANDER 1,000 mL 1000 mL /hr 0.9 % nacl IV BOLUS 1,684 mL 1,684 mL (20 mL/kg ? 84.2 kg), at 1,684 mL/hr, Administer over 60 Minutes, Intravenous, ONCE, 1 dose, On 05/23/11 at 0400 $ Given 05/23/2011 3:55 AM FUSE CUP EXPANDER 1,000 mL 1684 mL /hr morphine 2 mg/ml injection ADS Med 1 dose, Starting on 05/23/11 at 0455, Until 05/23/11 at 0453, OBDULIA KOHLER: cabinet override morphine injection 2 mg 2 mg, Intravenous, ONCE, 1 dose, On 05/23/11 at 0400 $ Given 05/23/2011 4:53 AM FUSE CUP EXPANDER 2 mg $ Given 05/23/2011 3:56 AM FUSE CUP EXPANDER 2 mg documented in this encounter Active and Recently Administered Medications Times are shown in FUSE CUP EXPANDER. Scheduled Medication Order 05/21/2011 05/22/2011 05/23/2011 0.9 % nacl IV BOLUS 1,000 mL (COMPLETED) 1,000 mL, at 1,000 mL/hr, Administer over 60 Minutes, Intravenous, ONCE, 1 dose, On 05/23/11 at 0745 0912 ($ Given - Prov ider: Mary Young RN)[id number] (Due: Rx Stopped - Provider: Mary Young RN) 0.9 % nacl IV BOLUS 1,684 mL (COMPLETED) 1,684 mL (20 mL/kg ? 84.2 kg), at 1,684 mL/hr, Administer over 60 Minutes, Intravenous, ONCE, 1 dose, On 05/23/11 at 0400 0355 ($ Given - Prov ider: Obdulia Kohler RN)[id number] (Rx Stopped - Provider: Obdulia Kohler RN) morphine injection 2 mg (COMPLETED) 2 mg, Intravenous, ONCE, 1 dose, On 05/23/11 at 0400 0356 ($ Given - Prov ider: Obdulia Kohler RN)0453 ($ Given - Provider: Obdulia Kohler RN) documented in this encounter Care Teams Blueprint Duplicator Relationship Specialty Start Date End Date Jailene Fajardo MD [address] [address] PCP - General 04/06/11 06/21/11 documented as of this encounter
--- OUTSIDE RECORDS SUMMARY | 2024-06-14 05:21 | XMS_ITS | Encounter Summary ---
Author Organization [facility] Address [address] [place] [address] Care Team Providers Care Ophthalmic Medical Technician Name Role Phone Natalya Guzman NP Primary Care Provider [phone] Reason for Visit * Reason Onset Date Comments Colonoscopy/Egd 08/27/2021 Encounter Details Date Type Department Care Team (Late st Contact Info) Description 08/27/2021 [facility]phone [facility] [id number] [place] [address] [address] [place] [address] [place] [address] [facility] [address] [place] [address] Colonoscopy/Egd Social History Tobacco Use Types Packs/Day Years [...] on file 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 4 tablet 08/27/2021 2 polyethylene glycol (GoLYTELY) 236-22.74-6.74 -5.86 gram solutionIndication s:Bowel Evacuation Mix solution as directed on the box. At 4 pm drink half of the mix solution and finish by 7 pm .Repeat at 10 pm and finish by midnight. 4000 mL 08/27/2021 2 documented in this encounter Miscellaneous Notes * Telephone Encounter - Christine Murillo MA - 08/27/2021 2:34 PM CDT Procedure/Date/Time: Colonoscopy/Egd 09-15-2021 @ 10:30am Prep Type: Golytely and Dulcolax tabs Authorization/Referral: No Auth required per [employer] website on 08-27-2021 Medications to Hold/Date to Stop: NO Diabetic Medications Instructions: Oral Medications: NO Insulin: NO Case request was created, Golytely and Dulcolax tabs were sent to the pharmacy and colonoscopy instructions were given to the pt here in the office COVID order was placed and the pt will have the test done @ 4 days to 3 days before procedure documented in this encounter Plan of Treatment Not on file documented as of this encounter Visit Diagnoses Not on filedocumented in this encounter Care Teams Ophthalmic Medical Technician Relationship Specialty Start Date End Date Natalya Guzman NP PCP - General Nurse Practitioner 06/05/19 documented as of this encounter
--- OUTSIDE RECORDS SUMMARY | 2024-06-14 05:21 | XMS_ITS | Referral Summary ---
Author Organization [facility] [address] [place] [id number] Care Team Providers Care Platform Loader Name Role Phone Natalya Guzman NP Primary Care Provider [phone] Allergies No known active allergies Medications 28 mg iron- 800 mcg tablet 06/03/20 19 Active cimetidine (TAGAMET) 400 mg tablet Take 1 tablet (400 mg total) by mouth 2 (two) times a day 60 tablet 11 06/27/19 20 Active buPROPion XL (WELLBUTRIN XL) 150 mg 24 hr tablet bupropion HCl XL 150 mg 24 hr tablet, extended release TAKE 1 TABLET BY MOUTH EVERY DAY Active escitalopram (LEXAPRO) 5 mg tablet escitalopram 5 mg tablet TK 1 T PO QD HS Active nitrofurantoin monohydrate (MACROBID) 100 mg capsule nitrofurantoin monohydrate/macro crystals 100 mg capsule TK 1 C PO BID Active Xulane 150-35 mcg/24 hr UNWRAP AND APPLY 1 PATCH TO SKIN ONCE WEEKLY FOR 3 WEEKS OF A 4-WEEK CYCLE 08/11/19 22 Active ondansetron ODT (ZOFRAN-ODT) 8 mg disintegrating tablet every 12 hours Activ e promethazine (PHENERGAN) 25 mg tablet promethazine 25 mg tablet TAKE 1 TABLET BY MOUTH EVERY 6 HOURS NEEDED Active triamcinolone (KENALOG) 0.1 % cream triamcinolone acetonide 0.1 % topical cream APPLY TOPICALLY TO THE AFFECTED AREA TWICE DAILY Active Active Problems Problem Noted Date Diagnosed Date Rectal bleeding 08/27/2021 Assessment & Plan (08/27/2021 12:42 PM CDT): Intermittent. She has chronic diarrhea. The intermittent bleeding may be related to anorectal injury , hemorrhoids or less likely inflammatory bowel disease. Will schedule for colonoscopy. Epigastric pain 08/27/2021 Assessment & Plan (08/27/2021 12:42 PM CDT): Persistent epigastric pain associated with tenderness despite being on H2 RA for more than 3 months. May be due to esophageal reflux disease. Peptic ulcer disease is a possibility. She has had a cholecystectomy and recent pancreatic enzymes were normal which makes pancreatitis unlikely. She was scheduled for Esophagogastroduodenoscopy. Advised to continue cimetidine. Intractable vomiting 07/01/2021 Diarrhea 06/27/2019 Assessment & Plan (08/28/2021 7:34 AM CDT): Likely post cholecystectomy diarrhea although IBS remains a strong possibility. I had seen her in the past when she was and could not do any invasive workup at that time. She had good response to cholestyramine in the past. I will reorder cholestyramine. Colonoscopy is also recommended and scheduled. Assessment & Plan (06/27/2019 8:05 PM MEDICINE TEACHER): Chronic. The symptoms have been present since the patient was 10 years old when she had a cholecystectomy. Suspect that the etiology is post cholecystectomy diarrhea. She may also have irritable bowel syndrome. Plan Cholestyramine 4 g twice daily was prescribed. The patient was advised to increase her vitamins and encouraged to stagger the timing of ingestion of the vitamin and the Questran. I reviewed the safety of Questran in in the literature and it is said not to cross the placenta or breast milk. The plan of care was discussed with the patient and her mother who was present for the office visit. Non-intractable vomiting 06/27/2019 Assessment & Plan (08/27/2021 12:43 PM CDT): Chronic. Associated with epigastric pain and tenderness. Unlikely to be due to CHS since she only smokes marijuana occasionally. The vomiting may be due to gastroesophageal reflux disease, functional abdominal pain syndrome. Will proceed with Esophagogastroduodenoscopy as scheduled. Continue cimetidine for now. May need PPI depending on results of endoscopy. Assessment & Plan (06/27/2019 7:51 PM MEDICINE TEACHER): Moderately severe. Recently aggravated because of patient's . She is currently 22 weeks and did have significant nausea vomiting in the 1st trimester warranting multiple emergency room visits. It appears that she likely has hyperemesis gravidarum superimposed on chronic nausea vomiting. The etiology of the chronic nausea vomiting since childhood may be due to gastroparesis, gastroesophageal reflux disease, cyclical vomiting syndrome. She is currently receiving Zofran with some improvement. Further investigation with nuclear medicine scan and endoscopy is limited at this time because of current state. Encouraged the patient and her mother to schedule office visit within 4-6 weeks after she delivers her baby. Social History Tobacco Use Types Packs/Day Years [...] Date Recorded PHQ-2 Total Score 0 07/02/2021 Personal Safety Answer Date Recorded Getting School Help Needed Not on file 06/15 Comments No Sex and Gender Information Value Date Recorded Sex Assigned at Not on file Legal Sex Female 11:10 PM MEDICINE TEACHER Gender Identity Not on file Sexual Orientation Not on file Last Filed Vital Signs Vital Sign Reading Time Taken Comments Blood Pressure 108/75 09/15/2021 11:55 AM CDT Pulse 47 09/15/2021 11:55 AM CDT Temperature 36.7 ??C (98 ??F) 07/02/2021 8:30 AM MEDICINE TEACHER Respiratory Rate 16 09/15/2021 11:55 AM CDT Oxygen Saturation 97% 09/15/2021 11:55 AM CDT Inhaled Oxygen Concentration - - Weight 69.4 kg (153 lb) 09/15/2021 10:11 AM CDT Height 160 cm (5' 3 ) 09/15/2021 10:11 AM CDT Body Mass Index 27.1 09/15/2021 10:11 AM CDT Plan of Treatment Not on file Insurance [facility] Member Subscriber Plan / Payer (Ef fective 2019-Present) Name:Liza Worthington Relation to Subscriber:Self Name:Liza Worthington Payer ID:[id number] (NAIC) Type:MEDICAID RISK OTHER Address: [address] Advance Directives For more information, please contact: [phone] * Full Code (Latest Code Status on File) Date Activated Date Inactivated Comments 07/01/2021 5:20 PM 07/02/2021 4:21 PM Care Teams Platform Loader Relationship Specialty Start Date End Date Natalya Guzman NP PCP - General Nurse Practitioner 06/05/19
--- OUTSIDE RECORDS SUMMARY | 2024-06-14 05:21 | XMS_ITS | Encounter Summary ---
Author Organization [facility] Address [address] [place] [address] Care Team Providers Care Seamless Tube Roller Name Role Phone Natalya Guzman NP Primary Care Provider [phone] Reason for Visit * Reason Comments Nausea Diarrhea Encounter Details Date Type Department Care Team (Late st Contact Info) Description 08/27/2021 11:45 AM CDT Office Visit [facility] Gastroenterology at [address] [address] [place]ul [place] [id number] [place] [id number] Diarrhea, unspecified type (Primary Dx); Rectal bleeding; Epigastric pain; Non-intractable vomiting with nausea, unspecified vomiting type Social History Tobacco Use Types Packs/Day Years [...] on file 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 Gender Identity Not on file Sexual Orientation Not on file documented as of this encounter Last Filed Vital Signs Vital Sign Reading Time Taken Comments Blood Pressure 114/70 08/27/2021 12:03 PM CDT Pulse 80 08/27/2021 12:03 PM CDT Temperature - - Respiratory Rate 16 08/27/2021 12:03 PM CDT Oxygen Saturation 99% 08/27/2021 12:03 PM CDT Inhaled Oxygen Concentration - - Weight 68.8 kg (151 lb 9.6 oz) 08/27/2021 12:03 PM CDT Height 157.5 cm (5' 2.01 ) 08/27/2021 12:03 PM C DT Body Mass Index 27.72 08/27/2021 12:03 PM CDT documented in this encounter Ordered Prescriptions Prescription Sig Dispense Quantity Refills Last Filled Start Date End Date cholestyramine (QUESTRAN) 4 gram powder Take 1 packet (4 g total) by mouth daily Dissolve in 8 oz of liquid and drink before a meal 30 packet 11 08/27/2021 2 documented in this encounter Progress Notes * Raul Carlson MD - 08/27/2021 11:45 AM CDT Images from the original note were not included. [facility] Gastroenterology Subjective/Objective Patient ID: Liza Worthington [...] Advised to continue cimetidine. Orders: - EGD -[facility] - Case Request GI: COLONOSCOPY [...] Raul Carlson MD documented in this encounter Miscellaneous Notes * Assessment & Plan Note - Raul Carlson MD - 08/27/2021 12:44 PM CDT Associated Problem(s): Diarrhea Likely post cholecystectomy diarrhea although IBS remains a strong possibility. I had seen her in the past when she was and could not do any invasive workup at that time. She had good response to cholestyramine in the past. I will reorder cholestyramine. Colonoscopy is also recommended and scheduled. * Assessment & Plan Note - Raul Carlson MD - 08/27/2021 12:43 PM CDT Associated Problem(s): Non-intractable vomiting Chronic. Associated with epigastric pain and tenderness. Unlikely to be due to CHS since she only smokes marijuana occasionally. The vomiting may be due to gastroesophageal reflux disease, functional abdominal pain syndrome. Will proceed with Esophagogastroduodenoscopy as scheduled. Continue cimetidine for now. May need PPI depending on results of endoscopy. * Assessment & Plan Note - Raul Carlson MD - 08/27/2021 12:42 PM CDT Associated Problem(s): Rectal bleeding Intermittent. She has chronic diarrhea. The intermittent bleeding may be related to anorectal injury , hemorrhoids or less likely inflammatory bowel disease. Will schedule for colonoscopy. * Assessment & Plan Note - Raul Carlson MD - 08/27/2021 12:40 PM CDT Associated Problem(s): Epigastric pain Persistent epigastric pain associated with tenderness despite being on H2 RA for more than 3 months. May be due to esophageal reflux disease. Peptic ulcer disease is a possibility. She has had a cholecystectomy and recent pancreatic enzymes were normal which makes pancreatitis unlikely. She was scheduled for Esophagogastroduodenoscopy. Advised to continue cimetidine. * Addendum Note - Helena Guerra MA - 08/27/2021 11:45 AM CDTAddended by: HELENA GUERRA on: 09/11/2021 07:17 AM Modules accepted: Orders * Addendum Note - Helena Guerra MA - 08/27/2021 11:45 AM CDTAddended by: HELENA GUERRA on: 09/11/2021 07:17 AM Modules accepted: Orders documented in this encounter Plan of Treatment Scheduled Orders Name Type Priority Associated Diagnoses Orde r Schedule EGD -[facility] GI Routine Epigastric pain Ordered: 08/27/2021 documented as of this encounter Procedures Procedure Name Priority Date/Time Associated Diagnosis Comments PROTIME-INR Routine 09/10/2021 4:36 PM CDT Rectal bleeding CRP (ACUTE PHASE) Routine 09/10/2021 4:3 6 PM CDT Diarrhea, unspecified type documented in this encounter Results * CRP (acute phase) (09/10/2021 4:36 PM CDT) SCRIBED CRP 0.05 0.0 - 0.5 mg/L [facility] Blood specimen (specimen) 09/10/2021 4:36 PM CDT us Raul Carlson MD LAB BLOOD ORDERABLES Fi nal Result [facility] [address] [place] [address], [facility] [phone] * Protime-INR (09/10/2021 4:36 PM CDT) SCRIBED PT 10.2 9.5 - 11.5 sec [facility] SCRIBED INR 1.0 NA - NA sec [facility] Blood specimen (specimen) 09/10/2021 4:36 PM CDT Raul Carlson MD LAB BLOOD ORDERABLES Fi nal Result [facility] [address] [place] [address], [facility] [phone] documented in this encounter Visit Diagnoses Diagnosis Diarrhea, unspecified type- Primary Rectal bleeding Hemorrhage of rectum and anus Epigastric pain Abdominal pain, epigastric Non-intractable vomiting with nausea, unspecified vomiting type documented in this encounter Discontinued Medications Medication Sig Discontinue Reason Start Date End Da te cholestyramine (QUESTRAN) 4 gram powder Take 1 packet (4 g total) by mouth 2 (two) times a day with meals Dissolve in 8 oz of liquid and drink before a meal 06/27/2019 06/26/2020 HYDROcodone-acetaminop hen (NORCO) 5-325 mg per tablet hydrocodone 5 mg-acetaminophen 325 mg tablet TAKE 1 TABLET BY MOUTH EVERY 6 HOURS NEEDED FOR PAIN Therapy completed 08/28/2021 documented as of this encounter Historical Medications * This list may reflect changes made after this encounter. triamcinolone (KENALOG) 0.1 % cream triamcinolone acetonide 0.1 % topical cream APPLY TOPICALLY TO THE AFFECTED AREA TWICE DAILY promethazine (PHENERGAN) 25 mg tablet promethazine 25 mg tablet TAKE 1 TABLET BY MOUTH EVERY 6 HOURS NEEDED ondansetron ODT (ZOFRAN-ODT) 8 mg disintegrating tablet every 12 hours Xulane 150-35 mcg/24 hr UNWRAP AND APPLY 1 PATCH TO SKIN ONCE WEEKLY FOR 3 WEEKS OF A 4-WEEK CYCLE 2 nitrofurantoin monohydrate (MACROBID) 100 mg capsule nitrofurantoin monohydrate/macrocr ystals 100 mg capsule TK 1 C PO BID escitalopram (LEXAPRO) 5 mg tablet escitalopram 5 mg tablet TK 1 T PO QD HS buPROPion XL (WELLBUTRIN XL) 150 mg 24 hr tablet bupropion HCl XL 150 mg 24 hr tablet, extended release TAKE 1 TABLET BY MOUTH EVERY DAY HYDROcodone-acetami nophen (NORCO) 5-325 mg per tablet hydrocodone 5 mg-acetaminophen 325 mg tablet TAKE 1 TABLET BY MOUTH EVERY 6 HOURS NEEDED FOR PAIN 08/29/19 22 added in this encounter Orders Case Request Count Last Ordered Date First Orde red Date CASE REQUEST GI 1 08/27/2021 documented in this encounter Care Teams Seamless Tube Roller Relationship Specialty Start Date End Date Natalya Guzman NP PCP - General Nurse Practitioner 06/05/19 documented as of this encounter
--- OUTSIDE RECORDS SUMMARY | 2024-06-14 05:21 | XMS_ITS | Encounter Summary ---
Author Organization [facility] Healthcare Address [address] [place] [address] Care Team Providers Care Hand Wood Sander Name Role Phone Natalya Guzman NP Primary Care Provider [phone] Encounter Details Date Type Department Care Team (Late st Contact Info) Description 09/15/2021 9:40 AM CDT - 09/15/2021 12:28 PM CDT Hospital Encounter [facility] GI Lab [address] [place] [address] [place] [address] [facility] [address] [place] [address] Epigastric pain; Non-intractable vomiting with nausea, unspecified vomiting type; Non-intractable vomiting with nausea Discharge Disposition: Discharge to home or self [...] on file 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 Gender Identity Not on file Sexual Orientation Not on file documented as of this encounter Last Filed Vital Signs Vital Sign Reading Time Taken Comments Blood Pressure 108/75 09/15/2021 11:55 AM CDT Pulse 47 09/15/2021 11:55 AM CDT Temperature - - Respiratory Rate 16 09/15/2021 11:55 AM CDT Oxygen Saturation 97% 09/15/2021 11:55 AM CDT Inhaled Oxygen Concentration - - Weight 69.4 kg (153 lb) 09/15/2021 10:11 AM CDT Height 160 cm (5' 3 ) 09/15/2021 10:11 AM CDT Body Mass Index 27.1 09/15/2021 10:11 AM CDT documented in this encounter Discharge Diagnoses Diagnosis Diarrhea, unspecified - DIARRHEA, UNSPECIFIED Melena - MELENA Blood in stool Gastro-esophageal reflux disease with esophagitis, without bleeding - GASTRO-ESOPHAGEAL REFLUX DISEASE WITH ESOPHAGITIS, WITHOUT BLEEDING Disease of stomach and duodenum, unspecified - DISEASE OF STOMACH AND DUODENUM, UNSPECIFIED Anxiety disorder, unspecified - ANXIETY DISORDER, UNSPECIFIED Other fatigue - OTHER FATIGUE MCC (current) use of hormonal contraceptives - ALF (CURRENT) USE OF HORMONAL CONTRACEPTIVES Other correction (current) drug therapy - OTHER CATHETERIZATION LABORATORY TECHNICIAN (CURRENT) DRUG THERAPY documented in this encounter Discharge Instructions * [...] from the original note were not included. [facility] Gastroenterology Subjective/Objective Patient ID: Liza [...] Advised to continue cimetidine. Orders: - EGD -[facility] - Case Request GI: [...] - 09/15/2021 10:49 AM CDTAssociated Order(s): EGD [facility] Endoscopy Lab Patient Name: Liza Worthington Procedure Date: 09/15/2021 10:49 AM Date of : 2000 Admit Type: Outpatient Age: 21 Gender: Female Note Status: Finalized Attending MD: Raul Carlson M.D. Procedure Date: 09/15/2021 Procedure: Upper GI endoscopy Indications: Epigastric abdominal pain Providers: Raul Carlson M.D., Luz Wolff CRNA (Anesthesia Staff), Ariana Worthy, AMBER, Kerline Duarte, Veneer Splicer Referring MD: TAO Banuelos Medicines: Monitored Anesthesia [...] 3 months. Procedure Code(s): --- Professional --- 56589, Esophagogastroduodenoscopy, flexible, transoral; with biopsy, single or multiple Diagnosis Code(s): --- Professional --- K21.00, Gastro-esophageal reflux disease with esophagitis, without bleeding K31.89, Other diseases of stomach and duodenum R10.13, Epigastric pain CPT copyright 2020 [employer]. All rights reserved. The codes documented in this report are preliminary and upon fixture maker review may be revised to meet current compliance requirements. Electronically signed by Raul Carlson M.D. Raul Carlson M.D. 09/15/2021 11:03:55 AM Number of Addenda: 0 Note Initiated On: 09/15/2021 10:49 AM * Raul Carlson MD - 09/15/2021 10:47 AM CDTAssociated Order(s): COLONOSCOPY [facility] Endoscopy Lab Patient Name: Liza Worthington Procedure Date: 09/15/2021 10:47 AM Date of : 2000 Admit Type: Outpatient Age: 21 Gender: Female Note Status: Finalized Attending MD: Raul Carlson M.D. Procedure Date: 09/15/2021 Procedure: Colonoscopy Indications: Clinically significant diarrhea of unexplained origin, Hematochezia Providers: Raul Carlson M.D., Luz Wolff, DIVORCE MEDIATOR (Anesthesia Staff), Ariana Worthy RN, Kerline Duarte, Veneer Splicer Referring MD: TAO Banuelos Medicines: Monitored Anesthesia [...] by the physician, the nurse and the veteran appeals reviewer in the procedure room. Mental Status Examination: [...] age 43. Procedure Code(s): --- Professional --- 86917, Colonoscopy, flexible; with biopsy, single or multiple Diagnosis Code(s): --- Professional --- R19.7, Diarrhea, unspecified K92.1, Melena (includes Hematochezia) CPT copyright 2020 [employer]. All rights reserved. The codes documented in this report are preliminary and upon fixture maker review may be revised to meet current [...] results best viewed via link to PDF [facility] Department of Pathology [address] [place] [id number] Note to Patients: This report may [...] Final Report Patient Name: ??LIZA WORTHINGTON [facility], [place] ?? Gender: ??F : ??2000 (Age: 21) Service: ??Gastro Location: ??[facility] #: ??[id number] Patient Type: ??[facility] Accession # ?[id number] Taken: ??09/15/2021 Received: ??09/15/2021 Accessioned: ??09/15/2021 Reported: ??09/16/2021 Physician(s):Greyson Polanco ANP Diagnosis: A: Stomach, antral biopsy: ? -Mild [...] determined by the Surgical Pathology Department at [facility] as part of an ongoing air quality instrument specialist program and in compliance with federally mandated [...] characteristics determined by the Surgical Pathology Department [facility]. ??It has not been cleared or approved by the U. S. Food and Drug Administration. Note for decalcified specimens: This assay has not been validated on decalcified tissues. Results should be interpreted with caution given the possibility of false negativity on decalcified specimens Raul Carlson MD LAB PATHOLOGY ORDERABLE S Final Result PATHOLOGY [address] [place] [address] * EGD (09/15/2021 10:49 AM CDT) Anatomical Region Laterality Modality Other Narrative Procedure Note Raul Carlson MD - 09/15/2021 10:49 AM CDT - [facility] Endoscopy Lab Patient Name: Liza Worthington Procedure Date: 09/15/2021 10:49 AM Date of : 2000 Admit Type: Outpatient Age: 21 Gender: Female Note Status: Finalized Attending MD: Raul Carlson M.D. Procedure Date: 09/15/2021 Procedure: Upper GI endoscopy Indications: Epigastric abdominal pain Providers: Raul Carlson M.D., Luz Wolff DIVORCE MEDIATOR (Anesthesia Staff), Ariana Worthy, RN, John, Veneer Splicer Referring MD: TAO Banuelos Medicines: Monitored Anesthesia [...] for 3months. Procedure Code(s): --- Professional --- 85536, Esophagogastroduodenoscopy, flexible, transoral; with biopsy, single or multiple Diagnosis Code(s): --- Professional --- K21.00, Gastro-esophageal reflux disease with esophagitis, without bleeding K31.89, Other diseases of stomach and duodenum R10.13, Epigastric pain CPT copyright 2020 [employer]. All rights reserved. The codes documented in this report are preliminary and upon fixture maker reviewmay be revised to meet current compliance requirements. Electronically signed by Raul Carlson M.D. Raul Carlson M.D. 09/15/2021 11:03:55 AM Number of Addenda: 0 Note Initiated On: 09/15/2021 10:49 AM Raul Carlson MD ENDOSCOPY PROCEDURES Fi nal Result * COLONOSCOPY (09/15/2021 10:47 AM CDT) Anatomical Region Laterality Modality Other Narrative Procedure Note Raul Carlson MD - 09/15/2021 10:47 AM CDT [facility] Endoscopy Lab Patient Name: Liza Worthington Procedure Date: 09/15/2021 10:47 AM Date of : 2000 Admit Type: Outpatient Age: 21 Gender: Female Note Status: Finalized Attending MD: Raul Carlson M.D. Procedure Date: 09/15/2021 Procedure: Colonoscopy Indications: Clinically significant diarrhea of unexplainedorigin, Hematochezia Providers: Raul aCrlson M.D., Luz Wolff, DIVORCE MEDIATOR (Anesthesia Staff), Ariana Worthy, RN, [facility], Veneer Splicer Referring MD: TAO Banuelos Medicines: Monitored Anesthesia [...] by the physician, the nurse and the veteran appeals reviewer in the procedure room. Mental Status Examination: [...] age 43. Procedure Code(s): --- Professional --- 64212, Colonoscopy, flexible; with biopsy, singleor multiple Diagnosis Code(s): --- Professional --- R19.7, Diarrhea, unspecified K92.1, Melena (includes Hematochezia) CPT copyright 2020 [employer]. All rights reserved. The codes documented in this report are preliminary and upon fixture maker reviewmay be revised to meet current compliance [...] type Non-intractable vomiting with nausea Non-intractable vomiting documented in this encounter Admitting Diagnoses Diagnosis [...] documented as of this encounter Care Teams Hand Wood Sander Relationship Specialty Start Date End Date Natalya Guzman NP PCP - General Nurse Practitioner 06/05/19 documented as of this encounter
--- OUTSIDE RECORDS SUMMARY | 2024-06-14 05:21 | XMS_ITS | Encounter Summary ---
Author Organization [facility] Address [address] [place] [address] Care Team Providers Care Practice Billing Associate Name Role Phone Jailene Fajardo MD Primary Care Provider [phone] Reason for Visit * Reason Comments Pain Abdominal Started 3 weeks ago cont with pain. Has not been able to attend school Has seen GI last week and instructed to return to ED. Vomiting Started 3 weeks ago cont with vomiting. Can tolerated clear liquids not any solids. Pain increases with po intake. Diarrhea Started 3 weeks ago. X1 today but minimal intake today. GENERALIZED BODY ACHES Cont with achy al l over, dizziness headache. Here weak sounding grimace when laying down. Encounter Details Date Type Department Care Team (Latest Contact Info) Description 06/01/2011 3:22 PM SLEEVE IRONER - 06/05/2011 5:40 PM SLEEVE IRONER Hospital Encounter CG [address] [place] [address] Brianna Quinones MD [address] [place] [address] Everardo Arriaga MD [address] [facility] [id number] [place] [id number] Gastroenterology Discharge Disposition: Home or Self Care Social History Tobacco Use Types Packs/Day Years Used Date Smoking Tobacco: Never Assessed Sex and Gender Information Value Date Recorded Sex Assigned at Not on file Gender Identity Not on file Sexual Orientation Not on file documented as of this encounter Last Filed Vital Signs Vital Sign Reading Time Taken Comments Blood Pressure 104/54 06/05/2011 5:35 PM SLEEVE IRONER Pulse 76 06/05/2011 5:35 PM SLEEVE IRONER Temperature 36.6 ??C (97.8 ??F) 06/05/2011 5:35 PM CS T Respiratory Rate 20 06/05/2011 5:35 PM SLEEVE IRONER Oxygen Saturation 97% 06/05/2011 7:50 AM SLEEVE IRONER Inhaled Oxygen Concentration - - Weight 84.1 kg (185 lb 6.5 oz) 06/01/2011 5:25 P M SLEEVE IRONER Height 154.9 cm (5' 1 ) 06/01/2011 7:35 PM SLEEVE IRONER Body Mass Index 35.03 06/01/2011 5:25 PM SLEEVE IRONER Body Mass Index Percentile 99.40% 06/01/2011 7:3 5 PM SLEEVE IRONER Growth Chart: CDC (Girls, 2- 20 Years) documented in this encounter Discharge Summaries * Ander Otoole MD - 06/05/2011 4:19 PM CST Pediatric Surgery Discharge Summary This is a clinical resume for patient Liza Worthington for attending Everardo Arriaga MD Admission Date: 06/01/2011 Discharge Date: 06/05/2011 Hospitalization duration: Hospital Day: 4 HPI: Pt is a 11 yo female previously healthy female with a 1 month history of acute onset abdominalpain, nausea/vomiting, diarrhea beginning approximately 1 week following a bout of bronchitis/URI treated with antibiotic. Pt was seen for this complaint in ED 05/23/2011, and after a low likelihood of appendicitis, was discharged after tolerating diet and was instructed to follow up with GI. GI sta rted Prilosec, but with continued pain, mom was instructed to bring patient to ED yesterday. Pt underwent HIDA scan today and results are below. Pt complaints of leslie-umbilical and right sided abdominal pain that is worse after greasy, fried, spicy meals. She often has emesis following meals, which is only what she had eaten and is non-bloody. She has lost 10-15lb since this started 1 month ago. She normally has 1 formed BM per day, but nowhas 3-4 loose stools per day that is green-tinted and non-bloody she states. She also complains that the pain is worse with defecation or urination. Patient has had decreased appetite, but has been able to continue to take in fluids. Mom states stool cultures that were sent off were normal. Past Medical History Diagnosis Date ??? FTND (full term normal delivery) Past Surgical History Procedure Date ??? Tonsillectomy and adenoidectomy No family history on file. Pertinent labs: Component Name 06/01/11190905/23/11 0353 WBC 8.87 9.02 HGB 13.4 13.7 HCT 38.8 39.2 PLTCOUNT 303 381 Component Name 06/01/111909 SODIUM 143 POTASSIUM 4.1 CHLORIDE 106 CO2 24.4 BUN 5.3* CREATININE 0.51 GLUCOSE 85 CALCIUM 9.4 ALBUMIN 4.4 ALKPHOS 138 ALT 34* AST 27 TBIL 0.5* TPROT 7.2 EGFR -- Consultations: gastroenterology Diagnostic studies: Ct abdomen/pelvis with iv contrast: unremarkable gallbladder. Large right ovarian cyst. HIDA scan: failure of gallbladder to empty after delay. RUQ ultrasound: no gallstones. Procedures: laparoscopic cholecystectomy Clinical course: patient was admitted to the gastroenterology service for workup of her persistent,difficult to diagnose abdominal pain. She was also given iv hydration as her po intake was limited by nausea and vomitting. After medical workup yielded only gallbladder dyskinesia on HIDA scan. A diagnosis of exclusion of this as the cause for abdominal pain was made and the patient was referred to surgery for cholecystectomy. A CT scan was obtained by surgery to rule out any other suspicious causes for abdominal pain. An enlarged right ovarian cyst was identified. The patient was taken to theoperating room and a diagnostic laparoscopy was performed, with a right ovarian cyst drained to reve al serous fluid. A cholecystectomy was performed. The patient by post op day one was tolerating a diet, ambulatory, was voiding on her own, and had pain reasonable controlled by oral pain medication.The patient was thus discharged. Liza Worthington Home Medication Instructions MARVIN:[id number] Printed on:06/05/11 7583 Medication Information omeprazole EC (PRILOSEC OTC) 20 MG tablet Take 1 Tab by mouth 2 times daily before meals. hydrocodone-acetaminophen (NORCO) 5-325 MG tablet Take 1-2 Tabs by mouth every 4 hours as needed for Pain. Discharge vitals: Blood pressure 112/64, pulse 70, temperature 98.6 ??F, resp. rate 16, height 1.549 m (5' 1 ), weight 84.1 kg (185 lb 6.5 oz), last menstrual period 05/15/2011, SpO2 97.00%. Discharge Diagnosis(es): Abdominal pain, s/p lap cholecystectomy Follow up in [address] Vela in two weeks.. Call [phone] for appointment time. Return to ER or call [phone] and page pediatric surgery resident if develop severe pain, nausea, vomitting, or fever > 101.0 F. Ander Otoole MD Resident, Pediatric Surgery CC: Jailene Fajardo MD VE IRONER documented in this encounter Discharge Instructions * Discharge Instructions* Yovana Priest RN - 06/05/2011 5:07 PM SLEEVE IRONER Discharge Instructions for: Liza Worthington Discharge Procedure Orders HELICOBACTER PYLORI UREASE Standing Status: Future Number of Occurrences: 1 Standing Exp. Date: 06/02/12 PATHOLOGY SPECIMEN - [facility] COMMUNICATION TO ENDOSCOPY STAFF Standing Status: Future Number of Occurrences: 1 Standing Exp. Date: 06/02/12 Pathology orders cannot be placed in [facility] at this time - A COMPLETED PATHOLOGY requisition is sent with the specimen to the Laboratory. Endoscopy staff to complete the requisition. DISCHARGE DIET INSTRUCTIONS Start light diet today (i.e soup, Jell-O, toast). If no nausea or vomiting, may resume normal diet.In case of nausea or vomiting, reduce diet to fluids low in acid (water, sports drinks, white sodas). As you are able to tolerate the fluids, gradually increase your diet. IF NAUSEA AND/OR VOMITING PERSISTS, CONTACT YOUR PHYSICIAN. REGULAR DIET AT HOME NO ACTIVITY RESTRICTIONS AT DISCHARGE RETURN TO SCHOOL When no longer in need of pain medications. RETURN TO SPORTS/PHYSICAL EDUCATION CLASSES In 14 days after follow up in clinic and receive go-ahead. Avoid other vigorous activities such as bike riding until you are released to return to physical education classes and/or sports. WOUND CARE AT HOME May sponge bathe. May shower after 48 hours. No tub bath or swimming pool until follow up in clinicand receive go-ahead. May remove clear plastic dressing 2 days following surgery. Steri strips willfall off on own, do not remove if possible. CALL PHYSICIAN If unrelieved pain; excessive bleeding at surgical site; excessive redness/unusual drainage at surgical site or IV site; fever over 100 degrees under the arm or 101 degrees orally; numbness/tingling/changes in color in affected extremity; or if patient has not urinated by 8 hours, or if has not had bowel movement for 48 hours PRESCRIPTIONS GIVEN TO PATIENT/FAMILY FOLLOW UP Follow up with Dr. Vela at [facility] in 2 weeks. Bring all medications to next visit. Call [phone] for appointment time. EGD Standing Status: Future Number of Occurrences: 1 Standing Exp. Date: 06/03/12 Order Specific Question Answer Comments Physician/PNP: Dr Everardo Arriaga Type of anesthesia: Propofol The following belonging have been returned to you Clothing Clothing: Yes With Patient: Pants;Undergarments;Shirt;Jacket/Coat;Sweater;Footwear Jewelry Jewelry: None Electronics Electronic Items: None Dentures Dentures/Retainers: None Vision Visual Aids: None [...] your primary care doctor cannot be reached. 06/05/2011 VE IRONER * Discharge Instructions* Document, Scanned - 06/09/2011 8:45 AM SLEEVE IRONER VE IRONER documented in this encounter Medications at Time of Discharge Medication Sig Dispensed Refills Start Date End Date omeprazole EC (PRILOSEC OTC) 20 MG tablet Take 1 Tab by mouth 2 times daily before meals. 60 Tab 5 05/29/2011 hydrocodone-acetaminophen (NORCO) 5-325 MG tablet Take 1-2 Tabs by mouth every 4 hours as needed for Pain. 75 Tab 0 06/05/2011 07/10/2011 documented as of this encounter Progress Notes * Courtney Dennis MD - 06/05/2011 12:43 PM CST Pediatric General Surgery Progress Note Liza Worthington Admit Date: 06/01/2011 3:22 PM Hospital Day: 4 Subjective Pt is 11 yo female s/p lap alice and Right ovarian cyst drainage Pt continues to c/o pain all over. Afebrile Objective Data Vitals: 06/04/11 2255 06/05/11 0320 06/05/11 0750 06/05/11 1200 BP: 116/54 Pulse: 105 66 54 70 Temp: 98.8 ??F 99.4 ??F 98.6 ??F Resp: 16 Weight: SpO2: 98% 99% 97% Intake/Output Summary (Last 24 hours) at 06/05/11 1246 Last data filed at 06/05/11 1100 Gross per 24 hour Intake 2703.05 ml Output 1075 ml Net 1628.05 ml Labs: None 06/03/2011 CT A/P: Abdomen: Small bilateral lower lobe nodules are [...] up to 3.7 cm in greatest dimension. Physical Exam General appearance: alert, cooperative, no distress Lungs: symmetric B/L chest rise Abdomen: soft without mass, appropriate post-operative tenderness Wound: incision: clean and dry, no erythema Extremities: no clubbing, cyanosis or edema Assessment/Plan Pt is 11 yo female s/p lap alice and Right ovarian cyst drainage -cont ADAT -encourage IS and ambulation -cont pain control with toradol and Celina Courtney Dennis MD 06/05/2011 12:44 PM VE IRONER * Karla Henry RN - 06/05/2011 4:28 AM CST 06/05 Pt's pain continues to be hard to control. When awakened she cries out and c/o extreme soreness but will fall asleep shortly after pushing [employer]. 3/4 lap sites have scant bleeding but the right lateral site remains dry of drainage. Pt continues to c/o nausea but no emesis as of 11pm on 06/04. Gets up well with assist to go to the bathroom. Monitors on. Continues to take small sips of fluid. VE IRONER * David Gilbert MD - 06/04/2011 8:31 PM CST Pediatric Surgery Post op check POD 0 for ex laparoscopy, laparoscopic cholecystectomy Subjective: Patient returns from the OR after undergoing a lap alice. Patient claims to still be in severe pain all over her body. She does not think that the Morphine is helping. Patient has tolerated food and has urinated. Objective: Patient Vitals for the past 6 hrs: Temp Pulse Resp BP 06/04/11 1940 98.2 ??F 100 20 - 06/04/11 1905 - 80 24 120/70 mmHg 06/04/11 1805 98.6 ??F 100 16 120/39 mmHg 06/04/11 1735 - 66 18 - 06/04/11 1725 - 74 16 - 06/04/11 1715 - 68 18 142/53 mmHg 06/04/11 1645 98.8 ??F 74 20 142/53 mmHg 06/04/11 1620 - 66 18 141/49 mmHg 06/04/11 1610 - 84 16 142/51 mmHg 06/04/11 1555 - 85 18 127/68 mmHg 06/04/11 1535 - 82 16 145/57 mmHg 06/04/11 1518 97.3 ??F 110 16 143/50 mmHg Urine output post op:400cc Physical Exam: General appearance: Crying, can answer questions Lungs: breath sounds normal and symmetric; no rales or wheezes Abdomen: obese, incision is c/d/i, tender to palpation diffusely Assessment/Plan: POD 0 for lap alice -vital signs stable, afebrile -adequate UOP post op -patient having issues with pain control; will consider increasing does of morphine if she continues to have problems -dressings intact -overall recovering well, continue post op care David Gilbert MD 06/04/2011 8:31 PM VE IRONER * Sarah Beth Mariscal MD - 06/04/2011 5:41 PM CST Pediatric Resident Daily Progress Note Lizakayla Worthington 06/04/2011 5:41 PM Hospital Day: 3 Clinical Course No acute events overnight. Patient had EGD and RUQ u/s yesterday. She had emesis and burning pain yesterday evening. Pain controlled with Lortab. Pt NPO today for elective cholecystectomy. Objective Vitals BP: 142/53 mmHg (06/04/11 1715), Temp: 98.8 ??F (06/04/11 1645), Pulse: 68 (06/04/11 1715), Resp: 18 (06/04/11 1715), SpO2: 96 % (06/04/11 1715), Height: 154.9 cm (5' 1 ) (06/01/11 1935), Weight: 84.1 kg (185 lb 6.5 oz) (06/01/11 1725) Temp (24hrs), Av.7 ??F, Min:97.3 ??F, Max:99.4 ??F 06/03 1500 - 06/04 1459 In: 3018 [P.O.:360; I.V.:2658] Out: 400 [Urine:400] Exam: General: sleeping comfortably, no acute distress Head: NC/AT Cardiovascular: regular rate and rhythm, normal S1 and S2, no murmurs Chest: breath sounds symmetrical without rales or wheezes and good air movement Abdomen: soft, non-tender, non-distended and no hepatosplenomegaly or masses Skin: no rashes Lab/Other Information EGD- grossly normal, biopsy results pending RUQ U/s- grossly normal, no stones Active Hospital Problems Diagnoses Date Noted ??? Biliary dyskinesia 06/03/2011 Priority: Medium ??? Headache 06/01/2011 With photophobia, frontal, associated with dizziness, worse after emesis. No family history of migraine. Plan: - Monitor clinically ??? Abdominal pain, generalized 05/28/2011 3wk of diffuse abdominal pain, worse around the umbilicus, with a constant burning and occasional sharp/cramping quality. It is worse with eating and BMs but it is not positional. Associated 10 lb weight loss. Patient received NS bolus x2 in ED then started on mIVF. HIDA scan 06/02 showed no gallbladder emptying. Liver function normal. RUQ u/s showed no gallstones. EGD grossly normal. Awaiting biopsy results. Plan: - Surgery following - to OR today for elective cholecystectomy - Pain control with tylenol - Continue IV nexium - Continue mIVF ??? Diarrhea 05/28/2011 2 wks of 3 non-bloody, foul smelling loose stools a day and RLQ pain with bowel movements. Plan: - See above ??? Vomiting 05/28/2011 2 wks of 3-4 episodes of NBNB vomiting per day. 1 emesis overnight after eating clears. Plan: See above Sarah Beth Mariscal MD VE IRONER * Evaristo Landin MD - 06/04/2011 3:41 PM CST POST-OP ANESTHESIA EVALUATION Liza Worthington is Post Op from Scheduled Procedure Scheduled procedure: Laparoscopic cholecystectomy The patient is sufficiently recovered from the acute administration of the anesthesia so as to participate in the evaluation or neurologic status has returned to pre-operative or expected level of consciousness. The post-anesthesia assessment was completed based upon the elements below. The patient is stable and has adequately recovered from anesthesia unless otherwise noted. Post-op Evaluation: Temp: 97.3 ??F Pulse: 82 Resp: 16 SpO2: 100 % BP: 145/57 mmHg Pain Rating Score #: 5 Resp function: Natural Airway Cardiac Function: Stable Mental Status : Awake/Alert Pain: Comfortable / acceptable Nausea / Vomiting: None Post Procedure Hydration: Adequate Other complications A post-op evaluation was performed on the patient with the following assessment: No Apparent Anesthesia Complications Unless otherwise indicated, the patient is being discharged from anesthesia care. VE IRONER * Everardo Arriaga MD - 06/04/2011 1:29 PM CST GI Attending Progress Note Admit Date: 06/01/2011 3:22 PM Hospital Day: 3 Pt is NPO for possible cholecystectomy (add on per Dr Vela). Data Vitals: 06/04/11 1000 06/04/11 1010 06/04/11 1223 06/04/11 1229 BP: 95/40 100/44 117/35 98/50 Pulse: 50 54 63 Temp: 98.8 ??F Resp: 17 26 25 Weight: SpO2: 99% 99% 100% Exam Asleep, signs of obesity Abdomen is soft, not tenderness, no organomegalies EGD: NORMAL on 06/03/11 Recommendation: Proceed with elective cholecystectomy. Discussed with RN and mother. VE IRONER * Courtney Dennis MD - 06/04/2011 11:44 AM CST Pediatric General Surgery Progress Note Liza Worthington Admit Date: 06/01/2011 3:22 PM Hospital Day: 3 Subjective Pt is 11 yo female with 1 month h/o abdominal pain, n/v/d Afebrile. Still has abdominal pain. Objective Data Vitals: 06/04/11 0933 06/04/11 0947 06/04/11 1000 06/04/11 1010 BP: 102/42 91/46 95/40 100/44 Pulse: 49 64 50 54 Temp: Resp: 23 12 17 26 Weight: SpO2: 99% 98% 99% 99% Intake/Output Summary (Last 24 hours) at 06/04/11 1145 Last data filed at 06/04/11 0911 Gross per 24 hour Intake 2807 ml Output 750 ml Net [address] scan - reviewed EGD - negative Physical Exam General appearance: alert, cooperative, no distress Lungs: breath sounds normal and symmetric; unlabored Abdomen: soft without mass, tender on right side of abdomen, not at epigastric region Extremities: no cyanosis or edema Assessment/Plan Pt is 11 yo female w/ abdominal pain, n/v/d -To OR for diagnostic laparoscopy, lap alice, possible ovarian cyst drainage Courtney Denins MD 06/04/2011 11:44 AM VE IRONER * Abilio Vela MD - 06/04/2011 11:44 AM CST Attending Physician Attestation I reviewed the patient's medical record and history. I examined the patient and confirm the findings above. I reviewed the patient's radiology and lab results. I reviewed these results with the resident(s) and formulated a plan. Patient seen on 06/04/2011 9am Brief history: s/p ct last night. Showed right ovarian cyst Brief physical exam: abd soft, mild epigastric pain. Summary: 11 y.o. female. The patient has the following diagnoses: 1. Abdominal pain, generalized 2. Vomiting 3. Diarrhea Decision making/Plan: Will go ahead with lap choly for biliary dyskinesia, examine right ovary and perform cystostomy Abilio Vela MD VE IRONER * Ander Otoole MD - 06/03/2011 11:29 PM CST Pre-Operative Check list Preoperative Diagnosis: gallbladder dyskinesia Planned Procedure: laparoscopic cholecystectomy Type of Line/Port: piv Site Marked: n/a Preoperative Imaging: reviewed Consent: discussed with parents and consent signed and witnessed Preoperative Bloodwork: checked, and no transfusions required Type and Screen/Cross: not required NPO Status: NPO at midnight Preoperative Antibiotics: stoneef Ander Otoole MD, 06/03/2011, 11:30 PM VE IRONER * Yobany Joseph MD - 06/03/2011 7:39 PM CST Liza Worthington 11 y.o. female : 2000 PRE-ANESTHESIA EVALUATION Scheduled Procedure Scheduled procedure: Laparoscopic cholecystectomy Patient Active Problem List Diagnoses ??? Abdominal pain, generalized ??? Vomiting ??? Diarrhea ??? Headache ??? Biliary dyskinesia Allergies Review of patient's allergies indicates no known allergies. Meds Prescriptions prior to admission Medication Sig Dispense Refill ??? omeprazole EC (PRILOSEC OTC) 20 MG tablet Take 1 Tab by mouth 2 times daily before meals. 60 Tab 5 Current Facility-Administered Medications Medication Dose Route Frequency Provider Last Rate Last Dose ??? hydrocodone-acetaminophen solution (LORTAB) 7.5-500 MG/15ML solution 15 mL 15 mL Oral q4h PRN Abilio Vela MD ??? ondansetron (ZOFRAN) injection 8 mg 8 mg Intravenous q6h PRN Sarah Beth Mariscal MD 8 mg at 06/02/11 1925 ??? dextrose 5 % and 0.45% NaCl infusion Intravenous Continuous Yobany Mchugh MD 120 mL/hr at 06/03/11 1109 ??? esomeprazole (NexIUM) injection 20 mg 20 mg Intravenous QDAY Yobany Mchugh MD 20 mg at 06/03/11 0857 ??? 0.9% NaCl injection 2 mL 2 mL Intracatheter PRN Juli Paniagua MD ??? acetaminophen (TYLENOL) tablet 650 mg 650 mg Oral q4h PRN Maru Britt MD 650 mg at 634 Past Medical History Diagnosis Date ??? FTND (full term normal delivery) Past Surgical History Procedure Date ??? Tonsillectomy and adenoidectomy No family history on file. Labs: Component Name 06/01/111909 WBC 8.87 HGB 13.4 HCT 38.8 PLTCOUNT 303 Component Name 06/01/111909 SODIUM 143 POTASSIUM 4.1 CO2 24.4 BUN 5.3* CREATININE 0.51 GLUCOSE 85 No results found for this basename: PT,INR,PTT in the last 74159 hours Test: Component Name 06/03/11 1345 HCGURINE Negative HCGQUAL -- VITAL SIGNS Temp: 98.6 ??F Pulse: 69 Resp: 18 BP: 114/42 mmHg Weight: 84.1 kg (185 lb 6.5 oz) Height: 154.9 cm (5' 1 ) SpO2: 96 % Pre-Eval ExamPrevious Review I reviewed previous documentation: Yes PHYSICAL EXAM NPO status: Since Midnight Heart Sounds: S1 S2 Respiratory Pattern/Effort: CTA Oriented x 3: Yes Teeth: Loose (right upper canine) Airway Class: I ANESTHESIA ASA: II Anesthesia Choices: General (22 G PIV left hand) Post-Op: PACU Patient prefers Mask flavor: Iv induction I have discussed anesthesia with the mother including possible complications and techniques. He/She/They understand(s) and consent(s). VE IRONER * Evaristo Landin MD - 06/03/2011 7:39 PM CST I have personally reviewed the patient's condition and agree with the above evaluation and anesthetic plan. VE IRONER * Gila Danielson MD - 06/03/2011 3:38 PM CST POST-OP ANESTHESIA EVALUATION Liza Worthington is Post Op from Scheduled Procedure Scheduled procedure: upper endoscopy The patient is sufficiently recovered from the acute administration of the anesthesia so as to participate in the evaluation or neurologic status has returned to pre-operative or expected level of consciousness. The post-anesthesia assessment was completed based upon the elements below. The patient is stable and has adequately recovered from anesthesia unless otherwise noted. Post-op Evaluation: Temp: 98.2 ??F Pulse: 81 Resp: 16 SpO2: 97 % BP: 109/39 mmHg Pain Rating Score #: 5 Resp function: Natural Airway Cardiac Function: Stable Mental Status : Awake/Alert Pain: Comfortable / acceptable Nausea / Vomiting: None Post Procedure Hydration: Adequate Other complications A post-op evaluation was performed on the patient with the following assessment: No Apparent Anesthesia Complications Unless otherwise indicated, the patient is being discharged from anesthesia care. VE IRONER * Sarah Beth Mariscal MD - 06/03/2011 11:37 AM CST Pediatric Resident Daily Progress Note Liza Worthington 06/03/2011 11:37 AM Hospital Day: 2 Clinical Course No acute events overnight. HIDA scan done yesterday at [facility]. Patient had 1 emesis after starting clears. She is now NPO for scheduled EGD. Surgery consulted for gallbladder dysfunction. Patient had abdominal pain yesterday not relieved by tylenol. She received oxycodone x1 and zofran x1 for n/v. Objective Vitals BP: 102/64 mmHg (06/03/11 0755), Temp: 97.8 ??F (06/03/11 0755), Pulse: 60 (06/03/11 0755), Resp: 20 (06/03/11 0755), Height: 154.9 cm (5' 1 ) (06/01/11 1935), Weight: 84.1 kg (185 lb 6.5 oz) (06/01/11 1725) Temp (24hrs), Av.6 ??F, Min:97.8 ??F, Max:99 ??F 06/02 0700 - 06/03 0659 In: 2930 [P.O.:600; I.V.:2330] Out: 1650 [Urine:1650] Exam: General: sleeping comfortably, no distress Head: NC/AT Cardiovascular: regular rate and rhythm, normal S1 and S2, no murmurs Chest: breath sounds symmetrical without rales or wheezes and good air movement Abdomen: soft, non-tender, non-distended and no hepatosplenomegaly or masses Skin: no rashes Lab/Other Information HIDA scan- no gallbladder emptying Active Hospital Problems Diagnoses Date Noted ??? Headache 06/01/2011 With photophobia, frontal, associated with dizziness, worse after emesis. No family history of migraine. Plan: - Monitor clinically ??? Abdominal pain, generalized 05/28/2011 3wk of diffuse abdominal pain, worse around the umbilicus, with a constant burning and occasional sharp/cramping quality. It worse with eating and BMs but it is not positional. Associated 10 lb weight loss. Patient received NS bolus x2 in ED then started on mIVF. HIDA scan 06/02 showed no gallbladder emptying. Liver function normal. Plan: - Surgery following - RUQ u/s to look for gallstones - EGD today to evaluate for gastritis - Pain control with tylenol - Continue IV nexium - Continue mIVF ??? Diarrhea 05/28/2011 2 wks of 3 non-bloody, foul smelling loose stools a day and RLQ pain with bowel movements. Plan: - See abdominal pain - Consider hemoccult - Obtain records from [facility] for C. Diff and stool studies. ??? Vomiting 05/28/2011 2 wks of 3-4 episodes of NBNB vomiting per day. 1 emesis overnight after eating clears. Plan: See abdominal pain Sarah Beth Mariscal MD VE IRONER * Everardo Arriaga MD - 06/03/2011 10:53 AM CST GI Attending Progress Note Admit Date: 06/01/2011 3:22 PM Hospital Day: 2 Liza Worthington is a 11 y.o. female with history of obesity and abdominal pain for more than 3 weeks. She presents with three weeks of periumbilical abdominal pain, and 2 weeks nausea, intermittent vomiting, diarrhea. Gallbladder HIDA scan done yesterday at [facility] showed no contractility of GB . Data Vitals: 06/02/11 2050 06/02/11 2315 06/03/11 0505 06/03/11 0755 BP: 110/70 100/68 102/64 Pulse: 64 52 56 60 Temp: 98.8 ??F 98.6 ??F 97.8 ??F Resp: Weight: Body mass index is 35.03 kg/(m^2). Exam Asleep, Signs of obesity. No rashes Lungs clear, S1 S2 Abdomen soft, prominent, not tenderness, no organomegalies PLAN: EGD today. US of abdomen per surgical Team. Mother will prefer cholecystectomy (if possible) in this admission. Discussed with RN, mother and GI Team. VE IRONER * ZeeshanJustine velasquez - 06/03/2011 6:47 AM CST Pediatric General Surgery Progress Note Liza Worthington Admit Date: 06/01/2011 3:22 PM Hospital Day: 2 Subjective Pt is 11 yo female with 1 month h/o abdominal pain, n/v/d Afebrile, VSS, no acute events overnight. Objective Data Vitals: 06/02/11 1605 06/02/11 2050 06/02/11 2315 06/03/11 0505 BP: 98/70 110/70 100/68 Pulse: 62 64 52 56 Temp: 99 ??F 98.8 ??F 98.6 ??F Resp: Weight: Temp (30hrs) Max:99 ??F Intake/Output Summary (Last 24 hours) at 06/03/11 0648 Last data filed at 06/03/11 0600 Gross per 24 hour Intake 2930 ml Output 1650 ml Net 1280 ml Physical Exam General appearance: alert, cooperative, no distress Lungs: breath sounds normal and symmetric; unlabored Abdomen: soft without mass, tender on right side of abdomen, not at epigastric region Extremities: no cyanosis or edema Assessment/Plan Pt is 11 yo female w/ abdominal pain, n/v/d - NPO for EGD - RUQ ultrasound today Justine Aishwarya 06/03/2011 6:47 AM VE IRONER * Cely Phan MD - 06/02/2011 9:26 PM CST Liza Worthington 11 y.o. female : 2000 PRE-ANESTHESIA EVALUATION Scheduled Procedure Scheduled procedure: upper endoscopy Patient Active Problem List Diagnoses ??? Abdominal pain, generalized ??? Vomiting ??? Diarrhea ??? Headache Allergies Review of patient's allergies indicates no known allergies. Meds Prescriptions prior to admission Medication Sig Dispense Refill ??? omeprazole EC (PRILOSEC OTC) 20 MG tablet Take 1 Tab by mouth 2 times daily before meals. 60 Tab 5 Current Facility-Administered Medications Medication Dose Route Frequency Provider Last Rate Last Dose ??? ondansetron (ZOFRAN) injection 8 mg 8 mg Intravenous q6h PRN Sarah Beth Mariscal MD 8 mg at 06/02/111924 ??? oxycodone (immediate release) (ROXICODONE) tablet 5 mg 5 mg Oral q4h PRN Sarah Beth Mariscal MD 5 mg at 06/02/112056 ??? dextrose 5 % and 0.45% NaCl infusion Intravenous Continuous Yobany Mchugh MD 120 mL/hr at 06/02/11 1019 ??? esomeprazole (NexIUM) injection 20 mg 20 mg Intravenous QDAY Yobany Mchugh MD 20 mg at 06/02/11 0821 ??? 0.9% NaCl injection 2 mL 2 mL Intracatheter PRN Juli Paniagua MD ??? acetaminophen (TYLENOL) tablet 650 mg 650 mg Oral q4h PRN Maru Britt MD 650 mg at 712 Past Medical History Diagnosis Date ??? FTND (full term normal delivery) Past Surgical History Procedure Date ??? Tonsillectomy and adenoidectomy No family history on file. Labs: Component Name 06/01/111909 WBC 8.87 HGB 13.4 HCT 38.8 PLTCOUNT 303 Component Name 06/01/111909 SODIUM 143 POTASSIUM 4.1 CO2 24.4 BUN 5.3* CREATININE 0.51 GLUCOSE 85 No results found for this basename: PT,INR,PTT in the last 57105 hours Test: Component Name 06/01/111854 HCGURINE Negative HCGQUAL -- VITAL SIGNS Temp: 98.8 ??F Pulse: 64 Resp: 24 BP: 110/70 mmHg Weight: 84.1 kg (185 lb 6.5 oz) Height: 154.9 cm (5' 1 ) Pre-Eval ExamPrevious Review I reviewed previous documentation: Yes PHYSICAL EXAM NPO status: Since Midnight Heart Sounds: S1 S2 Respiratory Pattern/Effort: CTA Oriented x 3: Yes Teeth: Loose (right upper canine) Airway Class: II ANESTHESIA ASA: II Anesthesia Choices: General (22 G PIV left hand) Post-Op: PACU Patient prefers Mask flavor: IV induction I have discussed anesthesia with the mother including possible complications and techniques. He/She/They understand(s) and consent(s). VE IRONER * Gila Danielson MD - 06/02/2011 9:26 PM CST I have personally reviewed the patient's condition and agree with the above evaluation and anesthetic plan. VE IRONER * Yovana Priest RN - 06/02/2011 7:12 PM CST [id number]: Pt to [facility] for HIDA scan today. Results showed gallbladder not emptying. Pt with complaints of abdominal and head pain. Rates pain 4/10. Heating pad helps abdominal pain and Tylenol given to relieve headache. Pt advanced to clears with emesis shortly after eating. Abdominal pain increasedand MD notified. Zofran ordered. Report given to oncoming nurse. VE IRONER * Hien Garcia CCLS - 06/02/2011 3:37 PM CST CHILDLIFE ASSESSMENT CCLS notified that pt going to [facility] for HIDA scan. Met pt and mother in room, and accompanied pt to [facility]. Distraction using the Ipad provided, as well as a movie. Will continue to follow. Liza Landa Elin [id number] Objective 1. Objective Information - Introduction: Child Life Services has met patient;Family present at timeof contact;Informed patient/family about Child Life Services;Developmentally appropriate materials provided;Comfort measures offered 2. Diversional/Play Activities: Diversional activities provided General Information States reason for hospitalization: Yes (comment) Assessment Feelings: Expresses anxiety related to pain. Age Appropriate Skills: Appears to exhibit age - appropriate skills Assessment: Patient adjusting well to hospitalization at this time. Plan Child Life plan of care: Patient will be a primary followed by this Mechanical Technical Service Specialist.;Provide developmentally appropriate therapeutic activities.;Provide relaxation, distraction and soothing techniques.;Continue to assess patient needs for changes.;Provide procedural support;Provide opportunity for expression of emotions.;Provide emotional support for family. JEANCARLOS Herring 06/02/2011 3:37 PM VE IRONER * Jacqueline Maria RN - 06/02/2011 3:00 PM CST Grandmother at bedside. Called mother's cell phone to inform her of HIDA scan results. Reviewed plan for surgery consult. Also reviewed NPO after midnight and plan for scope tomorrow. Mother & Liza verbalized understanding. VE IRONER * Sarah Beth Mariscal MD - 06/02/2011 7:06 AM CST Pediatric Resident Daily Progress Note Liza Landa Elin 06/02/2011 7:07 AM Hospital Day: 1 Clinical Course Patient admitted yesterday for 3 week h/o abdominal pain, n/v/d and weight loss. No acute events overnight. Patient slept well. She is NPO for HIDA scan today. Objective Vitals BP: 104/72 mmHg (06/01/11 2335), Temp: 99.2 ??F (06/01/11 2335), Pulse: 76 (06/02/11 0345), Resp: 16 (06/02/11 0345), Height: 154.9 cm (5' 1 ) (06/01/11 1935), Weight: 84.1 kg (185 lb 6.5 oz) (06/01/11 1725) Temp (24hrs), Av.6 ??F, Min:97.8 ??F, Max:99.2 ??F 06/01 0700 - 06/02 0659 In: 2477 [I.V.:2477] Out: 475 [Urine:475] Exam: General: sleeping comfortably, no acute distress Head: NC/AT Cardiovascular: regular rate and rhythm, normal S1 and S2, no murmurs Chest: breath sounds symmetrical without rales or wheezes and good air movement Abdomen: soft, non-tender, non-distended, does not awaken with deep palpation Skin: no rashes Lab/Other Information Component Name 06/01/111909 SODIUM 143 POTASSIUM 4.1 CHLORIDE 106 CO2 24.4 BUN 5.3* CREATININE 0.51 GLUCOSE 85 CALCIUM 9.4 ALBUMIN 4.4 ALKPHOS 138 ALT 34* AST 27 TBIL 0.5* TPROT 7.2 EGFR -- Component Name 06/01/11190905/23/11 0353 AMYLASE 41 33 Component Name 06/01/11190905/23/11 0353 LIPASE 151 185 Component Name 06/01/111909 CRP <0.5 Component Name 06/01/111909 WBC 8.87 RBC 4.75 HGB 13.4 HCT 38.8 MCV 81.7 MCH 28.2 MCHC 34.5 RDW 13.4 PLTCOUNT 303 BANDMANPCT -- SEGMANPCT -- LYMPHMANPCT -- MONOMANPCT -- EOSMANPCT -- ATYPLYMPHMAN -- METAMANPCT -- MYELOMANPCT -- PROMYELOMAN -- BLASTMANPCT -- IMMATUREPCT -- PLASMAMANPCT -- OTHERMANPCT -- NRBC -- WBCCORRECT -- RBCMORPH -- WBCMORPH -- Component Name 06/01/111854 COLORUA YELLOW CHARACTERUA SL CLOUDY SPECGRAVUA 1.020 PHUA 8.0 PROTEINUA NEGATIVE BLOODUA NEGATIVE LEUKOCYTEUA NEGATIVE NITRITEUA NEGATIVE GLUCOSEUA NEGATIVE KETONEUA NEGATIVE BILIRUBINUA NEGATIVE UROBILINUA 0.2 Active Hospital Problems Diagnoses Date Noted ??? Headache 06/01/2011 With photophobia, frontal, associated with dizziness, worse after emesis. No family history of migraine. Plan: - Monitor clinically ??? Abdominal pain, generalized 05/28/2011 3wk of diffuse abdominal pain, worse around the umbilicus, with a constant burning and occasional sharp/cramping quality. It worse with eating and BMs but it is not positional. Associated 10 lb weight loss. Patient received NS bolus x2 in ED then started on mIVF. Ddx includes viral gastroenteritis, H.pylori gastric ulcer, gastritis, IBS, IBD, cholecystitis Plan: - HIDA scan today at [facility] - Upper endoscopy tomorrow - Continue IV nexium - Continue mIVF ??? Diarrhea 05/28/2011 2 wks of 3 non-bloody, foul smelling loose stools a day and RLQ pain with bowel movements. Plan: - See abdominal pain - Consider hemoccult - Obtain records from [facility] for C. Diff and stool studies. ??? Vomiting 05/28/2011 2 wks of 3-4 episodes of NBNB vomiting per day. Plan: See abdominal pain Sarah Beth Mariscal MD VE IRONER * Berto Anaya DO - 06/01/2011 7:21 PM CST PGY-3 Feed House Supervisor Admit Note Reviewed hx with ER staff, mother, admitting programming intern, reviewed past records. 3rd visit for same complaints since 05/23. Obese, NAD, HEENT unremarkable, HRRR, lungs CTAB, abd soft, TTP in R U&L quadrants and at umbilicus, hypoactive BS, no peritoneal signs, no R/R/G. Labs pending: CBC, CMP, amylase, lipase, UA, urine HCG, CRP. Broad differential for abdominal pain in this pt. Considerations include but are not limited to gastritis, IBD (considering wt loss), IBS. Admitting for observation, IV hydration, keep NPO, IV Nexium, consider endoscopy. See programming intern note for full details. Berto Anaya DO PGY-3 Pediatrics [phone] VE IRONER documented in this encounter H&P Notes * Abilio Vela MD - 06/02/2011 6:04 PM CST Pediatric General Surgery Consultation Liza is a 11 y.o. female who was referred by Dr. Jailene Fajardo MD for HIDA showing no emptying of gallbladder. History of Present Illness: Pt is a 11 yo female previously healthy female with a 1 month history of acute onset abdominal pain, nausea/vomiting, diarrhea beginning approximately 1 week following a bout of bronchitis/URI treated with antibiotic. Pt was seen for this complaint in ED 05/23/2011, and after a low likelihood of appendicitis, was discharged after tolerating diet and was instructed to follow up with GI. GI startedPrilosec, but with continued pain, mom was instructed to bring patient to ED yesterday. Pt underwent HIDA scan today and results are below. Pt complaints of leslie-umbilical and right sided abdominal pain that is worse after greasy, fried, spicy meals. She often has emesis following meals, which is only what she had eaten and is non-bloody. She has lost 10-15lb since this started 1 month ago. She normally has 1 formed BM per day, but nowhas 3-4 loose stools per day that is green-tinted and non-bloody she states. She also complains that the pain is worse with defecation or urination. Patient has had decreased appetite, but has been able to continue to take in fluids. Mom states stool cultures that were sent off were normal. Review of Systems: General: weight loss Eyes: negative ENT: negative Cardiovascular: negative Respiratory: negative GI: as per HPI : as per HPI Neurologic: negative Endocrine: negative Allergy/Immunology: negative Heme/Lymph: negative Musculoskeletal: negative Skin: negative All other systems reviewed and were negative. Past Medical History Diagnosis Date ??? FTND (full term normal delivery) Past Surgical History Procedure Date ??? Tonsillectomy and adenoidectomy Medications & Allergies: Current Facility-Administered Medications Medication Dose Route Frequency Provider Last Rate Last Dose ??? 0.9 % nacl IV BOLUS 1,500 mL 1,500 mL Intravenous Once Yobany Mchugh MD 500 mL at 06/01/11 1927 ??? dextrose 5 % and 0.45% NaCl infusion Intravenous Continuous Yobany Mchugh MD 120 mL/hr at 06/02/11 1019 ??? esomeprazole (NexIUM) injection 20 mg 20 mg Intravenous QDAY Yobany Mchugh MD 20 mg at 06/02/11 0821 ??? 0.9% NaCl injection 2 mL 2 mL Intracatheter PRN Jlui Paniagua MD ??? acetaminophen (TYLENOL) tablet 650 mg 650 mg Oral q4h PRN Maru Britt MD 650 mg at 712 Review of patient's allergies indicates no known allergies. No family history on file. Lives with: biological mother and siblings Physical Examination: BP 98/70 Pulse 62 Temp 99 ??F Resp 18 Wt 84.1 kg (185 lb 6.5 oz) BMI 35.03 kg/m2 Wt Readings from Last 1 Encounters: 06/01/11 84.1 kg (185 lb 6.5 oz) (98.98%) General Appearance: well developed, well nourished, in no acute distress Eyes: EOMI, sclera white, conjunctiva clear Ears: hearing intact Nose: mucosa and turbinates pink, septum midline Mouth: lips pink and symmetrical, gums pink, good dentition Throat: oral mucosa pink and moist Neck: full ROM, trachea midline position Respiratory: respirations even and unlabored Cardiac: regular rate and rhythym Abdomen: no masses; bowel sounds active x 4 quads; soft; tender to palpation on right side of abdomen and at leslie-umbilical region Musculoskeletal: normal strength, tone; full ROM without pain Skin: warm and dry, normal turgor Hematologic and Lymphatic: no bruising, bleeding Vitals: 06/01/11 2335 06/02/11 0345 06/02/11 0805 06/02/11 1605 BP: 104/72 98/60 98/70 Pulse: 64 76 60 62 Temp: 99.2 ??F 97.8 ??F 99 ??F Resp: 16 16 18 18 Weight: Temp (30hrs) Max:99.2 ??F Intake/Output Summary (Last 24 hours) at 06/02/11 1820 Last data filed at 06/02/11 1815 Gross per 24 hour Intake 3751 ml Output 925 ml Net 2826 ml Lab and/or Imaging Studies: Component Name 06/01/11190905/23/11 0353 AMYLASE 41 33 Component Name 06/01/111909 WBC 8.87 RBC 4.75 HGB 13.4 HCT 38.8 MCV 81.7 MCH 28.2 MCHC 34.5 RDW 13.4 PLTCOUNT 303 LYMPHPCT 29.9 MONOCYTPCT 7.6 EOSINPCT 1.2 BASOPHILPCT 0.2 NRBC -- GRANPCT 61.1 MONOCYTPCT 7.6 EOSINPCT 1.2 BASOPHILPCT 0.2 Component Name 06/01/111909 SODIUM 143 POTASSIUM 4.1 CHLORIDE 106 CO2 24.4 BUN 5.3* CREATININE 0.51 GLUCOSE 85 CALCIUM 9.4 ALBUMIN 4.4 ALKPHOS 138 ALT 34* AST 27 TBIL 0.5* TPROT 7.2 EGFR -- Component Name 06/01/11 19105/23/11 0353 LIPASE 151 185 Imaging: HIDA scan: 1. No evidence of gallbladder emptying upon CCK administration, suspicious for chronic cholecystitis versus biliary dyskinesia 2. Normal hepatocellular function in the normal sized liver Assessment: Pt is a 11 yo female with 1 month of abdominal pain, nausea/vomiting, diarrhea - GI plans to perform upper endoscopy in AM to examine possible gastritis - recommend RUQ US to examine for gallstones Patient seen and discussed with Dr. Otoole, and discussed with Dr. Angela Neff 06/02/2011 6:04 PM Attending Physician Attestation I reviewed the patient's medical record and history. I examined the patient and confirm the findings above. I reviewed the patient's radiology and lab results. I reviewed these results with the resident(s) and formulated a plan. Patient seen on 06/03/2011 6:16 PM Brief history: s/p 3rd admission for abd pain, vomitting. Pain and vomittiing worse with food, but epigastric in location. Has had 2-3 u/s studies which did not confirm gallstones or cholecystitis, and now has had HIDA showing no GB emptying. Had UGI today w/o obvious pathology. No improvement with antacids. Also having extensive diarrhea, cx negative. Brief physical exam: abd soft, mildly ttp epigastrium. Summary: 11 y.o. female. The patient has the following diagnoses: 1. Abdominal pain, generalized 2. Vomiting 3. Diarrhea Decision making/Plan: Prolonged abd pain with unclear dx Has not had Ct abd Will proceed with ct to r/o other etiologies of abd pain. If negative will then perform diag laparoscopy and choly for biliary dyskinesia. Abilio Vela MD VE IRONER * Everardo Arriaga MD - 06/02/2011 10:08 AM CST GI Attending Progress Note Admit Date: 06/01/2011 3:22 PM Hospital Day: 1 Liza Worthington is a 11 y.o. female with history of obesity and abdominal pain for more than 3 weeks. She presents with three weeks of periumbilical abdominal pain, and 2 weeks nausea, vomiting, diarrhea, weight loss, headache. Pain started the about three weeks ago and was initially associated with fever, and muscle weakness. Liza was diagnosed with bronchitis and was given a five day course of azithromycin. Fever and weakness resolved, but Liza developed vomiting, diarrhea at that time. Abdominal pain is described as cramping 5/10 pain which is worse with eating. With food, the pain becomes burning in nature. No radiation. Abdominal pain increases with bowel movements, where it becomes sharp and located inthe right lower quadrant. Patient finds that food makes the abdominal pain worse, and it is alleviated with heating pad placement. Pain occasionally wakes Liza up from sleep. Vomiting is described as occurring typically after eating, 3-4 times daily, with food contents and some ute green material, non bloody. Diarrhea is resolved. No blood on stools. History of headaches and dizziness. Component Name 06/01/11190905/23/11 0353 ALBUMIN 4.4 4.1 ALKPHOS 138 125 ALT 34* 55* AST 27 40* TBIL 0.5* 0.6 DBIL -- -- TPROT 7.2 7.4 Component Name 06/01/11190905/23/11 0353 WBC 8.87 9.02 HGB 13.4 13.7 HCT 38.8 39.2 PLTCOUNT 303 381 Data Vitals: 06/01/11 2035 06/01/11 2335 06/02/11 0345 06/02/11 0805 BP: 112/54 104/72 98/60 Pulse: 76 64 76 60 Temp: 98.8 ??F 99.2 ??F 97.8 ??F Resp: 20 16 16 18 Weight: Body mass index is 35.03 kg/(m^2). Exam Alert, signs of obesity. No rashes Lungs clear, S1 S2 Abdomen soft, prominent, not tenderness, no organomegalies PLAN: Gallbladder HIDA scan at [facility] (Strong family history for gallbladder disease). Advance to soft diet today. EGD with biopsies tomorrow to exclude peptic disease, hiatal hernia, H Pylori gastritis/enteritis. Discussed with mother, RN and GI Team. VE IRONER * Maru Britt MD - 06/01/2011 9:32 PM CST Pediatric Resident Admission Note Admit Date: 06/01/2011 3:22 PM Chief Complaint abdominal pain History of Present Illness Liza Wortihngton is a 11 y.o. female who presents with three weeks of periumbilical abdominal pain, and 2 weeks nausea, vomiting, diarrhea, weight loss, headache. Pain started the about three weeksago and was initially associated with fever, and muscle weakness. Liza was diagnosed with bronch itis and was given a five day course of azithromycin. Fever and weakness resolved, but Liza developed vomiting, diarrhea at that time. Abdominal pain is described as cramping 5/10 pain which is worse with eating. With food, the pain becomes burning in nature. No radiation. Abdominal pain increases with bowel movements, where it becomes sharp and located in the right lower quadrant. Patient finds that food makes the abdominal pain worse, and it is alleviated with heating pad placement. Pain occasionally wakes Liza up from sleep. Abdominal pain has not changed in severity, quality, timing since onset three weeks ago. Vomiting is described as occurring typically after eating, 3-4 times daily, with food contents and some ute green material, nonbloody. Diarrhea is also described as 4 times daily, green in color, foul odor, with mucus, nonbloody. Headaches are described as frontal, with photophobia, and relieved with tylenol. They occur daily and occur with dizziness after episodesof emesis. In addition, she complains of fatigue and being cold frequently for the past couple weeks. Decreased appetite, 12 lbs weight loss in the past several weeks. No PO intake today. No recent travel, no well water. Pets include dog and 2 guinea pigs. Patient was seen at [facility] where stool studies performed, C. Diff toxin, and U/S abdomen were done and reported as negative. Patient was taken to the ER at where she had CBC, CMP, amylase, lipase, UA, Urine Hcg, chest xray. All was negative except for mildly elevated AST and ALT. She was then seem by GI on 05/28 atCG and CMP, CRP, total IgA, tissue transglutaminase antibody, and hepatitis panel were ordered. Recently was started on prilosec for abdominal pain. Mother says that it has not been helping. Past Medical History Past Medical History Diagnosis Date ??? FTND (full term normal delivery) Past Surgical History Procedure Date ??? Tonsillectomy and adenoidectomy Allergies No Known Allergies Family History Mother- history of hysterectomy, cholecystectomy Father- from heart attack at age 30 secondary to drug use Social History History Social History Narrative Lives with mother, step-father, sister, and step-sister. Review of Systems Constitutional: Positive for fever, weight loss, decreased activity, anorexia, fatigue ENT: Mouth/Throat: Negative for sore throat, ulcers Respiratory: negative for shortness of breath and cough Cardiovascular: Negative for palpitations and chest pain Gastrointestinal: Positive for poor appetite, nausea, vomiting, abdominal pain, diarrhea, Negative for constipation Genitourinary: female Negative for decreased urine output Exam Vitals BP: 112/54 mmHg (06/01/112034) Temp: 98.8 ??F (06/01/112034) Pulse: 76 (06/01/112034) Resp: 20 (06/01/112034) Height: 154.9 cm (5' 1 ) (06/01/111934) Weight: 84.1 kg (185 lb 6.5 oz) (06/01/111724) General: well appearing, non-toxic, well-hydrated, alert, in no acute distress Head: NC/AT Oropharynx: moist mucous membranes, no pharyngeal erythema, no tonsilar enlargement Neck: supple, non-tender, with full ROM, and no lymphadenopathy Cardiovascular: regular rate and rhythm, normal S1 and S2, no murmurs Chest: breath sounds symmetrical without rales or wheezes Abdomen: soft, non-distended, no hepatosplenomegaly or masses and bowel sounds appreciated. Mild diffuse pain with palpation, with greatest pain with deep palpation at RLP. No guarding or rebound tenderness. obesity. Skin: no rashes Cap refill <3 seconds Labs/Objective Component Name 06/01/111909 SODIUM 143 POTASSIUM 4.1 CHLORIDE 106 CO2 24.4 BUN 5.3* CREATININE 0.51 GLUCOSE 85 CALCIUM 9.4 ALBUMIN 4.4 ALKPHOS 138 ALT 34* AST 27 TBIL 0.5* TPROT 7.2 EGFR -- Component Name 06/01/11190905/23/11 0353 AMYLASE 41 33 Component Name 06/01/11190905/23/11 0353 LIPASE 151 185 CRP <0.5 Component Name 06/01/11190905/23/11 0353 WBC 8.87 9.02 HGB 13.4 13.7 HCT 38.8 39.2 PLTCOUNT 303 381 Component Name 06/01/11 1855 05/23/11 0445 COLORUA YELLOW -- CHARACTERUA SL CLOUDY -- SPECGRAVUA 1.020 -- PHUA 8.0 -- PROTEINUA NEGATIVE -- BLOODUA NEGATIVE -- LEUKOCYTEUA NEGATIVE -- NITRITEUA NEGATIVE -- GLUCOSEUA NEGATIVE -- KETONEUA NEGATIVE -- BILIRUBINUA NEGATIVE -- UROBILINUA 0.2 -- WBCUA -- -- RBCUA -- -- EPITHUA 6-8 -- MUCUSUA Trace -- CASTUA -- -- CRYSTALUA -- Few Amorphous, Mod Calcium Oxalate BACTERIAUA Trace -- YEASTUA -- -- TRICHUA -- -- urine hcg negative Active Hospital Problems Diagnoses Date Noted ??? Headache 06/01/2011 With photophobia, frontal, associated with dizziness, worse after emesis. No family history of migraine. ??? Abdominal pain, generalized 05/28/2011 3wk of diffuse abdominal pain, worse around the umbilicus, with a constant burning and occasional sharp/cramping quality. It worse with eating and BMs but it is not positional. Associated 10 lb weight loss. Ddx includes viral gastroenteritis, H.pylori gastric ulcer, gastritis, IBS, IBD, cholecystitis Plan: Observation NPO IV nexium Fluid bolus (poor UOP x2 days) then MIVF Consider endoscopy ??? Diarrhea 05/28/2011 2 wks of 3 non-bloody, foul smelling loose stools a day and RLQ pain with bowel movements. Plan: See abdominal pain Consider hemoccult Obtain records from OSH for C. Diff and stool studies. ??? Vomiting 05/28/2011 2 wks of 3-4 episodes of NBNB vomiting per day. Plan: See abdominal pain Maru Britt MD CC: Jaliene Fajardo MD [id number] / [place] [id number] VE [facility]ONER documented in this encounter Procedure Notes * Document, Scanned - 06/09/2011 8:45 AM CSTAssociated Order(s): PATHOLOGY/CYTOLOGY REPORT ORDER VE IRONER * Document, Scanned - 06/09/2011 8:45 AM CSTAssociated Order(s): IMAGING/RADIOLOGY/XRAY RESULTS ORDER VE IRONER * Franny López - 06/03/2011 3:40 PM CST Patient Name: Liza Worthington Gender: Female Date of : 2000 Age: 11 Admit Type: Inpatient Attending MD: Everardo Arriaga MD Order #: [id number] Procedure: Upper GI endoscopy Indications: Diagnostic procedure, Epigastric abdominal pain Providers: Everardo Arriaga MD Medicines: General Anesthesia Complications: No immediate complications. After obtaining informed consent, the endoscope was passed under direct vision. Throughout the procedure, the patient's blood pressure, pulse, and oxygen saturations were monitored continuously. The scope was introduced through the mouth, and advanced to the third part of duodenum. The upper GI endoscopy was accomplished with ease. The patient tolerated the procedure well. Procedure: Upper Gastrointestinal Tract The examined esophagus was normal. Biopsies were taken with a cold forceps for histology. Findings: The entire examined stomach was normal. Biopsies were taken with a cold forceps for Helicobacter pylori testing using CLOtest. The examined duodenum was normal. Biopsies were taken with a cold forceps for evaluation of celiac disease. Add'l Images: Lower Third of the Esophagus Gastric Body Gastric Body Duodenal Bulb Upper Gastrointestinal Tract 3rd Portion of the Duodenum [facility] Powered by Marce RENAE This report has been signed electronically. Page 1 of 2 [id number] [facility] Patient Name: Liza Worthington Gender: Female Date of : 2000 Age: 11 Admit Type: Inpatient Attending MD: Everardo Arriaga MD Order #: [id number] - Normal esophagus. This was biopsied. - Normal stomach. This was biopsied. - Normal examined duodenum. Biopsy was performed. - Biopsies were taken with a cold forceps for evaluation of celiac disease. Impression: - Await pathology results. - Admit the patient to hospital ying for ongoing care. Recommendation: --- Professional --- 94261, Upper gastrointestinal endoscopy including esophagus, stomach, and either the duodenum and/or jejunum as appropriate; with biopsy, single or multiple --- Technical --- 39938, Upper gastrointestinal endoscopy including esophagus, stomach, and either the duodenum and/or jejunum as appropriate; with biopsy, single or multiple CPT?? Code(s): --- Professional --- 789.06, Abdominal pain, epigastric --- Technical --- 789.06, Abdominal pain, epigastric ICD Code(s): CPT ?? 2009 [employer]. All Rights Reserved. The codes documented in this report are preliminary and upon insurance claims examiner review may be revised to meet current compliance requirements. Everardo Arriaga MD 06/03/2011 3:15:[address] Everardo Arriaga This report has been signed electronically. Number of Addenda: 0 Note Initiated On: 06/03/2011 2:52:17 PM [id number] MRN: 06/03/2011 2:52:17 PM Procedure Date: Powered by Marce RENAE This report has been signed electronically. Page 2 of 2 VE IRONER * Everardo Arriaga MD - 06/03/2011 3:17 PM CSTAssociated Order(s): EGD VE IRONER documented in this encounter OR Notes * Operative - Abilio Vela MD - 06/04/2011 3:22 PM CST PEDIATRIC SURGERY OPERATIVE REPORT Patient name: Liza Worthington Date of Procedure: 06/04/2011 Preoperative diagnosis: Gallbladder dyskinesia, ovarian cyst Postoperative diagnosis: same Procedure performed: Diagnostic laparoscopy, laparoscopic cholecystectomy and right ovarian cystotomy Surgeon: Abilio Vela MD Management Development Specialist: Courtney Dennis MD Anesthesia: General endotracheal anesthesia with local 0.25% lidocaine Indications: This is a 11 y.o. female with a history of gallbladder dyskinesia on HIDA scan and Right ovarian cyst on CT scan with unremitting abdominal pain on pain medications and poor PO intake. There was no evidence of biliary dilatation. Therefore, we will proceed with a laparoscopic cholecystectomy and Right ovarian cyst drainage. We have discussed the potential benefits versus risks of theoperation and the parents wish to proceed. Findings: Bile filled, distended gallbladder and Right ovarian cyst, about 4cm Procedure: The patient was brought to the operating room and underwent general anesthesia. The abdomen was prepped and draped in the standard fashion. IV antibiotics were given and a Abarca catheter was placed. We made a 10 mm incision above the umbilicus and extended this down to the fascia. A veress needle was placed and insufflation was started. A trocar was placed under direct visualization. Then, a 5 mm trocar was placed in the epigastrium, and two more 3 mm trocars were inserted in the right lateralsites. Lidocaine was infiltrated into the wounds. The gallbladder was located and grasped at the fundus and retracted up toward the patient's shoulder. The infundibulum was grasped and retracted laterally. A window was made between the cystic artery and the cystic duct, clearly delineating the two structures. These were clipped with a 5 mm clip singer back tender and divided. The peritoneum was incised withhook cautery, and the gallbladder was taken from the liver bed, ensuring hemostasis. The gallbladder was directed toward the umbilical trocar under direct visualization, the trocar removed and the gallbladder removed with an endocatch bag. The trocar was replaced, the liver bed was examined. Attention was then turned to patient's pelvic contents. The uterus was visualized in addition to both ovaries. The right ovary was much more enlarged. Using cautery, an incision was made into the right ovarian cystand serosanguinous fluid was drained. Hemostasis was ensured and the ovary was collapsed. The trocars were removed under direct visualization. The insufflation was then terminated. The 10 mm wounds were closed using 4-0 Vicryl and 4-0 Monocryl sutures. The 5 mm wounds were closed with 4-0 Monocryl sutures and steristrips, and all the wounds dressed with steristrips and tegaderm. The patient tolerated the procedure well, was extubated and taken to the recovery room in satisfactory condition. Dr Vela was present for the entire case. Complications: none EBL: <1 mL Specimens: gallbladder Courtney Dennis MD 06/04/2011 3:23 PM Abilio Vela MD 06/04/2011 6:38 PM VE IRONER documented in this encounter ED Notes * Yobany Mchugh MD - 06/01/2011 6:19 PM CST Provider contact with the patient: 06/01/2011 6:19 PM Liza L Elin [id number] [facility] EMERGENCY DEPT History Chief Complaint Patient presents with ??? Pain Abdominal Started 3 weeks ago cont with pain. Has not been able to attend school Has seen GI last week and instructed to return to ED. ??? Vomiting Started 3 weeks ago cont with vomiting. Can tolerated clear liquids not any solids. Pain increases with po intake. ??? Diarrhea Started 3 weeks ago. X1 today but minimal intake today. ??? GENERALIZED BODY ACHES Cont with achy all over, dizziness headache. Here weak sounding grimace when laying down. HPI Comments: 11 yog with 3 weeks of abd pain. For the last 3 weeks she has been having abd pain, headaches, body aches, NVD. Her abd pain is diffuse, worse around the umbilicus, with a constant burning and occasional sharp/cramping quality. It worse with eating and BMs but it is not positional. She has been having 3-4 episodes of NBNB vomiting and 3 non-bloody, foul smelling loose stools a day. No fevers recently. Good intake and UOP. Seen by GI with several labs (per clinic note) but no abnormalities except mild elevation in alt and ast. No recent travel or new restaurants. 10 Lb wt loss inlast 3 weeks. She does not have a FH of IBS but mom states that several family members have had gall bladders outfor abd pain. Mom has had a hysterectomy for pelvic pain and cysts. Mat grandma had chronic pelvic pain Past Medical History Diagnosis Date ??? FTND [...] Social History Narrative Lives with mother, step-father, sister, and step-sister. Medications Current Outpatient Prescriptions Medication Sig Dispense Refill ??? omeprazole EC (PRILOSEC OTC) 20 MG tablet Take 1 Tab by mouth 2 times daily before meals. 60 Tab 5 Review of Systems Review of Systems Constitutional: Positive for activity change, appetite change, fatigue and unexpected weight change. Negative for fever, chills and diaphoresis. HENT: Negative for congestion, rhinorrhea and trouble swallowing. Eyes: Negative for pain and redness. Respiratory: Negative for cough and shortness of breath. Cardiovascular: Negative for chest pain. Gastrointestinal: Positive for nausea, vomiting, abdominal pain and diarrhea. Negative for constipation and blood in stool. Genitourinary: Negative for dysuria and frequency. Musculoskeletal: Positive for myalgias. Skin: Negative for pallor and rash. Neurological: Positive for headaches. Psychiatric/Behavioral: Positive for sleep disturbance (due to pain). BP 136/55 Pulse 78 Temp 97.8 ??F Resp 24 Wt 84.1 kg (185 lb 6.5 oz) Physical Exam Physical Exam Constitutional: She is oriented to person, place, and time. She appears well- developed and well-nourished. No distress. HENT: Head: Normocephalic. Right Ear: External ear normal. Mouth/Throat: Oropharynx is clear and moist. No oropharyngeal exudate. Eyes: EOM are normal. Right eye exhibits no discharge. Left eye exhibits no discharge. Neck: Neck supple. Cardiovascular: Normal rate, normal heart sounds and intact distal pulses. No murmur heard. Pulmonary/Chest: Effort normal. No stridor. No respiratory distress. She has no wheezes. She has melanie. She exhibits no tenderness. Abdominal: Soft. She exhibits no distension and no mass. Tenderness (diffuse to light palpation. noworse with deep palpation ) is present. She has no rebound and no guarding. No bowel sounds Lymphadenopathy: She has no cervical adenopathy. Neurological: She is oriented to person, place, and time. Coordination normal. Skin: Skin is warm. No rash noted. She is not diaphoretic. No erythema. No pallor. Psychiatric: She has a normal mood and affect. Procedures Procedures EKG Interpretation Lab/SPO2 Interpretation Progress Notes ED Course Medical Decision Making Spoke with GI, considering gastritis, IBS, IBD. Admit to floor team CBC, CMP, UA, test, CRP, Clinical Impression No diagnosis found. VE IRONER * Brianna Quinones MD - 06/01/2011 6:02 PM CST Images from the original note were not included. EMERGENCY DEPARTMENT 06/01/[address] Jailene Fajardo MD We had the pleasure of caring for your patient, Liza Worthington in our emergency department on 06/01/2011. A note from the provider(s) who cared for your patient is attached. Should you wish to access any laboratory results, please call . Should you wish to access any radiology results, please call , option 3. In addition, you can access patient information 24 hours a day, from any computer, through [employer], the online version of our electronic medical record. If you would like to use this service, please call Belia Alvarez, Connectivity Coordinator, at . We appreciate the opportunity to care for your patients. If you would like additional information, please call the emergency department directly at . Sincerely, Brianna Quinones MD Division of Emergency Medicine [facility]. [place], [place] [facility] [place] DESIGNATED EMERGENCY DEPARTMENT 06/01/2011 6:02 PM Liza Worthington [id number] [facility] EM[facility]GENCY [facility]PT History Chief Complaint Patient presents with ??? Pain Abdominal Started 3 weeks ago cont with pain. Has not been able to attend school Has seen GI last week and instructed to return to ED. ??? Vomiting Started 3 weeks ago cont with vomiting. Can tolerated clear liquids not any solids. Pain increases with po intake. ??? Diarrhea Started 3 weeks ago. X1 today but minimal intake today. ??? GENERALIZED BODY ACHES Cont with achy all over, dizziness headache. Here weak sounding grimace when laying down. HPI Pt with recurrent abd pain for about 3 weeks, seen here by GI about 6 days ago, no definitive diagnosis. Had a number of labs, all normal except for sl elevated AST/ALT. Had an ultrasound as well. Called GI clinic today, told to come in if persistent. Having vomiting and diarrhea, still having abnormal output. NBNB, no blood in stool. Sx worse with eating. Not positional. No recent travel or sick contacts. Has not been febrile with this illness except briefly. Pain is diffuse, periumbilical. Had menarche about a year ago, has been irregular. LMP first week of May, ended before abd pain started. Pt has been on Prilosec since May 29 with no improvement. PMHx No hx abd pain before about 3 weeks ago. FamHx lots of gall bladders removed. Mom has had nursing home pelvic pain and cysts. Past Medical History Diagnosis Date ??? FTND [...] Social History Narrative Lives with mother, step-father, sister, and step-sister. Medications No current outpatient prescriptions on file. Review of Systems Review of Systems Constitutional: Positive for activity change and appetite change. Negative for fever. HENT: Negative for neck pain and neck stiffness. Respiratory: Negative for cough. Gastrointestinal: Positive for nausea, vomiting, abdominal pain and diarrhea. Genitourinary: Negative for decreased urine volume. Musculoskeletal: Positive for myalgias. Skin: Negative for color change, pallor, rash and wound. Neurological: Positive for headaches. All relevant systems reviewed with pertinent positives and negatives noted in Resident/Fellow HPI/ROS, as well as Attending HPI and ROS. BP 136/55 Pulse 78 Temp 97.8 ??F Resp 24 Wt 84.1 kg (185 lb 6.5 oz) Physical Exam Physical Exam WNWD adol, alert, good perfusion, mmb's pink and moist, neck supple, lungs clear, RRR, abd flat, dec BS, soft, complains of diffuse TTP, no peritoneal signs, grossly nonfocal, dec activity, nontoxic appearing. Procedures Procedures EKG Interpretation Lab/SPO2 Interpretation Progress Notes ED Course Medical Decision Making I have reviewed the: Previous Chart. I have interpreted the following results: Labs. I have discussed the case with GI and Family/Caregiver. I have personally seen and examined this patient. I have fully participated in the care of this patient. I have reviewed all pertinent clinical information available to me during this encounter, including history, physical exam and plan. I have reviewed available labs and radiographic studies. I reviewed the nurses notes I reviewed the vital signs Pt with recurrent abd pain, being evaluated by GI, having continued sx, will obtain labs and admit to GI for further evaluation. Has nonacute abdomen on exam but dec activity Clinical Impression Encounter Diagnosis Name Primary? Abdominal pain H VE IRONER documented in this encounter Miscellaneous Notes * Miscellaneous Scans - Document, Scanned - 06/25/2011 12:11 PM CST VE IRONER * Miscellaneous Scans - Document, Scanned - 06/09/2011 8:45 AM CST VE IRONER * Miscellaneous Scans - Document, Scanned - 06/09/2011 8:45 AM CST VE IRONER * Miscellaneous Scans - Document, Scanned - 06/09/2011 8:45 AM CST VE IRONER * Miscellaneous Scans - Document, Scanned - 06/09/2011 8:45 AM CST VE IRONER * Miscellaneous Scans - Document, Scanned - 06/09/2011 8:45 AM CST VE IRONER * Miscellaneous Scans - Document, Scanned - 06/09/2011 8:45 AM CST VE IRONER documented in this encounter Plan of Treatment Not on file documented as of this encounter Procedures Procedure Name Priority Date/Time Associated Diagnosis Comments PATHOLOGY/CYTOLOGY REPORT ORDER 06/09/2011 8:45 AM SLEEVE IRONER IMAGING/RADIOLOGY/XRAY RESULTS ORDER 06/09/2011 8:45 AM SLEEVE [facility]ONER GROSS + MICRO EXAM Routine 06/04/2011 2: [address] ABDOMEN PELVIS W CONTRAST STAT 06/03/2011 8:10 PM SLEEVE IRONER Abdominal pain, generalized EGD Routine 06/03/2011 3:18 PM SLEEVE IRONER Abdominal pain, generalized HELICOBACTER PYLORI UREASE STAT 06/03/2011 3:10 PM SLEEVE IRONER Abdominal pain, generalized GROSS + MICRO EXAM Routine 06/03/2011 2: 10 PM SLEEVE IRONER HCG URINE QUALITATIVE Routine 06/03/2011 1:45 PM SLEEVE IRONER Abdominal pain, generalized US ABDOMEN LIMITED Routine 06/03/2011 8: 35 AM SLEEVE IRONER Abdominal pain, generalized Vomiting Diarrhea C-REACTIVE PROTEIN STAT 06/01/2011 7: 10 PM SLEEVE IRONER CBC W AUTO DIFFERENTIAL STAT 06/01/2011 7:10 PM SLE[facility]E [facility]ER COMPREHENSIVE METABOLIC PANEL STAT 06/01/2011 7:10 PM SLEEVE [facility]ONER LIPASE BLOOD Routine 06/01/2011 7:10 PM SLEEVE IRONER AMYLASE BLOOD STAT 06/01/2011 7:10 PM SLEEVE IRONER URINALYSIS REFLEX TO MICROSCOPIC NO CULTURE STAT 06/01/2011 6:55 PM SLEEVE IRONER HCG URINE QUALITATIVE STAT 06/01/2011 6:55 PM SLEEVE IRONER documented in this encounter Results * PATHOLOGY/CYTOLOGY REPORT ORDER (06/09/2011 8:45 AM SLEEVE IRONER) Narrative Transcriptions Document, Scanned - 06/09/2011 8:45 AM CST Scanned Document LAB - PATHOLOGY/CYTO LOGY ORDERABLES * IMAGING/RADIOLOGY/XRAY RESULTS ORDER (06/09/2011 8:45 AM SLEEVE IRONER) Anatomical Region Laterality Modality Other Narrative Transcriptions Document, Scanned - 06/09/2011 8:45 AM CST Scanned Document IMAGING * GROSS + MICRO EXAM (06/04/2011 2:38 PM SLEEVE IRONER) [facility] Clinical History [facility] Comment: The patient is a 11-year-old girl with biliary dyskinesia who underwent laparoscopic cholecystectomy. ?? Gross Description [facility] Comment: Submitted fixed in formalin in [...] surface has a yellow-brown velvety appearance. ?? Cancer Registry Coordinator sections from the gallbladder, cystic duct, and pericystic lymph node are submitted in cassette A1. ?? (CT/nab) Microscopic Examination [facility] Comment: 1 H+E Sections of the specimen submitted as gallbladder show gallbladder, with focally disrupted surface epithelium and a mild subepithelial and mural chronic inflammatory infiltrate. There are a few foam cells in the subepithelial connective tissue. ?? Also included with the specimen is a small lymph node with no diagnostic alteration. ??(CAV/nab) Diagnosis [facility] Comment: DIAGNOSIS: GALLBLADDER: -CHRONIC CHOLECYSTITIS. LYMPH NODE, PERICYSTIC: -NO DIAGNOSTIC ALTERATION. This case has been personally reviewed and interpreted by the attending (teaching) pathologist. Music Agent KURT CAPELALN, [facility] Pathologist Veena Orantes M.D. [facility] Electronically Signed By VEENA ORANTES M.D . [facility] ENTIRE GALLBLADDER / Unknown 06/04/2011 2:38 PM SLEEVE IRONER 06/04/2011 3:19 PM SLEEVE IRONER Everardo Arriaga MD LAB - PATHOLOGY/CYTO LOGY ORDERABLES Performing Organization Address City/State/[facility] de Phone Number [facility] [address] [place] [address] * CT ABDOMEN AND PELVIS WITH IV CONTRAST (06/03/2011 8:10 PM SLEEVE IRONER) Anatomical Region Laterality Modality Abdomen, Pelvis Computed Tomogra phy 06/04/2011 10:1 0 AM SLEEVE IRONER Narrative 06/04/2011 3:[address] abdomen and pelvis with contrast Technique: [...] CT ORDERABLES * EGD (06/03/2011 3:18 PM SLEEVE IRONER) Narrative [facility] - 06/03/2011 3:18 PM SLEEVE IRONER A scan was deleted from the Results section by Adal Arriaga [[email or web address]] on 06/03/2011 at ??3:18 PM (File: [id number]) Transcriptions Everardo Arriaga MD - 06/03/2011 3:17 PM CST Everardo Arriaga MD GI PROCEDURE ORDERAB LES [facility] [address] [place] [address] * HELICOBACTER PYLORI UREASE (06/03/2011 3:10 PM SLEEVE IRONER) Helicobacter pylori Urease Initial Negative Negative [facility] Helicobacter pylori Urease Final Negative Negative [facility] Miscellaneous samples (specimen) GASTRIC ANTRAL BIOPSY SPECIMEN / Unknown 06/03/2011 3:10 PM SLEEVE IRONER 06/03/2011 3:20 PM SLEEVE IRONER Everardo Arriaga MD LAB - MICROBIOLOGY O ANGY [facility] [address] [place] [address] * GROSS + MICRO EXAM (06/03/2011 2:10 PM SLEEVE IRONER) [facility] Clinical History [facility] Comment: The patient is a 11-year-old girl with a three week history of vomiting and abdominal pain, 10 pound weight loss, who underwent upper endoscopy which was found to be normal. ??Negative urease. ?? Gross Description [facility] Comment: The specimens are received fixed in formalin in three containers for gross and microscopic examination. ??All containers are labeled with the patient's name, Liza Worthington. Specimen A, duodenum, consists of two 4.0 mm soft, yellow-antony tissue fragments submitted in toto as A . Specimen B, stomach, consists of a 6.0 mm soft, yellow-antony tissue fragment submitted in toto as B . Specimen C, esophagus, consists of a 3.0 mm soft, phan-antony tissue fragment submitted in toto as C . ??(CT/lw) Microscopic Examination [facility] Comment: A) 3 H+E, B) 3 H+E, C) 3 H+E. Sections of the duodenum biopsy show duodenal mucosa with normal villous architecture, where orientation is adequate for assessment, and a normocellular lamina propria. ?? The gastric biopsy shows intact surface epithelium and generally a normocellular lamina propria. ??There are several lymphoid aggregates without germinal centers. ?? The esophageal biopsy shows squamous mucosa with a few intraepithelial lymphocytes. ??(CAV/lw) Diagnosis [facility] Comment: DIAGNOSIS: ??A) DUODENUM, BIOPSY: ? -NO DIAGNOSTIC ALTERATION. ?B) STOMACH, BIOPSY: ? -NO DIAGNOSTIC ALTERATION. ?C) ESOPHAGUS, BIOPSY: ? -NO DIAGNOSTIC ALTERATION. This case has been personally reviewed and interpreted by the attending (teaching) pathologist. Music Agent Jud Louise, [facility] Pathologist Veena Orantes M.D. [facility] Electronically Signed By VEENA ORANTES M.D. [facility] PART OF DUODENUM / Unknown 06/03/2011 2:10 PM SLEEVE IRONER 06/03/2011 3:31 PM SLEEVE [facility]ONER Everardo Arriaga MD LAB - PATHOLOGY/CYTO LOGY ORDERABLES Performing Organization Address [facility] Co de Phone Number [facility] [address] [place] [address] * HCG URINE QUALITATIVE (06/03/2011 1:45 PM SLEEVE IRONER) HCG Qual Urine Negative Negative [facility] Urine specimen (specimen) URINE / Unknown 06/03/2011 1:45 PM SLEEVE IRONER 06/03/2011 1:51 PM SLEEVE IRONER Everardo Arriaga MD LAB - URINALYSIS ORD ERABLES Performing Organization Address [facility] de Phone Number [facility] [address] [place] [address] * US ABDOMEN LIMITED (06/03/2011 8:35 AM SLEEVE IRONER) Anatomical Region Laterality Modality Abdomen Ultrasound 06/03/2011 10:0 4 AM SLEEVE IRONER Impressions 06/03/2011 10:04 AM SLEEVE IRONER Grossly normal limited abdominal sonogram. Narrative 06/03/2011 10:04 AM SLEEVE IRONER Limited abdominal sonogram This study is compromised by the patient's body habitus. The gallbladder is normal without stones, wall thickening, or pericholecystic fluid. The common duct has a normal diameter of 2.2 mm. The pancreas is not well seen. The liver is grossly normal. Procedure Note Leonela Wiggins MD - 06/03/2011 Limited abdominal sonogram This study is compromised by the patient's body habitus. The gallbladder is normal without stones, wall thickening, or pericholecystic fluid. The common duct has a normal diameter of 2.2 mm. The pancreas is not well seen. The liver is grossly normal. IMPRESSION Grossly normal limited abdominal sonogram. Sarah Beth Mariscal MD US ORDERABLES * LIPASE BLOOD (06/01/2011 7:10 PM SLEEVE IRONER) Lipase 151 23 - 300 Units/L [facility] Blood specimen (specimen) BLOOD SPECIMEN / Unknown 06/01/2011 7:10 PM SLEEVE IRONER 06/01/2011 8:19 PM SLEEVE IRONER Juli Paniagua MD LAB - CHEMISTR Y ORDERABLES Performing Organization Address [facility] Co de Phone Number [facility] [address] [place] [address] * C-REACTIVE PROTEIN (06/01/2011 7:10 PM SLEEVE IRONER) C-Reactive Protein <0.5 <1.0 mg/dl mg/dl [facility] Blood specimen (specimen) BLOOD SPECIMEN / Unknown 06/01/2011 7:10 PM SLEEVE IRONER 06/01/2011 7:27 PM SLEEVE IRONER Yobany Mchugh MD LAB - CHEMISTRY O RDERABLES Performing Organization Address [facility] Co de Phone Number [facility] [address] [place] [phone] * AMYLASE BLOOD (06/01/2011 7:10 PM SLEEVE IRONER) Amylase 41 30 - 100 Units/L [facility] Blood specimen (specimen) BLOOD SPECIMEN / Unknown 06/01/2011 7:10 PM SLEEVE IRONER 06/01/2011 7:27 PM SLEEVE IRONER Yobany Mchugh MD LAB - CHEMISTRY O RDERABLES Performing Organization Address [facility] Co de Phone Number [facility] [address] [place] [phone] * CBC W AUTO DIFFERENTIAL (06/01/2011 7:10 PM SLEEVE IRONER) WBC 8.87 4.5 - 14.5 K/cumm [facility] RBC 4.75 4.10 - 5.10 mill/cumm [facility] Hemoglobin 13.4 12.0 - 16.0 gm/dl [facility] Hematocrit 38.8 36.0 - 47.0 % [facility] MCV 81.7 78.0 - 102.0 cu microns [facility] MCH 28.2 25.0 - 35.0 uug [facility] MCHC 34.5 31.0 - 37.0 % [facility] RDW 13.4 % [facility] MPV 11.6 fl [facility] Platelet Count 303 100 - 400 K/cumm [facility] Granulocytes % 61.1 24 - 66 % [facility] Lymphocytes % 29.9 22 - 61 % [facility] Monocytes % 7.6 3 - 15 % [facility] Eosinophils % 1.2 0 - 10 % [facility] Basophils % 0.2 0 - 1 % [facility] Comment Manual Diff Automated Diff Performed [facility] Blood specimen (specimen) BLOOD SPECIMEN / Unknown 06/01/2011 7:10 PM SLEEVE IRONER 06/01/2011 7:27 PM SLEEVE IRONER Yobany Mchugh MD LAB - HEMATOLOGY ORDERABLES Performing Organization Address City/State/[facility] Co de Phone Number [facility] [address] [place] [address] * (ABNORMAL) COMPREHENSIVE METABOLIC PANEL (06/01/2011 7:10 PM SLEEVE IRONER) Sodium 143 137 - 145 mmol/L [facility] Potassium 4.1 3.5 - 5.1 mmol/L [facility] Chloride 106 98 - 107 mmol/L [facility] CO2 24.4 18 - 27 mmol/L [facility] Glucose 85 70 - 106 mg/dl [facility] BUN 5.3(L) 7 - 18 mg/dl [facility] Calcium 9.4 8.8 - 10.6 mg/dl [facility] Bilirubin Total 0.5(L) 0.6 - 1.4 mg/dl [facility] Protein Total 7.2 6.3 - 8.6 gm/dl [facility] Albumin 4.4 3.7 - 5.6 gm/dl [facility] ALT 34(H) 10 - 30 Units/L [facility] AST 27 10 - 30 Units/L [facility] Alkaline Phosphatase 138 105 - 420 Units/L [facility] Creatinine 0.51 0.31 - 0.88 mg/dl [facility] Blood specimen (specimen) BLOOD SPECIMEN / Unknown 06/01/2011 7:10 PM SLEEVE IRONER 06/01/2011 7:27 PM SLEEVE IRONER Yobany Mchugh MD LAB - CHEMISTRY O RDERABLES Performing Organization Address [facility] Co de Phone Number [facility] [address] [place] [address] * HCG URINE QUALITATIVE (06/01/2011 6:55 PM SLEEVE IRONER) HCG Qual Urine Negative Negative [facility] Performed By DD [facility] Urine specimen (specimen) URINE / Unknown 06/01/2011 6:55 PM SLEEVE IRONER 06/01/2011 7:26 PM SLEEVE IRONER Yobany Mchugh MD LAB - URINALYSIS ORDERABLES Performing Organization Address [facility] de Phone Number [facility] [address] [place] [address] * URINALYSIS ROUTINE AUTO (06/01/2011 6:55 PM SLEEVE IRONER) Color UA YELLOW [facility] Character UA SL CLOUDY [facility] Specific Lennox UA 1.020 1.003 - 1.030 [facility] pH UA 8.0 5.0 - 8.0 [facility] Protein UA NEGATIVE Negative [facility] Glucose UA NEGATIVE Negative gm/dl [facility] Ketone UA NEGATIVE Negative [facility] Blood UA NEGATIVE Negative [facility] Bilirubin UA NEGATIVE Negative [facility] Epithelial Cell UA 6-8 /HPF [facility] Mucus UA Trace [facility] Bacteria UA Trace [facility] Leukocyte UA NEGATIVE [facility] Nitrite UA NEGATIVE [facility] Urobilinogen UA 0.2 <=1.0 EU/dl [facility] URINE SPECIMEN OBTAINED BY CLEAN CATCH PROCEDURE / Unknown 06/01/2011 6:55 PM SLEEVE IRONER 06/01/2011 7:26 PM SLEEVE IRONER Yobany Mchugh MD LAB - URINALYSIS ORDERABLES [facility] [address] [place] [address] documented in this encounter Visit Diagnoses Diagnosis Abdominal pain, generalized- Primary Abdominal pain, generalized Vomiting Vomiting alone Diarrhea Headache(784.0) Headache Diarrhea Vomiting Vomiting alone Biliary dyskinesia Other specified disorder of gallbladder documented in this encounter Administered Medications Inactive Administered Medications - up to 3 most recent administrations Medication Order MAR Action Action Date Dose Rate Site 0.9 % nacl IV BOLUS 1,500 mL 1,500 mL, at 1,500 mL/hr, Administer over 60 Minutes, Intravenous, ONCE, 1 dose, On Wed06/01/11 at 1900 $ Given 06/01/2011 7:27 PM SLEEVE IRONER 500 mL 1000 mL/hr acetaminophen (TYLENOL) tablet 650 mg 650 mg, Oral, EVERY 4 HOURS PRN, Fever, Pain, Starting on Wed06/01/11 at 2126, Until Linette 06/04/11 at 1912, Maximum allowable Acetaminophen amount = 4 Grams (4000 mg) / 24 hours. $ Given 06/03/2011 4:34 PM SLEEVE IRONER 650 mg $ Given 06/02/2011 5:12 PM SLEEVE IRONER 650 mg $ Given 06/02/2011 1:00 AM SLEEVE IRONER 650 mg dextrose 5 % and 0.45% NaCl infusion at 120 mL/hr, Intravenous, CONTINUOUS, Starting on Wed06/01/11 at 1915, Until Linette 06/04/11 at 2115 $ New Bag/Syringe 06/04/2011 7:07 PM SLEEVE IRONER 120 mL/hr Restarted 06/04/2011 4:43 PM SLEEVE IRONER 120 mL/hr $ New Bag/Syringe 06/04/2011 6:09 AM SLEEVE IRONER 120 mL /hr dextrose 5 % and 0.45% NaCl infusion at 75 mL/hr, Intravenous, CONTINUOUS, Starting on Linette 06/04/11 at 2145, Until 06/06/11 at 0544 $ New Bag/Syringe 06/05/2011 5:48 AM SLEEVE IRONER 75 mL/hr Rate Change 06/04/2011 10:55 PM SLEEVE IRONER 75 mL/hr esomeprazole (NexIUM) injection 20 mg 20 mg, Intravenous, DAILY, First dose on Wed06/01/11 at 1930, Until Discontinued, Administer over 5 minutes. RX diluted in NS. $ Given 06/05/2011 9:02 AM SLEEVE IRONER 20 mg $ Given 06/04/2011 9:09 AM SLEEVE IRONER 20 mg $ Given 06/03/2011 8:57 AM SLEEVE IRONER 20 mg hydrocodone-acetaminophen (NORCO) 5-325 MG tablet 1 Tab 1 tablet, Oral, EVERY 4 HOURS PRN, Pain, Starting on Wed06/05/11 at 1044, Until 06/06/11 at 0544, Maximum allowable Acetaminophen amount = 4 Grams (4000 mg) / 24 hours. $ Given 06/05/2011 4:42 PM SLEEVE IRONER 1 tablet $ Given 06/05/2011 12:07 PM SLEEVE IRONER 1 tablet hydrocodone-acetaminophen solution (LORTAB) 7.5-500 MG/15ML solution 15 mL 15 mL, Oral, EVERY 4 HOURS PRN, Pain, Starting on Wed06/03/11 at 1850, Until Wed06/05/11 at 1044, Maximum allowable Acetaminophen amount = 4 Grams (4000 mg) / 24 hours. $ Given 06/04/2011 7:40 PM SLEEVE IRONER 15 mL $ Given 06/04/2011 12:39 AM SLEEVE IRONER 15 mL $ Given 06/03/2011 7:52 PM SLEEVE IRONER 15 mL ioversol (OPTIRAY 320) 68 % injection Intravenous, CONTRAST ONCE, Starting on Wed06/03/11 at 1944, Until Linette 06/04/11 at 1645 $ Given 06/03/2011 8:00 PM SLEEVE IRONER 120 mL isolyte-S pH 7.4 infusion 125 mL/hr, Intravenous, POST-OP CONTINUOUS, Starting on Wed06/03/11 at 1500, Until Wed06/03/11 at 1618, Continue Fluids at current rates, until current bag is finished. Then Switch to fluids as ordered for floor. Current Rate 06/03/2011 3:29 PM SLEEVE IRONER 125 mL/hr 125 mL/hr isolyte-S pH 7.4 infusion 100 mL/hr, Intravenous, POST-OP CONTINUOUS, Starting on Linette 06/04/11 at 1330, Until Linette 06/04/11 at 1645 $ New Bag/Syringe 06/04/2011 3:47 PM SLEEVE IRONER 100 mL/hr 100 mL/hr Current Rate 06/04/2011 3:18 PM SLEEVE IRONER 100 mL/hr 100 mL/hr ketorolac (TORADOL) injection 30 mg 30 mg, Intravenous, EVERY 6 HOURS PRN, Pain, Starting on Wed06/05/11 at 0659, Until 06/06/11 at 0544, Infuse SLOWLY over 1-5 minutes. . WASTE DISPOSAL INSTRUCTIONS: Black Bin Disposal required. $ Given 06/05/2011 10:17 AM SLEEVE IRONER 30 mg meperidine (DEMEROL) injection 25 mg 25 mg, Intravenous, ONCE, 1 dose, On Linette 06/04/11 at 1630, High Risk, High Alert Medication: Must document double check on IV MAR flowsheet. $ Given 06/04/2011 4:10 PM SLEEVE IRONER 25 mg morphine 1 mg/ml SAT MATH TUTOR Intravenous, SAT MATH TUTOR, Until Wed06/05/11 at 1045, ............... SAT MATH TUTOR Dose: 0.85 mg (recommended dose: 0.01-0.04 mg/kg) Lockout Interval: 10 minutes (recommended 10-20 minutes) $ Given 06/04/2011 9:40 PM SLEEVE IRONER 50 mg morphine injection 0.5 mg 0.5 mg, Intravenous, EVERY 4 HOURS PRN, Pain, Mild Pain, Starting on Linette 06/04/11 at 1906, Until Linette 06/04/11 at 2101 $ Given 06/04/2011 7:40 PM SLEEVE IRONER 0.5 mg morphine injection 1 mg 1 mg, Intravenous, ONCE, 1 dose, On Linette 06/04/11 at 1030 $ Given 06/04/2011 9:35 AM SLEEVE IRONER 1 mg morphine injection 2 mg 2 mg, Intravenous, POST-OP MULTIPLE, Starting on Linette 06/04/11 at 1534, Until Linette 06/04/11 at 1706, May repeat first dose every 5 minutes. Max dose 6 mg. DO NOT EXCEED MORPHINE 0.2 mg/kg/hr IV. High Risk, High Alert Medication: Must document double check on IV MAR Flowsheet $ Given 06/04/2011 3:55 PM SLEEVE IRONER 2 mg $ Given 06/04/2011 3:45 PM SLEEVE IRONER 2 mg $ Given 06/04/2011 3:35 PM SLEEVE IRONER 2 mg morphine injection 2 mg 2 mg, Intravenous, ONCE, 1 dose, On Linette 06/04/11 at 1730 $ Given 06/04/2011 5:30 PM SLEEVE IRONER 2 mg morphine injection 3 mg 3 mg, Intravenous, ONCE, 1 dose, On Linette 06/04/11 at 2130, .......... Loading Dose: (IVPB only) recommended dose: 0.05-0.1 mg/kg Infuse over 20 minutes $ Given 06/04/2011 9:40 PM SLEEVE IRONER 3 mg ondansetron (ZOFRAN) injection 4 mg 4 mg, Intravenous, ONCE, 1 dose, On Wed06/04/11 at 2045 $ Given 06/04/2011 8:27 PM SLEEVE IRONER 4 mg ondansetron (ZOFRAN) injection 8 mg 8 mg, Intravenous, EVERY 6 HOURS PRN, Nausea/Vomiting, Starting on Wed06/02/11 at 1905, Until Wed06/04/11 at 1645 $ Given 06/03/2011 9:17 PM SLEEVE IRONER 8 mg $ Given 06/02/2011 7:25 PM SLEEVE IRONER 8 mg oxycodone (immediate release) (ROXICODONE) tablet 5 mg 5 mg, Oral, EVERY 4 HOURS PRN, Moderate Pain, Severe Pain, Starting on Wed06/02/11 at 1910, Until Wed06/03/11 at 1137 $ Given 06/02/2011 8:57 PM SLEEVE IRONER 5 mg documented in this encounter Active and Recently Administered Medications Times are shown in SLEEVE IRONER. Scheduled Medication Order 06/03/2011 06/04/2011 06/05/2011 esomeprazole (NexIUM) injection 20 mg (CANCELED) 20 mg, Intravenous, DAILY, First dose on Wed06/01/11 at 1930, Until Discontinued, Administer over 5 minutes. RX diluted in NS. 0857 ($ Given - Provider: Socorro Sánchez RN) 0909 ($ Given - Provider: Yovana Priest RN) 0902 ($ Given - Provider: Socorro Sánchez RN) ioversol (OPTIRAY 320) 68 % injection (CANCELED) Intravenous, CONTRAST ONCE, Starting on Wed06/03/11 at 1944, Until Wed06/04/11 at 1645 2000 ($ Given - Provider: Kim Potts, RT(R)) meperidine (DEMEROL) injection 25 mg (COMPLETED) 25 mg, Intravenous, ONCE, 1 dose, On Wed06/04/11 at 1630, High Risk, High Alert Medication: Must document double check on IV MAR flowsheet. 1610 ($ Given - Provider: Viral T Alvarez, RN) morphine injection 1 mg (COMPLETED) 1 mg, Intravenous, ONCE, 1 dose, On Linette 06/04/11 at 1030 0935 ($ Given - Provider: Yovana Priest RN) morphine injection 2 mg (CANCELED) 2 mg, Intravenous, POST-OP MULTIPLE, Starting on Linette 06/04/11 at 1534, Until Linette 06/04/11 at 1706, May repeat first dose every 5 minutes. Max dose 6 mg. DO NOT EXCEED MORPHINE 0.2 mg/kg/hr IV. High Risk, High Alert Medication: Must document double check on IV MAR Flowsheet 1535 ($ Given - Provider: Viral Alvarez, RN)1545 ($ Given - Provider: Viral Alvarez, RN)1555 ($ Given - Provider: Viral Alvarez RN) morphine injection 2 mg (COMPLETED) 2 mg, Intravenous, ONCE, 1 dose, On Linette 06/04/11 at 1730 1730 ($ Given - Provider: Marija Nguyễn RN - Comment: scanned vial said not ordered but one time dose 2mg/1mg vial) morphine injection 3 mg (COMPLETED) 3 mg, Intravenous, ONCE, 1 dose, On Linette 06/04/11 at 2130, .......... Loading Dose: (IVPB only) recommended dose: 0.05-0.1 mg/kg Infuse over 20 minutes 2140 ($ Given - Provider: Marija Nguyễn, RN) ondansetron (ZOFRAN) injection 4 mg (COMPLETED) 4 mg, Intravenous, ONCE, 1 dose, On Linette 06/04/11 at 2044 2026 ($ Given - Provider: Marija Nguyễn RN) Continuous Medication Order 06/03/2011 06/04/2011 06/05/2011 dextrose 5 % and 0.45% NaCl infusion (CANCELED) at 120 mL/hr, Intravenous, CONTINUOUS, Starting on 06/01/11 at 1915, Until Linette 06/04/11 at 2115 0004 ($ New Bag/Syringe - Provider: Caitlin Schaeffer, AMBER)1109 ($ New Bag/Syringe - Provider: Socorro Sánchez, AMBER)2159 ($ New Bag/Syringe - Provider: Karla J Carl, RN) 0609 ($ New Bag/Syringe - Provider: Karla Henry RN)1643 (Restarted - Provider: Kaitlynn Rudd RN)1907 ($ New Bag/Syringe - Provider: Marija Nguyễn RN) dextrose 5 % and 0.45% NaCl infusion (CANCELED) at 75 mL/hr, Intravenous, CONTINUOUS, Starting on Linette 06/04/11 at 2145, Until 06/06/11 at 0544 2255 (Rate Change - Provider: Marija Nguyễn RN) 0548 ($ New Bag/Syringe - Provider: Karla Henry, AMBER) isolyte-S pH 7.4 infusion (CANCELED) 125 mL/hr, Intravenous, POST-OP CONTINUOUS, Starting on Wed06/03/11 at 1500, Until Wed06/03/11 at 1618, Continue Fluids at current rates, until current bag is finished. Then Switch to fluids as ordered for floor. 1529 (Current Rate - Provider: Khushboo Arriola RN) isolyte-S pH 7.4 infusion (CANCELED) 100 mL/hr, Intravenous, POST-OP CONTINUOUS, Starting on Linette 06/04/11 at 1330, Until Linette 06/04/11 at 1645 1518 (Current Rate - Provider: Viral Alvarez RN)1547 ($ New Bag/Syringe - Provider: Viral Alvarez RN) morphine 1 mg/ml SAT MATH TUTOR (CANCELED) Intravenous, SAT MATH TUTOR, Until Wed06/05/11 at 1045, ............... SAT MATH TUTOR Dose: 0.85 mg (recommended dose: 0.01-0.04 mg/kg) Lockout Interval: 10 minutes (recommended 10-20 minutes) 2140 ($ Given - Provider: Marija Nguyễn RN) PRN Medication Order 06/03/2011 06/04/2011 06/05/2011 acetaminophen (TYLENOL) tablet 650 mg (CANCELED) 650 mg, Oral, EVERY 4 HOURS PRN, Fever, Pain, Starting on 06/01/11 at 2126, Until Linette 06/04/11 at 1912, Maximum allowable Acetaminophen amount = 4 Grams (4000 mg) / 24 hours. 1634 ($ Given - Provider: Socorro Sánchez RN) hydrocodone-acetaminophe n (NORCO) 5-325 MG tablet 1 Tab 1 tablet, Oral, EVERY 4 HOURS PRN, Pain, Starting on Wed06/05/11 at 1044, Until 06/06/11 at 0544, Maximum allowable Acetaminophen amount = 4 Grams (4000 mg) / 24 hours. 1207 ($ Given - Provider: Socorro Sánchez RN)1642 ($ Given - Provider: Yovana Priest RN) hydrocodone-acetaminophe n solution (LORTAB) 7.5-500 MG/15ML solution 15 mL (CANCELED) 15 mL, Oral, EVERY 4 HOURS PRN, Pain, Starting on Wed06/03/11 at 1850, Until Wed06/05/11 at 1044, Maximum allowable Acetaminophen amount = 4 Grams (4000 mg) / 24 hours. 195 ($ Given - Provider: Karla Henry RN) 0039 ($ Given - Provider: Karla Henry RN)194 ($ Given - Provider: Marija Nguyễn, RN) ketorolac (TORADOL) injection 30 mg (CANCELED) 30 mg, Intravenous, EVERY 6 HOURS PRN, Pain, Starting on Wed06/05/11 at 0659, Until 06/06/11 at 0544, Infuse SLOWLY over 1-5 minutes. . WASTE DISPOSAL INSTRUCTIONS: Black Bin Disposal required. 1017 ($ Given - Provider: Socorro Sánchez RN) morphine injection 0.5 mg (CANCELED) 0.5 mg, Intravenous, EVERY 4 HOURS PRN, Pain, Mild Pain, Starting on Wed06/04/11 at 1906, Until Linette 06/04/11 at 2101 1940 ($ Given - Provider: Marija Nguyễn, RN) ondansetron (ZOFRAN) injection 8 mg (CANCELED) 8 mg, Intravenous, EVERY 6 HOURS PRN, Nausea/Vomiting, Starting on Wed06/02/11 at 1905, Until Wed06/04/11 at 1645 2117 ($ Given - Provider: Karla Henry RN) documented in this encounter Care Teams Practice Billing Associate Relationship Specialty Start Date End Date Jailene Fajardo MD [address] [facility] [address] [place] [address] PCP - General 04/06/11 06/21/11 documented as of this encounter
--- OUTSIDE RECORDS SUMMARY | 2024-06-14 05:21 | XMS_ITS | Encounter Summary ---
Author Organization [facility] Address [address] [place] [address] Care Team Providers Care Food Services Director Name Role Phone Jailene Fajardo MD Primary Care Provider [phone] Reason for Visit * Reason Onset Date Comments Results 06/01/2011 Encounter Details Date Type Department Care Team (Late st Contact Info) Description 06/01/2011 Telephone [facility] Pediatrics - GI [address] [place] [address] Kaitlynn Chung, SALES CENTER MANAGER-TERRITORY REPRESENTATIVE [address] [place] [address] Results Social History Tobacco Use Types Packs/Day Years Used Date Smoking Tobacco: Never Assessed Sex and Gender Information Value Date Recorded Sex Assigned at Not on file Gender Identity Not on file Sexual Orientation Not on file documented as of this encounter Miscellaneous Notes * Telephone Encounter - Jacqueline Maria RN - 06/01/2011 3:13 PM MUSEUM LIBRARIAN Reviewed with Dr. Arriaga (on-call) and plan for ER with possible admission. Spoke to mother and reviewed the plan. She verbalized understanding. Access center notified. UM LIBRARIAN * Telephone Encounter - Jacqueline Maria RN - 06/01/2011 2:42 PM MUSEUM LIBRARIAN Kaitlynn's kid: Spoke to [facility] and TTG still pending until Wednesday or . Spoke to mother informing her of waiting on lab. Mother states Liza is vomiting 4-5 times per day (platinum green mucous with a foul odor). She is having loose stools 3 times per day. She is having a constant burning pain around herbelly button . She is having cramping on/off. After she has a BM, she has worse pain to her RLQ. She started on prilosec 20 mg po bid on 05/29/11. She is drinking fluids and mother does not think sheis dehydrated. Mother is thinking her gallbladder is the problem. She had a RLQ ultrasound which was inconclusive. Will discuss with on-call physician Dr. Arriaga. UM LIBRARIAN * Telephone Encounter - Chula Eason - 06/01/2011 2:35 PM CST Mom calling for test results. UM LIBRARIAN documented in this encounter Plan of Treatment Not on file documented as of this encounter Visit Diagnoses Not on filedocumented in this encounter Care Teams Food Services Director Relationship Specialty Start Date End Date Jailene Fajardo MD [address] [facility] [address] [place] [address] PCP - General 04/06/11 06/21/11 documented as of this encounter
--- OUTSIDE RECORDS SUMMARY | 2024-06-14 05:21 | XMS_ITS | Clinical Summary ---
Author Organization [facility] [address] [place] [address] Care Team Providers Care Under Baster Name Role Phone Natalya Guzman NP Primary Care Provider [phone] Allergies No known active allergies Medications 28 [...] scheduled. Assessment & Plan (06/27/2019 8:05 PM NON EMERGENCY SERVICES AMBULANCE DRIVER): Chronic. The symptoms have been present since [...] endoscopy. Assessment & Plan (06/27/2019 7:51 PM NON EMERGENCY SERVICES AMBULANCE DRIVER): Moderately severe. Recently aggravated because of patient's [...] 4-6 weeks after she delivers her baby. Surgical History Surgery Date Site/Laterality Comments CHOLECYSTECTOMY 06/14/2011 - 06/13/2012 TONSILECTOMY, ADENOIDECTOMY, BILATERAL MYRINGOTOMY AND TUBES 06/14/2005 - 06/13/2006 SECTION 06/14/2019 - 06/13/2020 Medical History Medical History Date Comments Vomiting Anxiety Abdominal pain Fatigue GERD (gastroesophageal reflux disease) Low iron Family History Medical History Relation Name Comments Heart attack Father Relation Name Status Comments Father Mother Alive Social History Tobacco Use Types Packs/Day Years [...] on file Legal Sex Female 11:10 PM NON EMERGENCY SERVICES AMBULANCE DRIVER Gender Identity Not on file Sexual Orientation Not on file Obstetrics History Para Term AB IAB SAB Ectopic Multiple Livin g Live Births 1 Date Outcome GA Total Labor Labor//3rd Weight Sex Type Anes PTL Cailin A1 A5 Name Clin Last Filed Vital Signs Vital Sign Reading Time Taken Comments Blood Pressure 108/75 09/15/2021 11:55 AM CDT Pulse 47 09/15/2021 11:55 AM CDT Temperature 36.7 ??C (98 ??F) 07/02/2021 8:30 AM NON EMERGENCY SERVICES AMBULANCE DRIVER Respiratory Rate 16 09/15/2021 11:55 AM CDT Oxygen Saturation 97% 09/15/2021 11:55 AM CDT Inhaled Oxygen Concentration - - Weight 69.4 kg (153 lb) 09/15/2021 10:11 AM CDT Height 160 cm (5' 3 ) 09/15/2021 10:11 AM CDT Body Mass Index 27.1 09/15/2021 10:11 AM CDT Plan of Treatment Health Maintenance Due Date Last Done Comments Cervical Cancer Screening 1998 Hepatitis C Screening 1998 Pneumococcal vaccine <65 (1 of 2 - PCV) 2004 Regular Well Visit/Exam 18-64 2016 DTaP/Tdap/Td Vaccine (6 - Td or Tdap) 09/17/2019 09/16/2009, 09/25/2003, 10/21/1999, Additional history exists Depression Screening 07/01/2022 07/01/2021, 07/01/2021, 06/27/2019 Influenza Vaccine (#1) 2024 , 06/17/2019, 05/02/2013, Additional history exists Varicella Vaccines Completed 10/10/2007, 07/23/1999 HPV Vaccines Completed 07/05/2013, 08/0 02/2013, 08/16/[address] [place] [address] [facility] [employer] Advance Directives For more information, please contact: [phone] * Full Code (Latest Code Status on File) Date Activated Date Inactivated Comments 07/01/2021 5:20 PM 07/02/2021 4:21 PM Care Teams Under Baster Relationship Specialty Start Date End Date Natalya Guzman NP PCP - General Nurse Practitioner 06/05/19
--- OUTSIDE RECORDS SUMMARY | 2024-06-14 05:21 | XMS_ITS | Encounter Summary ---
Author Organization [facility] Address [address] [place] [address] Care Team Providers Care Sex Crimes Detective Name Role Phone Jailene Fajardo MD Primary Care Provider [phone] Reason for Visit * Reason Comments Establish Care severe abdominal crank hand mps, loss of appetite, emesis after eating, diarrhea, weight loss (11lb) in 2 weeks Encounter Details Date Type Department Care Team (Latest Contact Info) Description 05/28/2011 10:30 AM FABRIC SEPARATOR OPERATOR - 05/28/2011 11:59 PM FABRIC SEPARATOR OPERATOR Hospital [place] [facility] [place] [address] [place] [address] Discharge Disposition: Home or Self Care Social History Tobacco Use Types Packs/Day Years Used Date Smoking Tobacco: Never Assessed Sex and Gender Information Value Date Recorded Sex Assigned at Not on file Gender Identity Not on file Sexual Orientation Not on file documented as of this encounter Last Filed Vital Signs Vital Sign Reading Time Taken Comments Blood Pressure 118/60 05/28/2011 10:34 AM FABRIC SEPARATOR OPERATOR Pulse - - Temperature - - Respiratory Rate - - Oxygen Saturation - - Inhaled Oxygen Concentration - - Weight 82.9 kg (182 lb 12.2 oz) 011 10:34 AM FABRIC SEPARATOR OPERATOR Height 155.6 cm (5' 1.26 ) 05/28/2011 1 0:34 AM FABRIC SEPARATOR OPERATOR Body Mass Index 34.24 05/28/2011 10:34 AM FABRIC SEPARATOR OPERATOR Body Mass Index Percentile 99.22% 05/28 10:34 AM FABRIC SEPARATOR OPERATOR Growth Chart: [facility] (Girls, 2- 20 Years) documented in this encounter Discharge Instructions * Patient Instructions* Kaitlynn Chung RN,CPNP - 05/28/2011 10:57 AM FABRIC SEPARATOR OPERATOR Lab work today. Take Prilosec 40 mg twice daily Call the office to report progress [phone] IC SEPARATOR OPERATOR documented in this encounter Medications at Time of Discharge Medication Sig Dispensed Refills Start Date End Date acetaminophen (TYLENOL) 325 MG tablet Take 2 Tabs by mouth every 4 hours as needed. Maximum allowable Acetaminophen amount = 4 Grams (4000 mg) / 24 hours. 06/01/2011 ibuprofen (IBU-200) 200 MG tablet Take 2 Tabs by mouth every 6 hours as needed. 011 omeprazole (PRILOSEC) 40 MG capsule Take 1 Cap by mouth 2 times daily before meals. 60 Cap 5 05/28/2011 05/29/2011 documented as of this encounter Progress Notes * Kaitlynn Chung RN,CPNP - 05/28/2011 2:02 PM CST HISTORY OF PRESENT ILLNESS : Thank you for your consult on Liza Worthington. I had the pleasure of seeing Liza in the Gastroenterology Clinic at [facility] on 05/28/2011. She comes in for evaluation of abdominal pain. She complains of poorly localized abdominal pain forthe past 3 weeks that worsens after eating. Mom states that Liza has always complained of abdominal pain, but in the past 3 weeks her pain has worsened. Three weeks ago Liza came home from school with a low- grade fever, vomiting, diarrhea, body aches, and shortness of breath. She was taken to the PMD and placed on Zithromax for 5 days for possible pneumonia. After completing Zithromax, thhe fever and SOB have resolved, but Liza continues to vomit daily. Her appetite has decreased. She has loose, watery stools without blood 3 times per day. Mom has been giving Liza tylenol, motr in, and levsin for abdominal pain and cramping, but has not noticed any improvement in her symptoms. Liza has lost 10 lbs. In the past month per mom. 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 She was taken to the ED and has an ultrasound of the abdomen, CBC, CMP, Amylase, Lipase, UA, Urine Hcg, stool cultures, stool C. Diff. All testing was negative with the exception of slightly elevated AST and ALT. She has a lymphocytic chorionic antibody test that is pending. She denies any apparent stressors or trauma. Denies any fever, rashes, joint pain, joint swelling, mouth ulcers, mouth sores, altered sensorium, lack or paucity of any limb movements, jaundice, hematemesis, hematochesia, or bleeding from any other site. PAST MEDICAL HISTORY: Past Medical History Diagnosis Date ??? FTND (full term normal delivery) DIET: Regular MEDICATIONS: Current Outpatient Prescriptions Medication Sig Dispense Refill ??? acetaminophen (TYLENOL) 325 MG tablet Take 2 Tabs by mouth every 4 hours as needed. Maximum allowable Acetaminophen amount = 4 Grams (4000 mg) / 24 hours. ??? omeprazole (PRILOSEC) 40 MG capsule Take 1 Cap by mouth 2 times daily before meals. 60 Cap 5 ??? ibuprofen (IBU-200) 200 MG tablet Take 2 Tabs by mouth every 6 hours as needed. ALLERGIES: No Known Allergies FAMILY/SOCIAL HISTORY: No history of IBD or liver disease. History Social History Narrative Lives with mother, step-father, sister, and step-sister. PHYSICAL EXAMINATION: 98.87% of growth percentile based on [id number]. BP 118/60 Wt 82.9 kg (182 lb 12.2 oz) BMI 34.24 kg/m2 HEENT: Normocephalic, atraumatic. Eyes MALINDA. Tympanic membranes clear. Nares patent. No mouth sores or ulcers. Trachea in midline. Chest: Equal air entry bilaterally. No adventitious sounds. Cardiovascular: Regular rate and rhythm. No murmur. Abdomen: Soft, nontender, nondistended. No prominent veins or scars. Bowel sounds present. No organomegaly. CORE RESCUER: No apparent focal deficits. Extremities: Warm, well perfused. Cap refill less than 2 seconds. IMPRESSION: 1. Abdominal Pain 2. Vomiting 3. Diarrhea 4. Obesity Likely viral, considerations include: Esophagitis/Gastritis, H. Pylori, IBS, IBD. RECOMMENDATIONS: 1. Discussed extensively with caregivers the probable etiology for Liza's symptoms as well as treatment options. 2. Avoidance of spicy and greasy foods. Plenty of fruits and vegetables and increased fluid intake.Avoidance of tea or sodas, stressors. The need for proper sleep pattern was emphasized. Avoid excessive chocolates and caffeine. 3. CMP, CRP, total IgA, tissue transglutaminase antibody, acute hepatitis panel ordered today. 4. Prevacid 30 mg BID 5. An endoscopic evaluation would be a consideration if symptoms persist. 6. I would like to see her back in 3 or 4 months, or earlier if any concerns. Thank you for letting me participate in the care of your patient. Please do not hesitate to call back for any questions or concerns. IC SEPARATOR OPERATOR documented in this encounter Procedure Notes * Document, Scanned - 06/03/2011 9:52 AM CSTAssociated Order(s): LAB RESULTS ORDER IC SEPARATOR OPERATOR documented in this encounter Miscellaneous Notes * Miscellaneous Scans - Document, Scanned - 06/26/2011 10:01 AM CST IC SEPARATOR OPERATOR documented in this encounter Plan of Treatment Scheduled Orders Name Type Priority Associated Diagnoses Orde r Schedule C-REACTIVE PROTEIN Lab Routine Vomiting Ordered: 05/28/2011 COMPREHENSIVE METABOLIC PANEL Lab Routine Vomiting Ordered: 05/28/2011 CBC W AUTO DIFFERENTIAL Lab Routine Vomiting Ordered: 05/28/2011 IGA BLOOD Lab Routine Vomiting Ordered: 05/28/2011 TISSUE TRANSGLUTAMINASE AB IGA Lab Routine Vomiting Ordered: 05/28/2011 HEPATITIS SCREEN ACUTE Lab Routine Vomiting Ordered: 05/28/2011 documented as of this encounter Procedures Procedure Name Priority Date/Time Associated Diagnosis Comments LAB RESULTS ORDER 06/03/2011 9:5 2 AM FABRIC SEPARATOR OPERATOR documented in this encounter Results * LAB RESULTS ORDER (06/03/2011 9:52 AM FABRIC SEPARATOR OPERATOR) Narrative Transcriptions Document, Scanned - 06/03/2011 9:52 AM CST Scanned Document LAB - THERAPEUTIC DR ELMORE MONITORING ORDERABLES documented in this encounter Visit Diagnoses Diagnosis Vomiting Vomiting alone Diarrhea Abdominal pain, generalized documented in this encounter Care Teams Sex Crimes Detective Relationship Specialty Start Date End Date Jailene Fajardo MD [address] [place] [address] PCP - General 04/06/11 06/21/11 documented as of this encounter
--- OUTSIDE RECORDS SUMMARY | 2024-06-14 05:21 | XMS_ITS | Encounter Summary ---
Author Organization [facility] Address [address] [place] [address] Care Team Providers Care Qm Nurse Name Role Phone Natalya Guzman NP Primary Care Provider [phone] Reason for Visit * Reason Comments Vomiting Diarrhea Encounter Details Date Type Department Care Team (Late st Contact Info) Description 06/27/2019 1:30 PM STAVE BLOCK SPLITTER [facility] [place] [facility] [id number] [place] [address] [address] [place] [address] [place]ul [place] [id number] [place] [address] [address] [place] [address] Diarrhea, unspecified type; Non-intractable vomiting with nausea, unspecified vomiting type; 22 weeks gestation of Social History Tobacco Use Types Packs/Day Years [...] on file Legal Sex Female 11:10 PM STAVE BLOCK SPLITTER Gender Identity Not on file Sexual Orientation Not on file documented as of this encounter Last Filed Vital Signs Vital Sign Reading Time Taken Comments Blood Pressure 116/64 06/27/2019 1:55 PM STAVE BLOCK SPLITTER Pulse 64 06/27/2019 1:55 PM STAVE BLOCK SPLITTER Temperature - - Respiratory Rate 12 06/27/2019 1:55 PM STAVE BLOCK SPLITTER Oxygen Saturation 99% 06/27/2019 1:55 PM STAVE BLOCK SPLITTER Inhaled Oxygen Concentration - - Weight 75.8 kg (167 lb 3.2 oz) 06/27/2019 1:55 P M STAVE BLOCK SPLITTER Height 160 cm (5' 3 ) 06/27/2019 1:55 PM STAVE BLOCK SPLITTER Body Mass Index 29.62 06/27/2019 1:55 PM STAVE BLOCK SPLITTER documented in this encounter Ordered Prescriptions Prescription Sig Dispense Quantity Refills Last Filled Start Date End Date cimetidine (TAGAMET) 400 mg tablet Take 1 tablet (400 mg total) by mouth 2 (two) times a day 60 tablet 06/27/2019 cholestyramine (QUESTRAN) 4 gram powder Take 1 packet (4 g total) by mouth 2 (two) times a day with meals Dissolve in 8 oz of liquid and drink before a meal 60 packet 06/27/2019 1 documented in this encounter Progress Notes * Raul Carlson MD - 06/27/2019 1:30 PM CST [facility] Subjective/Objective Patient ID: Liza Worthington is a 19 y.o. White female. I am seeing this patient in consultation, requested by Self Referral for vomiting, diarrhea. Chief Complaint Patient presents with ??? Vomiting ??? Diarrhea Assessment/Plan Diagnoses and all orders for this visit: Diarrhea, unspecified type Assessment & Plan: Chronic. The symptoms have been present since [...] present for the office visit. Non-intractable vomiting with nausea, unspecified vomiting type Assessment & Plan: Moderately severe. Recently aggravated because of patient's . She is currently 22 weeks and did havesignificant nausea vomiting in the 1st trimester warranting [...] 4-6 weeks after she delivers her baby. 22 weeks gestation of Other orders - cholestyramine (QUESTRAN) 4 gram powder; Take 1 packet (4 g total) by mouth 2 (two) times a day with meals Dissolve in 8 oz of liquid and drink before a meal - cimetidine (TAGAMET) 400 mg tablet; Take 1 tablet (400 mg total) by mouth 2 (two) times a day Advised high fiber low fat diet. Advised to avoid NSAIDS. Advised to avoid alcohol and smoking. Chief Complaint Vomiting and Diarrhea Vomiting This is a chronic problem. The current episode started more than 1 year ago. The problem occurs constantly. The problem has been rapidly worsening. Associated symptoms include a change in bowel habit, nausea and vomiting. Pertinent negatives include no abdominal pain, arthralgias, chest pain, chills, coughing, fatigue, fever, joint swelling, rash or sore throat. Exacerbated by: . Treatments tried: Zofran. The treatment provided mild relief. Diarrhea This is a chronic problem. The current episode started more than 1 year ago. The problem occurs constantly. The problem has been gradually worsening. Associated symptoms include a change in bowel habit, nausea and vomiting. Pertinent negatives include no abdominal pain, arthralgias, chest pain, chills, coughing, fatigue, fever, joint swelling, rash or sore throat. Exacerbated by: Cholecystectomy at the age of 10. She has tried nothing for the symptoms. The treatment provided no relief. Past Medical History: Diagnosis Date ??? Abdominal pain ??? Anxiety ??? Fatigue ??? Vomiting Past Surgical History: Procedure Laterality Date ??? CHOLECYSTECTOMY 2011 ??? TONSILECTOMY, ADENOIDECTOMY, BILATERAL MYRINGOTOMY AND TUBES 2005 Social History Tobacco Use ??? Smoking status: Never Smoker ??? Smokeless tobacco: Never Used Substance Use Topics ??? Alcohol use: Never Frequency: Never ??? Drug use: Never Family History Problem Relation Age of Onset ??? Heart attack Father No Known Allergies HOME MEDICATIONS : 28 mg iron- 800 mcg tablet cholestyramine (QUESTRAN) 4 gram powder cimetidine (TAGAMET) 400 mg tablet Review of Systems Constitutional: Negative for appetite change, chills, fatigue, fever and unexpected weight change. HENT: Negative for drooling, mouth sores, postnasal drip, sore throat, trouble swallowing and voicechange. Eyes: Negative for redness. Respiratory: Negative for cough and wheezing. Cardiovascular: Negative for chest pain. Gastrointestinal: Positive for change in bowel habit, diarrhea, nausea and vomiting. Negative for abdominal distention, abdominal pain, anal bleeding, blood in stool, constipation and [...] Negative for hallucinations, self-injury and suicidal ideas. Blood pressure 116/64, pulse 64, resp. rate 12, height 160 cm (5' 3 ), weight 75.8 kg (167 lb 3.2 oz), SpO2 99 %. Body mass index is 29.62 kg/m??. Physical Exam Constitutional: Appearance: She is well-developed. HENT: Head: Normocephalic. Eyes: Conjunctiva/sclera: Conjunctivae normal. Pupils: Pupils are equal, round, and reactive to light. Neck: Musculoskeletal: Normal range of motion. Cardiovascular: Rate and Rhythm: Normal rate. Heart sounds: Normal heart sounds. Pulmonary: Effort: Pulmonary effort is normal. Breath sounds: Normal breath sounds. Abdominal: General: Bowel sounds are normal. Palpations: Abdomen is soft. Comments: 22 week Musculoskeletal: Normal range of motion. Skin: General: Skin is warm. Neurological: Mental Status: She is oriented to person, place, and time. Psychiatric: Thought Content: Thought content normal. LABS No results found for: ALT, AST, GGT, ALKPHOS, BILITOT No results found for: AMYLASE No results found for: WBC, HGB, HCT, MCV, PLT Chemistry No results found for: SODIUM, POTASSIUM, CHLORIDE, CO2, BUNSER, CREATININE, GLUCOSE No results found for: CALCIUM, ALKPHOS, AST, ALT, BILITOT Imaging/Studies No recent imaging or endoscopic studies for review. Raul Carlson MD E BLOCK SPLITTER documented in this encounter Miscellaneous Notes * Assessment & Plan Note - Raul Carlson MD - 06/27/2019 7:51 PM STAVE BLOCK SPLITTER Associated Problem(s): Diarrhea Chronic. The symptoms have been present since [...] who was present for the office visit. E BLOCK SPLITTER E BLOCK SPLITTER * Assessment & Plan Note - Raul Carlson MD - 06/27/2019 7:46 PM STAVE BLOCK SPLITTER Associated Problem(s): Non-intractable vomiting Moderately severe. Recently aggravated because of patient's . She is currently 22 weeks and did havesignificant nausea vomiting in the 1st trimester warranting [...] 4-6 weeks after she delivers her baby. E BLOCK SPLITTER documented in this encounter Plan of Treatment Not on file documented as of this encounter Visit Diagnoses Diagnosis Diarrhea, unspecified type Non-intractable vomiting with nausea, unspecified vomiting type 22 weeks gestation of documented in this encounter Historical Medications * This list may reflect changes made after this encounter. Medication Sig Dispense Quantity Refills Last Filled Start D ate End Date 28 mg iron- 800 mcg tablet 06/03/2019 added in this encounter Care Teams Qm Nurse Relationship Specialty Start Date End Date Natalya Guzman NP PCP - General Nurse Practitioner 06/05/19 documented as of this encounter
--- OUTSIDE RECORDS SUMMARY | 2024-06-14 05:21 | XMS_ITS | Encounter Summary ---
Author Organization [facility] Care Team Providers Care Home Care Coordinator Name Role Phone Natalya Guzman STABLE CLEANER Primary Care Provider [phone] Encounter Details Date Type Department Care Team (Latest Contact Info) Description 06/27/2019 Travel Social History Tobacco Use Types Packs/Day Years [...] on file Legal Sex Female 11:10 PM TOXICS PROGRAM OFFICER Gender Identity Not on file Sexual Orientation Not on file documented as of this encounter Plan of Treatment Not on file documented as of this encounter Visit Diagnoses Not on filedocumented in this encounter Care Teams Home Care Coordinator Relationship Specialty Start Date End Date Natalya Guzman NP PCP - General Nurse Practitioner 06/05/19 documented as of this encounter
--- OUTSIDE RECORDS SUMMARY | 2024-06-14 05:21 | XMS_ITS | Encounter Summary ---
Author Organization [facility] Address [address] [place] [address] Care Team Providers Care Technical Support Director Name Role Phone Jailene Fajardo MD Primary Care Provider [phone] Abilio Vela MD Primary Care Provider [phone] Jailene Fajardo MD Primary Care Provider [phone] Reason for Visit * Reason Onset Date Comments Hospital Follow-up 05/27/2011 Encounter Details Date Type Department Care Team (Late st Contact Info) Description 05/27/2011 Telephone ER at [address] [address] Luz Tom, RN Hospital Follow-up Social History Tobacco Use Types Packs/Day Years Used Date Smoking Tobacco: Never Assessed Sex and Gender Information Value Date Recorded Sex Assigned at Not on file Gender Identity Not on file Sexual Orientation Not on file documented as of this encounter Miscellaneous Notes * Telephone Encounter - Luz Tom RN - 05/27/2011 2:12 PM CST LM on for return call to follow up at [phone] PACKER documented in this encounter Plan of Treatment Not on file documented as of this encounter Visit Diagnoses Not on filedocumented in this encounter Care Teams Technical Support Director Relationship Specialty Start Date End Date Jailene Fajardo MD [address] [address] PCP - General 04/06/11 06/21/11 Abilio Veal MD [address] [place] [id number] PCP - General 06/22/11 06/24/11 Jailene Fajardo MD [address] [address] PCP - General 06/25/11 documented as of this encounter
--- OUTSIDE RECORDS SUMMARY | 2024-06-14 05:22 | XMS_ITS | Continuity of Care Document ---
Author Organization [facility] Address [address] [place] [address] Phone Care Team Providers Care Air Cargo Agent Name Role Phone Geller OD, Woodrow Unavailable Unavailable Procedures Procedure Date Eye Exam, New Patient Refraction Advance Directives Directive Yes / No Effective Date File Name No Information Encounters Encounter Description Practice Location Reason(s) For Visit Diagnoses Date Provider Providers Copied on Encounter [facility], [address], [place], [place], [id number], [place] tel:[phone] [facility] No Information 2-201 0 Geller OD Woodrow. [address], [place], [address], [place]. tel:[phone] Family History Family Member Type Diagnosis Age At Onset No Information Payers Payer name Insurance type Covered green party ID Authoriza tibryon(s) Medicaid [facility] [id number] Social History Type Description Quantity Date Captured Comments Sex Female Smoking Status No Information Chief Complaint And Reason For Visit No Information Reason For Referral Reason For Referral No Information History Of Present Illness Encounter Date Complaint History Of Prese nt Illness No Information Functional Status Date Functional Assessmen t No Information Instructions Date Instruction Additional Infor mation No Information Assessments Type Assessment Date No Information Patient Care Teams Name Effective Dates (start - stop) Status Members No Information
--- OUTSIDE RECORDS SUMMARY | 2024-06-14 05:28 | XMS_ITS | Continuity of Care Document ---
Author Organization [facility] Address [address] [place] [address] Phone Care Team Providers Care Premium Representative Name Role Phone Geller OD, Woodrow Unavailable Unavailable Procedures Procedure Date Eye Exam, New Patient Refraction Advance Directives Directive Yes / No Effective Date File Name No Information Encounters Encounter Description Practice Location Reason(s) For Visit Diagnoses Date Provider Providers Copied on Encounter [facility], [address], [place], [place], [id number], [place] tel:[phone] [facility] No Information 2-201 0 Geller OD Woodrow. [address], [place], [address], [place]. tel:[phone] Family History Family Member Type Diagnosis Age At Onset No Information Payers Payer name Insurance type Covered libertarian ID Authoriza tibryon(s) Medicaid [facility] [id number] Social History Type Description Quantity Date Captured [...]
== END 2024-06-07 13:09 | disposition home or self-care (01) ==
PROVIDERS: Emergency Provider Physician Assistant; PCP Nurse Practitioner Adult Health
DX: B34.9 Viral infection, unspecified (principal); Z20.822 Contact with and (suspected) exposure to COVID-19
CPT/HCPCS: 87637; 87651; 96361; 96372; 96374; 96375; 99284; A9270; J1200; J1885; J2765; J7030

== ENCOUNTER 2025-03-14 10:00 | Outpatient (CLI) | payer OTHER, SELFPAY ==
[2025-03-14 19:31] LABS: Hematocrit 41.5 % (37.0-47.0); Hemoglobin 13.2 g/dL (12.0-15.0); Mean Corpuscular HGB Conc 31.8 g/dl (32-36); Mean Corpuscular Hemoglobin 28.5 pg (26-34); Mean Corpuscular Volume 89.6 fl (80-100); Platelet Count Result 327 k/mm3 (150-375); Red Blood Count 4.63 M/mm3 (4.2-5.4); White Blood Count 8.8 K/mm3 (4.5-10.0)
[2025-03-14 19:51] LABS: Alanine Aminotransferase 15 U/L (6-35); Albumin Level 4.6 g/dL (3.5-5.1); Alkaline Phosphatase 75 U/L (38-126); Anion Gap 10 mmol/L (4-12); Aspartate Amino Transferase 61 U/L (14-36); Bilirubin,Total 0.4 mg/dL (0.2-1.3); Blood Urea Nitrogen 13 mg/dL (7-17); Calcium 8.8 mg/dL (8.4-10.2); Carbon Dioxide 23 mmol/L (22-30); Chloride 101 mmol/L (98-107); Cholesterol 149 mg/dL (0-200); Estimated Glomerular Filt Rate > 60; Glucose 86 mg/dL (65-110); HDL Direct 63 mg/dL; Potassium 4.2 mmol/L (3.4-5.0); Sodium 134 mmol/L (137-145); Total Protein 7.8 g/dL (6.3-8.2); Triglycerides 104 mg/dL (<150)
[2025-03-14 20:05] LABS: Free T4 Free Thyroxine 0.91 ng/dL (0.78-2.19)
[2025-03-14 20:16] LABS: Hemoglobin A1C 5.2 % (<5.7)
[2025-03-14 20:27] LABS: Thyroid Stimulating Hormone 1.880 uIU/mL (0.465-4.680)
== END 2025-03-14 10:01 | disposition home or self-care (01) ==
LOC: ANHBWCLAB 10:01
PROVIDERS: PCP Nurse Practitioner Adult Health; Visit Provider Nurse Practitioner Adult Health
DX: Z13.9 Encounter for screening, unspecified (principal); R63.5 Abnormal weight gain
CPT/HCPCS: 36415; 80053; 80061; 83036; 84439; 84443; 85027; 86376